=== PATIENT | female | born 1965 | race Caucasian/White ===

== ENCOUNTER 2018-06-10 09:01 | Emergency (ER) | payer OTHER, SELFPAY ==
[2018-06-10 09:06] VITALS: BP 150/102; PULSE 114; RESP 16; TEMP 36.6; O2SAT 98
--- NOTE | 2018-06-10 09:39 | W.ED.GENAD ---
Discharge Plan Disposition Patient Disposition: HOME Discharge Details Chief Complaint: Orthopedic Clinical Impression: Right wrist sprain Primary Care Provider: Kwame Romero ED Provider: Bashir Mendoza Home Meds and New Rx's Prescriptions: No Action ibuprofen 600 MG tablet 600 mg PO TID RF: 0 Discharge Instructions Instructions: Wrist Sprain (ED) Additional Instructions: Please use wrist splint for the next 1 week. If pain persist continue to use the splint and follow-up with your primary care physician or an nutrition specialist. Please take Tylenol or ibuprofen for pain. Dose according to label. Please contact your primary care physician to arrange follow-up. Return to the ER for any worsening or new concerning symptoms. Stand Alone Forms: Work Release Referrals: Kwame Romero MD [Primary Care Provider] - Discharge Data Discharge Date/Time-TO BE ENTERED AT DEPARTURE: 06/10/18 11:15 Medical Decision Making 53-year-old female presents with right wrist pain after slip and fall and hyperextension injury just prior to arrival. Neurovascular intact distally. Tender to palpation posterior wrist. No scaphoid tenderness. X-ray of the wrist reviewed and interpreted by radiology: Negative for fracture dislocation. Offered Tylenol and Motrin and patient declined. Plan to apply wrist splint and have patient follow-up with her primary care physician or occupational health as needed. HPI General Mode of arrival: ambulatory. Date/Time Provider Initiated Documentation: 06/10/18 09:38. Limitations to Documentation: no limitations. Information obtained by: patient. HPI Narrative: 53-year-old female presents with right wrist pain after slip and fall and hyperextension injury just prior to arrival. Pain is moderate. Worse with flexion of wrist. No assoc numbness. No other injury. Related Data Home Medications Medication Instructions Recorded Confirmed ibuprofen 600 mg PO TID 12/23/13 06/10/18 Allergies Allergy/AdvReac Type Severity Reaction Status Date / Time codeine AdvReac Nausea Unverified 06/10/18 09:08 General Stated Complaint: Orthopedic RODO: 4 Review of Systems Musculoskeletal Reports as per HPI Neurologic Reports as per HPI [facility] Social History Smoking/Tobacco Use Status: Current every day Social History Smoking/Tobacco Use Status: Current every day Exam Const General: cooperative and no acute distress HENMT Head: normocephalic and atraumatic Mouth: moist mucous membranes Cardio Rate: regular rate and not tachycardic Rhythm: regular rhythm Neuro General: alert, awake, oriented x3 and tone normal Extrem General: no edema Right upper extremity: elbow/forearm Details: normal to inspection, wrist Details: tenderness Location: of the distal radius, abnormal ROM (pain with flexion) and radial pulse present; no lacerations, no crepitus and no deformity and hand Details: normal to inspection Course Vital Signs Temperature 36.6 C 06/10/18 09:06 Pulse 114 H 06/10/18 09:06 Respiratory Rate 16 06/10/18 09:06 Blood Pressure 150/102 H 06/10/18 09:06 Pulse Oximetry 98 06/10/18 09:06 Temperature 36.6 C 06/10/18 09:06 Temperature Source Temporal Artery Scan 06/10/18 09:06 Pulse 114 H 06/10/18 09:06 Respiratory Rate 16 06/10/18 09:06 Respiratory Effort 06/10/18 09:08 Blood Pressure 150/102 H 06/10/18 09:06 Blood Pressure Position Sitting 06/10/18 09:06 Pulse Oximetry 98 06/10/18 09:06 Oxygen Delivery Method Room Air 06/10/18 09:06 Oxygen Flow Rate 0 06/10/18 09:06 Pain Level 5 06/10/18 09:11
--- NOTE | 2018-06-10 09:45 | DI.RAD_ITS ---
SYMPTOM/DIAGNOSIS: FALL 1 HOUR AGO, HYPEREXTENSION, TTP DORSAL WRIST RIGHT WRIST: No fracture or dislocation is seen. IMPRESSION: Negative right wrist.
--- NOTE | 2018-06-10 10:50 | ED.GENADUL_ITS ---
Discharge Plan Disposition Patient Disposition: HOME Discharge Details Chief Complaint: Orthopedic Clinical Impression: Right wrist sprain Primary Care Provider: Kwame Romero ED Provider: Bashir Mendoza Home Meds and New Rx's Prescriptions: No Action ibuprofen 600 MG tablet 600 mg PO TID RF: 0 Discharge Instructions Instructions: Wrist Sprain (ED) Additional Instructions: Please use wrist splint for the next 1 week. If pain persist continue to use the splint and follow-up with your primary care physician or an technology integration specialist. Please take Tylenol or ibuprofen for pain. Dose according to label. Please contact your primary care physician to arrange follow-up. Return to the ER for any worsening or new concerning symptoms. Stand Alone Forms: Work Release Referrals: Kwame Romero MD [Primary Care Provider] - Discharge Data Discharge Date/Time-TO BE ENTERED AT DEPARTURE: 06/10/18 11:15 Medical Decision Making 53-year-old female presents with right wrist pain after slip and fall and hyperextension injury just prior to arrival. Neurovascular intact distally. Tender to palpation posterior wrist. No scaphoid tenderness. X-ray of the wrist reviewed and interpreted by radiology: Negative for fracture dislocation. Offered Tylenol and Motrin and patient declined. Plan to apply wrist splint and have patient follow-up with her primary care physician or occupational health as needed. HPI General Mode of arrival: ambulatory . Date/Time Provider Initiated Documentation: 06/10/18 09:38 . Limitations to Documentation: no limitations . Information obtained by: patient . HPI Narrative: 53-year-old female presents with right wrist pain after slip and fall and hyperextension injury just prior to arrival. Pain is moderate. Worse with flexion of wrist. No assoc numbness. No other injury. Related Data Home Medications Medication Instructions Recorded Confirmed ibuprofen 600 mg PO TID 12/23/13 06/10/18 Allergies Allergy/AdvReac Type Severity Reaction Status Date / Time codeine AdvReac Nausea Unverified 06/10/18 09:08 General Stated Complaint: Orthopedic RODO: 4 Review of Systems Musculoskeletal Reports as per HPI Neurologic Reports as per HPI [facility] Social History Smoking/Tobacco Use Status: Current every day Social History Smoking/Tobacco Use Status: Current every day Exam Const General: cooperative and no acute distress HENMT Head: normocephalic and atraumatic Mouth: moist mucous membranes Cardio Rate: regular rate and not tachycardic Rhythm: regular rhythm Neuro General: alert, awake, oriented x3 and tone normal Extrem General: no edema Right upper extremity: elbow/forearm Details: normal to inspection, wrist Details: tenderness Location: of the distal radius, abnormal ROM (pain with flexion) and radial pulse present; no lacerations, no crepitus and no deformity and hand Details: normal to inspection Course Vital Signs Temperature 36.6 C 06/10/18 09:06 Pulse 114 H 06/10/18 09:06 Respiratory Rate 16 06/10/18 09:06 Blood Pressure 150/102 H 06/10/18 09:06 Pulse Oximetry 98 06/10/18 09:06 Temperature 36.6 C 06/10/18 09:06 Temperature Source Temporal Artery Scan 06/10/18 09:06 Pulse 114 H 06/10/18 09:06 Respiratory Rate 16 06/10/18 09:06 Respiratory Effort 06/10/18 09:08 Blood Pressure 150/102 H 06/10/18 09:06 Blood Pressure Position Sitting 06/10/18 09:06 Pulse Oximetry 98 06/10/18 09:06 Oxygen Delivery Method Room Air 06/10/18 09:06 Oxygen Flow Rate 0 06/10/18 09:06 Pain Level 5 06/10/18 09:11
[2018-06-10 11:21] VITALS: BP 160/100; PULSE 98; RESP 14; O2SAT 98
== END 2018-06-10 11:15 | disposition home or self-care (01) ==
PROVIDERS: Emergency Provider Student in an Organized Health Care Education/Training Program; PCP General Practice
DX: S63.501A Unspecified sprain of right wrist, initial encounter (principal); W01.0XXA Fall on same level from slipping, tripping and stumbling without subsequent striking against object, initial encounter
CPT/HCPCS: 29125; 99283; 73110; 99282; L3908

== ENCOUNTER 2018-07-23 05:11 | Emergency (ER) | payer OTHER, SELFPAY ==
[2018-07-23 05:14] VITALS: BP 128/98; PULSE 96; RESP 20; TEMP 36.6; O2SAT 94
--- NOTE | 2018-07-23 05:26 | W.ED.GENAD ---
Discharge Plan Disposition Patient Disposition: HOME Condition: Good Discharge Details Chief Complaint: SOB Clinical Impression: Viral respiratory illness, RAD (reactive airway disease) Primary Care Provider: Kwame Romero ED Provider: Liam Yuen Home Meds and New Rx's Prescriptions: New albuterol sulfate 90 mcg/actuation HFA aerosol inhaler 2 puff IH Q4H PRN (Reason: shortness of breath or wheezing) Qty: 8 RF: 0 Continued ibuprofen 600 MG tablet 600 mg PO TID RF: 0 Discharge Instructions Instructions: Reactive Airways Disease (ED), Viral Syndrome (ED) Additional Instructions: Rest for the next few days. Push fluids to stay hydrated. Use the inhaler every 4-6 hours for cough, wheezing, shortness of breath. Follow-up with primary care this week if not better. Return to ED for increasing shortness of breath, confusion, chest pain, other concerns per Stand Alone Forms: Work Release Referrals: Kwame Romero MD [Primary Care Provider] - Medical Decision Making I think this is probably related to her viral illness and smoking. She is diminished with some wheezing. She is given an albuterol neb. With this her shortness of breath and burning in her chest resolved. She had much better air movement and actually a little bit louder wheezing. Still feels a little lightheaded and dizzy. Repeat saturations on room air after neb 96%. Little more tacky with a neb. Feels better. I am not going to start steroids. I am going to give her a couple days off from work to continue to rest and drink fluids. She will receive an inhaler with spacer to use every 4-6 hours. Follow-up with primary care end of the week if not doing better. Return to ED if worse. HPI General Mode of arrival: ambulatory. Date/Time Provider Initiated Documentation: 07/23/18 05:13. Limitations to Documentation: no limitations. Information obtained by: patient. HPI Narrative: Patient presents to ED with complaint of cough and shortness of breath. Over the weekend she was ill with body aches, headache, sweats and chills. She had a cough but did not really feel short of breath. Never developed congestion or runny nose. She does smoke. She did go to work yesterday and did okay. Today while trying to go to work she developed shortness of breath and burning in her lungs when she tried to take a deep breath. She had some increased cough. She presents now for evaluation. She denies having chest pain. She just has burning when she takes a deep breath. Sweats and chills have gone away. The headache is gone away. Related Data Home Medications Medication Instructions Recorded Confirmed ibuprofen 600 mg PO TID 12/23/13 07/23/18 albuterol sulfate 2 puff IH Q4H PRN #8 gm 07/23/18 Previous Rx's Medication Instructions Recorded albuterol sulfate 2 puff IH Q4H PRN #8 gm 07/23/18 Allergies Allergy/AdvReac Type Severity Reaction Status Date / Time codeine AdvReac Nausea Unverified 07/23/18 05:17 General Stated Complaint: SOB RODO: 3 Review of Systems Constitutional Reports body ache(s), Reports chills, Reports excessive sweating, Reports fatigue, Denies fever(s), Reports headache(s), Reports malaise and Denies weakness Eyes Denies eye discharge ENT Denies otalgia, Reports headache(s), Denies nasal congestion, Denies nasal discharge, Denies neck pain, Denies sinus pain, Denies sinus pressure and Denies sore throat Cardiovascular Denies chest pain, Denies syncope, Reports lightheadedness, Denies radiating jaw, neck or arm pain and Reports dyspnea Respiratory Denies chest congestion, Reports cough and Reports dyspnea Gastrointestinal Denies abdominal pain, Denies diarrhea, Denies nausea and Denies vomiting Musculoskeletal Denies back pain, Denies neck pain and Denies numbness Integumentary/Breasts Denies rash Neurologic Denies confusion, Denies syncope, Reports headache(s), Denies numbness and Denies weakness Psychiatric Denies confusion Endocrine Reports excessive sweating and Reports fatigue [facility] Surgical History H/O: hysterectomy (Inactive) Social History Smoking/Tobacco Use Status: Current every day Exam Const General: cooperative, comfortable and no acute distress Orientation: oriented x3 HENMT Head: normocephalic and atraumatic Ears: external ears normal and TM's normal bilaterally General nose exam: no nasal discharge Mouth: oropharynx normal and moist mucous membranes Throat: posterior oropharynx normal Eyes Conjunctivae: conjunctivae normal Neck Neck: trachea midline and supple Resp Effort & Inspection: normal respiratory effort Auscultation: no crackles, diminished lung sounds (somewhat decreased throughout), no rales, no rhonchi and wheezes expiratory wheezes (faint) Cardio Rate: regular rate Rhythm: regular rhythm Heart Sounds: S1 normal and S2 normal Skin General skin exam: no rashes or lesions noted Neuro General: alert, oriented x3, gait normal, no focal motor deficits and CN's II-XI intact bilaterally Extrem General: normal to inspection and full ROM Course Vital Signs Temperature 97.9 F 07/23/18 05:14 Pulse 96 H 07/23/18 05:14 Respiratory Rate 20 07/23/18 05:14 Blood Pressure 128/98 H 07/23/18 05:14 Pulse Oximetry 94 L 07/23/18 05:14 Temperature 97.9 F 07/23/18 05:14 Temperature Source Skin 07/23/18 05:14 Pulse 96 H 07/23/18 05:14 Respiratory Rate 20 07/23/18 05:14 Blood Pressure 128/98 H 07/23/18 05:14 Blood Pressure Position Sitting 07/23/18 05:14 Pulse Oximetry 94 L 07/23/18 05:14 Oxygen Delivery Method Room Air 07/23/18 05:14 Oxygen Flow Rate 0 07/23/18 05:14 Pain Level 4 07/23/18 05:14
[2018-07-23 05:29] VITALS: RESP 4
[2018-07-23] MEDS: Albuterol 2.5 MG/3 ML INH SOLN VIAL UPD (05:29)
--- NOTE | 2018-07-23 05:34 | ED.GENADUL_ITS ---
Discharge Plan Disposition Patient Disposition: HOME Condition: Good Discharge Details Chief Complaint: SOB Clinical Impression: Viral respiratory illness, RAD (reactive airway disease) Primary Care Provider: Kwame Romero ED Provider: Liam Yuen Home Meds and New Rx's Prescriptions: New albuterol sulfate 90 mcg/actuation HFA aerosol inhaler 2 puff IH Q4H PRN (Reason: shortness of breath or wheezing) Qty: 8 RF: 0 Continued ibuprofen 600 MG tablet 600 mg PO TID RF: 0 Discharge Instructions Instructions: Reactive Airways Disease (ED), Viral Syndrome (ED) Additional Instructions: Rest for the next few days. Push fluids to stay hydrated. Use the inhaler every 4-6 hours for cough, wheezing, shortness of breath. Follow-up with primary care this week if not better. Return to ED for increasing shortness of breath, confusion, chest pain, other concerns per Stand Alone Forms: Work Release Referrals: Kwame Romero MD [Primary Care Provider] - Medical Decision Making I think this is probably related to her viral illness and smoking. She is diminished with some wheezing. She is given an albuterol neb. With this her shortness of breath and burning in her chest resolved. She had much better air movement and actually a little bit louder wheezing. Still feels a little lightheaded and dizzy. Repeat saturations on room air after neb 96%. Little more tacky with a neb. Feels better. I am not going to start steroids. I am going to give her a couple days off from work to continue to rest and drink fluids. She will receive an inhaler with spacer to use every 4-6 hours. Follow-up with primary care end of the week if not doing better. Return to ED if worse. HPI General Mode of arrival: ambulatory . Date/Time Provider Initiated Documentation: 07/23/18 05:13 . Limitations to Documentation: no limitations . Information obtained by: patient . HPI Narrative: Patient presents to ED with complaint of cough and shortness of breath. Over the weekend she was ill with body aches, headache, sweats and chills. She had a cough but did not really feel short of breath. Never developed congestion or runny nose. She does smoke. She did go to work yesterday and did okay. Today while trying to go to work she developed shortness of breath and burning in her lungs when she tried to take a deep breath. She had some increased cough. She presents now for evaluation. She denies having chest pain. She just has burning when she takes a deep breath. Sweats and chills have gone away. The headache is gone away. Related Data Home Medications Medication Instructions Recorded Confirmed ibuprofen 600 mg PO TID 12/23/13 07/23/18 albuterol sulfate 2 puff IH Q4H PRN #8 gm 07/23/18 Previous Rx's Medication Instructions Recorded albuterol sulfate 2 puff IH Q4H PRN #8 gm 07/23/18 Allergies Allergy/AdvReac Type Severity Reaction Status Date / Time codeine AdvReac Nausea Unverified 07/23/18 05:17 General Stated Complaint: SOB RODO: 3 Review of Systems Constitutional Reports body ache(s), Reports chills, Reports excessive sweating, Reports fatigu e, Denies fever(s), Reports headache(s), Reports malaise and Denies weakness Eyes Denies eye discharge ENT Denies otalgia, Reports headache(s), Denies nasal congestion, Denies nasal discharge, Denies neck pain, Denies sinus pain, Denies sinus pressure and Denies sore throat Cardiovascular Denies chest pain, Denies syncope, Reports lightheadedness, Denies radiating jaw, neck or arm pain and Reports dyspnea Respiratory Denies chest congestion, Reports cough and Reports dyspnea Gastrointestinal Denies abdominal pain, Denies diarrhea, Denies nausea and Denies vomiting Musculoskeletal Denies back pain, Denies neck pain and Denies numbness Integumentary/Breasts Denies rash Neurologic Denies confusion, Denies syncope, Reports headache(s), Denies numbness and Denies weakness Psychiatric Denies confusion Endocrine Reports excessive sweating and Reports fatigue [facility] Surgical History H/O: hysterectomy (Inactive) Social History Smoking/Tobacco Use Status: Current every day Exam Const General: cooperative, comfortable and no acute distress Orientation: oriented x3 HENMT Head: normocephalic and atraumatic Ears: external ears normal and TM's normal bilaterally General nose exam: no nasal discharge Mouth: oropharynx normal and moist mucous membranes Throat: posterior oropharynx normal Eyes Conjunctivae: conjunctivae normal Neck Neck: trachea midline and supple Resp Effort & Inspection: normal respiratory effort Auscultation: no crackles, diminished lung sounds (somewhat decreased throughout), no rales, no rhonchi and wheezes expiratory wheezes (faint) Cardio Rate: regular rate Rhythm: regular rhythm Heart Sounds: S1 normal and S2 normal Skin General skin exam: no rashes or lesions noted Neuro General: alert, oriented x3, gait normal, no focal motor deficits and CN's II-XI intact bilaterally Extrem General: normal to inspection and full ROM Course Vital Signs Temperature 97.9 F 07/23/18 05:14 Pulse 96 H 07/23/18 05:14 Respiratory Rate 20 07/23/18 05:14 Blood Pressure 128/98 H 07/23/18 05:14 Pulse Oximetry 94 L 07/23/18 05:14 Temperature 97.9 F 07/23/18 05:14 Temperature Source Skin 07/23/18 05:14 Pulse 96 H 07/23/18 05:14 Respiratory Rate 20 07/23/18 05:14 Blood Pressure 128/98 H 07/23/18 05:14 Blood Pressure Position Sitting 07/23/18 05:14 Pulse Oximetry 94 L 07/23/18 05:14 Oxygen Delivery Method Room Air 07/23/18 05:14 Oxygen Flow Rate 0 07/23/18 05:14 Pain Level 4 07/23/18 05:14
[2018-07-23 05:45] VITALS: RESP 20
[2018-07-23 05:46] VITALS: BP 131/85; PULSE 107; RESP 20; O2SAT 96
[2018-07-23] MEDS: Albuterol HFA 8 GM 60 PUFF INH IH (06:11)
[2018-07-23] MEDS: Inhaler, Assist Device 1 EACH MC (06:11)
== END 2018-07-23 06:12 | disposition home or self-care (01) ==
LOC: ER 06:11
PROVIDERS: Emergency Provider Emergency Medicine; PCP General Practice
DX: J44.0 Chronic obstructive pulmonary disease with (acute) lower respiratory infection (principal); J06.9 Acute upper respiratory infection, unspecified; J45.909 Unspecified asthma, uncomplicated; F17.210 Nicotine dependence, cigarettes, uncomplicated
CPT/HCPCS: 94640; 99283; J7613

== ENCOUNTER 2019-11-24 19:01 | Outpatient (REF) | payer SELFPAY ==
[2019-11-24 20:23] LABS: Calculated LDL 112 mg/dL (<100); Cholesterol 187 mg/dL (<200); HDL Cholesterol 60 mg/dL (40-60); Triglyceride 75 mg/dL (<150)
[2019-11-24 20:34] LABS: Hemoglobin A1C 5.7 % (3.8-5.6)
== END 2019-11-24 19:21 ==
LOC: NCHCN 19:01
PROVIDERS: PCP Nurse Practitioner; Visit Provider Nurse Practitioner
DX: Z13.1 Encounter for screening for diabetes mellitus (principal); Z13.6 Encounter for screening for cardiovascular disorders
CPT/HCPCS: 80061; 83036

== ENCOUNTER 2022-03-16 19:40 | Outpatient (REF) | payer SELFPAY ==
[2022-03-17 13:38] LABS: Abs Immature Grans 0.04 10^3/uL (0.0-0.06); Absolute Basophil Count 0.08 10^3/uL (0.0-0.2); Absolute Eosinophil Count 0.35 10^3/uL (0.0-0.7); Absolute Lymphocyte Count 3.27 10^3/uL (1.2-3.4); Absolute Monocyte Count 1.07 10^3/uL (0.1-0.8); Absolute Neutrophil Count 5.66 10^3/uL (1.2-6.7); Basophils % 0.8; Eosinophils % 3.3; HCT 44.1 % (36.0-46.0); HGB 13.8 g/dL (11.2-15.7); Immature Grans % 0.4; Lymphocytes % 31.2; MCH 29.7 pg (27.0-33.0); MCHC 31.3 % (32.0-36.0); MCV 95 fL (80-95); MPV 10.8 fL (8.0-11.0); Monocytes % 10.2; Neutrophils % 54.1; Platelet Count 237 10^3/uL (130-400); RBC 4.65 10^6/uL (3.93-5.22); RDW 12.9 % (11.7-14.6); RDW-SD 44.8 fL; WBC 10.47 10^3/uL (4.4-10.8)
[2022-03-17 13:43] LABS: Anion Gap 6.3 mmol/L (3-11); BUN 25 mg/dL (7-18); CO2 30.7 mmol/L (21.0-32.0); CREATININE 1.1 mg/dL (0.55-1.02); Chloride 103 mmol/L (98-107); Estimated GFR 59.34 (mL/min/1.73m2); Glucose 107 mg/dL (74-106); Potassium 4.7 mmol/L (3.5-5.1); Sodium 140 mmol/L (136-145)
[2022-03-17 13:49] LABS: Calcium 9.5 mg/dL (8.5-10.1)
[2022-03-17 13:52] LABS: Hemoglobin A1C 5.9 % (<5.7)
== END 2022-03-16 19:41 | disposition home or self-care (01) ==
LOC: NCHCN 19:40
PROVIDERS: PCP Nurse Practitioner; Visit Provider Nurse Practitioner Family
DX: R73.03 Prediabetes (principal); R63.4 Abnormal weight loss; I10 Essential (primary) hypertension
CPT/HCPCS: 80048; 83036; 85025

== ENCOUNTER 2023-04-02 20:45 | Emergency (ER) | payer OTHER, SELFPAY ==
--- NOTE | 2023-04-02 20:47 | ED.GENADUL_ITS ---
Discharge Plan Disposition Patient Disposition: Home Discharge Details Clinical Impression: Nasal contusion, Hx of falling Primary Care Provider: Maegan Ness ED Provider: Aquilino Wallace Home Meds and New Rx's Prescriptions: Continued ascorbic acid (vitamin C) 500 mg capsule 500 mg PO DAILY varenicline [Chantix Starting Month Box] 0.5 mg (11)- 1 mg (42) tablets,dose pack See Rx Instructions PO DIRECTED Qty: 53 0RF Rx Instructions: Take 0.5mg daily days 1 to 3, 0.5mg twice a day days 4-7, then 1mg twice a day for 11wks amlodipine 5 mg tablet 5 mg PO DAILY Qty: 90 3RF lisinopril 40 mg tablet 40 mg PO DAILY Qty: 90 3RF ibuprofen 600 MG tablet 600 mg PO TID Discharge Instructions Additional Instructions: Please read all of the information that accompanies these instructions. You were seen in the emergency department for your fall. You have a bruise on your nose and likely have a fracture. You were offered a CAT scan but declined. If you have difficulty breathing or develop any nasal bleeding that does not stop please return to the emergency department. The ear nose and throat team will call you for follow-up later this week. For your pain please take medications as follows: 1. Take acetaminophen (Tylenol), 1,000 mg (two 500 mg tabs) every 6 hours 2. Take ibuprofen (Advil), 400 mg every 6 hours. Medical Decision Making HPI This is a 57-year-old female arriving to the emergency department with her daughter after falling down some stairs. Patient reports that she was pulled down the stairs approximately 1 hour ago by her dog. She is not anticoagulated. She landed on her face and has pain in her forehead and her nose. She has not taken anything for analgesia at home. She denies nausea vomiting blurry vision but she does have a headache. She did not lose consciousness. She has been ambulatory since her fall. She denies chest pain abdominal pain. She feels that her teeth are aligned. She denies pain in any of her extremities. Exam General: Well-appearing in no acute distress speaking in complete sentences. Head: Normocephalic. Atraumatic. Eye: Pupils equal, round reactive to light. Extraocular eye movements intact. No conjunctival injection. No scleral icterus. Ear, nose, mouth, throat: Normal voice, handling secretions normally. No hemotympanum bilaterally. No septal hematoma. Patient does have ecchymosis to the bridge of her nose with left-sided nasal deviation. No epistaxis. No signs of intraoral trauma. Patient is able to hold a tongue depressor in between her teeth on both sides and does not let me remove it. Neck: Trachea midline. No midline cervical spinal tenderness. Cardiovascular: Well-perfused distal extremities. Regular rate and rhythm. Respiratory: Nonlabored respiration. Clear lungs bilaterally. Gastrointestinal: Nondistended abdomen. Soft nontender. Musculoskeletal: No edema. Moving all 4 extremities spontaneously. No tenderness to bilateral upper and lower extremities. Skin: Normal for age and race, grossly normal temperature and turgor. No acute rash. Neurologic: Alert and appropriate, no apparent acute deficits. GCS 15. Psychiatric: Mood and manner are appropriate. Grooming and personal hygiene are appropriate. MDM Primary survey intact. Reassuring shock index. On secondary survey patient has nasal bridge swelling with ecchymosis concerning for fracture. No hemotympanum bilaterally and no LOC. Given the patient is less than [address] head based on N[place] CT head rules. Patient has intact tongue depressor test so I am not concerned for mandibular fracture. No cervical spinal tenderness to suggest increased risk for cervical spinal fracture. No indication for CT head cervical spine based on Nexus criteria. No afferent pupillary defect to suggest indication for lateral canthotomy as I am not suspicious for retrobulbar hematoma. We will attempt treatment with ice acetaminophen and ibuprofen. Per Nexus criteria, cervical CT not obtained. The patient had no c-spine midline tenderness, no evidence of intoxication, was AAOx3, had no focal neurological deficits, and no painful distracting injuries. [place] Head CT Criteria Major Criteria GCS < 15 : [No] Open or depressed skull Fx: [No] Sign of Basilar Skull Fx: [No] > 2 Episodes Vomiting: [No] Anticoagulation: [No] Age > 65: [No] Minor Criteria Retrograde Amnesia >30min: [No] Dangerous Mechanism: [No] Per [place] head CT rules, CT head not obtained. The patient had a GCS of 15, no open/depressed skull fracture, no signs of basilar skull fracture (hemotympanum, raccoon eyes, griffin's sign, CSF [place]/Rhinorrhea), no vomiting, and is less than 65 years of age. 9:30 PM After initially consenting to a CT maxillofacial patient declined. 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 I did advise her that if she developed any shortness of breath any persistent epistaxis or had any worsening pain that she should return to the emergency department. I have asked health community relations assistant Cindy to have the patient seen later this week by ENT. We will proceed with empiric trial of expectant outpatient management. Repeat heart rate normalized in the ED. I spoke with the patient about sinus precautions and avoiding blowing her nose. I advised that if her swelling improved and she felt that her nose was well aligned she did not need to follow-up with ENT. I advised acetaminophen. Ibuprofen for pain. HPI General Date/Time Provider Initiated Documentation: 04/02/23 20:47 . Related Data Home Medications Medication Instructions Recorded Confirmed ibuprofen 600 mg tablet 600 mg PO TID 12/23/13 12/18/22 ascorbic acid (vitamin C) 500 mg 500 mg PO DAILY 11/24/19 12/18/22 capsule varenicline 0.5 mg (11)-1 mg (42) See Rx Instructions PO DIRECTED 12/24/22 tablets in a dose pack (Chantix #53 dose pk Starting Month Box) amlodipine 5 mg tablet 5 mg PO DAILY #90 tabs 03/19/23 lisinopril 40 mg tablet 40 mg PO DAILY #90 tabs 03/19/23 Previous Rx's Medication Instructions Recorded varenicline 0.5 mg (11)-1 mg (42) See Rx Instructions PO DIRECTED 12/24/22 tablets in a dose pack (Chantix #53 dose pk Starting Month Box) amlodipine 5 mg tablet 5 mg PO DAILY #90 tabs 03/19/23 lisinopril 40 mg tablet 40 mg PO DAILY #90 tabs 03/19/23 Allergies Allergy/AdvReac Type Severity Reaction Status Date / Time codeine AdvReac Nausea Verified 12/18/22 09:28 General RODO: 3 PFSH All Active Problems (Updated 04/02/23 @ 21:28 by Aquilino Wallace MD) Nasal contusion (Acute) Hx of falling (Acute) Grief reaction (Chronic) Weight loss (Acute) Tobacco dependence (Acute) HTN (hypertension) (Chronic) Prediabetes (Acute) Medical History (Updated 04/02/23 @ 21:28 by Aquilino Wallace MD) Spontaneous pneumothorax 10/1992 Surgical History H/O: hysterectomy S/P abdominal hysterectomy and right salpingo-oophorectomy Family History (Updated 11/24/19 @ 14:22 by Virginia Lynch NP) Mother , brain aneurism age 84 No problems noted. Father , 51 Heart disease Hypertension Sister Hypertension Brother No problems noted. Maternal Grandmother Diabetes Brother No problems noted. Social History (Updated 12/22/22 @ 10:16 by Lilliam Vance) Smoking/Tobacco Use Status: Current every day Tobacco Type: cigarettes Tobacco: How many years used: 35 Quit status: considering quitting Smoking risk assessment performed?: Yes Drug use: Never Substance use type: does not use Household members: none Housing: house Communication Needs: None Do you need help understanding health information?: Never current occupation: [employer] Pets and animals: Yes Pets and animals: dog(s) Sexually active: No Do you think of yourself as: straight/heterosexual Current gender identity: female How often do you talk on the phone with friends or family?: decline to answer How often do you get together with friends or relatives?: decline to answer How often do you attend sabianism or latter-day services?: decline to answer Do you belong to any clubs or organized social groups?: decline to answer Duration: decline to answer Frequency: decline to answer Seatbelt use: always Helmet use: Yes Do you feel safe in your relationship?: Yes
[2023-04-02 20:53] VITALS: BP 113/95; PULSE 108; RESP 14; O2SAT 94
[2023-04-02] MEDS: Acetaminophen 500 MG TAB 1000 MG PO (21:13)
[2023-04-02] MEDS: Ibuprofen 600 MG TAB PO (21:13)
[2023-04-02 21:14] VITALS: TEMP 37.2
[2023-04-02 21:26] VITALS: PULSE 95; RESP 16; O2SAT 98
--- NOTE | 2023-04-02 21:29 | NUR.NOTE ---
Referral E-mailed to [facility] ENT to follow up later this week for nasal contusion after fall.Nursing Note:
== END 2023-04-02 21:45 | disposition home or self-care (01) ==
PROVIDERS: Emergency Provider Emergency Medicine; PCP Nurse Practitioner Family
DX: S00.33XA Contusion of nose, initial encounter (principal); W10.9XXA Fall (on) (from) unspecified stairs and steps, initial encounter; Y93.K1 Activity, walking an animal; F17.210 Nicotine dependence, cigarettes, uncomplicated
CPT/HCPCS: 99283

== ENCOUNTER → 2023-04-23 13:45 | Outpatient (CLI) | payer OTHER, SELFPAY ==
--- NOTE | 2023-04-23 15:33 | DI.RAD_ITS ---
Exam(s) XR CHEST 2V PA LATERAL EXAM: XR CHEST 2V PA LATERAL CLINICAL HISTORY: COUGH, R05.8 TECHNIQUE: 2D digital imaging was performed of the chest. Two images were obtained. PA and lateral views were obtained. COMPARISON: No exams were available for comparison FINDINGS: MEDIASTINUM: Normal. HEART: Normal. PULMONARY VASCULATURE: Normal. LUNGS: The lungs are hyperinflated consistent with COPD. No focal consolidating infiltrates are seen . PLEURAL SPACE: No pleural effusion or pneumothorax. BONE:Within normal limits for the patient's age. OTHER FINDINGS:Normal. IMPRESSION: 1. No acute pulmonary findings. 2. COPD. DATA REPOSITORY: RADIATION DOSE DELIVERED:
== END ==
PROVIDERS: PCP Nurse Practitioner Family; Visit Provider Nurse Practitioner Family
DX: J44.9 Chronic obstructive pulmonary disease, unspecified (principal)
CPT/HCPCS: 71046

== ENCOUNTER 2023-04-23 19:59 | Outpatient (REF) | payer OTHER, SELFPAY ==
[2023-04-23 14:14] LABS: Abs Immature Grans 0.03 10^3/uL (0.0-0.06); Absolute Basophil Count 0.08 10^3/uL (0.0-0.2); Absolute Eosinophil Count 0.42 10^3/uL (0.0-0.7); Absolute Lymphocyte Count 2.18 10^3/uL (1.2-3.4); Absolute Monocyte Count 1.14 10^3/uL (0.1-0.8); Absolute Neutrophil Count 5.76 10^3/uL (1.2-6.7); Basophils % 0.8; Eosinophils % 4.4; HCT 50.5 % (36.0-46.0); HGB 15.9 g/dL (11.2-15.7); Immature Grans % 0.3; Lymphocytes % 22.7; MCH 29.3 pg (27.0-33.0); MCHC 31.5 % (32.0-36.0); MCV 93 fL (80-95); MPV 9.5 fL (8.0-11.0); Monocytes % 11.9; Neutrophils % 59.9; Platelet Count 253 10^3/uL (130-400); RBC 5.43 10^6/uL (3.93-5.22); RDW 13.8 % (11.7-14.6); RDW-SD 46.7 fL; WBC 9.61 10^3/uL (4.4-10.8)
[2023-04-23 14:38] LABS: D-Dimer 233 ng/mlFEU (<500)
== END 2023-04-23 20:00 | disposition home or self-care (01) ==
LOC: NCHCN 19:59
PROVIDERS: PCP Nurse Practitioner Family; Visit Provider Nurse Practitioner Family
DX: R06.02 Shortness of breath (principal)
CPT/HCPCS: 85025; 85379

== ENCOUNTER 2023-04-27 17:39 | Inpatient (IN) | payer OTHER, SELFPAY ==
[2023-04-27] VITALS (52 sets, daily range): BP systolic 120–173; BP diastolic 81–138; PULSE 98–140; RESP 5–35; TEMP 36.6–36.8; O2SAT 70–99
--- NOTE | 2023-04-27 17:45 | RT.EKG_ITS ---
APPROVED REPORT Exam: Resting ECG Reason for Exam: sob Patient Location: E HR:122 bpm ECG Measurements Heart Rate 122 AXIS LA 116 P 86 QRSd 80 QRS 158 QT 312 T 78 QTc 445 Conclusion Sinus tachycardia...rate> 99
[2023-04-27] MEDS: Albuterol/Ipratropium 3 ML UPD VIAL (18:07)
[2023-04-27 18:15] LABS: Abs Immature Grans 0.03 10^3/uL (0.0-0.06); Absolute Basophil Count 0.09 10^3/uL (0.0-0.2); Absolute Eosinophil Count 0.66 10^3/uL (0.0-0.7); Absolute Lymphocyte Count 2.12 10^3/uL (1.2-3.4); Absolute Neutrophil Count 7.33 10^3/uL (1.2-6.7); Basophils % 0.8; Eosinophils % 5.7; HCT 46.9 % (36.0-46.0); HGB 14.8 g/dL (11.2-15.7); Immature Grans % 0.3; Lymphocytes % 18.4; MCH 29.3 pg (27.0-33.0); MCHC 31.6 % (32.0-36.0); MCV 93 fL (80-95); MPV 8.9 fL (8.0-11.0); Monocytes % 11.3; Neutrophils % 63.5; Platelet Count 230 10^3/uL (130-400); RBC 5.05 10^6/uL (3.93-5.22); RDW 13.7 % (11.7-14.6); RDW-SD 46.5 fL; WBC 11.54 10^3/uL (4.4-10.8)
[2023-04-27] MEDS: Dexamethasone 10 MG/ML VIAL IVP (18:16)
[2023-04-27 18:37] LABS: ALT 22 U/L (14-59); AST 23 U/L (15-37); Alkaline Phosphatase 75 U/L (46-116); Anion Gap 2.6 mmol/L (3-11); BUN 17 mg/dL (7-18); Bilirubin, Total 0.4 mg/dL (0.2-1.0); CO2 34.4 mmol/L (21.0-32.0); CREATININE 0.7 mg/dL (0.55-1.02); Calcium 9.7 mg/dL (8.5-10.1); Chloride 93 mmol/L (98-107); Estimated GFR 101.44 (mL/min/1.73m2); Glucose 119 mg/dL (74-106); Magnesium 2.1 mg/dL (1.8-2.4); NT-proBNP 9729 pg/mL (<300); Potassium 4.8 mmol/L (3.5-5.1); Sodium 130 mmol/L (136-145); Total Protein 7.1 g/dL (6.4-8.2); Troponin I < 50 ng/L (<or=60)
[2023-04-27] MEDS: Normal Saline 500 ML IV (18:38)
[2023-04-27 18:51] LABS: D-Dimer 217 ng/mlFEU (<500)
[2023-04-27] MEDS: Lisinopril 20 MG TAB 40 MG PO (19:06)
[2023-04-27] MEDS: amLODIPine 5 MG TAB PO (19:06)
--- NOTE | 2023-04-27 19:45 | DI.CT_ITS ---
Exam(s) CT CHEST PE CTA EXAM: CT CHEST PE CTA CLINICAL HISTORY: shortness of breath. TECHNIQUE: Imaging Protocol: Axial CT angiography was performed with multi-slice acquisition and mu lti-planar reconstructions as well as axial, coronal and sagittal MIP reconstructions. CONTRAST MATERIAL: Intravenous: Omnipaque 350 Contrast volume:100 ml COMPARISON: CR XR CHEST 2V PA LATERAL from 04/23/2023 FINDINGS: Pulmonary Arteries: No evidence of filling defect to suggest pulmonary emboli. Tracheobronchial tree: Patent where visualized. No bronchiectasis. Mediastinum and Daina: No dominant adenopathy or fluid collection. Pulmonary parenchyma: Moderate to severe centrilobular emphysema greater in the upper lobes. No cons olidation or dominant measurable mass. Pleura: No effusion or pneumothorax. Heart: The heart is not dilated. Minimal coronary artery calcifications are seen. Aorta: Thoracic aorta non-dilated. No aneurysm. No dissection. Mild calcification at the arch. Upper abdomen: Unremarkable. Bones: Unremarkable for age. Tubes, Catheters, and Lines: None IMPRESSION: No evidence of pulmonary embolism. Moderate to severe centrilobular emphysematous changes. RADIATION DOSE DELIVERED: Total DLP DATA REPOSITORY: All CT scans at this facility are submitted to the National Radiology Data Registry (NRDR) Dose Index Registry (DIR) with the [employer] (ACR). RADIATION OPTIMIZATION: All CT scans at this facility use at least one of these dose optimization te chniques: automated exposure control; mA and/or kV adjustment per patient size (includes targeted exa ms where dose is matched to clinical indication); or iterative reconstruction.
[2023-04-27] MEDS: Normal Saline - Diluent 50 ML VIAL IJ (19:48)
[2023-04-27 20:01] LABS: COVID-19 PCR Negative (Negative); Influenza A PCR Negative (Negative); Influenza B PCR Negative (Negative); RSV PCR Negative (Negative)
[2023-04-27] MEDS: Omnipaque 350 MG/ML 100 ML BTL IJ (20:05)
[2023-04-27 20:14] LABS: Source Nasopharynx
[2023-04-27] MEDS: Albuterol/Ipratropium 3 ML UPD VIAL UPD ×2 (20:31→21:19)
--- NOTE | 2023-04-27 20:59 | W.ED.GENAD ---
Discharge Plan Disposition Patient Disposition: Admit to [facility] Discharge Details Clinical Impression: Acute respiratory failure with hypoxia and hypercapnia, Acute exacerbation of chronic obstructive pulmonary disease (COPD) Admit Date/Time: 04/27/23 21:44 Admit Provider: Wendy Mejía Attending Provider: Wendy Mejía Primary Care Provider: Maegan Ness ED Provider: Charanjit Solis Discharge Data Discharge Date/Time-TO BE ENTERED AT DEPARTURE: 04/27/23 22:36 Medical Decision Making Patient presenting to the emergency department in moderate respiratory distress. Patient states that she has been having some increased shortness of breath with activity that has been worsening over the past month or so. Patient was seen here not too long ago and was given some breathing treatments that improve symptoms but she states today she started having significant worsening of symptoms. She does state that she had smoked fairly excessively for years but stopped 6 days ago. Patient is in moderate respiratory distress with tachypnea and tripod positioning. Upon initial arrival patient had O2 sat in 70% was immediately placed on nasal cannula which did help with O2 sat but still remained tachycardic and hypertensive. She states that she has not taken her blood pressure medication and typically takes them at night. Physical exam shows tight respiratory sounds that are slightly diminished with expiratory wheezing. Given patient's heart rate did order 1 DuoNeb right away along with Decadron and continued oxygen. Will check labs including D-dimer, COVID, and CT imaging. Please see physician interpretation for full interpretation of EKG but upon my review patient is in sinus tachycardia with a rate of 122 no findings consistent with acute STEMI. Review of patient's labs show a slight leukocytosis otherwise nondiagnostic CBC, D-dimer is 217, CMP does show low sodium of 130, chloride of 93, carbon oxide high at 34 for, with a low anion gap. Patient does have negative nondetectable troponin significantly elevated BNP (9729) given no edema, history of CHF, or right lung sounds I find this result did. Patient is negative for COVID flu and RSV. Initial DuoNeb did raise patient's heart rate significantly but she was able to get her oral blood pressure meds and heart rate did come down enough to give another DuoNeb. She did need to remain oxygen dependent to keep O2 sat above 88%. CT imaging was performed and reviewed and does show significant emphysema but no PE or focal findings/consolidations. Patient's O2 sat was looking better and so she was titrated down to 1 L of oxygen but then again became hypoxic with O2 sat of 88%. Third DuoNeb was given. I do feel the patient needs to be admitted for hypoxia with suspected COPD exacerbation although she has not diagnosed with this. Pending admission VBG was performed and does show respiratory acidosis with pH of 7.23 and CO2 of 80. Did page respiratory for discussion of BiPAP Imaging Data Radiologic Study: Imaging: CT Scan Radiologist's impression: Exam(s) PROCEDURE INFORMATION: Exam: CTA Chest With Contrast Exam date and time: 04/27/2023 7:58 PM Age: 57 years old Clinical indication: Shortness of breath TECHNIQUE: Imaging protocol: Computed tomographic angiography of the chest with contrast. Exam focused on the arteries. 3D rendering (Not supervised by radiologist): MIP and/or 3D reconstructed images were created by the technologist. Radiation optimization: All CT scans at this facility use at least one of these dose optimization techniques: automated exposure control; mA and/or kV adjustment per patient size (includes targeted exams where dose is matched to clinical indication); or iterative reconstruction. Contrast material: O,MN 350; Contrast volume: 65 ml; Contrast route: INTRAVENOUS (IV); COMPARISON: CR XR CHEST 2V PA LATERAL 04/23/2023 3:23 PM FINDINGS: Pulmonary arteries: Normal. No pulmonary emboli. Aorta: Small amount of calcifications within the thoracic aorta. No aneurysm or dissection. Lungs: Moderate to severe bilateral centrilobular emphysema primarily in the upper lobes. No lung masses. No consolidation. Pleural spaces: Unremarkable. No pneumothorax. No pleural effusion. Heart: Unremarkable. No cardiomegaly. No pericardial effusion. Lymph nodes: Unremarkable. No enlarged lymph nodes. Bones/joints: Mild degenerative changes in the thoracic spine. No acute bone findings. Soft tissues: Unremarkable. IMPRESSION: 1. No evidence of pulmonary embolus. 2. Moderate to severe bilateral centrilobular emphysema Lab Data Lab results reviewed: Yes I reviewed the patient's lab results. HPI General Mode of arrival: ambulatory. Date/Time Provider Initiated Documentation: 04/27/23 17:39. Limitations to Documentation: no limitations. Information obtained by: patient, family and RN notes reviewed. History of Present Illness 57 year old F presents to the emergency department with the chief complaint of Shortness of breath, described as moderate, severe and similar to prior episodes, Patient started experiencing this week(s) (1) and it has been intermittent. No relieving factors improve symptom(s), Movement worsens symptoms . Patient did receive the following treatments prior to arrival, none Related Data Home Medications Medication Instructions Recorded Confirmed ibuprofen 600 mg tablet 600 mg PO TID 12/23/13 04/27/23 ascorbic acid (vitamin C) 500 mg 500 mg PO DAILY 11/24/19 04/27/23 capsule amlodipine 5 mg tablet 5 mg PO DAILY #90 tabs 03/19/23 04/27/23 lisinopril 40 mg tablet 40 mg PO DAILY #90 tabs 03/19/23 04/27/23 albuterol sulfate 90 mcg/actuation 2 puff inhalation Q6H PRN 04/24/23 04/27/23 aerosol inhaler azithromycin 250 mg tablet See Rx Instructions PO .COMPLEX 04/24/23 04/27/23 ipratropium 0.5 mg-albuterol 3 mg 3 ml inhalation Q4H PRN 04/24/23 04/27/23 (2.5 mg base)/3 mL nebulization soln Previous Rx's Medication Instructions Recorded amlodipine 5 mg tablet 5 mg PO DAILY #90 tabs 03/19/23 lisinopril 40 mg tablet 40 mg PO DAILY #90 tabs 03/19/23 Allergies Allergy/AdvReac Type Severity Reaction Status Date / Time codeine AdvReac Nausea Verified 04/27/23 17:56 General Stated Complaint: SOB RODO: 2 Review of Systems Constitutional Constitutional: Denies chills, Denies fever(s) and Denies poor appetite ENT Ears, Nose, Mouth, and Throat: Denies nasal congestion and Denies sore throat Cardiovascular Cardiovascular: Denies chest pain, Denies syncope, Reports dyspnea and Reports dyspnea on exertion Respiratory Respiratory: Reports cough, Reports dyspnea and Reports dyspnea on exertion Gastrointestinal Gastrointestinal: Denies abdominal pain Musculoskeletal Musculoskeletal: Denies back pain Integumentary/Breasts Skin/Breast: Denies rash Neurologic Neurologic: Denies syncope PFSH All Active Problems (Updated 04/27/23 @ 23:13 by Wendy Mejía MD) Elevated brain natriuretic peptide (BNP) level (Acute) Discharge planning issues (Acute) DVT prophylaxis (Acute) Acute exacerbation of chronic obstructive pulmonary disease (COPD) (Acute) Acute respiratory failure with hypoxia and hypercapnia (Acute) Nasal contusion (Acute) Hx of falling (Acute) Grief reaction (Chronic) Weight loss (Acute) Tobacco dependence (Chronic) HTN (hypertension) (Chronic) Prediabetes (Acute) Medical History Acute dyspnea 04/23/23 Per [facility]. -hb Spontaneous pneumothorax 10/1992 Surgical History S/P abdominal hysterectomy and right salpingo-oophorectomy H/O: hysterectomy Family History Mother , brain aneurism age 84 No problems noted. Father , 51 Heart disease Hypertension Sister Hypertension Brother No problems noted. Maternal Grandmother Diabetes Brother No problems noted. 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 occupation: [employer] Pets and animals: Yes Pets and animals: dog(s) Sexually active: No Do you think of yourself as: straight/heterosexual Current gender identity: female How often do you talk on the phone with friends or family?: decline to answer How often do you get together with friends or relatives?: decline to answer How often do you attend episcopal or gnosticist services?: decline to answer Do you belong to any clubs or organized social groups?: decline to answer Duration: decline to answer Frequency: decline to answer Seatbelt use: always Helmet use: Yes Do you feel safe in your relationship?: Yes Exam Const General: cooperative, acute distress moderate and respiratory, not diaphoretic and ill appearing Orientation: alert, awake and oriented x3 Limitations: mental status not altered Neck Neck: normal visual inspection, full ROM, trachea midline and supple Resp Effort & Inspection: labored, tachypneic and tripod positioning Auscultation: diminished lung sounds bilaterally and wheezes expiratory wheezes Cardio Jugular venous pressure: no JVD Palpation: normal PMI Rate: regular rate Rhythm: regular rhythm Heart Sounds: S1 normal and S2 normal Pulses: radial pulses present bilaterally 2+ Skin General skin exam: no rashes or lesions noted Neuro General: patient alert, patient awake, patient oriented x3, tone normal and moves all extremities Course Vital Signs Vital signs: Vital Signs Temperature 36.8 C 04/27/23 17:41 Pulse 122 H 04/27/23 17:41 Respiratory Rate 18 04/27/23 17:41 Blood Pressure 141/118 H 04/27/23 17:41 Pulse Oximetry 70 L 04/27/23 17:41 Temperature 36.8 C 04/27/23 17:41 Temperature Source Oral 04/27/23 17:41 Pulse 120 H 04/27/23 20:30 Pulse Strength Normal 04/27/23 20:18 Pulse 115 H 04/27/23 20:40 Respiratory Rate 26 H 04/27/23 20:40 Respiratory Effort Normal 04/27/23 20:18 Respiratory Depth Normal 04/27/23 20:18 Respiratory Pattern Normal 04/27/23 20:18 Blood Pressure 125/89 04/27/23 20:30 Blood Pressure Mean 100 04/27/23 20:30 Blood Pressure Position Supine 04/27/23 20:18 Pulse Oximetry 98 04/27/23 20:40 Oxygen Delivery Method Nasal Cannula 04/27/23 20:18 Oxygen Flow Rate 2 04/27/23 20:18 Pain Level 0 04/27/23 17:41 Comment pt placed on oxygen takes BP medication in the evening 04/27/23 17:41 Comment Provider aware of HTN; PO HTN medications ordered 04/27/23 18:46 Lab/Test Results Lab/Test Results: Laboratory Tests Range/Units 04/27/23 04/27/23 18:06 19:21 WBC (4.4-10.8) 10^3/uL 11.54 H RBC (3.93-5.22) 10^6/uL 5.05 Hgb (11.2-15.7) g/dL 14.8 Hct (36.0-46.0) % 46.9 H MCV (80-95) fL 93 MCH (27.0-33.0) pg 29.3 MCHC (32.0-36.0) % 31.6 L RDW (11.7-14.6) % 13.7 Plt Count (130-400) 10^3/uL 230 MPV (8.0-11.0) fL 8.9 Immature Gran % 0.3 Neutrophils % 63.5 Lymphocytes % 18.4 Monocytes % 11.3 Eosinophils % 5.7 Basophils % 0.8 Nucleated RBC % (0.0-0.3) % 0.0 Absolute Neutrophils (1.2-6.7) 10^3/uL 7.33 H Absolute Lymphocytes (1.2-3.4) 10^3/uL 2.12 Absolute Monocytes (0.1-0.8) 10^3/uL 1.30 H Absolute Eosinophils (0.0-0.7) 10^3/uL 0.66 Absolute Basophils (0.0-0.2) 10^3/uL 0.09 D-Dimer (<500) ng/mlFEU 217 Sodium (136-145) mmol/L 130 L Potassium (3.5-5.1) mmol/L 4.8 Chloride (98-107) mmol/L 93 L Carbon Dioxide (21.0-32.0) mmol/L 34.4 H Anion Gap (3-11) mmol/L 2.6 L BUN (7-18) mg/dL 17 Creatinine (0.55-1.02) mg/dL 0.7 Est GFR (CKD-EPI 2020) (mL/min/1.73m2) 101.44 Glucose (74-106) mg/dL 119 H Calcium (8.5-10.1) mg/dL 9.7 Magnesium (1.8-2.4) mg/dL 2.1 Total Bilirubin (0.2-1.0) mg/dL 0.4 AST (15-37) U/L 23 ALT (14-59) U/L 22 Alkaline Phosphatase (46-116) U/L 75 Troponin I (<or=60) ng/L < 50 NT-Pro-B Natriuret Pep (<300) pg/mL 9729 H Total Protein (6.4-8.2) g/dL 7.1 Albumin (3.4-5.0) g/dL 3.0 L COVID-19 Source Nasopharynx SARS-CoV-2 (PCR) (Negative) Negative Influenza Type A (PCR) (Negative) Negative Influenza Type B (PCR) (Negative) Negative RSV (PCR) (Negative) Negative Critical Care Time Critical Care Time Critical Care Time: Yes Total Critical Care Time: 45 Attestation: Due to COPD exacerbation with respiratory distress with high probability of imminent or life threatening deterioration in the patient?s condition without intervention and treatment. Time spent documenting, reviewing labs and radiographs, monitoring titration/ Vital signs, and speaking with respiratory therapy and hospitalist.
[2023-04-27 21:18] LABS: BE (Venous) 6 mmol/L (-2-3); HCO3 (Venous) 33 mmol/L (23-28); O2 Sat (Venous) 91 %; TCO2 (Venous) 31 mmol/L (24-29); pH (Venous) 7.23 (7.31-7.41); pO2 (Venous) 68 mmHg
[2023-04-27 21:20] LABS: pCO2 (Venous) 80 mmHg (41-51)
--- NOTE | 2023-04-27 21:44 | HPE_ITS ---
Date of service: 04/27/23 Time of Service: 21:45 Assessment and Plan Assessment and plan (1) Acute respiratory failure with hypoxia and hypercapnia: Status: Acute Assessment and plan: Due to acute exacerbation of COPD. Admit to the ICU, but unable to tolerate BiPAP (prior to lorazepam). Rechecking VBG. We could potentially trial BiPAP again since the patient appears to have become more relaxed post lorazepam. We will trial diuresis, addition of budesonide nebs. Will reattempt BiPAP. If unable to tolerate and VBG worse, will potentially require intubation. Procalcitonin is negative - no role for abx. (2) Acute exacerbation of chronic obstructive pulmonary disease (COPD): Status: Acute Assessment and plan: As above (3) Elevated brain natriuretic peptide (BNP) level: Status: Acute Assessment and plan: I do think that she sounds fluid overloaded. Trialing furosemide. Obtain an echo. (4) HTN (hypertension): Status: Chronic Assessment and plan: Continue home amlodipine. (5) Tobacco dependence: Status: Chronic Assessment and plan: Offer nicotine replacement. The patient is not able to participate in counseling at this time. (6) DVT prophylaxis: Status: Acute Assessment and plan: SC enoxaparin (7) Discharge planning issues: Status: Acute Assessment and plan: Full code as per my discussion with the daughter who is the DPOA. The patient fell asleep during my attempt to have the code status conversation. Total Critical Care Time 60 minutes. History of Present Illness History of Present Illness Chief Complaint: Shortness of breath Narrative: Ms Portillo is a 57 year old female with PMHx of tobacco abuse, hypertension, prediabetes, spontaneous pneumothorax in 1992, but no formal diagnosis of COPD, who was recently evaluated at [facility] (04/23/23) for shortness of breath x 10 days and discharged home with nebulizer treatments as well as azithromycin for a COPD flare, who returned to [facility] ED today c/o worsening shortness of breath. Even though the timeline does not match, she states she has been sick for a week an a half. She describes a cough productive of green sputum, orthopnea, and PND. Denies fevers, runny nose, sore throat, chest pain. She was nauseated in the ED, denies abdominal pain, denies vomiting. Denies urinary symptoms. The patient's history is limited due to the fact that she had just received lorazepam in the ED prior to her arrival to the ICU, so some of this history is obtained via chart review, conversation with daughter and the ED provider when the patient was not able to answer. She is full code. Her O2 sats on arrival were 70% on RA, and her respiratory effort remains elevated with tripoding despite nebulizer treatments and a dose of dexamethasone in the ED. She tested negative for Influenza/COVID-19/RSV in the ER. Her proBNP was elevated. Her troponin was normal. Her d-dimer was negative, but due to a high clinical suspicion for a PE due to her tachycardia, tachypnea, and hypoxia, she underwent a CTA of the chest which revealed moderate to severe bilateral cetrilobular emphysema, but no PE. Her VBG reveals pH of 7.23 and pCO2 of 80. Given this and her ongoing oxygen requirement (currently 5L of O2 by NC to saturate 90%), the patient was started on BiPAP. She, however, wasn't able to tolerate due to recent nasal fracture as well as intolerance of the IPAP. A hospitalist admission to the ICU was requested. The patient has a repeat VBG ordered for now. Review of Systems All systems reviewed & are unremarkable except as noted in HPI and below PFSH All Active Problems (Updated 04/27/23 @ 23:13 by Wendy Mejía MD) Elevated brain natriuretic peptide (BNP) level (Acute) Discharge planning issues (Acute) DVT prophylaxis (Acute) Acute exacerbation of chronic obstructive pulmonary disease (COPD) (Acute) Acute respiratory failure with hypoxia and hypercapnia (Acute) Nasal contusion (Acute) Hx of falling (Acute) Grief reaction (Chronic) Weight loss (Acute) Tobacco dependence (Chronic) HTN (hypertension) (Chronic) Prediabetes (Acute) Medical History Acute dyspnea 04/23/[address] [facility]. -hb Spontaneous pneumothorax 10/1992 Surgical History S/P abdominal hysterectomy and right salpingo-oophorectomy H/O: hysterectomy Family History Mother , brain aneurism age 84 No problems noted. Father , 51 Heart disease Hypertension Sister Hypertension Brother No problems noted. Maternal Grandmother Diabetes Brother No problems noted. 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 occupation: [employer] Pets and animals: Yes Pets and animals: dog(s) Sexually active: No Do you think of yourself as: straight/heterosexual Current gender identity: female How often do you talk on the phone with friends or family?: decline to answer How often do you get together with friends or relatives?: decline to answer How often do you attend advent or confucianism services?: decline to answer Do you belong to any clubs or organized social groups?: decline to answer Duration: decline to answer Frequency: decline to answer Seatbelt use: always Helmet use: Yes Do you feel safe in your relationship?: Yes Meds Allergies and Home Medications Allergies Allergy/AdvReac Type Severity Reaction Status Date / Time codeine AdvReac Nausea Verified 04/27/23 17:56 Home Medications Medication Instructions Recorded Confirmed Type ibuprofen 600 mg tablet 600 mg PO TID 12/23/13 04/27/23 History ascorbic acid (vitamin C) 500 mg 500 mg PO DAILY 11/24/19 04/27/23 History capsule amlodipine 5 mg tablet 5 mg PO DAILY #90 tabs 03/19/23 04/27/23 Rx lisinopril 40 mg tablet 40 mg PO DAILY #90 tabs 03/19/23 04/27/23 Rx albuterol sulfate 90 mcg/actuation 2 puff inhalation Q6H PRN 04/24/23 04/27/23 History aerosol inhaler azithromycin 250 mg tablet See Rx Instructions PO .COMPLEX 04/24/23 04/27/23 History ipratropium 0.5 mg-albuterol 3 mg 3 ml inhalation Q4H PRN 04/24/23 04/27/23 History (2.5 mg base)/3 mL nebulization soln Exam Narrative Exam Narrative: General: Somnolent middle-aged female who is A&Ox3, but falls asleep during our conversation, tachypneic, on 5L of O2 by NC, Speaking in one word answers Neurological: A&Ox3, somnolent, no focal deficits Psychiatric: Appropriate speech pattern/content for mental status Skin: Visible skin intact HEENT: Atraumatic (visibly), normocephalic, EOMI, dry MM, clear oropharynx, no submandibular or cervical lymphadenopathy, no goiter or JVD Cardiovascular: RRR, tachycardic, no m/r/g Lungs: Expiratory sqeek and rales B Gastrointestinal: soft, nontender, nondistended Genitourinary: deferred Extremities: no edema BLEs, trace pedal pulses B, no clubbing/cyanosis Results Imaging Additional studies: CTA chest: 1. No evidence of pulmonary embolus. 2. Moderate to severe bilateral centrilobular emphysema EKG: ST, HR 122, no acute ischemia, repolarization abnormality Labs 04/27/23 18:06 04/27/23 18:06 Labs: Laboratory Results - last 24 hr 04/27/23 04/27/23 04/27/23 18:06 19:21 21:13 WBC 11.54 H RBC 5.05 Hgb 14.8 Hct 46.9 H MCV 93 MCH 29.3 MCHC 31.6 L RDW 13.7 Plt Count 230 MPV 8.9 Immature Gran % 0.3 Neutrophils % 63.5 Lymphocytes % 18.4 Monocytes % 11.3 Eosinophils % 5.7 Basophils % 0.8 Nucleated RBC % 0.0 Absolute Neutrophils 7.33 H Absolute Lymphocytes 2.12 Absolute Monocytes 1.30 H Absolute Eosinophils 0.66 Absolute Basophils 0.09 D-Dimer 217 VBG pH 7.23 L VBG pCO2 80 H* VBG pO2 68 VBG HCO3 33 H VBG Total CO2 31 H VBG O2 Saturation 91 VBG Base Excess 6 H Sodium 130 L Potassium 4.8 Chloride 93 L Carbon Dioxide 34.4 H Anion Gap 2.6 L BUN 17 Creatinine 0.7 Est GFR (CKD-EPI 2020) 101.44 Glucose 119 H Calcium 9.7 Magnesium 2.1 Total Bilirubin 0.4 AST 23 ALT 22 Alkaline Phosphatase 75 Troponin I < 50 NT-Pro-B Natriuret Pep 9729 H Total Protein 7.1 Albumin 3.0 L COVID-19 Source Nasopharynx SARS-CoV-2 (PCR) Negative Influenza Type A (PCR) Negative Influenza Type B (PCR) Negative RSV (PCR) Negative Last Vital Signs Temp 36.8 C 04/27/23 17:41 Pulse 122 H 04/27/23 21:16 Resp 14 04/27/23 21:20 BP 131/81 04/27/23 21:16 Pulse Ox 98 04/27/23 21:20 Time Spent Time spent with Patient: 55-74 minutes Time was spent: preparing to see the patient(eg.review tests), obtaining and/or reviewing separately otained hiistory, ordering medications,tests, procedures, referring, communicating with other health home care giver, indepentently interpreting results, counseling the patient and care coordination
[2023-04-27] MEDS: LORazepam 2 MG/ML VIAL 0.5 MG IVP (22:35)
[2023-04-27 22:40] LABS: Procalcitonin < 0.1 ng/mL
[2023-04-27] MEDS: Furosemide 40 MG/4 ML VIAL (23:06)
[2023-04-27] MEDS: Normal Saline Flush 10 ML SYR IVP (23:09)
[2023-04-27] MEDS: Budesonide 0.5 MG/2 ML UPD VIAL UPD (23:13)
[2023-04-27] MEDS: Ipratropium 0.5 MG/2.5 ML UPD VIAL UPD (23:13)
[2023-04-27 23:23] LABS: BE (Venous) 5 mmol/L (-2-3); HCO3 (Venous) 33 mmol/L (23-28); O2 Sat (Venous) 99 %; TCO2 (Venous) 30 mmol/L (24-29); pO2 (Venous) 144 mmHg
[2023-04-27 23:27] LABS: pH (Venous) 7.18 (7.31-7.41)
[2023-04-27 23:28] LABS: pCO2 (Venous) 88 mmHg (41-51)
[2023-04-28] VITALS (103 sets, daily range): BP systolic 54–133; BP diastolic 43–108; PULSE 93–129; RESP 0–36; TEMP 36.5–37.2; O2SAT 90–100
--- NOTE | 2023-04-28 | DI.RAD_ITS ---
Exam(s) XR PORTABLE CHEST AP EXAM: XR PORTABLE CHEST AP CLINICAL HISTORY: Reassess post adjustment of ET tube TECHNIQUE: 2D digital imaging was performed. COMPARISON: CR,XR XR PORTABLE CHEST AP POST LINE from 04/28/2023 FINDINGS: Monitoring leads overlie the chest. The nasogastric tube projects in the stomach. The endotracheal tube is positioned just below the le alexus of the clavicles. LUNGS: Clear. No pleural abnormality seen. HEART: Normal size. AORTA: Normal diameter. BONES: Unremarkable for age. Soft tissues: Unremarkable. IMPRESSION: No acute findings. Endotracheal tube and nasogastric tube in place. DATA REPOSITORY: RADIATION DOSE DELIVERED:
[2023-04-28 00:30] LABS: BE (Venous) 4 mmol/L (-2-3); HCO3 (Venous) 33 mmol/L (23-28); O2 Sat (Venous) 98 %; TCO2 (Venous) 31 mmol/L (24-29); pO2 (Venous) 118 mmHg
[2023-04-28 00:32] LABS: pCO2 (Venous) 93 mmHg (41-51); pH (Venous) 7.16 (7.31-7.41)
[2023-04-28] MEDS: Lactated Ringers 1,000 ML 1000 ML IV (01:07)
[2023-04-28 01:10] LABS: BE (Venous) 6 mmol/L (-2-3); HCO3 (Venous) 35 mmol/L (23-28); O2 Sat (Venous) 79 %; TCO2 (Venous) 32 mmol/L (24-29); pO2 (Venous) 51 mmHg
[2023-04-28 01:12] LABS: Lactate 0.6 mmol/L (0.6-1.4); pCO2 (Venous) 92 mmHg (41-51); pH (Venous) 7.18 (7.31-7.41)
[2023-04-28 01:16] LABS: Bilirubin Negative (Negative); Blood Trace-lysed (Negative); Clarity Clear (Clear); Glucose Negative (Negative); Ketones Negative (Negative); Leukocyte Esterase Negative (Negative); Nitrite Negative (Negative); Urobilinogen 0.2 mg/dL (Up to 0.2); pH 5.5 (5-8)
[2023-04-28 01:22] LABS: Bacteria Negative HPF (Negative); C & S Indicated? No; Casts Negative LPF (Negative); Crystals Negative HPF (Negative); Epithelial Cells Negative HPF (Negative); Mucus Negative (Negative); WBC Negative HPF (0-5)
[2023-04-28] MEDS: Normal Saline Flush 10 ML SYR IVP ×3 (01:35→15:05)
[2023-04-28] MEDS: PROPOFOL 1,000 MG/100 ML BTL 1.497 MG IVPB (01:45)
[2023-04-28] MEDS: Norepinephrine in D5W 8 MG/250 ML BAG 9.375 MG IV (01:50)
--- NOTE | 2023-04-28 02:45 | W.ANESAIR ---
Arterial Line Placement Date Performed: 04/28/23 Procedure Time: 02:25 Procedure Location: Intensive Care Unit Requesting Provider: Wendy Mejía Timeout Performed: Yes Sedation Given (Indicate Dose Given): No Sedation given Patient Mental Status: Other (Intubated and sedated in the ICU) Sterility: Hand Hygiene, Surgical Cap, Surgical Mask, Sterile Gloves and N95 Mask Laterality: Right Insertion Site: Radial Arterial Line Catheter: 20G Arrow Arterial Line Procedure: Vessel accessed with catheter over needle, Guidewire placed with ease, Catheter placed without resistance and Guidewire removed Dressing: Tegaderm Applied and Mastisol Used Ultrasound: Used to richard site Number of Attempts (See previous attempts in note section): 1 Procedure Tolerated: No Complications Procedure Outcome: Successful Performed By: Lara Morton
[2023-04-28 02:46] LABS: BE 6 mmol/L (-2-3); HCO3 33 mmol/L (22-26); pO2 150 mmHg (80-105)
[2023-04-28 02:47] LABS: Site Arterial Line
--- NOTE | 2023-04-28 02:47 | W.ANESAIR ---
Airway Management Note Procedure Date and Time DO NOT use this note for patients in the OR, Use Intraop Record Instead Date Performed: 04/28/23 Procedure Time: 01:54 Procedure Location Procedure Location: Intensive Care Unit Requesting Provider: Wendy Mejía Number of Previous Intubation attempts by other providers: 0 Procedure Type Procedure Type: Urgent Pre-Induction Setup Sterility: Hand Hygiene, Surgical Cap, Surgical Mask and N95 Mask Preinduction Setup: Standard monitors applied, BVM at bedside, Suction ready, Airway equipment ready, Medications ready, IV/IO access patent & flowing and Post induction medications ready Induction Induction Time: 01:56 Induction setup: Pt. evaluated prior to induction and BiPAP/CPAP Induction Medications (Indicate Dose Given): Ketamine IV Dose:: 20mg, Propofol IV Dose:: 50mg, Rocuronium IV Dose:: 50mg and Phenylephrine IV Dose:: 160 mcg Mask Ventilation: None Airway Device Airway Type: Intubation Laryngoscopy: Atraumatic Laryngoscopy Airway Grade: 1 Airway Blades: Glidescope 3 Endotracheal Tube: Cuffed, Stylet Used and 6.5mm ETT Depth Where Secured (cm): 22 Placement Confirmation: Cuff inflated with minimally occlusive pressure, Secured with commercial device, Bilateral breath sounds, ETCO2 waveform present and Depth to Lips Number of Attempts (See previous attempts in note section): 1 Post Induction Management Post Induction Medications (Indicate Dose Given): Propofol (mcg/kg/min) Dose:: 20 Gastric Tube Gastric Tube: Not Placed Procedure Complications Procedure Complications: None Procedure Outcome Procedure Outcome: Successful Procedure Comment: Team present for intubation, time out completed, respiratory at bedside. Dr. Mejía reports consent for the procedure. See above note for blood pressure management. Proceduralist Performed By: Lara Morton
[2023-04-28 02:49] LABS: FIO2 40 %; pCO2 68 mmHg (35-45)
--- NOTE | 2023-04-28 02:55 | DI.RAD_ITS ---
Exam(s) XR PORTABLE CHEST AP POST LINE EXAM: XR PORTABLE CHEST AP POST LINE CLINICAL HISTORY: post intubation TECHNIQUE: 2D digital imaging was performed. COMPARISON: CR XR CHEST 2V PA LATERAL from 04/23/[address] CHEST PE CTA from 04/27/2023 FINDINGS: Monitoring leads are coiled over the chest. A nasogastric tube is been inserted which projects below the diaphragm, in the SPECT of location of the stomach. The tip is not included on the film. On in an endotracheal tube is noted with the tip lying at the level of the clavicles. LUNGS: Hyperinflated. Emphysematous changes. No focal infiltrate, effusion or pulmonary edema.. No pleural abnormality seen. HEART: Normal size. AORTA: Normal diameter. BONES: Unremarkable for age. Soft tissues: Unremarkable. IMPRESSION: Satisfactory placement of endotracheal tube and nasogastric tube. DATA REPOSITORY: RADIATION DOSE DELIVERED:
--- NOTE | 2023-04-28 03:25 | DI.VRAD_ITS ---
PROCEDURE INFORMATION: Exam: XR Chest Exam date and time: 04/28/2023 2:47 AM Age: 57 years old Clinical indication: Device placement; Ett placement (vent status); Patient HX: Post intubation TECHNIQUE: Imaging protocol: Radiologic exam of the chest. Views: 1 view. COMPARISON: CR XR CHEST 2V PA LATERAL 04/23/2023 3:23 PM FINDINGS: Tubes, catheters and devices: Endotracheal tube tip 7 cm above the malini. NG tube tip extends below level of film. Lungs: Unremarkable. No consolidation. Pleural spaces: Unremarkable. No pleural effusion. No pneumothorax. Heart/Mediastinum: Unremarkable. No cardiomegaly. Bones/joints: Unremarkable. IMPRESSION: No acute finding. Dictated and Authenticated by: Mark Morley MD. Ordering:LUCY Nguyen MD
[2023-04-28 04:05] LABS: Lactate 0.9 mmol/L (0.6-1.4)
[2023-04-28 06:13] LABS: BE 10 mmol/L (-2-3); HCO3 34 mmol/L (22-26); pCO2 49 mmHg (35-45); pH 7.45 (7.35-7.45); pO2 117 mmHg (80-105); sO2 98 % (95-98); tCO2 30 mmol/L (23-27)
[2023-04-28 06:21] LABS: Abs Immature Grans 0.04 10^3/uL (0.0-0.06); Absolute Basophil Count 0.02 10^3/uL (0.0-0.2); Absolute Lymphocyte Count 0.94 10^3/uL (1.2-3.4); Absolute Monocyte Count 1.08 10^3/uL (0.1-0.8); Absolute Neutrophil Count 6.99 10^3/uL (1.2-6.7); Basophils % 0.2; HCT 44.9 % (36.0-46.0); HGB 14.6 g/dL (11.2-15.7); Immature Grans % 0.4; Lymphocytes % 10.4; MCH 29.4 pg (27.0-33.0); MCHC 32.5 % (32.0-36.0); MCV 91 fL (80-95); MPV 9.4 fL (8.0-11.0); Monocytes % 11.9; Neutrophils % 77.1; Platelet Count 227 10^3/uL (130-400); RBC 4.96 10^6/uL (3.93-5.22); RDW 13.2 % (11.7-14.6); RDW-SD 43.8 fL; WBC 9.07 10^3/uL (4.4-10.8)
[2023-04-28 06:22] LABS: Site Arterial Line
[2023-04-28 06:53] LABS: Anion Gap 1.7 mmol/L (3-11); BUN 19 mg/dL (7-18); CO2 34.3 mmol/L (21.0-32.0); CREATININE 0.7 mg/dL (0.55-1.02); Calcium 9.6 mg/dL (8.5-10.1); Chloride 92 mmol/L (98-107); Estimated GFR 101.44 (mL/min/1.73m2); Glucose 141 mg/dL (74-106); Magnesium 1.8 mg/dL (1.8-2.4); Potassium 5.2 mmol/L (3.5-5.1); Sodium 128 mmol/L (136-145); TSH (W/Ref FT4) 0.56 uIU/mL (0.36-3.74)
[2023-04-28] MEDS: Ipratropium 0.5 MG/2.5 ML UPD VIAL UPD ×4 (07:03→23:51)
[2023-04-28] MEDS: Levalbuterol 1.25 MG/3 ML UPD VIAL UPD ×4 (07:06→23:42)
[2023-04-28] MEDS: PROPOFOL 1,000 MG/100 ML BTL 8.981 MG IVPB (07:09)
--- NOTE | 2023-04-28 08:24 | INITIAL_ITS ---
Date of service: 04/28/23 Time of Service: 08:24 Care Management Initial Assmt Initial Assessment REASON FOR HOSPITALIZATION:: respiratory failure PREVIOUS FUNCTIONAL STATUS/SOCIAL/FAMILY SUPPORTS:: Marissa lives alone in a single family home in in [place], [place] She has a daughter Fay who is close and supportive. Marissa works at [employer] and is independent at baseline. CURRENT FUNCTIONAL STATUS:: Marissa remains intubated and sedated so CM was unable to talk with her. Her daughter Fay's number is not in the chart so CM was unable to speak to her either to gather additional information. Marissa remains critically ill. She is hypotensive and tachycardic with rates mostly between 110 and 130. Marissa has an arterial line and a right subclavian TLC was placed by Dr. Dipo today. ADVANCE DIRECTIVES:: none on file Has patient been provided with info about the portal/API?: Yes Did the patient sign up for the portal?: No CODE STATUS:: Full Code INSURANCE COVERAGE / FINANCIAL ISSUES:: [employer] CURRENT HOME/COMMUNITY SERVICES/EQUIPMENT:: none currently PRIMARY CARE PHYSICIAN:: Maegan Ness POTENTIAL DISCHARGE NEEDS:: Follow up with Pulmonology and PCP PATIENT/FAMILY EDUCATION NEEDS:: review discharge instructions, activity, limitations, follow up plan, discuss [employer] TRANSPORTATION:: via private vehicle with family PLAN:: Marissa's discharge plan is unclear at this time. Marissa is critically ill and intubated. She may require transfer to a tertiary care facility if she does not show improvement. CM will follow and continue to assess for discharge concerns. PFSH All Active Problems (Updated 04/28/23 @ 13:54 by Argenis Diop DO) Encounter for venous access device care (Acute) Poor venous access (Acute) Elevated brain natriuretic peptide (BNP) level (Acute) Discharge planning issues (Acute) DVT prophylaxis (Acute) Acute exacerbation of chronic obstructive pulmonary disease (COPD) (Acute) Acute respiratory failure with hypoxia and hypercapnia (Acute) Nasal contusion (Acute) Hx of falling (Acute) Grief reaction (Chronic) Weight loss (Acute) Tobacco dependence (Chronic) HTN (hypertension) (Chronic) Prediabetes (Acute) Medical History Acute dyspnea 04/23/[address] [facility]. -hb Spontaneous pneumothorax 10/1992 Surgical History S/P abdominal hysterectomy and right salpingo-oophorectomy H/O: hysterectomy Family History Mother , brain aneurism age 84 No problems noted. Father , 51 Heart disease Hypertension Sister Hypertension Brother No problems noted. Maternal Grandmother Diabetes Brother No problems noted. 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 occupation: [employer] Pets and animals: Yes Pets and animals: dog(s) Sexually active: No Do you think of yourself as: straight/heterosexual Current gender identity: female How often do you talk on the phone with friends or family?: decline to answer How often do you get together with friends or relatives?: decline to answer How often do you attend pentecostal or oriental orthodox services?: decline to answer Do you belong to any clubs or organized social groups?: decline to answer Duration: decline to answer Frequency: decline to answer Seatbelt use: always Helmet use: Yes Do you feel safe in your relationship?: Yes
--- NOTE | 2023-04-28 08:56 | DI.VRAD_ITS ---
PROCEDURE INFORMATION: Exam: XR Chest Exam date and time: 04/28/2023 8:36 AM Age: 57 years old Clinical indication: Device placement; Other: Reassess post adjustment of et tube TECHNIQUE: Imaging protocol: Radiologic exam of the chest. Views: 1 view. COMPARISON: CR XR PORTABLE CHEST AP 04/28/2023 2:47 AM FINDINGS: Tubes, catheters and devices: Unchanged configuration of endotracheal tube and enteric tube. Lungs: Lungs are hyperexpanded. No focal consolidation. Pleural spaces: No pleural effusion. No pneumothorax. Heart/Mediastinum: No cardiomegaly. Bones/joints: Unremarkable. IMPRESSION: 1. No acute cardiopulmonary findings. Unchanged hyperexpansion/COPD. 2. Stable configuration of support devices. Dictated and Authenticated by: Lyla Newton MD. Ordering:LUCY Nguyen MD
[2023-04-28] MEDS: Budesonide 0.25 MG/2 ML UPD VIAL 0.5 MG UPD ×2 (09:42→20:38)
--- NOTE | 2023-04-28 12:30 | DI.RAD_ITS ---
Exam(s) XR PORTABLE CHEST AP POST LINE EXAM: XR PORTABLE CHEST AP POST LINE CLINICAL HISTORY: central line placement verification TECHNIQUE: 2D digital imaging was performed. COMPARISON: CR,XR XR PORTABLE CHEST AP from 04/28/2023 FINDINGS: A right subclavian central line has been placed. The tip lies in the superior vena cava. There is n o pneumothorax. No change in position of endotracheal tube and nasogastric tube. LUNGS: Clear. No pleural abnormality seen. HEART: Normal size. AORTA: Normal diameter. BONES: Unremarkable for age. Soft tissues: Unremarkable. IMPRESSION: Satisfactory placement of central venous catheter. DATA REPOSITORY: RADIATION DOSE DELIVERED:
--- NOTE | 2023-04-28 12:54 | W.SURGCON ---
Date of service: 04/28/23 Time of Service: 12:54 Assessment and Plan Assessment and plan (1) Encounter for venous access device care: Status: Acute Assessment and plan: Triple-lumen catheter will be placed. Risks include but not limited to: Bleeding, infection, pneumothorax, damage to vein, catheter infections and thrombosis. (2) Poor venous access: Status: Acute (3) Elevated brain natriuretic peptide (BNP) level: Status: Acute (4) Acute exacerbation of chronic obstructive pulmonary disease (COPD): Status: Acute (5) Acute respiratory failure with hypoxia and hypercapnia: Status: Acute (6) Weight loss: Status: Acute (7) Tobacco dependence: Status: Chronic (8) HTN (hypertension): Status: Chronic (9) Prediabetes: Status: Acute History of Present Illness Narrative: Patient was admitted last night with respiratory failure, and requiring pressors to maintain blood pressure. She is intubated and on the ventilator. She is not on any blood thinners. She has a longstanding history of COPD and EtOH abuse/and smoking history. She is not able to give any history or consent. Her sister does give phone consent. Review of Systems Unobtainable due to endotracheal tube [facility] All Active Problems (Updated 04/28/23 @ 13:54 by Argenis Diop DO) Encounter for venous access device care (Acute) Poor venous access (Acute) Elevated brain natriuretic peptide (BNP) level (Acute) Discharge planning issues (Acute) DVT prophylaxis (Acute) Acute exacerbation of chronic obstructive pulmonary disease (COPD) (Acute) Acute respiratory failure with hypoxia and hypercapnia (Acute) Nasal contusion (Acute) Hx of falling (Acute) Grief reaction (Chronic) Weight loss (Acute) Tobacco dependence (Chronic) HTN (hypertension) (Chronic) Prediabetes (Acute) Medical History Acute dyspnea 04/23/[address] [facility]. -[facility] Spontaneous pneumothorax 10/1992 Surgical History S/P abdominal hysterectomy and right salpingo-oophorectomy H/O: hysterectomy Family History Mother , brain aneurism age 84 No problems noted. Father , 51 Heart disease Hypertension Sister Hypertension Brother No problems noted. Maternal Grandmother Diabetes Brother No problems noted. 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 occupation: [employer] Pets and animals: Yes Pets and animals: dog(s) Sexually active: No Do you think of yourself as: straight/heterosexual Current gender identity: female How often do you talk on the phone with friends or family?: decline to answer How often do you get together with friends or relatives?: decline to answer How often do you attend evangelical or zoroastrianism services?: decline to answer Do you belong to any clubs or organized social groups?: decline to answer Duration: decline to answer Frequency: decline to answer Seatbelt use: always Helmet use: Yes Do you feel safe in your relationship?: Yes Exam Narrative Exam Narrative: Cachectic. No signs of any previous fractures. No signs of any previous surgery or radiation. Results Last Vital Signs Temp 37.1 C 04/28/23 09:00 Pulse 103 H 04/28/23 12:11 Resp 16 04/28/23 12:13 BP 86/57 L 04/28/23 09:00 Pulse Ox 92 04/28/23 12:13 Labs 04/28/23 05:50 04/28/23 05:50 Labs: Laboratory Results - last 24 hr 04/27/23 04/27/23 04/27/23 18:06 19:21 21:13 WBC 11.54 H RBC 5.05 Hgb 14.8 Hct 46.9 H MCV 93 MCH 29.3 MCHC 31.6 L RDW 13.7 Plt Count 230 MPV 8.9 Immature Gran % 0.3 Neutrophils % 63.5 Lymphocytes % 18.4 Monocytes % 11.3 Eosinophils % 5.7 Basophils % 0.8 Nucleated RBC % 0.0 Absolute Neutrophils 7.33 H Absolute Lymphocytes 2.12 Absolute Monocytes 1.30 H Absolute Eosinophils 0.66 Absolute Basophils 0.09 D-Dimer 217 ABG Sample Site ABG pH ABG pCO2 ABG pO2 ABG HCO3 ABG Total CO2 ABG O2 Saturation ABG Base Excess VBG pH 7.23 L VBG pCO2 80 H* VBG pO2 68 VBG HCO3 33 H VBG Total CO2 31 H VBG O2 Saturation 91 VBG Base Excess 6 H VBG Lactate Oxygen Liter Flow FiO2 Sodium 130 L Potassium 4.8 Chloride 93 L Carbon Dioxide 34.4 H Anion Gap 2.6 L BUN 17 Creatinine 0.7 Est GFR (CKD-EPI 2020) 101.44 Glucose 119 H Calcium 9.7 Magnesium 2.1 Total Bilirubin 0.4 AST 23 ALT 22 Alkaline Phosphatase 75 Troponin I < 50 NT-Pro-B Natriuret Pep 9729 H Total Protein 7.1 Albumin 3.0 L Procalcitonin < 0.1 TSH Urine Color Urine Clarity Urine pH Ur Specific [place] Urine Protein Urine Ketones Urine Blood Urine Nitrite Urine Bilirubin Urine Urobilinogen Ur Leukocyte Esterase Urine RBC Urine WBC Ur Epithelial Cells Urine Crystals Urine Bacteria Urine Casts Urine Mucus Ur Culture Indicated? Urine Glucose COVID-19 Source Nasopharynx SARS-CoV-2 (PCR) Negative Influenza Type A (PCR) Negative Influenza Type B (PCR) Negative RSV (PCR) Negative 04/27/23 04/28/23 04/28/23 23:15 00:15 00:40 WBC RBC Hgb Hct MCV MCH MCHC RDW Plt Count MPV Immature Gran % Neutrophils % Lymphocytes % Monocytes % Eosinophils % Basophils % Nucleated RBC % Absolute Neutrophils Absolute Lymphocytes Absolute Monocytes Absolute Eosinophils Absolute Basophils D-Dimer ABG Sample Site ABG pH ABG pCO2 ABG pO2 ABG HCO3 ABG Total CO2 ABG O2 Saturation ABG Base Excess VBG pH 7.18 L* 7.16 L* VBG pCO2 88 H* 93 H* VBG pO2 144 118 VBG HCO3 33 H 33 H VBG Total CO2 30 H 31 H VBG O2 Saturation 99 98 VBG Base Excess 5 H 4 H VBG Lactate Oxygen Liter Flow FiO2 Sodium Potassium Chloride Carbon Dioxide Anion Gap BUN Creatinine Est GFR (CKD-EPI 2020) Glucose Calcium Magnesium Total Bilirubin AST ALT Alkaline Phosphatase Troponin I NT-Pro-B Natriuret Pep Total Protein Albumin Procalcitonin TSH Urine Color Yellow Urine Clarity Clear Urine pH 5.5 Ur Specific [place] 1.020 Urine Protein 100 H Urine Ketones Negative Urine Blood Trace-lysed H Urine Nitrite Negative Urine Bilirubin Negative Urine Urobilinogen 0.2 Ur Leukocyte Esterase Negative Urine RBC 3-5 H Urine WBC Negative Ur Epithelial Cells Negative Urine Crystals Negative Urine Bacteria Negative Urine Casts Negative Urine Mucus Negative Ur Culture Indicated? No Urine Glucose Negative COVID-19 Source SARS-CoV-2 (PCR) Influenza Type A (PCR) Influenza Type B (PCR) RSV (PCR) 04/28/23 04/28/23 04/28/23 01:05 02:42 03:00 WBC RBC Hgb Hct MCV MCH MCHC RDW Plt Count MPV Immature Gran % Neutrophils % Lymphocytes % Monocytes % Eosinophils % Basophils % Nucleated RBC % Absolute Neutrophils Absolute Lymphocytes Absolute Monocytes Absolute Eosinophils Absolute Basophils D-Dimer ABG Sample Site Arterial Line Cancelled ABG pH 7.30 L Cancelled ABG pCO2 68 H* Cancelled ABG pO2 150 H Cancelled ABG HCO3 33 H Cancelled ABG Total CO2 Not Applicable Cancelled ABG O2 Saturation Not Applicable Cancelled ABG Base Excess 6 H Cancelled VBG pH 7.18 L* VBG pCO2 92 H* VBG pO2 51 VBG HCO3 35 H VBG Total CO2 32 H VBG O2 Saturation 79 VBG Base Excess 6 H VBG Lactate 0.6 Oxygen Liter Flow Cancelled FiO2 40 Cancelled Sodium Potassium Chloride Carbon Dioxide Anion Gap BUN Creatinine Est GFR (CKD-EPI 2020) Glucose Calcium Magnesium Total Bilirubin AST ALT Alkaline Phosphatase Troponin I NT-Pro-B Natriuret Pep Total Protein Albumin Procalcitonin TSH Urine Color Urine Clarity Urine pH Ur Specific [place] Urine Protein Urine Ketones Urine Blood Urine Nitrite Urine Bilirubin Urine Urobilinogen Ur Leukocyte Esterase Urine RBC Urine WBC Ur Epithelial Cells Urine Crystals Urine Bacteria Urine Casts Urine Mucus Ur Culture Indicated? Urine Glucose COVID-19 Source SARS-CoV-2 (PCR) Influenza Type A (PCR) Influenza Type B (PCR) RSV (PCR) 04/28/23 04/28/23 04/28/23 04:02 05:35 05:50 WBC 9.07 RBC 4.96 Hgb 14.6 Hct 44.9 MCV 91 MCH 29.4 MCHC 32.5 RDW 13.2 Plt Count 227 MPV 9.4 Immature Gran % 0.4 Neutrophils % 77.1 Lymphocytes % 10.4 Monocytes % 11.9 Eosinophils % 0.0 Basophils % 0.2 Nucleated RBC % 0.0 Absolute Neutrophils 6.99 H Absolute Lymphocytes 0.94 L Absolute Monocytes 1.08 H Absolute Eosinophils 0.00 Absolute Basophils 0.02 D-Dimer ABG Sample Site ABG pH ABG pCO2 ABG pO2 ABG HCO3 ABG Total CO2 ABG O2 Saturation ABG Base Excess VBG pH Cancelled VBG pCO2 Cancelled VBG pO2 Cancelled VBG HCO3 Cancelled VBG Total CO2 Cancelled VBG O2 Saturation Cancelled VBG Base Excess Cancelled VBG Lactate 0.9 Oxygen Liter Flow FiO2 Sodium 128 L Potassium 5.2 H Chloride 92 L Carbon Dioxide 34.3 H Anion Gap 1.7 L BUN 19 H Creatinine 0.7 Est GFR (CKD-EPI 2020) 101.44 Glucose 141 H Calcium 9.6 Magnesium 1.8 Total Bilirubin AST ALT Alkaline Phosphatase Troponin I NT-Pro-B Natriuret Pep Total Protein Albumin Procalcitonin TSH 0.56 Urine Color Urine Clarity Urine pH Ur Specific [place] Urine Protein Urine Ketones Urine Blood Urine Nitrite Urine Bilirubin Urine Urobilinogen Ur Leukocyte Esterase Urine RBC Urine WBC Ur Epithelial Cells Urine Crystals Urine Bacteria Urine Casts Urine Mucus Ur Culture Indicated? Urine Glucose COVID-19 Source SARS-CoV-2 (PCR) Influenza Type A (PCR) Influenza Type B (PCR) RSV (PCR) 04/28/23 06:10 WBC RBC Hgb Hct MCV MCH MCHC RDW Plt Count MPV Immature Gran % Neutrophils % Lymphocytes % Monocytes % Eosinophils % Basophils % Nucleated RBC % Absolute Neutrophils Absolute Lymphocytes Absolute Monocytes Absolute Eosinophils Absolute Basophils D-Dimer ABG Sample Site Arterial Line ABG pH 7.45 ABG pCO2 49 H ABG pO2 117 H ABG HCO3 34 H ABG Total CO2 30 H ABG O2 Saturation 98 ABG Base Excess 10 H VBG pH VBG pCO2 VBG pO2 VBG HCO3 VBG Total CO2 VBG O2 Saturation VBG Base Excess VBG Lactate Oxygen Liter Flow FiO2 Sodium Potassium Chloride Carbon Dioxide Anion Gap BUN Creatinine Est GFR (CKD-EPI 2020) Glucose Calcium Magnesium Total Bilirubin AST ALT Alkaline Phosphatase Troponin I NT-Pro-B Natriuret Pep Total Protein Albumin Procalcitonin TSH Urine Color Urine Clarity Urine pH Ur Specific [place] Urine Protein Urine Ketones Urine Blood Urine Nitrite Urine Bilirubin Urine Urobilinogen Ur Leukocyte Esterase Urine RBC Urine WBC Ur Epithelial Cells Urine Crystals Urine Bacteria Urine Casts Urine Mucus Ur Culture Indicated? Urine Glucose COVID-19 Source SARS-CoV-2 (PCR) Influenza Type A (PCR) Influenza Type B (PCR) RSV (PCR)
--- NOTE | 2023-04-28 12:54 | W.PM.OP ---
Date of service: 04/28/23 Time of Service: 12:54 Operative Note Operative Note DATE OF PROCEDURE: 04/28/23 PRE-OP DIAGNOSIS: need for central venous access POST-OP DIAGNOSIS: same PROCEDURE: right subclavian triple lumen SURGEON: Argenis Diop ANESTHESIA TYPE: Local By Surgeon and Other Refer to Anesthesia Record ESTIMATED BLOOD LOSS: 5 PATHOLOGY: other COMPLICATIONS: None Patient was transported to: ICU Patient's condition: critical Procedure Description: Central Line Procedure Note Central Line Procedure Note Indication: [_x] Hypotension/Sepsis/Need for Pressors Central Line Location: [_x] Right or [_] Left [_] Internal Jugular Vein or [X]x Subclavian Vein or [_] Femoral Vein Consent: verbal/phone Consent was obtained from sister prior to the procedure. Indications, risks and benefits were discussed prior to the procedure. PROCEDURE SUMMARY: A time out was performed. My hands were washed immediately prior to the procedure. I wore a surgical cap, mask with protective eyewear, full gown and sterile gloves throughout the procedure. The patient was placed in Trendelenburg position. The [_] Left [_X]Right [_] neck [X_] chest [_] groin was prepped using [_X] chlorhexidine scrub soln, ?and draped in sterile fashion using a three quarter sheet drape and sterile towels. Skin preparation was allowed to dry prior to skin puncture. Anatomic landmarks were identified. Anesthesia was achieved over the vein using 5cc 1% lidocaine. The Cook needle was used to cannulate the right subclavian vein with return of dark red nonpulsatile blood. Venous blood was withdrawn. The syringe was removed and a guidewire was advanced into the introducer needle, keeping good control of the guidewire at all times. A small incision was made at the skin surface with a scalpel and the introducer needle was exchanged for a dilator over the guidewire. After appropriate dilation was obtained, the dilator was exchanged over the wire for an [antimicrobial coated] _triple central venous catheter. The wire was removed and the catheter was sutured in place at _14 cm. A biopatch was placed at the insertion site. A sterile op-site was placed over the catheter and biopatch. The patient tolerated the procedure without any hemodynamic compromise. At time of procedure completion, all ports aspirated and flushed properly. Post-procedure chest x-ray : [_X] Shows adequate positioning of the catheter for use.
--- NOTE | 2023-04-28 13:00 | PHA.REVIEW2 ---
Pharmacy Admission Review Admission Clinical Review Admission Pharmacy Review: (Updated 04/27/23 @ 23:13 by Wendy Mejía MD) Elevated brain natriuretic peptide (BNP) level (Acute) Discharge planning issues (Acute) DVT prophylaxis (Acute) Acute exacerbation of chronic obstructive pulmonary disease (COPD) (Acute) Acute respiratory failure with hypoxia and hypercapnia (Acute) codeine Adverse Reaction (Verified 04/27/23 17:56) Nausea Resuscitation Status Full Code Height 5 ft 3 in Weight 45.2 kg Pharmacy Admission Review Renal Dosing Renal Dosing: CrCl~63ml/min BUN 19 mg/dL (7-18) H 04/28/23 05:50 Creatinine 0.7 mg/dL (0.55-1.02) 04/28/23 05:50 Medications needing adjustments: N/A Anticoagulation Anticoagulation: Hgb 14.6 g/dL (11.2-15.7) 04/28/23 05:50 Hct 44.9 % (36.0-46.0) 04/28/23 05:50 Plt Count 227 10^3/uL (130-400) 04/28/23 05:50 Creatinine 0.7 mg/dL (0.55-1.02) 04/28/23 05:50 DVT Prophylaxis: Reviewed Medications: Enoxaparin Relevant Labs Relevant Labs: Sodium 128 mmol/L (136-145) L 04/28/23 05:50 Potassium 5.2 mmol/L (3.5-5.1) H 04/28/23 05:50 Chloride 92 mmol/L (98-107) L 04/28/23 05:50 Magnesium 1.8 mg/dL (1.8-2.4) 04/28/23 05:50 Cardiac Review Cardiac Review: Troponin I < 50 ng/L (<or=60) 04/27/23 18:06 NT-Pro-B Natriuret Pep 9729 pg/mL (<300) H 04/27/23 18:06 Pharmacy Antibiotic Review Relevant Labs: Relevant Labs 04/27/23 21:13 Procalcitonin < 0.1
--- NOTE | 2023-04-28 13:15 | DI.VRAD_ITS ---
PROCEDURE INFORMATION: Exam: XR Chest Exam date and time: 04/28/2023 12:52 PM Age: 57 years old Clinical indication: Other: Central line placement verification TECHNIQUE: Imaging protocol: Radiologic exam of the chest. Views: 1 view. COMPARISON: CR XR PORTABLE CHEST AP 28/04/2023 08:36 FINDINGS: Tubes, catheters and devices: ET tube in place with the tip in the mid trachea. Nasogastric tube in place. The tip and side port of the NG tube are not identified. New right subclavian line with the tip in the mid superior vena cava. Lungs: Large lung volumes consistent with COPD unchanged from prior study. No focal consolidation. Pleural spaces: Unremarkable. No pleural effusion. No pneumothorax. Heart/Mediastinum: Stable cardiomediastinal silhouette. Vasculature: Atherosclerotic disease. Bones/joints: Unremarkable for patient's age. IMPRESSION: 1. New right subclavian line. 2. Stable position of ET tube and nasogastric tube. 3. Large lung volumes consistent with COPD. Dictated and Authenticated by: Ghazal Anand MD. Ordering:ANGEL More MD
[2023-04-28] MEDS: Pantoprazole 40 MG VIAL IVP (13:20)
[2023-04-28] MEDS: methylPREDNISolone SUCC 40 MG VIAL IVP ×2 (13:20→18:51)
[2023-04-28] MEDS: Enoxaparin 40 MG/0.4 ML SYR SC (13:20)
[2023-04-28] MEDS: MORPHine 2 MG/ML SYR (13:24)
[2023-04-28] MEDS: Norepinephrine in D5W 8 MG/250 ML BAG 33.75 MG IV (13:42)
--- NOTE | 2023-04-28 14:48 | PGE_ITS ---
Date of Service Date of service: 04/28/23 Time of Service: 14:52 Assessment and Plan Assessment and plan (1) Acute respiratory failure with hypoxia and hypercapnia: Status: Acute Assessment and plan: Due to acute exacerbation of COPD. Admit to the ICU, but unable to tolerate BiPAP (prior to lorazepam). States claustrophobia and painful nasal bone / recent fracture. ABG today with pH of 7.45. pCO2 49. pO2 117. Pt is intubated Procalcitonin is negative - no role for abx. (2) Acute exacerbation of chronic obstructive pulmonary disease (COPD): Status: Acute Assessment and plan: As above Duonebs, Pulmicort, prn albuterol. (3) Elevated brain natriuretic peptide (BNP) level: Status: Acute Assessment and plan: I do think that she sounds fluid overloaded. Trialed furosemide x2 doses but her O2 saturations did not improved and now intubated. Obtain an echo. (4) HTN (hypertension): Status: Chronic Assessment and plan: Now on norepinephrine for hypotension (5) Tobacco dependence: Status: Chronic Assessment and plan: Pt finished a course of Chantix and has not smoked for 1 week. She had not wanted to use nicotine products to help her quit and daughter intimated that she would likely not want to use one currently. (6) DVT prophylaxis: Status: Acute Assessment and plan: SC enoxaparin (7) Discharge planning issues: Status: Acute Assessment and plan: Full code as per my discussion with the daughter who is the DPOA. Subjective Subjective Patient reports: afebrile; denies diarrhea or vomiting Interval history since last seen: Pt intubated / sedated Exam Narrative Exam Narrative: General: Pt is sedated and intubated. Not restless. Skin: Visible skin intact Cardiovascular: RRR, tachycardic, no murmur Lungs: Clear. Gastrointestinal: soft, nondistended Extremities: no edema BLEs Objective Last Vital Signs Temp 36.8 C 04/28/23 14:00 Pulse 114 H 04/28/23 13:00 Resp 16 04/28/23 13:56 BP 88/59 L 04/28/23 13:00 Pulse Ox 91 L 04/28/23 13:56 Laboratory Results - last 24 hr 04/27/23 04/27/23 04/27/23 18:06 19:21 21:13 WBC 11.54 H RBC 5.05 Hgb 14.8 Hct 46.9 H MCV 93 MCH 29.3 MCHC 31.6 L RDW 13.7 Plt Count 230 MPV 8.9 Immature Gran % 0.3 Neutrophils % 63.5 Lymphocytes % 18.4 Monocytes % 11.3 Eosinophils % 5.7 Basophils % 0.8 Nucleated RBC % 0.0 Absolute Neutrophils 7.33 H Absolute Lymphocytes 2.12 Absolute Monocytes 1.30 H Absolute Eosinophils 0.66 Absolute Basophils 0.09 D-Dimer 217 ABG Sample Site ABG pH ABG pCO2 ABG pO2 ABG HCO3 ABG Total CO2 ABG O2 Saturation ABG Base Excess VBG pH 7.23 L VBG pCO2 80 H* VBG pO2 68 VBG HCO3 33 H VBG Total CO2 31 H VBG O2 Saturation 91 VBG Base Excess 6 H VBG Lactate Oxygen Liter Flow FiO2 Sodium 130 L Potassium 4.8 Chloride 93 L Carbon Dioxide 34.4 H Anion Gap 2.6 L BUN 17 Creatinine 0.7 Est GFR (CKD-EPI 2020) 101.44 Glucose 119 H Calcium 9.7 Magnesium 2.1 Total Bilirubin 0.4 AST 23 ALT 22 Alkaline Phosphatase 75 Troponin I < 50 NT-Pro-B Natriuret Pep 9729 H Total Protein 7.1 Albumin 3.0 L Procalcitonin < 0.1 TSH Urine Color Urine Clarity Urine pH Ur Specific [place] Urine Protein Urine Ketones Urine Blood Urine Nitrite Urine Bilirubin Urine Urobilinogen Ur Leukocyte Esterase Urine RBC Urine WBC Ur Epithelial Cells Urine Crystals Urine Bacteria Urine Casts Urine Mucus Ur Culture Indicated? Urine Glucose COVID-19 Source Nasopharynx SARS-CoV-2 (PCR) Negative Influenza Type A (PCR) Negative Influenza Type B (PCR) Negative RSV (PCR) Negative 04/27/23 04/28/23 04/28/23 23:15 00:15 00:40 WBC RBC Hgb Hct MCV MCH MCHC RDW Plt Count MPV Immature Gran % Neutrophils % Lymphocytes % Monocytes % Eosinophils % Basophils % Nucleated RBC % Absolute Neutrophils Absolute Lymphocytes Absolute Monocytes Absolute Eosinophils Absolute Basophils D-Dimer ABG Sample Site ABG pH ABG pCO2 ABG pO2 ABG HCO3 ABG Total CO2 ABG O2 Saturation ABG Base Excess VBG pH 7.18 L* 7.16 L* VBG pCO2 88 H* 93 H* VBG pO2 144 118 VBG HCO3 33 H 33 H VBG Total CO2 30 H 31 H VBG O2 Saturation 99 98 VBG Base Excess 5 H 4 H VBG Lactate Oxygen Liter Flow FiO2 Sodium Potassium Chloride Carbon Dioxide Anion Gap BUN Creatinine Est GFR (CKD-EPI 2020) Glucose Calcium Magnesium Total Bilirubin AST ALT Alkaline Phosphatase Troponin I NT-Pro-B Natriuret Pep Total Protein Albumin Procalcitonin TSH Urine Color Yellow Urine Clarity Clear Urine pH 5.5 Ur Specific [place] 1.020 Urine Protein 100 H Urine Ketones Negative Urine Blood Trace-lysed H Urine Nitrite Negative Urine Bilirubin Negative Urine Urobilinogen 0.2 Ur Leukocyte Esterase Negative Urine RBC 3-5 H Urine WBC Negative Ur Epithelial Cells Negative Urine Crystals Negative Urine Bacteria Negative Urine Casts Negative Urine Mucus Negative Ur Culture Indicated? No Urine Glucose Negative COVID-19 Source SARS-CoV-2 (PCR) Influenza Type A (PCR) Influenza Type B (PCR) RSV (PCR) 04/28/23 04/28/23 04/28/23 01:05 02:42 03:00 WBC RBC Hgb Hct MCV MCH MCHC RDW Plt Count MPV Immature Gran % Neutrophils % Lymphocytes % Monocytes % Eosinophils % Basophils % Nucleated RBC % Absolute Neutrophils Absolute Lymphocytes Absolute Monocytes Absolute Eosinophils Absolute Basophils D-Dimer ABG Sample Site Arterial Line Cancelled ABG pH 7.30 L Cancelled ABG pCO2 68 H* Cancelled ABG pO2 150 H Cancelled ABG HCO3 33 H Cancelled ABG Total CO2 Not Applicable Cancelled ABG O2 Saturation Not Applicable Cancelled ABG Base Excess 6 H Cancelled VBG pH 7.18 L* VBG pCO2 92 H* VBG pO2 51 VBG HCO3 35 H VBG Total CO2 32 H VBG O2 Saturation 79 VBG Base Excess 6 H VBG Lactate 0.6 Oxygen Liter Flow Cancelled FiO2 40 Cancelled Sodium Potassium Chloride Carbon Dioxide Anion Gap BUN Creatinine Est GFR (CKD-EPI 2020) Glucose Calcium Magnesium Total Bilirubin AST ALT Alkaline Phosphatase Troponin I NT-Pro-B Natriuret Pep Total Protein Albumin Procalcitonin TSH Urine Color Urine Clarity Urine pH Ur Specific [place] Urine Protein Urine Ketones Urine Blood Urine Nitrite Urine Bilirubin Urine Urobilinogen Ur Leukocyte Esterase Urine RBC Urine WBC Ur Epithelial Cells Urine Crystals Urine Bacteria Urine Casts Urine Mucus Ur Culture Indicated? Urine Glucose COVID-19 Source SARS-CoV-2 (PCR) Influenza Type A (PCR) Influenza Type B (PCR) RSV (PCR) 04/28/23 04/28/23 04/28/23 04:02 05:35 05:50 WBC 9.07 RBC 4.96 Hgb 14.6 Hct 44.9 MCV 91 MCH 29.4 MCHC 32.5 RDW 13.2 Plt Count 227 MPV 9.4 Immature Gran % 0.4 Neutrophils % 77.1 Lymphocytes % 10.4 Monocytes % 11.9 Eosinophils % 0.0 Basophils % 0.2 Nucleated RBC % 0.0 Absolute Neutrophils 6.99 H Absolute Lymphocytes 0.94 L Absolute Monocytes 1.08 H Absolute Eosinophils 0.00 Absolute Basophils 0.02 D-Dimer ABG Sample Site ABG pH ABG pCO2 ABG pO2 ABG HCO3 ABG Total CO2 ABG O2 Saturation ABG Base Excess VBG pH Cancelled VBG pCO2 Cancelled VBG pO2 Cancelled VBG HCO3 Cancelled VBG Total CO2 Cancelled VBG O2 Saturation Cancelled VBG Base Excess Cancelled VBG Lactate 0.9 Oxygen Liter Flow FiO2 Sodium 128 L Potassium 5.2 H Chloride 92 L Carbon Dioxide 34.3 H Anion Gap 1.7 L BUN 19 H Creatinine 0.7 Est GFR (CKD-EPI 2020) 101.44 Glucose 141 H Calcium 9.6 Magnesium 1.8 Total Bilirubin AST ALT Alkaline Phosphatase Troponin I NT-Pro-B Natriuret Pep Total Protein Albumin Procalcitonin TSH 0.56 Urine Color Urine Clarity Urine pH Ur Specific [place] Urine Protein Urine Ketones Urine Blood Urine Nitrite Urine Bilirubin Urine Urobilinogen Ur Leukocyte Esterase Urine RBC Urine WBC Ur Epithelial Cells Urine Crystals Urine Bacteria Urine Casts Urine Mucus Ur Culture Indicated? Urine Glucose COVID-19 Source SARS-CoV-2 (PCR) Influenza Type A (PCR) Influenza Type B (PCR) RSV (PCR) 04/28/23 04/28/23 06:10 Unknown WBC RBC Hgb Hct MCV MCH MCHC RDW Plt Count MPV Immature Gran % Neutrophils % Lymphocytes % Monocytes % Eosinophils % Basophils % Nucleated RBC % Absolute Neutrophils Absolute Lymphocytes Absolute Monocytes Absolute Eosinophils Absolute Basophils D-Dimer ABG Sample Site Arterial Line Cancelled ABG pH 7.45 Cancelled ABG pCO2 49 H Cancelled ABG pO2 117 H Cancelled ABG HCO3 34 H Cancelled ABG Total CO2 30 H Cancelled ABG O2 Saturation 98 Cancelled ABG Base Excess 10 H Cancelled VBG pH VBG pCO2 VBG pO2 VBG HCO3 VBG Total CO2 VBG O2 Saturation VBG Base Excess VBG Lactate Oxygen Liter Flow Cancelled FiO2 Cancelled Sodium Potassium Chloride Carbon Dioxide Anion Gap BUN Creatinine Est GFR (CKD-EPI 2020) Glucose Calcium Magnesium Total Bilirubin AST ALT Alkaline Phosphatase Troponin I NT-Pro-B Natriuret Pep Total Protein Albumin Procalcitonin TSH Urine Color Urine Clarity Urine pH Ur Specific [place] Urine Protein Urine Ketones Urine Blood Urine Nitrite Urine Bilirubin Urine Urobilinogen Ur Leukocyte Esterase Urine RBC Urine WBC Ur Epithelial Cells Urine Crystals Urine Bacteria Urine Casts Urine Mucus Ur Culture Indicated? Urine Glucose COVID-19 Source SARS-CoV-2 (PCR) Influenza Type A (PCR) Influenza Type B (PCR) RSV (PCR) Time Spent with Patient Time Spent with Patient: 35-49 minutes Time was spent: preparing to see the patient(eg.review tests), obtaining and/or reviewing separately otained hiistory, ordering medications,tests, procedures, referring, communicating with other health career services assistant, indepentently interpreting results, counseling the patient and care coordination
[2023-04-28 14:58] LABS: Anion Gap -0.3 mmol/L (3-11); BUN 19 mg/dL (7-18); CO2 34.3 mmol/L (21.0-32.0); CREATININE 0.8 mg/dL (0.55-1.02); Calcium 9.8 mg/dL (8.5-10.1); Chloride 95 mmol/L (98-107); Estimated GFR 86.42 (mL/min/1.73m2); Glucose 131 mg/dL (74-106); Magnesium 1.9 mg/dL (1.8-2.4); Potassium 5.4 mmol/L (3.5-5.1); Sodium 129 mmol/L (136-145)
[2023-04-28] MEDS: Normal Saline 1,000 ML 80 ML IV (15:05)
[2023-04-28] MEDS: PROPOFOL 1,000 MG/100 ML BTL 11.975 MG IVPB (15:42)
[2023-04-28] MEDS: Water,Injection,Sterile 10 ML VIAL (18:51)
[2023-04-28 20:03] LABS: Lactate 1.2 mmol/L (0.6-1.4)
[2023-04-28] MEDS: Norepinephrine in D5W 8 MG/250 ML BAG 28.125 MG IV (20:34)
[2023-04-28] MEDS: PROPOFOL 1,000 MG/100 ML BTL 20.956 MG IVPB (22:48)
[2023-04-29] VITALS (92 sets, daily range): BP systolic 72–106; BP diastolic 45–74; PULSE 99–135; RESP 2–35; TEMP 31–37.7; O2SAT 78–99
[2023-04-29 01:13] LABS: Lactate 1.6 mmol/L (0.6-1.4)
[2023-04-29] MEDS: methylPREDNISolone SUCC 40 MG VIAL IVP (02:50)
[2023-04-29] MEDS: PROPOFOL 1,000 MG/100 ML BTL 20.956 MG IVPB (02:51)
[2023-04-29] MEDS: MORPHine 2 MG/ML SYR IVP (04:21)
[2023-04-29] MEDS: Normal Saline Flush 10 ML SYR IVP ×5 (04:23→23:57)
[2023-04-29] MEDS: Norepinephrine in D5W 8 MG/250 ML BAG 33.75 MG IV (04:31)
[2023-04-29] MEDS: Levalbuterol 1.25 MG/3 ML UPD VIAL UPD ×5 (05:39→21:34)
[2023-04-29] MEDS: Ipratropium 0.5 MG/2.5 ML UPD VIAL UPD ×4 (05:40→18:18)
[2023-04-29 06:06] LABS: BE (Venous) 9 mmol/L (-2-3); HCO3 (Venous) 34 mmol/L (23-28); O2 Sat (Venous) 90 %; TCO2 (Venous) 30 mmol/L (24-29); pCO2 (Venous) 59 mmHg (41-51); pH (Venous) 7.37 (7.31-7.41); pO2 (Venous) 61 mmHg
[2023-04-29 06:08] LABS: Lactate 1.6 mmol/L (0.6-1.4)
--- NOTE | 2023-04-29 06:10 | NUR.NOTE ---
0600-morning labs drawn from central line. attempt made to draw blood from a-line without success
[2023-04-29 06:14] LABS: Abs Immature Grans 0.05 10^3/uL (0.0-0.06); Absolute Basophil Count 0.01 10^3/uL (0.0-0.2); Absolute Eosinophil Count 0.02 10^3/uL (0.0-0.7); Absolute Lymphocyte Count 0.62 10^3/uL (1.2-3.4); Absolute Monocyte Count 0.77 10^3/uL (0.1-0.8); Basophils % 0.1; Eosinophils % 0.2; HCT 44.3 % (36.0-46.0); HGB 14.7 g/dL (11.2-15.7); Immature Grans % 0.5; Lymphocytes % 5.6; MCH 30.2 pg (27.0-33.0); MCHC 33.2 % (32.0-36.0); MCV 91 fL (80-95); MPV 9.8 fL (8.0-11.0); Neutrophils % 86.6; Platelet Count 221 10^3/uL (130-400); RBC 4.86 10^6/uL (3.93-5.22); RDW 13.6 % (11.7-14.6); RDW-SD 45.8 fL; WBC 11.03 10^3/uL (4.4-10.8)
[2023-04-29 06:18] LABS: Absolute Neutrophil Count 9.55 10^3/uL (1.2-6.7)
[2023-04-29 06:28] LABS: Anion Gap 4.2 mmol/L (3-11); BUN 19 mg/dL (7-18); CO2 31.8 mmol/L (21.0-32.0); CREATININE 0.8 mg/dL (0.55-1.02); Calcium 9.2 mg/dL (8.5-10.1); Chloride 99 mmol/L (98-107); Estimated GFR 86.42 (mL/min/1.73m2); Glucose 175 mg/dL (74-106); Potassium 4.8 mmol/L (3.5-5.1); Sodium 135 mmol/L (136-145)
[2023-04-29 06:31] LABS: Ammonia < 10 umol/L (11-32)
[2023-04-29 06:32] LABS: Hemoglobin A1C 5.9 % (<5.7)
--- NOTE | 2023-04-29 07:17 | W.PULMCC ---
General Date of Service Date of service: 04/29/23 Time of Service: 07:17 Reason for Admission to ICU: Respiratory failure Hypotension Assessment and Plan Assessment and plan (1) Acute exacerbation of chronic obstructive pulmonary disease (COPD): Status: Acute (2) Acute respiratory failure with hypoxia and hypercapnia: Status: Acute (3) Leukocytosis: Status: Acute (4) Right ventricular dysfunction: Status: Acute (5) Volume overload: Status: Acute (6) Hypotension: Status: Acute Assessment and plan: This is a 57 yo with severe emphsema on CT and likely significant COPD. This morning I found her to be significantly over sedated. I stopped propofol and started a spontaneous breathing trial. Initially she was not able to tolerate 5/5 support, so she spent 1 hour on 8/5. Later we switched her again to 5/5 support and she tolerated this better. Her procalcitonin was low, but given the severity of her illness and the robust need for pressor support, I will add cefepime for now. I am also concerned about her alpha 1 anti-trypsan level given her young age for such significant emphysema. POCUS today does find RV dysfunction and diltation as well as a plethoric IVC with bubble retrograde flow indicating elevated right sided pressures. Recommendations Pulmonary: Acute hypoxic and hypercapnic respiratory failure - mechanical ventilation with volume control - ABT this morning - if tolerates 5/5 support this morning, recommend extubation to HFNC at 60L, titrate FiO2 for sat 88-92% - recommend HFNC be left on for at least 24 hours prophylactically - VBG/ABG only with clinical change or concern for retention Likely COPD Exacerbation - levalbuterol and ipratropium q4h for now - can make QID tomorrow - start Stiolto when extubated - alpha 1 level - will need fu with me in clinic - methylpred changed to prednisone 40mg daily - cefepime for now Cardiac: RV dysfunction - echo scheduled for today - recommend negative fluid balance - Lasix prn Hypotension - due to over -sedation - Levophed as needed Renal: No acute concerns I&O: Intake & Output 04/26/23 04/27/23 04/28/23 04/29/23 23:59 23:59 23:59 23:59 Intake Total 510.000 / 178.941 6621.967 / 4.967 371.233 / 371.233 Output Total 500 / 500 2600 / 2600 1200 / 1200 Balance 10.000 / 10.000 -505.033 / -505.033 -828.767 / -828.767 Weight 45.2 kg 48.1 kg Daily Fluid Goal:: negative 1 L GI Nutrition: NPO status - speech consulted given length of intubation Date of Last Bowel Movement: 04/27/23 Infectious Disease: Procal low, on cefepime, will clayton if remains stable off pressors Hematologic: Leukocytosis - reactive Neurologic: No acute concerns Lines: Central line Art Line Jones Prophylaxis: Lovenox Protonix Code Status: Resuscitation Status Full Code Subjective Critical and life-threatening events over the past 24 hours: This is a 57 yo with significant emphysematous COPD admitted for hypoxic and hypercapnic respiratory failure. She was intolerant to BiPAP given a recent nasal fracture and ultimately required intubation on 04/27/23. More details are found in the H&P note. Today she is over-sedated and intubated on reasonable ventilator settings. She was requiring significant Levophed, but again this is due to significant over sedation. Exam Narrative Exam Narrative: Gen: NAD, sedated HENT: PERRL Chest: No respiratory distress, normal appearance of chest, clear to auscultation bilaterally, no crackles or wheezes, normal inspiratory effort Heart: regular rate and rhythym, no murmurs, rubs or gallops Abdomen: Non-distended, soft, non tender Extremities: No clubbing, edema, cyanosis, rashes Neuro: intubated and sedated Psych: intubated and sedated Most Recent VS/Results Last Vital Signs Temp 36.6 C 04/29/23 03:15 Pulse 104 H 04/29/23 06:09 Resp 12 04/29/23 06:09 BP 99/65 L 04/29/23 05:56 Pulse Ox 92 04/29/23 06:09 Laboratory Results - last 24 hr 04/28/23 04/28/23 04/28/23 14:40 19:57 22:14 WBC RBC Hgb Hct MCV MCH MCHC RDW Plt Count MPV Immature Gran % Neutrophils % Lymphocytes % Monocytes % Eosinophils % Basophils % Nucleated RBC % Absolute Neutrophils Absolute Lymphocytes Absolute Monocytes Absolute Eosinophils Absolute Basophils ABG Sample Site ABG pH ABG pCO2 ABG pO2 ABG HCO3 ABG Total CO2 ABG O2 Saturation ABG Base Excess VBG pH VBG pCO2 VBG pO2 VBG HCO3 VBG Total CO2 VBG O2 Saturation VBG Base Excess VBG Lactate 1.2 Cancelled Oxygen Liter Flow FiO2 Sodium 129 L Potassium 5.4 H Chloride 95 L Carbon Dioxide 34.3 H Anion Gap -0.3 L BUN 19 H Creatinine 0.8 Est GFR (CKD-EPI 2020) 86.42 Glucose 131 H Hemoglobin A1c Calcium 9.8 Magnesium 1.9 Ammonia 04/28/23 04/29/23 04/29/23 Unknown 01:06 05:50 WBC 11.03 H RBC 4.86 Hgb 14.7 Hct 44.3 MCV 91 MCH 30.2 MCHC 33.2 RDW 13.6 Plt Count 221 MPV 9.8 Immature Gran % 0.5 Neutrophils % 86.6 Lymphocytes % 5.6 Monocytes % 7.0 Eosinophils % 0.2 Basophils % 0.1 Nucleated RBC % 0.0 Absolute Neutrophils 9.55 H Absolute Lymphocytes 0.62 L Absolute Monocytes 0.77 Absolute Eosinophils 0.02 Absolute Basophils 0.01 ABG Sample Site Cancelled ABG pH Cancelled ABG pCO2 Cancelled ABG pO2 Cancelled ABG HCO3 Cancelled ABG Total CO2 Cancelled ABG O2 Saturation Cancelled ABG Base Excess Cancelled VBG pH 7.37 VBG pCO2 59 H VBG pO2 61 VBG HCO3 34 H VBG Total CO2 30 H VBG O2 Saturation 90 VBG Base Excess 9 H VBG Lactate 1.6 H 1.6 H Oxygen Liter Flow Cancelled FiO2 Cancelled Sodium 135 L Potassium 4.8 Chloride 99 Carbon Dioxide 31.8 Anion Gap 4.2 BUN 19 H Creatinine 0.8 Est GFR (CKD-EPI 2020) 86.42 Glucose 175 H Hemoglobin A1c 5.9 H Calcium 9.2 Magnesium Ammonia < 10 L Review of Systems Unobtainable due to endotracheal tube Time spent with patient Time spent in Critical Care: 60 Time spent in Critical care included: Performing procedures not included in c.c time, Coordination of care, Chart review, Documenting critically ill care, Time at immediate bedside and Discussing critically ill care with other medical staff Multi-Disciplinary Checklist Lines/Tubes CENTRAL LINE: yes, Central Line Day#: 1 ARTERIAL LINE: yes, Arterial Line Day#: 1 JONES: yes, Jones Day#: 2 ENDOTRACHEAL TUBE: yes, Endotracheal Tube Day#: 1 Sedation: yes, Sedation Vacation: yes Head of Bed@30 degrees: yes Spontaneous Breathing Trial: yes ICU Maintenance GLUCOSE 140-180mg/dL: yes NUTRITION AT GOAL: no, Reason/Intervention: NPO - plan for extubation today, reassess after speech consult PRESSURE ULCER: no RESTRAINTS: yes, Reviewed Necessity: Yes ANTIBIOTICS(if yes, consider Stewardship): Yes Social Issues FAMILY UPDATED: no, Reason/Intervention: defer to hospitalist PT/OT: no, 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
[2023-04-29] MEDS: fentaNYL 100 MCG/2 ML VIAL 50 MCG IVP (08:00)
--- NOTE | 2023-04-29 08:00 | DI.US_ITS ---
APPROVED REPORT EXAM: Comprehensive 2D, Doppler, and color-flow Echocardiogram Patient Location: In-Patient Room/Bed: [id number] Indications: Respiratory failure, ?CHF, COPD, Smoker Other Information Study Quality: Fair. Technically limited study due to body habitus, inability to position patient exa m done with patient is sitting position. Conclusion Left ventricle is small, hyperdynamic. EF is 65%. Septal motion is somewhat paradoxic Right ventricle is dilated and hypocontractile. There is diastolic septal flattening consistent with right ventricular pressure/volume overload Both atria are normal in size There is no structural or hemodynamically significant valvular disease Right ventricular systolic pressure could not be estimated Wall motion Left Ventricle Normal left ventricular chamber size The left ventricular systolic function is normal. The left ventr icular ejection fraction is within the normal range. There is normal left ventricular wall thickness. LV is hyperdynamic There is no ventricular septal defect visualized. LVEF is 65% Right Ventricle Right ventricle is mild to moderately dilated. Right ventricle is hypocontractile Septum is flat in d iastole consistent with RV volume overload. Atria The left atrium size is normal. The right atrium size is mildly dilated The interatrial septum is int act with no evidence for an atrial septal defect. Aortic Valve The aortic valve is normal in structure. Aortic valve is trileaflet. There is no aortic valvular sten osis. No aortic regurgitation is present. Mitral Valve The mitral valve is normal in structure. No evidence of mitral valve stenosis. Trace mitral regurgita tion. Tricuspid Valve The tricuspid valve is normal in structure. There is no tricuspid valve stenosis. Trace tricuspid reg urgitation. Unable to assess PA pressure. Pulmonic Valve The pulmonary valve is normal in structure. There is no pulmonic valvular stenosis. Trace pulmonic re gurgitation. Great Vessels The aortic root is normal in size. Ascending aorta is not well visualized. Aortic arch is not well vi sualized. IVC is normal in size and collapses >50% with inspiration. Pericardium There is no pericardial effusion. 2D Dimensions IVSD d PLAX 0.59 cm F: 0.6-1.0 Ao Root d 2.79 cm F: 2.7 - 3.3 LVPW d PLAX 0.61 cm F: 0.6 - 1.0 LVID d PLAX 3.48 cm F: 3.8 - 5.2 LVDs 2.58 cm F: 2.2 - 3.5 LV EF Teichholz 52.1 % FS 25.98 % LV EDV (Teich) 50.3 mL LV ESV (Teich) 24.1 mL M-Mode TAPSE 1.71 cm (M/F) >1.7 LV Volumes - Method of Disks (De Oliveira's) Single Plane 2D LV Volumes Biplane 2D LV Volumes LV EDV A4C 36.5 mL LV EDV BP LV ESV A4C 17.6 mL LV ESV BP LVEF(%) A4C 51.7 % LVEF(%) BP RV Strain Global Peak Long. Strain A4C 5.90 Global Peak Long. Strain A4C FW 3.68 LA Volume LA Length A4C 2.9 cm LA Length A2C LA Area A4C s 5.94 cm2 LA Area A2C s LA Vol A4C A-L 10.15 mL LA Vol A2C A-L LA Vol Biplane A-L LA Vol A4C MOD 9.4 mL LA Vol A2C MOD LA Vol BP MOD LV Diastology MV E' medial 0.070 (>0.07 m/s) MV E Vmax 0.60 (0.4-1.3 m/s) MV E/E' MED 8.49 (<14) MV A Vmax 0.70 (0.4-1.3 m/s) MV E' lateral 0.104 (>0.1 m/s) E/A Ratio 0.9 MV E/E' LAT 5.73 (<14) MV E' Average 0.087 m/s MV E/E'(average) 6.84 Aortic Valve AoV Vmax 1.17 m/s LVOT Vmax 0.87 m/s AoV Peak Grad 5.5 mmHg LVOT Peak Grad 3.1 mmHg AoV Area (Vmax) 2.00 cm2 LVOT VTI 0.141 m AoV VTI 0.208 m LVOT Mean Grad 2.1 mmHg AoV Mean Jordan. 0.92 m/s LVOT SV 37.75 mL AoV Mean Grad 3.7 mmHg LVOT Diam s 1.80 cm AoV Area (VTI) 1.82 cm2 Velocity Ratio 0.74 Mitral Valve MV DT 132 (160-240 msec) Pulmonary Valve PV Vmax 0.95 (0.5-1.5 m/s) RVOT Vmax 0.99 m/s PV Peak Grad 3.6 mmHg RVOT Peak Gr. 4.0 mmHg PV Mean Jordan 0.79 m/s RVOT VTI 0.150 m PV Mean Grad 2.6 mmHg RVOT Mean Gr. 1.7 mmHg Tricuspid Valve TV S' 0.15 m/s
--- NOTE | 2023-04-29 10:02 | PDOC.CMPRO ---
Date of service: 04/29/23 Time of Service: 10:03 Care Management Progress Note Progress Note Text Progress Note Text: S/O: Marissa was lying in bed visiting with her daughter, Fay, when CM met with her. She stated that she was doing ok, although it has been a long day. Per report, she was extubated today, and had an echo. Marissa stated that she is very independent at home, and does not want any services or support from the community. She identified her daughter, Fay, and her neighbors to be her only supports, as she lives alone with her dog. She stated that she is frustrated because she quit smoking for seven days and she still got sick. CM offered tobacco cessation support, and she declined. CM provided a return to work letter, which Fay brought to Marissa's place of work, at Marissa's request. Per report, she is currently on 2LO2; she does not have O2 at baseline. CM will continue to follow. A: Marissa is a 57 year old female admitted to [facility] on 04/27/23 for acute hypoxic hypercapnic respiratory failure, COPD. P: Marissa's discharge plan is unclear at this time. Marissa is critically ill and intubated. She may require transfer to a tertiary care facility if she does not show improvement. CM will follow and continue to assess for discharge concerns.
[2023-04-29] MEDS: CEFEPIME 2 GM in Normal Saline 100 ML IVPB ×2 (10:17→21:21)
[2023-04-29] MEDS: Lactated Ringers 500 ML IV ×2 (12:11→13:47)
[2023-04-29] MEDS: Acetaminophen 325 MG TAB PO (12:39)
--- NOTE | 2023-04-29 13:43 | W.PM.PROGNOT ---
Date of Service Date of service: 04/29/23 Time of Service: 13:43 Assessment and Plan Assessment and plan (1) Acute respiratory failure with hypoxia and hypercapnia: Status: Acute Assessment and plan: Due to acute exacerbation of COPD. Admit to the ICU, but unable to tolerate BiPAP (prior to lorazepam). States claustrophobia and painful nasal bone / recent fracture. ABG today with pH of 7.45. pCO2 49. pO2 117. Pt extubated this AM. Initially transitioned to HFNC but then able to transition to 2L NC. Pulmonary/critical care medicine following. (2) Acute exacerbation of chronic obstructive pulmonary disease (COPD): Status: Acute Assessment and plan: As above Duonebs, Pulmicort, prn albuterol. Now also on cefepime. (3) Elevated brain natriuretic peptide (BNP) level: Status: Acute Assessment and plan: I do think that she sounds fluid overloaded. Trialed furosemide x2 doses but her O2 saturations did not improved. Echocardiogram: EF of 65%. There is diastolic septal flattening consistent with right ventricular pressure/volume overload She has received IV LR boluses today d/t low BP. Will now monitor and may ultimately need further diuretics. (4) HTN (hypertension): Status: Chronic Assessment and plan: Now off norepinephrine. BP low but MAP > 65 Given fluid boluses w/o any significant response and now echocardiogram indicates likely volume overload. (5) Tobacco dependence: Status: Chronic Assessment and plan: Pt finished a course of Chantix and has not smoked for 1 week. She had not wanted to use nicotine products to help her quit and daughter intimated that she would likely not want to use one currently. (6) DVT prophylaxis: Status: Acute Assessment and plan: SC enoxaparin (7) Discharge planning issues: Status: Acute Assessment and plan: Full code as per my discussion with the daughter who is the DPOA. Subjective Subjective Patient reports: tolerating liquids well and afebrile; denies nausea or vomiting Interval history since last seen: Extubated this AM Objective Last Vital Signs Temp 36.9 C 04/29/23 13:16 Pulse 126 H 04/29/23 13:16 Resp 18 04/29/23 13:16 BP 106/70 04/29/23 07:00 Pulse Ox 95 04/29/23 13:16 Laboratory Results - last 24 hr 04/28/23 04/28/23 04/28/23 14:40 19:57 22:14 WBC RBC Hgb Hct MCV MCH MCHC RDW Plt Count MPV Immature Gran % Neutrophils % Lymphocytes % Monocytes % Eosinophils % Basophils % Nucleated RBC % Absolute Neutrophils Absolute Lymphocytes Absolute Monocytes Absolute Eosinophils Absolute Basophils ABG Sample Site ABG pH ABG pCO2 ABG pO2 ABG HCO3 ABG Total CO2 ABG O2 Saturation ABG Base Excess VBG pH VBG pCO2 VBG pO2 VBG HCO3 VBG Total CO2 VBG O2 Saturation VBG Base Excess VBG Lactate 1.2 Cancelled Oxygen Liter Flow FiO2 Sodium 129 L Potassium 5.4 H Chloride 95 L Carbon Dioxide 34.3 H Anion Gap -0.3 L BUN 19 H Creatinine 0.8 Est GFR (CKD-EPI 2020) 86.42 Glucose 131 H Hemoglobin A1c Calcium 9.8 Magnesium 1.9 Ammonia 04/28/23 04/29/23 04/29/23 Unknown 01:06 05:50 WBC 11.03 H RBC 4.86 Hgb 14.7 Hct 44.3 MCV 91 MCH 30.2 MCHC 33.2 RDW 13.6 Plt Count 221 MPV 9.8 Immature Gran % 0.5 Neutrophils % 86.6 Lymphocytes % 5.6 Monocytes % 7.0 Eosinophils % 0.2 Basophils % 0.1 Nucleated RBC % 0.0 Absolute Neutrophils 9.55 H Absolute Lymphocytes 0.62 L Absolute Monocytes 0.77 Absolute Eosinophils 0.02 Absolute Basophils 0.01 ABG Sample Site Cancelled ABG pH Cancelled ABG pCO2 Cancelled ABG pO2 Cancelled ABG HCO3 Cancelled ABG Total CO2 Cancelled ABG O2 Saturation Cancelled ABG Base Excess Cancelled VBG pH 7.37 VBG pCO2 59 H VBG pO2 61 VBG HCO3 34 H VBG Total CO2 30 H VBG O2 Saturation 90 VBG Base Excess 9 H VBG Lactate 1.6 H 1.6 H Oxygen Liter Flow Cancelled FiO2 Cancelled Sodium 135 L Potassium 4.8 Chloride 99 Carbon Dioxide 31.8 Anion Gap 4.2 BUN 19 H Creatinine 0.8 Est GFR (CKD-EPI 2020) 86.42 Glucose 175 H Hemoglobin A1c 5.9 H Calcium 9.2 Magnesium Ammonia < 10 L Time Spent with Patient Time Spent with Patient: 35-49 minutes Time was spent: preparing to see the patient(eg.review tests), obtaining and/or reviewing separately otained hiistory, ordering medications,tests, procedures, referring, communicating with other health childcare center director, indepentently interpreting results, counseling the patient and care coordination
[2023-04-29] MEDS: Metoprolol 5 MG/5 ML VIAL IVP (14:05)
--- NOTE | 2023-04-29 14:29 | PHACLINREV_ITS ---
Pharmacy Admission Review Admission Clinical Review Admission Pharmacy Review: (Updated 04/29/23 @ 09:33 by Ara Curry MD) Hypotension (Acute) Volume overload (Acute) Right ventricular dysfunction (Acute) Leukocytosis (Acute) Encounter for venous access device care (Acute) Poor venous access (Acute) Elevated brain natriuretic peptide (BNP) level (Acute) Discharge planning issues (Acute) DVT prophylaxis (Acute) Acute exacerbation of chronic obstructive pulmonary disease (COPD) (Acute) Acute respiratory failure with hypoxia and hypercapnia (Acute) Weight loss (Acute) Prediabetes (Acute) codeine Adverse Reaction (Verified 04/27/23 17:56) Nausea Resuscitation Status Full Code Height 5 ft 3 in Weight 48.1 kg Pharmacy Admission Review Renal Dosing Renal Dosing: BUN 19 mg/dL (7-18) H 04/29/23 05:50 Creatinine 0.8 mg/dL (0.55-1.02) 04/29/23 05:50 Medications needing adjustments: Reviewed (crcl ~ 59, cefepime appropriately dosed for crcl <60) Anticoagulation Anticoagulation: Hgb 14.7 g/dL (11.2-15.7) 04/29/23 05:50 Hct 44.3 % (36.0-46.0) 04/29/23 05:50 Plt Count 221 10^3/uL (130-400) 04/29/23 05:50 Creatinine 0.8 mg/dL (0.55-1.02) 04/29/23 05:50 DVT Prophylaxis: Reviewed Medications: Enoxaparin (40 mg daily) Therapeutic Anticoagulation: N/A Opiate Usage Evaluate Pain Scale/Pains Meds: Reviewed (fentanyl IVP prn, has used 1 dose) Scheduled Bowel Reg ordered if on Opiates?: No (PRN) Relevant Labs Relevant Labs: Sodium 135 mmol/L (136-145) L 04/29/23 05:50 Potassium 4.8 mmol/L (3.5-5.1) 04/29/23 05:50 Chloride 99 mmol/L (98-107) 04/29/23 05:50 Magnesium 1.9 mg/dL (1.8-2.4) 04/28/23 14:40 Electrolytes, C-Reactive P, ESR: Reviewed DM Control DM Control: Reviewed (sugars have been elevated, but is on steroids (methylpred IV switched to PO prednisone). does have prediabetes diagnosis but is not on any antidiabetic medication. A1c = 5.9% (today)) Insulin Dosing, Diabetic Medication: none Cardiac Review Cardiac Review: Troponin I < 50 ng/L (<or=60) 04/27/23 18:06 NT-Pro-B Natriuret Pep 9729 pg/mL (<300) H 04/27/23 18:06 BP, HR, EF%: Reviewed (hypotensive requiring pressors - norepi drip, had been oversedated w/propofol while vented, now extubated. HR tachy) QTc Review QTc: Reviewed (QTc = 445 on 04/27/23) List meds needing interventions: n/a IV to PO Switch IV Medications: Reviewed (IV steroids change to PO, expect other IV meds to switch as condition improves. ) Home Meds Home Med List reviewed: Reviewed Relevent Home Meds Not ordered & why?: lisinopril, amlodipine held - hypotension Current Meds Current Medication Order Review: Reviewed Pharmacy Antibiotic Review Pharmacy Antibiotic Activity: Reviewed, no change Comments: COPD exacerbation - procal negative, initially antibiotics were not going to be used however given severity of condition and requirement for pr essors Dr. Curry started cefepime 2 g q12h this morning, plan to dc once improving
--- NOTE | 2023-04-29 16:27 | W.SPSTE ---
Date of service: 04/29/23 Time of Service: 16:10 Objective Objective Clinical (Bedside) Swallow Evaluation Speech Language Pathology Referred by: Dr. Curry Referral Type: Clinical Swallow Evaluation Reason for Referral/HPI: Marissa Portillo is a 57 yo female adm to ICU 04/27/23 with SOB x 5 days. She was unable to tolerate bipap due to nasal fracture/claustophobia. Thus, she was intubated 04/27/23, extubated this morning 04/29/23. [facility] referral placed to rule out post extubation dysphagia. Primary RN denies concerns with patient's swallow. [facility] IMPRESSIONS & RECOMMENDATIONS: Marissa demonstrates WFL oral pharyngeal swallow function at this time. Oral mechanism examination revealed WNL lingual/labial strength, ROM, coordination. The patient's voice is judged to be mildly hoarse, though per patient/daughter, it has returned to baseline. With PO trials outlined below, there is no evidence of dysphagia/symptoms of aspiration. Patient states her voice/throat 'feel normal again'. No further ST needs identified at this time. FURTHER [facility] SERVICES: No further [facility] services indicated Diet Recommendations: L7 Regular Solids, L0 Thin Liquids, Medications whole with sip of water SUBJECTIVE: Patient received alert, oriented x3, and cooperative; sitting upright in bed with daughter present. Patient tolerating 1LPM via nasal cannula, vital signs stable. Denied dysphagia/odynophagia symptoms. Pain Reported? 0/10 Baseline Swallow Function: Patient denies swallowing difficulty prior to admission and eats a regular diet at baseline. PO Trials Assessed: IDDSI 0 Thin Liquids IDDSI 7 Regular Solid - peanut butter crackers Oral Mechanism Examination: Dentition is WFL. Oral mucosa is mildly dry, WFL. Cranial Nerve Assessment: CN V ? Trigeminal Facial Sensation WNL Jaw Strength/ROM WNL ?WNL CN VII- Facial WNL labial ROM, strength, coordination. WNL lingual sensation WNL CN IX ? Glossopharyngeal WNL palatal elevation with phonation. No evidence of nasal emissions WNL CN X ? Vagus WNL Vocal quality and volume. Strong/sharp volitional cough WNL CX XII ? Hypoglossal WNL lingual ROM, strength, coordination WNL Oral Phase Findings: WFL; timely mastication coordination/bolus transport. No significant oral residue. Pharyngeal Phase Findings: WFL; timely swallow initiation, single swallow per bite/sip ? [place] Swallow Protocol Results: PASS, Complete/uninterrupted without s/sx aspiration ??? ASSESSMENT: Further [facility] Services not indicated. Recommendation at Discharge: No further [facility] services indicated Suggested Referrals: N/A Recommendations: ? SOLIDS: 7-Regular Solids LIQUIDS: 0-Thin Liquids MEDICATIONS: Whole with 0-Thin Liquids RISK MANAGEMENT: HOB upright for all PO intake. Encourage physical mobility as tolerated. Oral hygiene BID/2x per day Level of Assistance/Supervision: Independent Education Provided to: Nursing/Patient/Family Topics Addressed: Role of ST, POC PLAN: Discharged; evaluation only [facility] CPT Code: 71045 Clinical Swallowing Evaluation Coding CPT Codes EVALUATE SWALLOWING FUNCTION - 15198 ([id number]) Additional Codes Date of Service (70929) Date of service: 04/29/23
[2023-04-30] VITALS (34 sets, daily range): BP systolic 84–103; BP diastolic 51–69; PULSE 101–128; RESP 5–33; TEMP 36.8–37.9; O2SAT 85–99
[2023-04-30] MEDS: Ipratropium 0.5 MG/2.5 ML UPD VIAL UPD ×3 (02:20→08:27)
[2023-04-30] MEDS: Levalbuterol 1.25 MG/3 ML UPD VIAL UPD ×3 (02:20→08:31)
[2023-04-30] MEDS: guaiFENesin 200 MG/10 ML CUP PO ×2 (02:39→07:49)
[2023-04-30] MEDS: Normal Saline Flush 10 ML SYR IVP ×2 (06:11→07:50)
[2023-04-30 06:31] LABS: Abs Immature Grans 0.05 10^3/uL (0.0-0.06); Absolute Basophil Count 0.05 10^3/uL (0.0-0.2); Absolute Eosinophil Count 0.13 10^3/uL (0.0-0.7); Absolute Monocyte Count 1.81 10^3/uL (0.1-0.8); Absolute Neutrophil Count 8.29 10^3/uL (1.2-6.7); Basophils % 0.4; HCT 36.6 % (36.0-46.0); HGB 11.5 g/dL (11.2-15.7); Immature Grans % 0.4; Lymphocytes % 19.5; MCH 29.5 pg (27.0-33.0); MCHC 31.4 % (32.0-36.0); MCV 94 fL (80-95); MPV 9.3 fL (8.0-11.0); Monocytes % 14.1; Neutrophils % 64.6; Platelet Count 149 10^3/uL (130-400); RDW 13.9 % (11.7-14.6); RDW-SD 47.8 fL; WBC 12.84 10^3/uL (4.4-10.8)
[2023-04-30 06:40] LABS: BE (Venous) 7 mmol/L (-2-3); HCO3 (Venous) 33 mmol/L (23-28); O2 Sat (Venous) 96 %; TCO2 (Venous) 31 mmol/L (24-29); pH (Venous) 7.33 (7.31-7.41); pO2 (Venous) 81 mmHg
[2023-04-30 06:42] LABS: Anion Gap -0.2 mmol/L (3-11); BUN 32 mg/dL (7-18); CO2 33.2 mmol/L (21.0-32.0); CREATININE 1.1 mg/dL (0.55-1.02); Calcium 8.7 mg/dL (8.5-10.1); Chloride 104 mmol/L (98-107); Estimated GFR 58.97 (mL/min/1.73m2); Glucose 94 mg/dL (74-106); Sodium 137 mmol/L (136-145)
[2023-04-30 06:42] LABS: pCO2 (Venous) 63 mmHg (41-51)
[2023-04-30 06:44] LABS: Diff Comment Diff Reviewed; RBC Morphology Normal
--- NOTE | 2023-04-30 06:57 | W.PULMPROG ---
Assessment and Plan Assessment and plan (1) Right ventricular dysfunction: Status: Acute (2) Acute exacerbation of chronic obstructive pulmonary disease (COPD): Status: Acute (3) Acute respiratory failure with hypoxia and hypercapnia: Status: Acute (4) Tobacco dependence: Status: Chronic Assessment and plan: This is a 57 yo admitted for COPD exacerbation leading to hypoxic and hypercapnic respiratory failure. She is s/p intubation and now stable on nasal cannula. She has not had PFT's nor has seen pulmonology previously. I would recommend follow up at my clinic. As an outpatient it appears her respiratory regimen consisted of only Duonebs and albuterol. She should be on maintenance inhaler therapy and so have started her on Stiolto. She may be a candidate for ICS given her elevated eosinophils on admission and her exacerbation, however we will discuss this more in clinic. She also would be a good candidate for the RELIANCE trial, but again will discuss as an outpatient. Acute hypoxic and hypercapnic respiratory failure - supplemental O2 for sats 88-92% - VibraPEP and IS - nebs to QID - will reassess for retention as an outpatient Likely COPD Exacerbation - levalbuterol and ipratropium QID - Stiolto - alpha 1 level pending - changed cefepime to azithromycin - recommend 3 days of 500mg dose - prednisone 40mg for 5 days, 30mg for 3 days, 30mg for 3 days, 10mg for 3 days, 5mg for 3 days - will need fu with me in clinic - I will arrange General Date Of Service Date of service: 04/30/23 Time of Service: 06:57 Reason for Consult: COPD Exacerbation Subjective Note Note: Marissa is doing great today. She in on 1.5LPM and out of bed. She states she has never been diagnosed with COPD previously. When asked about the Duonebs she has at home, she states that when she got sick at one point her PCP gave them to her as she thought it may help. We discussed her severe emphysema and the likelihood that she does have COPD. She is willing to see me in clinic for follow up. She states she quit smoking 7 days ago with Chantix. she has a 40 pack year smoking history. Exam Narrative Exam Narrative: Gen: NAD, sedated HENT: PERRL Chest: No respiratory distress, normal appearance of chest, diminished breath sounds Heart: regular rate and rhythym, no murmurs, rubs or gallops Abdomen: Non-distended, soft, non tender Extremities: No clubbing, edema, cyanosis, rashes Neuro: intubated and sedated Psych: intubated and sedated Objective Last Vital Signs Temp 36.9 C 04/30/23 04:00 Pulse 108 H 04/30/23 05:28 Resp 24 04/30/23 06:00 BP 86/57 L 04/30/23 04:01 Pulse Ox 99 04/30/23 05:28 Laboratory Results - last 24 hr 04/30/23 04/30/23 06:15 06:30 WBC 12.84 H RBC 3.90 L Hgb 11.5 D Hct 36.6 MCV 94 MCH 29.5 MCHC 31.4 L RDW 13.9 Plt Count 149 MPV 9.3 Immature Gran % 0.4 Neutrophils % 64.6 Lymphocytes % 19.5 Monocytes % 14.1 Eosinophils % 1.0 Basophils % 0.4 Nucleated RBC % 0.0 Absolute Neutrophils 8.29 H Absolute Lymphocytes 2.50 Absolute Monocytes 1.81 H Absolute Eosinophils 0.13 Absolute Basophils 0.05 RBC Morphology Normal VBG pH 7.33 VBG pCO2 63 H* VBG pO2 81 VBG HCO3 33 H VBG Total CO2 31 H VBG O2 Saturation 96 VBG Base Excess 7 H Sodium 137 Potassium 4.0 Chloride 104 Carbon Dioxide 33.2 H Anion Gap -0.2 L BUN 32 H Creatinine 1.1 H Est GFR (CKD-EPI 2020) 58.97 Glucose 94 Calcium 8.7 Results Medications Medications: Active Medications Generic Name Dose Route Start Last Admin Trade Name Freq PRN Reason Stop Dose Admin Acetaminophen 0 mg 04/27/23 22:57 04/29/23 12:39 Acetaminophen 325 Mg Tab PO 650 mg Q4H PRN PRN Administration Al Hydrox/Mg Hydrox/Simethicone 30 ml 04/27/23 22:57 Mylanta Suspension 30 Ml Cup PO Q2H PRN PRN Device 1 each 04/29/23 10:00 Inhaler, Assist Device DIRECTED JENNA Docusate Sodium 100 mg 04/27/23 22:57 Docusate Sodium 100 Mg Cap PO TID PRN PRN Enoxaparin Sodium 40 mg 04/28/23 08:30 04/29/23 10:21 Enoxaparin 40 Mg/0.4 Ml Syr SC Not Given DAILY [facility] Guaifenesin 200 mg 04/30/23 02:29 04/30/23 02:39 Guaifenesin 200 Mg/10 Ml Cup PO 200 mg Q4H PRN PRN Administration Cefepime HCl 2 gm/ Sodium 100 mls @ 200 mls/hr 04/29/23 08:00 04/29/23 21:21 Chloride IVPB 200 mls/hr Q12H JENNA Administration IV Miscellaneous Supplies 1 each 04/27/23 22:57 Iv Access IV DIRECTED [facility] Ipratropium [place] 0.5 mg 04/29/23 10:00 04/30/23 05:22 Ipratropium 0.5 Mg/2.5 Ml Upd Vial UPD 0.5 mg Q4H JENNA Administration Levalbuterol HCl 1.25 mg 04/29/23 10:00 04/30/23 05:22 Levalbuterol 1.25 Mg/3 Ml Upd Vial UPD 1.25 mg Q4H JENNA Administration Magnesium Hydroxide 30 ml 04/27/23 22:57 Milk Of Magnesia 30 Ml Cup PO DAILY PRN PRN Ondansetron HCl 4 mg 04/27/23 22:57 Ondansetron 4 Mg/2 Ml Vial IVP Q6H PRN PRN Prednisone 40 mg 04/30/23 08:30 Prednisone 20 Mg Tab PO DAILY [facility] Sodium Chloride 0 ml 04/27/23 22:57 04/30/23 06:11 Normal Saline Flush 10 Ml Syr IVP 30 ml PRN PRN Administration Tiotropium [place]/Olodaterol 2 puff 04/30/23 08:30 Tiotropium/Olodaterol 10 Puff Inhaler IH DAILY [facility] Allergies codeine Adverse Reaction (Verified 04/27/23 17:56) Nausea Labs 04/30/23 06:15 04/30/23 06:15 Labs: Laboratory Tests Range/Units 04/27/23 04/27/23 04/27/23 18:06 19:21 21:13 WBC (4.4-10.8) 10^3/uL 11.54 H RBC (3.93-5.22) 10^6/uL 5.05 Hgb (11.2-15.7) g/dL 14.8 Hct (36.0-46.0) % 46.9 H MCV (80-95) fL 93 MCH (27.0-33.0) pg 29.3 MCHC (32.0-36.0) % 31.6 L RDW (11.7-14.6) % 13.7 Plt Count (130-400) 10^3/uL 230 MPV (8.0-11.0) fL 8.9 Immature Gran % 0.3 Neutrophils % 63.5 Lymphocytes % 18.4 Monocytes % 11.3 Eosinophils % 5.7 Basophils % 0.8 Nucleated RBC % (0.0-0.3) % 0.0 Absolute Neutrophils (1.2-6.7) 10^3/uL 7.33 H Absolute Lymphocytes (1.2-3.4) 10^3/uL 2.12 Absolute Monocytes (0.1-0.8) 10^3/uL 1.30 H Absolute Eosinophils (0.0-0.7) 10^3/uL 0.66 Absolute Basophils (0.0-0.2) 10^3/uL 0.09 RBC Morphology D-Dimer (<500) ng/mlFEU 217 ABG Sample Site ABG pH (7.35-7.45) ABG pCO2 (35-45) mmHg ABG pO2 (80-105) mmHg ABG HCO3 (22-26) mmol/L ABG Total CO2 ABG O2 Saturation ABG Base Excess (-2-3) mmol/L VBG pH (7.31-7.41) 7.23 L VBG pCO2 (41-51) mmHg 80 H* VBG pO2 mmHg 68 VBG HCO3 (23-28) mmol/L 33 H VBG Total CO2 (24-29) mmol/L 31 H VBG O2 Saturation % 91 VBG Base Excess (-2-3) mmol/L 6 H VBG Lactate (0.6-1.4) mmol/L Oxygen Liter Flow FiO2 % Sodium (136-145) mmol/L 130 L Potassium (3.5-5.1) mmol/L 4.8 Chloride (98-107) mmol/L 93 L Carbon Dioxide (21.0-32.0) mmol/L 34.4 H Anion Gap (3-11) mmol/L 2.6 L BUN (7-18) mg/dL 17 Creatinine (0.55-1.02) mg/dL 0.7 Est GFR (CKD-EPI 2020) (mL/min/1.73m2) 101.44 Glucose (74-106) mg/dL 119 H Hemoglobin A1c (<5.7) % Calcium (8.5-10.1) mg/dL 9.7 Magnesium (1.8-2.4) mg/dL 2.1 Total Bilirubin (0.2-1.0) mg/dL 0.4 AST (15-37) U/L 23 ALT (14-59) U/L 22 Alkaline Phosphatase (46-116) U/L 75 Ammonia (11-32) umol/L Troponin I (<or=60) ng/L < 50 NT-Pro-B Natriuret Pep (<300) pg/mL 9729 H Total Protein (6.4-8.2) g/dL 7.1 Albumin (3.4-5.0) g/dL 3.0 L Procalcitonin ng/mL < 0.1 TSH (0.36-3.74) uIU/mL Urine Color (Yellow) Urine Clarity (Clear) Urine pH (5-8) Ur Specific [place] (1.005-1.025) Urine Protein (Negative) mg/dL Urine Ketones (Negative) mg/dL Urine Blood (Negative) Urine Nitrite (Negative) Urine Bilirubin (Negative) Urine Urobilinogen (Up to 0.2) mg/dL Ur Leukocyte Esterase (Negative) Urine RBC (0-2) HPF Urine WBC (0-5) HPF Ur Epithelial Cells (Negative) HPF Urine Crystals (Negative) HPF Urine Bacteria (Negative) HPF Urine Casts (Negative) LPF Urine Mucus (Negative) Ur Culture Indicated? Urine Glucose (Negative) mg/dL COVID-19 Source Nasopharynx SARS-CoV-2 (PCR) (Negative) Negative Influenza Type A (PCR) (Negative) Negative Influenza Type B (PCR) (Negative) Negative RSV (PCR) (Negative) Negative Range/Units 04/27/23 04/28/23 04/28/23 23:15 00:15 00:40 WBC (4.4-10.8) 10^3/uL RBC (3.93-5.22) 10^6/uL Hgb (11.2-15.7) g/dL Hct (36.0-46.0) % MCV (80-95) fL MCH (27.0-33.0) pg MCHC (32.0-36.0) % RDW (11.7-14.6) % Plt Count (130-400) 10^3/uL MPV (8.0-11.0) fL Immature Gran % Neutrophils % Lymphocytes % Monocytes % Eosinophils % Basophils % Nucleated RBC % (0.0-0.3) % Absolute Neutrophils (1.2-6.7) 10^3/uL Absolute Lymphocytes (1.2-3.4) 10^3/uL Absolute Monocytes (0.1-0.8) 10^3/uL Absolute Eosinophils (0.0-0.7) 10^3/uL Absolute Basophils (0.0-0.2) 10^3/uL RBC Morphology D-Dimer (<500) ng/mlFEU ABG Sample Site ABG pH (7.35-7.45) ABG pCO2 (35-45) mmHg ABG pO2 (80-105) mmHg ABG HCO3 (22-26) mmol/L ABG Total CO2 ABG O2 Saturation ABG Base Excess (-2-3) mmol/L VBG pH (7.31-7.41) 7.18 L* 7.16 L* VBG pCO2 (41-51) mmHg 88 H* 93 H* VBG pO2 mmHg 144 118 VBG HCO3 (23-28) mmol/L 33 H 33 H VBG Total CO2 (24-29) mmol/L 30 H 31 H VBG O2 Saturation % 99 98 VBG Base Excess (-2-3) mmol/L 5 H 4 H VBG Lactate (0.6-1.4) mmol/L Oxygen Liter Flow FiO2 % Sodium (136-145) mmol/L Potassium (3.5-5.1) mmol/L Chloride (98-107) mmol/L Carbon Dioxide (21.0-32.0) mmol/L Anion Gap (3-11) mmol/L BUN (7-18) mg/dL Creatinine (0.55-1.02) mg/dL Est GFR (CKD-EPI 2020) (mL/min/1.73m2) Glucose (74-106) mg/dL Hemoglobin A1c (<5.7) % Calcium (8.5-10.1) mg/dL Magnesium (1.8-2.4) mg/dL Total Bilirubin (0.2-1.0) mg/dL AST (15-37) U/L ALT (14-59) U/L Alkaline Phosphatase (46-116) U/L Ammonia (11-32) umol/L Troponin I (<or=60) ng/L NT-Pro-B Natriuret Pep (<300) pg/mL Total Protein (6.4-8.2) g/dL Albumin (3.4-5.0) g/dL Procalcitonin ng/mL TSH (0.36-3.74) uIU/mL Urine Color (Yellow) Yellow Urine Clarity (Clear) Clear Urine pH (5-8) 5.5 Ur Specific [place] (1.005-1.025) 1.020 Urine Protein (Negative) mg/dL 100 H Urine Ketones (Negative) mg/dL Negative Urine Blood (Negative) Trace-lysed H Urine Nitrite (Negative) Negative Urine Bilirubin (Negative) Negative Urine Urobilinogen (Up to 0.2) mg/dL 0.2 Ur Leukocyte Esterase (Negative) Negative Urine RBC (0-2) HPF 3-5 H Urine WBC (0-5) HPF Negative Ur Epithelial Cells (Negative) HPF Negative Urine Crystals (Negative) HPF Negative Urine Bacteria (Negative) HPF Negative Urine Casts (Negative) LPF Negative Urine Mucus (Negative) Negative Ur Culture Indicated? No Urine Glucose (Negative) mg/dL Negative COVID-19 Source SARS-CoV-2 (PCR) (Negative) Influenza Type A (PCR) (Negative) Influenza Type B (PCR) (Negative) RSV (PCR) (Negative) Range/Units 04/28/23 04/28/23 04/28/23 01:05 02:42 03:00 WBC (4.4-10.8) 10^3/uL RBC (3.93-5.22) 10^6/uL Hgb (11.2-15.7) g/dL Hct (36.0-46.0) % MCV (80-95) fL MCH (27.0-33.0) pg MCHC (32.0-36.0) % RDW (11.7-14.6) % Plt Count (130-400) 10^3/uL MPV (8.0-11.0) fL Immature Gran % Neutrophils % Lymphocytes % Monocytes % Eosinophils % Basophils % Nucleated RBC % (0.0-0.3) % Absolute Neutrophils (1.2-6.7) 10^3/uL Absolute Lymphocytes (1.2-3.4) 10^3/uL Absolute Monocytes (0.1-0.8) 10^3/uL Absolute Eosinophils (0.0-0.7) 10^3/uL Absolute Basophils (0.0-0.2) 10^3/uL RBC Morphology D-Dimer (<500) ng/mlFEU ABG Sample Site Arterial Line Cancelled ABG pH (7.35-7.45) 7.30 L Cancelled ABG pCO2 (35-45) mmHg 68 H* Cancelled ABG pO2 (80-105) mmHg 150 H Cancelled ABG HCO3 (22-26) mmol/L 33 H Cancelled ABG Total CO2 Not Applicable Cancelled ABG O2 Saturation Not Applicable Cancelled ABG Base Excess (-2-3) mmol/L 6 H Cancelled VBG pH (7.31-7.41) 7.18 L* VBG pCO2 (41-51) mmHg 92 H* VBG pO2 mmHg 51 VBG HCO3 (23-28) mmol/L 35 H VBG Total CO2 (24-29) mmol/L 32 H VBG O2 Saturation % 79 VBG Base Excess (-2-3) mmol/L 6 H VBG Lactate (0.6-1.4) mmol/L 0.6 Oxygen Liter Flow Cancelled FiO2 % 40 Cancelled Sodium (136-145) mmol/L Potassium (3.5-5.1) mmol/L Chloride (98-107) mmol/L Carbon Dioxide (21.0-32.0) mmol/L Anion Gap (3-11) mmol/L BUN (7-18) mg/dL Creatinine (0.55-1.02) mg/dL Est GFR (CKD-EPI 2020) (mL/min/1.73m2) Glucose (74-106) mg/dL Hemoglobin A1c (<5.7) % Calcium (8.5-10.1) mg/dL Magnesium (1.8-2.4) mg/dL Total Bilirubin (0.2-1.0) mg/dL AST (15-37) U/L ALT (14-59) U/L Alkaline Phosphatase (46-116) U/L Ammonia (11-32) umol/L Troponin I (<or=60) ng/L NT-Pro-B Natriuret Pep (<300) pg/mL Total Protein (6.4-8.2) g/dL Albumin (3.4-5.0) g/dL Procalcitonin ng/mL TSH (0.36-3.74) uIU/mL Urine Color (Yellow) Urine Clarity (Clear) Urine pH (5-8) Ur Specific [place] (1.005-1.025) Urine Protein (Negative) mg/dL Urine Ketones (Negative) mg/dL Urine Blood (Negative) Urine Nitrite (Negative) Urine Bilirubin (Negative) Urine Urobilinogen (Up to 0.2) mg/dL Ur Leukocyte Esterase (Negative) Urine RBC (0-2) HPF Urine WBC (0-5) HPF Ur Epithelial Cells (Negative) HPF Urine Crystals (Negative) HPF Urine Bacteria (Negative) HPF Urine Casts (Negative) LPF Urine Mucus (Negative) Ur Culture Indicated? Urine Glucose (Negative) mg/dL COVID-19 Source SARS-CoV-2 (PCR) (Negative) Influenza Type A (PCR) (Negative) Influenza Type B (PCR) (Negative) RSV (PCR) (Negative) Range/Units 04/28/23 04/28/23 04/28/23 04:02 05:35 05:50 WBC (4.4-10.8) 10^3/uL 9.07 RBC (3.93-5.22) 10^6/uL 4.96 Hgb (11.2-15.7) g/dL 14.6 Hct (36.0-46.0) % 44.9 MCV (80-95) fL 91 MCH (27.0-33.0) pg 29.4 MCHC (32.0-36.0) % 32.5 RDW (11.7-14.6) % 13.2 Plt Count (130-400) 10^3/uL 227 MPV (8.0-11.0) fL 9.4 Immature Gran % 0.4 Neutrophils % 77.1 Lymphocytes % 10.4 Monocytes % 11.9 Eosinophils % 0.0 Basophils % 0.2 Nucleated RBC % (0.0-0.3) % 0.0 Absolute Neutrophils (1.2-6.7) 10^3/uL 6.99 H Absolute Lymphocytes (1.2-3.4) 10^3/uL 0.94 L Absolute Monocytes (0.1-0.8) 10^3/uL 1.08 H Absolute Eosinophils (0.0-0.7) 10^3/uL 0.00 Absolute Basophils (0.0-0.2) 10^3/uL 0.02 RBC Morphology D-Dimer (<500) ng/mlFEU ABG Sample Site ABG pH (7.35-7.45) ABG pCO2 (35-45) mmHg ABG pO2 (80-105) mmHg ABG HCO3 (22-26) mmol/L ABG Total CO2 ABG O2 Saturation ABG Base Excess (-2-3) mmol/L VBG pH (7.31-7.41) Cancelled VBG pCO2 (41-51) mmHg Cancelled VBG pO2 mmHg Cancelled VBG HCO3 (23-28) mmol/L Cancelled VBG Total CO2 (24-29) mmol/L Cancelled VBG O2 Saturation % Cancelled VBG Base Excess (-2-3) mmol/L Cancelled VBG Lactate (0.6-1.4) mmol/L 0.9 Oxygen Liter Flow FiO2 % Sodium (136-145) mmol/L 128 L Potassium (3.5-5.1) mmol/L 5.2 H Chloride (98-107) mmol/L 92 L Carbon Dioxide (21.0-32.0) mmol/L 34.3 H Anion Gap (3-11) mmol/L 1.7 L BUN (7-18) mg/dL 19 H Creatinine (0.55-1.02) mg/dL 0.7 Est GFR (CKD-EPI 2020) (mL/min/1.73m2) 101.44 Glucose (74-106) mg/dL 141 H Hemoglobin A1c (<5.7) % Calcium (8.5-10.1) mg/dL 9.6 Magnesium (1.8-2.4) mg/dL 1.8 Total Bilirubin (0.2-1.0) mg/dL AST (15-37) U/L ALT (14-59) U/L Alkaline Phosphatase (46-116) U/L Ammonia (11-32) umol/L Troponin I (<or=60) ng/L NT-Pro-B Natriuret Pep (<300) pg/mL Total Protein (6.4-8.2) g/dL Albumin (3.4-5.0) g/dL Procalcitonin ng/mL TSH (0.36-3.74) uIU/mL 0.56 Urine Color (Yellow) Urine Clarity (Clear) Urine pH (5-8) Ur Specific [place] (1.005-1.025) Urine Protein (Negative) mg/dL Urine Ketones (Negative) mg/dL Urine Blood (Negative) Urine Nitrite (Negative) Urine Bilirubin (Negative) Urine Urobilinogen (Up to 0.2) mg/dL Ur Leukocyte Esterase (Negative) Urine RBC (0-2) HPF Urine WBC (0-5) HPF Ur Epithelial Cells (Negative) HPF Urine Crystals (Negative) HPF Urine Bacteria (Negative) HPF Urine Casts (Negative) LPF Urine Mucus (Negative) Ur Culture Indicated? Urine Glucose (Negative) mg/dL COVID-19 Source SARS-CoV-2 (PCR) (Negative) Influenza Type A (PCR) (Negative) Influenza Type B (PCR) (Negative) RSV (PCR) (Negative) Range/Units 04/28/23 04/28/23 04/28/23 06:10 14:40 19:57 WBC (4.4-10.8) 10^3/uL RBC (3.93-5.22) 10^6/uL Hgb (11.2-15.7) g/dL Hct (36.0-46.0) % MCV (80-95) fL MCH (27.0-33.0) pg MCHC (32.0-36.0) % RDW (11.7-14.6) % Plt Count (130-400) 10^3/uL MPV (8.0-11.0) fL Immature Gran % Neutrophils % Lymphocytes % Monocytes % Eosinophils % Basophils % Nucleated RBC % (0.0-0.3) % Absolute Neutrophils (1.2-6.7) 10^3/uL Absolute Lymphocytes (1.2-3.4) 10^3/uL Absolute Monocytes (0.1-0.8) 10^3/uL Absolute Eosinophils (0.0-0.7) 10^3/uL Absolute Basophils (0.0-0.2) 10^3/uL RBC Morphology D-Dimer (<500) ng/mlFEU ABG Sample Site Arterial Line ABG pH (7.35-7.45) 7.45 ABG pCO2 (35-45) mmHg 49 H ABG pO2 (80-105) mmHg 117 H ABG HCO3 (22-26) mmol/L 34 H ABG Total CO2 30 H ABG O2 Saturation 98 ABG Base Excess (-2-3) mmol/L 10 H VBG pH (7.31-7.41) VBG pCO2 (41-51) mmHg VBG pO2 mmHg VBG HCO3 (23-28) mmol/L VBG Total CO2 (24-29) mmol/L VBG O2 Saturation % VBG Base Excess (-2-3) mmol/L VBG Lactate (0.6-1.4) mmol/L 1.2 Oxygen Liter Flow FiO2 % Sodium (136-145) mmol/L 129 L Potassium (3.5-5.1) mmol/L 5.4 H Chloride (98-107) mmol/L 95 L Carbon Dioxide (21.0-32.0) mmol/L 34.3 H Anion Gap (3-11) mmol/L -0.3 L BUN (7-18) mg/dL 19 H Creatinine (0.55-1.02) mg/dL 0.8 Est GFR (CKD-EPI 2020) (mL/min/1.73m2) 86.42 Glucose (74-106) mg/dL 131 H Hemoglobin A1c (<5.7) % Calcium (8.5-10.1) mg/dL 9.8 Magnesium (1.8-2.4) mg/dL 1.9 Total Bilirubin (0.2-1.0) mg/dL AST (15-37) U/L ALT (14-59) U/L Alkaline Phosphatase (46-116) U/L Ammonia (11-32) umol/L Troponin I (<or=60) ng/L NT-Pro-B Natriuret Pep (<300) pg/mL Total Protein (6.4-8.2) g/dL Albumin (3.4-5.0) g/dL Procalcitonin ng/mL TSH (0.36-3.74) uIU/mL Urine Color (Yellow) Urine Clarity (Clear) Urine pH (5-8) Ur Specific [place] (1.005-1.025) Urine Protein (Negative) mg/dL Urine Ketones (Negative) mg/dL Urine Blood (Negative) Urine Nitrite (Negative) Urine Bilirubin (Negative) Urine Urobilinogen (Up to 0.2) mg/dL Ur Leukocyte Esterase (Negative) Urine RBC (0-2) HPF Urine WBC (0-5) HPF Ur Epithelial Cells (Negative) HPF Urine Crystals (Negative) HPF Urine Bacteria (Negative) HPF Urine Casts (Negative) LPF Urine Mucus (Negative) Ur Culture Indicated? Urine Glucose (Negative) mg/dL COVID-19 Source SARS-CoV-2 (PCR) (Negative) Influenza Type A (PCR) (Negative) Influenza Type B (PCR) (Negative) RSV (PCR) (Negative) Range/Units 04/28/23 04/28/23 04/29/23 22:14 Unknown 01:06 WBC (4.4-10.8) 10^3/uL RBC (3.93-5.22) 10^6/uL Hgb (11.2-15.7) g/dL Hct (36.0-46.0) % MCV (80-95) fL MCH (27.0-33.0) pg MCHC (32.0-36.0) % RDW (11.7-14.6) % Plt Count (130-400) 10^3/uL MPV (8.0-11.0) fL Immature Gran % Neutrophils % Lymphocytes % Monocytes % Eosinophils % Basophils % Nucleated RBC % (0.0-0.3) % Absolute Neutrophils (1.2-6.7) 10^3/uL Absolute Lymphocytes (1.2-3.4) 10^3/uL Absolute Monocytes (0.1-0.8) 10^3/uL Absolute Eosinophils (0.0-0.7) 10^3/uL Absolute Basophils (0.0-0.2) 10^3/uL RBC Morphology D-Dimer (<500) ng/mlFEU ABG Sample Site Cancelled ABG pH (7.35-7.45) Cancelled ABG pCO2 (35-45) mmHg Cancelled ABG pO2 (80-105) mmHg Cancelled ABG HCO3 (22-26) mmol/L Cancelled ABG Total CO2 Cancelled ABG O2 Saturation Cancelled ABG Base Excess (-2-3) mmol/L Cancelled VBG pH (7.31-7.41) VBG pCO2 (41-51) mmHg VBG pO2 mmHg VBG HCO3 (23-28) mmol/L VBG Total CO2 (24-29) mmol/L VBG O2 Saturation % VBG Base Excess (-2-3) mmol/L VBG Lactate (0.6-1.4) mmol/L Cancelled 1.6 H Oxygen Liter Flow Cancelled FiO2 % Cancelled Sodium (136-145) mmol/L Potassium (3.5-5.1) mmol/L Chloride (98-107) mmol/L Carbon Dioxide (21.0-32.0) mmol/L Anion Gap (3-11) mmol/L BUN (7-18) mg/dL Creatinine (0.55-1.02) mg/dL Est GFR (CKD-EPI 2020) (mL/min/1.73m2) Glucose (74-106) mg/dL Hemoglobin A1c (<5.7) % Calcium (8.5-10.1) mg/dL Magnesium (1.8-2.4) mg/dL Total Bilirubin (0.2-1.0) mg/dL AST (15-37) U/L ALT (14-59) U/L Alkaline Phosphatase (46-116) U/L Ammonia (11-32) umol/L Troponin I (<or=60) ng/L NT-Pro-B Natriuret Pep (<300) pg/mL Total Protein (6.4-8.2) g/dL Albumin (3.4-5.0) g/dL Procalcitonin ng/mL TSH (0.36-3.74) uIU/mL Urine Color (Yellow) Urine Clarity (Clear) Urine pH (5-8) Ur Specific [place] (1.005-1.025) Urine Protein (Negative) mg/dL Urine Ketones (Negative) mg/dL Urine Blood (Negative) Urine Nitrite (Negative) Urine Bilirubin (Negative) Urine Urobilinogen (Up to 0.2) mg/dL Ur Leukocyte Esterase (Negative) Urine RBC (0-2) HPF Urine WBC (0-5) HPF Ur Epithelial Cells (Negative) HPF Urine Crystals (Negative) HPF Urine Bacteria (Negative) HPF Urine Casts (Negative) LPF Urine Mucus (Negative) Ur Culture Indicated? Urine Glucose (Negative) mg/dL COVID-19 Source SARS-CoV-2 (PCR) (Negative) Influenza Type A (PCR) (Negative) Influenza Type B (PCR) (Negative) RSV (PCR) (Negative) Range/Units 04/29/23 04/30/23 04/30/23 05:50 06:15 06:30 WBC (4.4-10.8) 10^3/uL 11.03 H 12.84 H RBC (3.93-5.22) 10^6/uL 4.86 3.90 L Hgb (11.2-15.7) g/dL 14.7 11.5 D Hct (36.0-46.0) % 44.3 36.6 MCV (80-95) fL 91 94 MCH (27.0-33.0) pg 30.2 29.5 MCHC (32.0-36.0) % 33.2 31.4 L RDW (11.7-14.6) % 13.6 13.9 Plt Count (130-400) 10^3/uL 221 149 MPV (8.0-11.0) fL 9.8 9.3 Immature Gran % 0.5 0.4 Neutrophils % 86.6 64.6 Lymphocytes % 5.6 19.5 Monocytes % 7.0 14.1 Eosinophils % 0.2 1.0 Basophils % 0.1 0.4 Nucleated RBC % (0.0-0.3) % 0.0 0.0 Absolute Neutrophils (1.2-6.7) 10^3/uL 9.55 H 8.29 H Absolute Lymphocytes (1.2-3.4) 10^3/uL 0.62 L 2.50 Absolute Monocytes (0.1-0.8) 10^3/uL 0.77 1.81 H Absolute Eosinophils (0.0-0.7) 10^3/uL 0.02 0.13 Absolute Basophils (0.0-0.2) 10^3/uL 0.01 0.05 RBC Morphology Normal D-Dimer (<500) ng/mlFEU ABG Sample Site ABG pH (7.35-7.45) ABG pCO2 (35-45) mmHg ABG pO2 (80-105) mmHg ABG HCO3 (22-26) mmol/L ABG Total CO2 ABG O2 Saturation ABG Base Excess (-2-3) mmol/L VBG pH (7.31-7.41) 7.37 7.33 VBG pCO2 (41-51) mmHg 59 H 63 H* VBG pO2 mmHg 61 81 VBG HCO3 (23-28) mmol/L 34 H 33 H VBG Total CO2 (24-29) mmol/L 30 H 31 H VBG O2 Saturation % 90 96 VBG Base Excess (-2-3) mmol/L 9 H 7 H VBG Lactate (0.6-1.4) mmol/L 1.6 H Oxygen Liter Flow FiO2 % Sodium (136-145) mmol/L 135 L 137 Potassium (3.5-5.1) mmol/L 4.8 4.0 Chloride (98-107) mmol/L 99 104 Carbon Dioxide (21.0-32.0) mmol/L 31.8 33.2 H Anion Gap (3-11) mmol/L 4.2 -0.2 L BUN (7-18) mg/dL 19 H 32 H Creatinine (0.55-1.02) mg/dL 0.8 1.1 H Est GFR (CKD-EPI 2020) (mL/min/1.73m2) 86.42 58.97 Glucose (74-106) mg/dL 175 H 94 Hemoglobin A1c (<5.7) % 5.9 H Calcium (8.5-10.1) mg/dL 9.2 8.7 Magnesium (1.8-2.4) mg/dL Total Bilirubin (0.2-1.0) mg/dL AST (15-37) U/L ALT (14-59) U/L Alkaline Phosphatase (46-116) U/L Ammonia (11-32) umol/L < 10 L Troponin I (<or=60) ng/L NT-Pro-B Natriuret Pep (<300) pg/mL Total Protein (6.4-8.2) g/dL Albumin (3.4-5.0) g/dL Procalcitonin ng/mL TSH (0.36-3.74) uIU/mL Urine Color (Yellow) Urine Clarity (Clear) Urine pH (5-8) Ur Specific [place] (1.005-1.025) Urine Protein (Negative) mg/dL Urine Ketones (Negative) mg/dL Urine Blood (Negative) Urine Nitrite (Negative) Urine Bilirubin (Negative) Urine Urobilinogen (Up to 0.2) mg/dL Ur Leukocyte Esterase (Negative) Urine RBC (0-2) HPF Urine WBC (0-5) HPF Ur Epithelial Cells (Negative) HPF Urine Crystals (Negative) HPF Urine Bacteria (Negative) HPF Urine Casts (Negative) LPF Urine Mucus (Negative) Ur Culture Indicated? Urine Glucose (Negative) mg/dL COVID-19 Source SARS-CoV-2 (PCR) (Negative) Influenza Type A (PCR) (Negative) Influenza Type B (PCR) (Negative) RSV (PCR) (Negative)
[2023-04-30] MEDS: Acetaminophen 325 MG TAB PO (07:48)
[2023-04-30] MEDS: Azithromycin 250 MG TAB 500 MG PO (07:49)
[2023-04-30] MEDS: predniSONE 20 MG TAB 40 MG PO (07:49)
[2023-04-30] MEDS: Enoxaparin 40 MG/0.4 ML SYR SC (07:50)
[2023-04-30] MEDS: Tiotropium/Olodaterol 10 PUFF INHALER 2 PUFF IH (08:31)
[2023-04-30 09:41] LABS: Alpha 1 Antitrypsin,Serum 200 mg/dL (90-200)
--- NOTE | 2023-04-30 10:12 | PDOC.CMPRO ---
Date of service: 04/30/23 Time of Service: 10:12 Care Management Progress Note Progress Note Text Progress Note Text: S/O: A: Marissa is a 57 year old female admitted to [facility] on 04/27/23 for acute hypoxic hypercapnic respiratory failure, COPD. P: Marissa's discharge plan is unclear at this time. Marissa is critically ill and intubated. She may require transfer to a tertiary care facility if she does not show improvement. CM will follow and continue to assess for discharge concerns.
--- NOTE | 2023-04-30 12:34 | W.PM.DS.N ---
Date of service: 04/30/23 Time of Service: 12:35 DS: Diagnosis Discharge Diagnosis (1) Acute respiratory failure with hypoxia and hypercapnia: Status: Acute Asessment and Plan: S/P intubation. Now on 1 liter supplemental O2 Exercise oximetry showed a decrease of O2 saturation to 85% on RA Pt refusing home O2. Risks outlined to her by respiratory therapy. Pulmonary medicine follow up being arranged. (2) Acute exacerbation of chronic obstructive pulmonary disease (COPD): Status: Acute Asessment and Plan: She has received levalbuterol and ipratropium nebs QID, Stiolto, Azithromycin. D/C with prednisone taper. (3) Right ventricular dysfunction: Status: Acute Asessment and Plan: Left ventricle is small, hyperdynamic. EF is 65%. Septal motion is somewhat paradoxic Right ventricle is dilated and hypocontractile. There is diastolic septal flattening consistent with right ventricular pressure/volume overload Both atria are normal in size Pulmonary hypertension / untreated. Pulmonary medicine outpt f/u ordered. (4) Tobacco dependence: Status: Chronic Asessment and Plan: She had stopped smoking for 1 week prior to admission. S/P course of Chantix. Encouraged on going cessation. Discharge Plan Disposition Patient Disposition: Home Condition: Improving Discharge Details Reason For Visit: Acute Hypoxic Hypercapnic Respiratory Failure,COPD Admit Date/Time: 04/27/23 21:44 Admit Provider: Wendy Mejía Attending Provider: Wendy Mejía [facility] Hospital Course: Ms Portillo is a 57 year old female with PMHx of tobacco abuse, hypertension, prediabetes, spontaneous pneumothorax in 1992, but no formal diagnosis of COPD, who was recently evaluated at [facility] (04/23/23) for shortness of breath x 10 days and discharged home with nebulizer treatments as well as azithromycin for a COPD flare, who returned to [facility] ED today c/o worsening shortness of breath. Even though the timeline does not match, she states she has been sick for a week an a half. She describe a cough productive of green sputum, orthopnea, and PND. Denies fevers, runny nose, sore throat, chest pain. She was nauseated in the ED, denies abdominal pain, denies vomiting. Denies urinary symptoms. The patient's history is limited due to the fact that she had just received lorazepam in the ED prior to her arrival to the ICU, so some of this history is obtained via chart review, conversation with daughter and the ED provider when the patient was not able to answer. She is full code. Her O2 sats on arrival were 70% on RA, and her respiratory effort remains elevated with tripoding despite nebulizer treatments and a dose of dexamethasone in the ED. She tested negative for Influenza/COVID-19/RSV in the ER. Her proBNP was elevated. Her troponin was normal. Her d-dimer was negative, but due to a high clinical suspicion for a PE due to her tachycardia, tachypnea, and hypoxia, she underwent a CTA of the chest which revealed moderate to severe bilateral cetrilobular emphysema, but no PE. Her VBG reveals pH of 7.23 and pCO2 of 80. Given this and her ongoing oxygen requirement (currently 5L of O2 by NC to saturate 90%), the patient was started on BiPAP. She, however, wasn't able to tolerate due to recent nasal fracture as well as intolerance of the IPAP. A hospitalist admission to the ICU was requested. The patient has a repeat VBG ordered for now. See diagnosis PCP f/u in 1-2 weeks Arran[address] appt with Dr Curry, pulmonary medicine. Home Meds and New Rx's Prescriptions: New Stiolto Respimat 2.5-2.5 mcg/actuation Mist 2 puff inhalation DAILY Qty: 1 0RF azithromycin 500 mg tablet 500 mg PO DAILY Qty: 3 0RF Rx Instructions: First dose on 05/01 prednisone 10 mg tablet See Taper PO DIRECTED Qty: 40 0RF Taper: Prednisone 10mg taper 40 mg Daily for 5 Days and 0 Hour 30 mg Daily for 3 Days and 0 Hour 20 mg Daily for 3 Days and 0 Hour 10 mg Daily for 3 Days and 0 Hour 5 mg Daily for 3 Days and 0 Hour Rx Instructions: see taper instructions Continued ascorbic acid (vitamin C) 500 mg capsule 500 mg PO DAILY amlodipine 5 mg tablet 5 mg PO DAILY Qty: 90 3RF lisinopril 40 mg tablet 40 mg PO DAILY Qty: 90 3RF albuterol sulfate 90 mcg/actuation HFA aerosol inhaler 2 puff inhalation Q6H PRN Rx Instructions: 04/23/23 RX'd by [facility] ipratropium-albuterol 0.5 mg-3 mg(2.5 mg base)/3 mL solution for nebulization 3 ml inhalation Q4H PRN Rx Instructions: 04/23/23 RX'd by [facility] ibuprofen 600 MG tablet 600 mg PO TID PRN Discontinued azithromycin 250 mg tablet See Rx Instructions PO .COMPLEX Rx Instructions: For 250 mg dose pack: take 500 mg today (day 1), then 250 mg for 4 days (days 2-5) PO 04/23/23 RX'd by [facility] Discharge Instructions Referrals: Ara Curry MD [ [facility] STAFF PHYSICIAN] - (COPD Acute resp failure s/p hospitalization / intubation. ) Activity:: Activity as Tolerated Equipment/Supplies:: No Equipment Needed Diet:: As Tolerated Discharge Orders Discharge Orders: Discharge Order (Routine); Ordered 04/30/23 Ordered By: Jhonatan Costello DS: Summary Time Spent with Patient providing and/or coordinating discharge services: Greater than 30 minutes Status at Discharge Functional status at discharge: independent ambulation Overall status at discharge: patient is progressing back to baseline Mental Status: mental status grossly normal Speech and Movement: speech clear Mood: congruent mood Affect: normal affect Exam Narrative Exam Narrative: General: Pt sitting in chair. Appears fatigued but NAD. Daughter is present. NC in place. Cardiovascular: RRR, tachycardic, no murmur Lungs: Clear. Distant breath sounds. Gastrointestinal: soft, nondistended Extremities: no edema BLEs Psych: Affect appropriate. Psych Mental Status: mental status grossly normal Speech and Movement: speech clear Mood: congruent mood Affect: normal affect DS: Data Vitals/I&O Vitals and I&O: Vital Signs Temperature 37.1 C 04/30/23 07:37 Temperature Source Temporal Artery Scan 04/30/23 07:37 Pulse 105 H 04/30/23 10:54 Pulse Rhythm Regular 04/30/23 08:16 Pulse Strength Normal 04/27/23 20:18 Pulse 113 H 04/30/23 11:00 Respiratory Rate 23 04/30/23 11:00 Respiratory Effort Normal 04/30/23 08:16 Respiratory Depth Shallow 04/30/23 08:16 Respiratory Pattern Normal 04/30/23 08:16 Blood Pressure 86/61 L 04/30/23 10:54 Blood Pressure Mean 70 04/30/23 10:54 Blood Pressure Position Supine 04/29/23 13:16 Pulse Oximetry 94 04/30/23 10:00 Respiratory End-tidal CO2 40 04/29/23 08:33 Oxygen Delivery Method Nasal Cannula 04/30/23 08:27 Oxygen Flow Rate 1 04/30/23 08:27 Fraction of Inspired Oxygen (FIO2) 34 04/29/23 10:28 Pain Level 5 04/30/23 07:48 Comment Oxygen decreased from 2 liters down to 1.5 liters. Order obtained for Robitussin for patient c/o chest hurting with so much coughing. 04/30/23 02:58 Comment Provider aware of HTN; PO HTN medications ordered 04/27/23 18:46 Arterial Systolic 95 04/29/23 11:30 Arterial Diastolic 84 04/29/23 11:30 Arterial Mean 87 04/29/23 11:30 Intake & Output 04/29/23 04/30/23 04/30/23 23:59 11:59 23:59 Intake Total 2650 / 4983.379 1810 / 1810 Output Total 375 / 2675 2225 / 2225 Balance 2275 / 2308.379 -415 / -415 Weight 45.7 kg Intake: IV 1100 / 2713.379 Oral 1550 / 2270 1810 / 1810 Output: Urine 375 / 2675 2225 / 2225 Other: Urine Color Yellow Pale Yellow Urine Appearance Clear Clear Urine Odor Foul Foul Comment andrzej dc'd at 1145, due to void Voiding Methods Bedside Commode Bedside Commode Data Completed and Pending Labs on day of discharge: Labs from last 24 hours 04/30/23 04/30/23 04/29/23 06:30 06:15 05:30 WBC 12.84 H RBC 3.90 L Hgb 11.5 D Hct 36.6 MCV 94 MCH 29.5 MCHC 31.4 L RDW 13.9 Plt Count 149 MPV 9.3 Immature Gran % 0.4 Neutrophils % 64.6 Lymphocytes % 19.5 Monocytes % 14.1 Eosinophils % 1.0 Basophils % 0.4 Nucleated RBC % 0.0 Absolute Neutrophils 8.29 H Absolute Lymphocytes 2.50 Absolute Monocytes 1.81 H Absolute Eosinophils 0.13 Absolute Basophils 0.05 RBC Morphology Normal VBG pH 7.33 VBG pCO2 63 H* VBG pO2 81 VBG HCO3 33 H VBG Total CO2 31 H VBG O2 Saturation 96 VBG Base Excess 7 H Sodium 137 Potassium 4.0 Chloride 104 Carbon Dioxide 33.2 H Anion Gap -0.2 L BUN 32 H Creatinine 1.1 H Est GFR (CKD-EPI 2020) 58.97 Glucose 94 Calcium 8.7 Sexbu-6-Nriuzvbhwus 200 PFSH All Active Problems Hypotension (Acute) Volume overload (Acute) Right ventricular dysfunction (Acute) Leukocytosis (Acute) Encounter for venous access device care (Acute) Poor venous access (Acute) Elevated brain natriuretic peptide (BNP) level (Acute) Discharge planning issues (Acute) DVT prophylaxis (Acute) Acute exacerbation of chronic obstructive pulmonary disease (COPD) (Acute) Acute respiratory failure with hypoxia and hypercapnia (Acute) Nasal contusion (Acute) Hx of falling (Acute) Grief reaction (Chronic) Weight loss (Acute) Tobacco dependence (Chronic) HTN (hypertension) (Chronic) Prediabetes (Acute) Medical History Acute dyspnea 04/23/[address] [facility]. -hb Spontaneous pneumothorax 10/1992 Surgical History S/P abdominal hysterectomy and right salpingo-oophorectomy H/O: hysterectomy Family History Mother , brain aneurism age 84 No problems noted. Father , 51 Heart disease Hypertension Sister Hypertension Brother No problems noted. Maternal Grandmother Diabetes Brother No problems noted. 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 occupation: [employer] job lots Pets and animals: Yes Pets and animals: dog(s) Sexually active: No Do you think of yourself as: straight/heterosexual Current gender identity: female How often do you talk on the phone with friends or family?: decline to answer How often do you get together with friends or relatives?: decline to answer How often do you attend gnosticism or orthodox services?: decline to answer Do you belong to any clubs or organized social groups?: decline to answer Duration: decline to answer Frequency: decline to answer Seatbelt use: always Helmet use: Yes Do you feel safe in your relationship?: Yes Time Spent with Patient Time Spent with Patient: 45-69 minutes Time was spent: preparing to see the patient(eg.review tests), obtaining and/or reviewing separately otained hiistory, ordering medications,tests, procedures, referring, communicating with other health tree care foreman, indepentently interpreting results, counseling the patient and care coordination
--- NOTE | 2023-04-30 14:12 | PDOC.CMDIS ---
Date of service: 04/30/23 Time of Service: 14:12 LACE Index Scoring Tool Questions: Length of Stay (in days): 3 Was the patient admitted via the E.D.?: Yes Comorbidities: Chronic Pulmonary Disease E.D. Visits: 1 Answers: Total Score: 9 Risk of Readmission: Low Risk Care Management Discharge Plan Reason for Hospitalization: respiratory failure Discharge Plan: Marissa will return home today with no new services. Per report, recommends supplemental O2, but she is currently refusing home O2 set up. Her daughter will drive her home via private vehicle, and will stay with her temporarily to help her transition from hospital to home, and to support her with care needs. She will follow up with Pulmonology, her PCP, and her discharge plan of care. She is happy to be going home. Patient/Family Education Needs: Review discharge instructions and limitations, discussion of self care needs including ask me three.
== END 2023-04-30 15:00 | disposition home or self-care (01) | DRG 208 ==
LOC: ER 22:17 → ICU 22:35
PROVIDERS: Family Medicine; Student in an Organized Health Care Education/Training Program; Surgery; Admitting Provider Internal Medicine; Emergency Provider Nurse Practitioner Family; PCP Nurse Practitioner Family; Visit Provider Internal Medicine
DX: J44.1 Chronic obstructive pulmonary disease with (acute) exacerbation (principal); J96.01 Acute respiratory failure with hypoxia; J96.02 Acute respiratory failure with hypercapnia; E87.1 Hypo-osmolality and hyponatremia; Z68.1 Body mass index [BMI] 19.9 or less, adult; I27.20 Pulmonary hypertension, unspecified; F17.210 Nicotine dependence, cigarettes, uncomplicated; I10 Essential (primary) hypertension; R63.4 Abnormal weight loss; R73.03 Prediabetes; D72.829 Elevated white blood cell count, unspecified; I51.9 Heart disease, unspecified; E87.70 Fluid overload, unspecified; I95.9 Hypotension, unspecified
CPT/HCPCS: 36556; 00123; 31500; 36415; 36591; 36620; 71045; 71275; 76942; 80048; 80053; 82805; 82962; 84145; 87637; 92610; 93005; 93308; 94618; 94640; 96374; 99291; J1650; 81003; 81015; 82103; 82140; 83036; 83605; 83735; 83880; 84443; 84484; 85025; 85379; 93010; 93306; 94002; 94003; 94660; 94760; 99233; 99239; J1100; J1940; J2060; J2270; J3010; J3490; J7512; J7614; J7620; J7626; J7633; J7644

== ENCOUNTER 2023-05-09 04:21 | Outpatient (CLI) | payer OTHER, SELFPAY ==
[2023-05-09] MEDS: Inhaler, Assist Device 1 EACH MC (14:12)
[2023-05-09] MEDS: Levalbuterol HFA 15 GM INH 4 PUFF IH (14:12)
--- NOTE | 2023-05-10 12:49 | W.PFT ---
Date of service: 05/09/23 Time of Service: 13:01 Pulmonary Function Test Result Indications: COPD Interpretation Spirometry: There is severe airflow limitation. No significant bronchodilator response. Lung Volumes: Hyperinflation and air trapping Diffusion Capacity: Decreased diffusion Airway Pressure: Increased airways resistance Impression Severe airflow obstruction with air trapping and a decreased diffusion. Clinical Correlation therefore is recommended.
== END 2023-05-09 04:22 | disposition home or self-care (01) ==
LOC: RT 04:22
PROVIDERS: PCP Nurse Practitioner Family; Visit Provider Student in an Organized Health Care Education/Training Program
DX: J44.9 Chronic obstructive pulmonary disease, unspecified (principal)
CPT/HCPCS: 94060; 94726; 94729

== ENCOUNTER 2023-07-16 16:19 | Observation (INO) | payer OTHER, SELFPAY ==
[2023-07-16] VITALS (20 sets, daily range): BP systolic 112–153; BP diastolic 70–110; PULSE 116–136; RESP 14–27; TEMP 37–37.1; O2SAT 91–94
--- NOTE | 2023-07-16 16:00 | RT.EKG_ITS ---
APPROVED REPORT Exam: Resting ECG Reason for Exam: sob Patient Location: E HR:137 bpm ECG Measurements Heart Rate 137 AXIS [place] 135 P 88 QRSd 83 QRS 139 QT 286 T 73 QTc 431 Conclusion Sinus tachycardia...rate> 99 Paired ventricular premature complexes...sequence of 2 V complexes Aberrant complex...small R-R variation, aberrant QRS Consider left ventricular hypertrophy...(R aVL+S V3) >2.20mV
--- NOTE | 2023-07-16 16:30 | DI.CT_ITS ---
Exam(s) CT CHEST PE CTA EXAM: CT CHEST PE CTA CLINICAL HISTORY: dyspnea, tachycardia. TECHNIQUE: Imaging Protocol: Axial CT angiography was performed with multi-slice acquisition and mu lti-planar reconstructions as well as axial, coronal and sagittal MIP reconstructions. CONTRAST MATERIAL: Intravenous: Omnipaque 350 Contrast volume:60 ml COMPARISON: CT CT CHEST PE CTA from 04/27/2023 FINDINGS: Pulmonary Arteries: No evidence of filling defect to suggest pulmonary emboli. Pulmonary arteries mi ldly prominent which shows likely secondary to pulmonary hypertension Tracheobronchial tree: Patent where visualized. Mild bronchial wall thickening. No mucous plugging. Mediastinum and Daina: No dominant adenopathy or fluid collection. Pulmonary parenchyma: No consolidation or dominant measurable mass. Severe emphysematous changes. Pleura: No effusion or pneumothorax. Heart: The heart is not dilated. No coronary artery calcifications are seen. Aorta: Thoracic aorta non-dilated. No dissection. Upper abdomen: Unremarkable. Bones: Unremarkable for age. Tubes, Catheters, and Lines: None Soft tissues: Unremarkable. IMPRESSION: No evidence of pulmonary embolism. Severe emphysematous changes. RADIATION DOSE DELIVERED: Total DLP DATA REPOSITORY: All CT scans at this facility are submitted to the National Radiology Data Registry (NRDR) Dose Index Registry (DIR) with the [employer] (ACR). RADIATION OPTIMIZATION: All CT scans at this facility use at least one of these dose optimization te chniques: automated exposure control; mA and/or kV adjustment per patient size (includes targeted exa ms where dose is matched to clinical indication); or iterative reconstruction.
--- NOTE | 2023-07-16 16:33 | ED.GENADUL_ITS ---
HPI General Stated Complaint: SOB Mode of arrival: EMS. RODO: 3 Date/Time Provider Initiated Documentation: 07/16/23 16:21. Limitations to Documentation: no limitations. Information obtained by: patient. History of Present Illness shortness of breath moderate day(s) (1) constant No relieving factors improve symptom(s), No exacerbating factors reported cough; denies chest pain and fever/chills none Related Data Home Medications Medication Instructions Recorded Confirmed ibuprofen 600 mg tablet 600 mg PO TID PRN 12/23/13 07/16/23 amlodipine 5 mg tablet 5 mg PO DAILY #90 tabs 03/19/23 07/16/23 lisinopril 40 mg tablet 40 mg PO DAILY #90 tabs 03/19/23 07/16/23 albuterol sulfate 90 mcg/actuation 2 puff inhalation Q6H PRN 05/03/23 07/16/23 aerosol inhaler shortness of breath or wheezing #8.5 grams ipratropium 0.5 mg-albuterol 3 mg 3 ml inhalation Q4H PRN shortness 05/03/23 07/16/23 (2.5 mg base)/3 mL nebulization of breath or wheezing #180 mL soln tiotropium 2.5 mcg-olodaterol 2.5 2 puff inhalation DAILY #1 g 05/03/23 07/16/23 mcg/actuation mist for inhalation (Stiolto Respimat) acetylcysteine 600 mg capsule (NAC) 600 mg PO DAILY 07/02/23 07/16/23 Previous Rx's Medication Instructions Recorded amlodipine 5 mg tablet 5 mg PO DAILY #90 tabs 03/19/23 lisinopril 40 mg tablet 40 mg PO DAILY #90 tabs 03/19/23 albuterol sulfate 90 mcg/actuation 2 puff inhalation Q6H PRN 05/03/23 aerosol inhaler shortness of breath or wheezing #8.5 grams ipratropium 0.5 mg-albuterol 3 mg 3 ml inhalation Q4H PRN shortness 05/03/23 (2.5 mg base)/3 mL nebulization of breath or wheezing #180 mL soln tiotropium 2.5 mcg-olodaterol 2.5 2 puff inhalation DAILY #1 g 05/03/23 mcg/actuation mist for inhalation (Stiolto Respimat) Allergies Allergy/AdvReac Type Severity Reaction Status Date / Time codeine AdvReac Nausea Verified 07/16/23 16:45 Review of Systems All systems reviewed & are unremarkable except as noted in HPI and below Constitutional Constitutional: Denies chills, Denies fever(s) and Denies weakness Cardiovascular Cardiovascular: Denies chest pain and Reports dyspnea Respiratory Respiratory: Reports cough and Reports dyspnea Gastrointestinal Gastrointestinal: Denies abdominal pain, Denies nausea and Denies vomiting Genitourinary Genitourinary: Denies dysuria Musculoskeletal Musculoskeletal: Denies joint swelling Integumentary/Breasts Skin/Breast: Denies rash Neurologic Neurologic: Denies weakness PFSH All Active Problems COPD exacerbation (Acute) Shortness of breath (Acute) Respiratory failure with hypoxia and hypercapnia (Acute) Personal history of nicotine dependence (Acute) COPD (chronic obstructive pulmonary disease) (Chronic) Right ventricular dysfunction (Acute) Elevated brain natriuretic peptide (BNP) level (Acute) Nasal contusion (Acute) Hx of falling (Acute) Grief reaction (Chronic) Weight loss (Acute) Tobacco dependence (Chronic) HTN (hypertension) (Chronic) Prediabetes (Acute) Medical History Acute exacerbation of chronic obstructive pulmonary disease (COPD) Acute respiratory failure with hypoxia and hypercapnia Acute dyspnea 04/23/23 Per [facility]. -hb Spontaneous pneumothorax 10/1992 Surgical History S/P abdominal hysterectomy and right salpingo-oophorectomy H/O: hysterectomy Family History Mother , brain aneurism age 84 No problems noted. Father , 51 Heart disease Hypertension Sister Hypertension Brother No problems noted. Maternal Grandmother Diabetes Brother No problems noted. 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 occupation: [employer] job [employer] Pets and animals: Yes Pets and animals: dog(s) Sexually active: No Do you think of yourself as: straight/heterosexual Current gender identity: female How often do you talk on the phone with friends or family?: decline to answer How often do you get together with friends or relatives?: decline to answer How often do you attend pentecostal or quaker services?: decline to answer Do you belong to any clubs or organized social groups?: decline to answer Duration: decline to answer Frequency: decline to answer Seatbelt use: always Helmet use: Yes Do you feel safe in your relationship?: Yes Exam Const Orientation: alert HENMT Head: normal to inspection Ears: external ears normal General nose exam: external nose normal Mouth: moist mucous membranes Eyes General: appearance normal, both eyes and all related structures Neck Neck: normal visual inspection Resp Effort & Inspection: audible wheezes Cardio Jugular venous pressure: no JVD Rate: regular rate Heart Sounds: no murmurs GI Palpation: soft and nontender Skin General skin exam: no rashes or lesions noted Neuro General: patient alert and patient oriented x3 Extrem General: normal to inspection Psych Mental Status: mental status grossly normal Course Vital Signs Vital signs: Vital Signs Temperature 37.1 C 07/16/23 16:19 Pulse 125 H 07/16/23 16:19 Respiratory Rate 07/16/23 16:19 Blood Pressure 153/110 H 07/16/23 16:19 Pulse Oximetry 91 L 07/16/23 16:19 Temperature 37.1 C 07/16/23 16:19 Pulse 125 H 07/16/23 16:19 Respiratory Rate 07/16/23 16:19 Blood Pressure 153/110 H 07/16/23 16:19 Blood Pressure Position Sitting 07/16/23 16:19 Pulse Oximetry 91 L 07/16/23 16:19 Oxygen Delivery Method Nasal Cannula 07/16/23 16:19 Oxygen Flow Rate 4 07/16/23 16:19 Lab/Test Results Lab/Test Results: 07/16/23 16:22 Blood Blood Culture - Pending 07/16/23 16:22 Blood Blood Culture - Pending Medical Decision Making 58 yo female with hx of copd and former smoker, htn, who comes in with ems with shortness of breath worsening since waking up this morning along with cough. Denies chest pain/pressure, fevers, chills. Was given two nebs with ems and feels improved but is still tachypneic on exam and speaking in 4-5 word sentences. She has wheezing bilaterally on lung exam, no jvd, no leg swelling or edema and no calf tenderness. On bedside u/s has no pericardial effusion. Suspect copd exacerbation, will treat with solumedrol and duoneb and reassess. Will also obtain ekg, troponin, cbc, cmp, fluvid and given her tachycardia to 130 obtain cta of the chest to eval for PE pt feeling better, had a headache which she was given toradol for and says it is similar to her prior headaches and not the worst of her life, had one episode of vomiting in CT improved with zofran, pending ct results. Labs show hypercapnia and acidosis at 7.2. She has improved lung sounds with wheezing at the apices. ct shows no PE, she goes to 86% off o2, will discuss with hospitalist about admission Differential Diagnosis Differential Diagnosis: copd, pneumonia, pe Medical Records Medical records reviewed: Yes I reviewed the patient's medical records. Imaging Data Radiologic Study: Attestation: I personally reviewed and interpreted this imaging study as follows: Imaging: CT Scan Radiologist's impression: IMPRESSION: No evidence of pulmonary embolism. Severe emphysematous changes Lab Data Lab results reviewed: Yes I reviewed the patient's lab results. ECG Data Attestation: I personally reviewed and interpreted this ECG (s) as follows: Prior ECG tracings: available for review Interpretation: sinus tachycardia, rate of 137 pr 135, no stemi Quality:SDOH Health Related Social Needs: No Data to Display Discharge Plan Disposition Patient Disposition: Admit to [facility] Condition: Stable Discharge Details Clinical Impression: Shortness of breath, COPD exacerbation Primary Care Provider: Maegan Ness ED Provider: Mark Woodruff Home Meds and New Rx's Prescriptions: No Action albuterol sulfate 90 mcg/actuation HFA aerosol inhaler 2 puff inhalation Q6H PRN (Reason: shortness of breath or wheezing) Qty: 8.5 12RF ipratropium-albuterol 0.5 mg-3 mg(2.5 mg base)/3 mL solution for nebulization 3 ml inhalation Q4H PRN (Reason: shortness of breath or wheezing) Qty: 180 12RF Stiolto Respimat 2.5-2.5 mcg/actuation mist 2 puff inhalation DAILY Qty: 1 12RF acetylcysteine [NAC] 600 mg capsule 600 mg PO DAILY amlodipine 5 mg tablet 5 mg PO DAILY Qty: 90 3RF lisinopril 40 mg tablet 40 mg PO DAILY Qty: 90 3RF ibuprofen 600 MG tablet 600 mg PO TID PRN POCUS Exam (ED) Limited Cardiac Exam DATE OF EXAM: 07/16/23 TIME OF EXAM: 16:44 PROVIDER THAT PERFORMED THE STUDY: Mark Woodruff IS THIS A REPEAT EXAM DURING THIS ENCOUNTER: no REASON FOR EXAM: Dyspnea VISUALIZED STRUCTURES: Four Chambers VIEW OBTAINED: Subxiphoid PERTINENT FINDINGS/IMPRESSION: No LV dysfunction, No pericardial effusion and No RV dilation Exam complete
[2023-07-16 16:45] LABS: BE (Venous) 0 mmol/L (-2-3); HCO3 (Venous) 28 mmol/L (23-28); O2 Sat (Venous) 71 %; TCO2 (Venous) 26 mmol/L (24-29); pO2 (Venous) 44 mmHg
[2023-07-16 16:46] LABS: Abs Immature Grans 0.06 10^3/uL (0.0-0.06); Absolute Eosinophil Count 0.38 10^3/uL (0.0-0.7); Absolute Lymphocyte Count 3.09 10^3/uL (1.2-3.4); Absolute Monocyte Count 1.01 10^3/uL (0.1-0.8); Basophils % 0.8; Eosinophils % 3.2; HGB 15.1 g/dL (11.2-15.7); Immature Grans % 0.5; Lymphocytes % 26.1; MCH 29.4 pg (27.0-33.0); MCHC 32.1 % (32.0-36.0); MCV 92 fL (80-95); MPV 9.4 fL (8.0-11.0); Monocytes % 8.5; Neutrophils % 60.9; Platelet Count 261 10^3/uL (130-400); RBC 5.13 10^6/uL (3.93-5.22); RDW 12.8 % (11.7-14.6); RDW-SD 43.5 fL; WBC 11.85 10^3/uL (4.4-10.8)
[2023-07-16 16:47] LABS: Absolute Basophil Count 0.09 10^3/uL (0.0-0.2); Absolute Neutrophil Count 7.22 10^3/uL (1.2-6.7)
[2023-07-16 16:49] LABS: pCO2 (Venous) 72 mmHg (41-51)
[2023-07-16] MEDS: methylPREDNISolone SUCC 125 MG VIAL IVP (16:53)
[2023-07-16] MEDS: Albuterol/Ipratropium 3 ML UPD VIAL UPD (16:53)
[2023-07-16] MEDS: Normal Saline 250 ML 500 ML IV (16:54)
[2023-07-16 17:02] LABS: PTT Activated 22.5 sec (23.6-32.8); Prothrombin Time 10.4 sec (9.1-11.1)
[2023-07-16 17:12] LABS: ALT 31 U/L (14-59); AST 19 U/L (15-37); Albumin 3.8 g/dL (3.4-5.0); Alkaline Phosphatase 69 U/L (46-116); BUN 15 mg/dL (7-18); Bilirubin, Total 0.4 mg/dL (0.2-1.0); CREATININE 0.9 mg/dL (0.55-1.02); Calcium 10.5 mg/dL (8.5-10.1); Chloride 100 mmol/L (98-107); Estimated GFR 74.57 (mL/min/1.73m2); Glucose 139 mg/dL (74-106); Magnesium 2.1 mg/dL (1.8-2.4); NT-proBNP 466 pg/mL (<300); Potassium 4.9 mmol/L (3.5-5.1); Sodium 137 mmol/L (136-145); TSH (W/Ref FT4) 1.85 uIU/mL (0.36-3.74); Total Protein 7.9 g/dL (6.4-8.2); Troponin I < 50 ng/L (<or=60)
[2023-07-16 17:25] LABS: Procalcitonin < 0.1 ng/mL
[2023-07-16 17:31] LABS: COVID-19 PCR Negative (Negative); Influenza A PCR Negative (Negative); Influenza B PCR Negative (Negative); RSV PCR Negative (Negative); Source Nasopharynx
[2023-07-16] MEDS: Normal Saline - Diluent 50 ML VIAL IJ (17:34)
[2023-07-16] MEDS: Omnipaque 350 MG/ML 100 ML BTL IJ (17:35)
[2023-07-16] MEDS: Ondansetron 4 MG/2 ML VIAL IVP (17:46)
[2023-07-16] MEDS: Ketorolac 15 MG/ML VIAL IVP (18:24)
--- NOTE | 2023-07-16 19:10 | HPE_ITS ---
Date of service: 07/16/23 Time of Service: 19:10 Assessment and Plan Assessment and plan (1) COPD exacerbation: Status: Acute Assessment and plan: COPD exacerbation. I think the trigger is self-evident -- not being on her usual meds. No other precipitant evident in any case. Will continued scheduled updrafts and steroids. I see no indication for antibiotics at present. The initial VBG demonstrates obvious respiratory insufficiency but since the patient is so much improved clinically I think we can forego repeat testing for now. Reviewed ADs, requests Full Code. History of Present Illness History of Present Illness Chief Complaint: SOB Narrative: 58 female with COPD, former smoker, on home duonebs -- out of meds for one week due to dispute with insurance company. Reports on and off SOB since, especially bad today, prompting visit to ER. Slight cough, generally non-productive. No other URI symptoms -- no runny nose, sore throat, and no exposure to infectious illness. In ER diffuse wheezing noted and workup of note for negative chest CT (save for underlying COPD), white count 11, and VBG with pH 7.20 and pCO2 72 (prior to treatment). Patient given duonebs and steroids and reports she is feeling significantly better. Still having oxygen requirement of 2L for sats in low 90s. Viral swab triple negative. Review of Systems Narrative: per HPI PFSH All Active Problems COPD exacerbation (Acute) Shortness of breath (Acute) Respiratory failure with hypoxia and hypercapnia (Acute) Personal history of nicotine dependence (Acute) COPD (chronic obstructive pulmonary disease) (Chronic) Right ventricular dysfunction (Acute) Elevated brain natriuretic peptide (BNP) level (Acute) Nasal contusion (Acute) Hx of falling (Acute) Grief reaction (Chronic) Weight loss (Acute) Tobacco dependence (Chronic) HTN (hypertension) (Chronic) Prediabetes (Acute) Medical History Acute exacerbation of chronic obstructive pulmonary disease (COPD) Acute respiratory failure with hypoxia and hypercapnia Acute dyspnea 04/23/[address] [facility]. -hb Spontaneous pneumothorax 10/1992 Surgical History S/P abdominal hysterectomy and right salpingo-oophorectomy H/O: hysterectomy Family History Mother , brain aneurism age 84 No problems noted. Father , 51 Heart disease Hypertension Sister Hypertension Brother No problems noted. Maternal Grandmother Diabetes Brother No problems noted. 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 occupation: [employer] lots Pets and animals: Yes Pets and animals: dog(s) Sexually active: No Do you think of yourself as: straight/heterosexual Current gender identity: female How often do you talk on the phone with friends or family?: decline to answer How often do you get together with friends or relatives?: decline to answer How often do you attend baptist or pentecostal services?: decline to answer Do you belong to any clubs or organized social groups?: decline to answer Duration: decline to answer Frequency: decline to answer Seatbelt use: always Helmet use: Yes Do you feel safe in your relationship?: Yes Meds Allergies and Home Medications Allergies Allergy/AdvReac Type Severity Reaction Status Date / Time codeine AdvReac Nausea Verified 07/16/23 16:45 Home Medications Medication Instructions Recorded Confirmed Type ibuprofen 600 mg tablet 600 mg PO TID PRN 12/23/13 07/16/23 History amlodipine 5 mg tablet 5 mg PO DAILY #90 tabs 03/19/23 07/16/23 Rx lisinopril 40 mg tablet 40 mg PO DAILY #90 tabs 03/19/23 07/16/23 Rx albuterol sulfate 90 mcg/actuation 2 puff inhalation Q6H PRN 05/03/23 07/16/23 Rx aerosol inhaler shortness of breath or wheezing #8.5 grams ipratropium 0.5 mg-albuterol 3 mg 3 ml inhalation Q4H PRN shortness 05/03/23 07/16/23 Rx (2.5 mg base)/3 mL nebulization of breath or wheezing #180 mL soln tiotropium 2.5 mcg-olodaterol 2.5 2 puff inhalation DAILY #1 g 05/03/23 07/16/23 Rx mcg/actuation mist for inhalation (Stiolto Respimat) acetylcysteine 600 mg capsule (NAC) 600 mg PO DAILY 07/02/23 07/16/23 History Exam Narrative Exam Narrative: 118/52, 124, 37.1, 18, 91% 2L NC. HEENT atraumatic; neck supple; lungs markedly diminished, scattered wheeze; heart tachy/regular; abdomen soft and NT; extremities w/o edema; neuro Ox3, lucid, moves all 4s Results Labs 07/16/23 16:30 07/16/23 16:30 Labs: Laboratory Results - last 24 hr 07/16/23 07/16/23 16:30 16:45 WBC 11.85 H RBC 5.13 Hgb 15.1 Hct 47.0 H MCV 92 MCH 29.4 MCHC 32.1 RDW 12.8 Plt Count 261 MPV 9.4 Immature Gran % 0.5 Neutrophils % 60.9 Lymphocytes % 26.1 Monocytes % 8.5 Eosinophils % 3.2 Basophils % 0.8 Nucleated RBC % 0.0 Absolute Neutrophils 7.22 H Absolute Lymphocytes 3.09 Absolute Monocytes 1.01 H Absolute Eosinophils 0.38 Absolute Basophils 0.09 PT 10.4 INR 1.0 APTT 22.5 L VBG pH 7.20 L VBG pCO2 72 H* VBG pO2 44 VBG HCO3 28 VBG Total CO2 26 VBG O2 Saturation 71 VBG Base Excess 0 Sodium 137 Potassium 4.9 Chloride 100 Carbon Dioxide 29.0 Anion Gap 8.0 BUN 15 Creatinine 0.9 Est GFR (CKD-EPI 2020) 74.57 Glucose 139 H Calcium 10.5 H Magnesium 2.1 Total Bilirubin 0.4 AST 19 ALT 31 Alkaline Phosphatase 69 Troponin I < 50 NT-Pro-B Natriuret Pep 466 H Total Protein 7.9 Albumin 3.8 Procalcitonin < 0.1 TSH 1.85 COVID-19 Source Nasopharynx SARS-CoV-2 (PCR) Negative Influenza Type A (PCR) Negative Influenza Type B (PCR) Negative RSV (PCR) Negative Last Vital Signs Temp 37.1 C 07/16/23 16:19 Pulse 124 H 07/16/23 18:30 Resp 18 07/16/23 18:50 BP 115/82 07/16/23 18:30 Pulse Ox 91 L 07/16/23 16:19 Time Spent Time spent with Patient: 40-54 minutes Time was spent: preparing to see the patient(eg.review tests), obtaining and/or reviewing separately otained hiistory, ordering medications,tests, procedures, referring, communicating with other health child care director and indepentently interpreting results
[2023-07-16] MEDS: Acetaminophen 500 MG TAB 1000 MG PO (19:20)
[2023-07-16] MEDS: Normal Saline Flush 10 ML SYR IVP (20:33)
[2023-07-17] VITALS (14 sets, daily range): BP systolic 101–109; BP diastolic 67–74; PULSE 104–118; RESP 2–20; TEMP 36.7–37; O2SAT 90–98
[2023-07-17] MEDS: Normal Saline Flush 10 ML SYR IVP ×3 (00:35→20:12)
[2023-07-17] MEDS: methylPREDNISolone SUCC 40 MG VIAL IVP ×3 (00:35→15:44)
[2023-07-17] MEDS: Acetaminophen 325 MG TAB 650 MG PO ×2 (00:56→14:01)
[2023-07-17] MEDS: Ibuprofen 600 MG TAB PO ×2 (00:57→09:46)
[2023-07-17] MEDS: Albuterol/Ipratropium 3 ML UPD VIAL UPD ×4 (01:47→20:53)
[2023-07-17] MEDS: Diclofenac 1% Gel 100 GM TUBE TP (07:30)
[2023-07-17] MEDS: Acetylcysteine 600 MG CAP PO (08:24)
[2023-07-17] MEDS: amLODIPine 5 MG TAB PO (08:24)
[2023-07-17] MEDS: Lisinopril 20 MG TAB 40 MG PO (08:25)
--- NOTE | 2023-07-17 10:49 | INITIAL_ITS ---
Date of service: 07/17/23 Time of Service: 10:50 Care Management Initial Assmt Initial Assessment REASON FOR HOSPITALIZATION:: COPD PREVIOUS FUNCTIONAL STATUS/SOCIAL/FAMILY SUPPORTS:: Marissa lives alone in a single family home in in [place], [place] She has a daughter Fay who is close and supportive. Marissa works at [employer] and is independent at baseline. CURRENT FUNCTIONAL STATUS:: Marissa was sitting up in bed when CM met with her. She stated that she is very happy with the care she is receiving at [facility]. She expressed frustration with her insurance company, as she feels that she is being forced to have her prescriptions mailed to her. She stated that she was told she would have a choice, if there was an option to have generic medications, but the inhalers that she needs do not have a generic option. She has concerns about her inhalers being left out in the mailbox in the cold of winter, as her mail service is not reliable; [place] CM asked if she has been in contact with her insurance company; she stated that she has tried with little response. Marissa stated that she has been doing very well since her previous admission in April, and has completely quit smoking. She stated that she started to back track when she was without her inhaler for a week. CM will continue to follow. ADVANCE DIRECTIVES:: Not on file with [facility]. CM will offer forms. Has patient been provided with info about the portal/API?: Yes Did the patient sign up for the portal?: No CODE STATUS:: Full Code INSURANCE COVERAGE / FINANCIAL ISSUES:: [employer]. CM offered Financial assistance packet due to concerns about medical bills. CURRENT HOME/COMMUNITY SERVICES/EQUIPMENT:: None PRIMARY CARE PHYSICIAN:: Maegan Ness POTENTIAL DISCHARGE NEEDS:: Evaluations for further needs, follow up appointments. PATIENT/FAMILY EDUCATION NEEDS:: Review discharge instructions and limitations, discussion of self care needs including ask me three. ANTICIPATED BARRIERS TO DISCHARGE:: None identified. TRANSPORTATION:: Via private vehicle by family. PLAN:: Anticipate Marissa will return home once medically cleared. Her daughter will drive her home via private vehicle when ready. She will follow up with her PCP and discharge plan of care. CM will continue to follow. PFSH All Active Problems COPD exacerbation (Acute) Shortness of breath (Acute) Respiratory failure with hypoxia and hypercapnia (Acute) Personal history of nicotine dependence (Acute) COPD (chronic obstructive pulmonary disease) (Chronic) Right ventricular dysfunction (Acute) Elevated brain natriuretic peptide (BNP) level (Acute) Nasal contusion (Acute) Hx of falling (Acute) Grief reaction (Chronic) Weight loss (Acute) Tobacco dependence (Chronic) HTN (hypertension) (Chronic) Prediabetes (Acute) Medical History Acute exacerbation of chronic obstructive pulmonary disease (COPD) Acute respiratory failure with hypoxia and hypercapnia Acute dyspnea 04/23/[address] [facility]. -hb Spontaneous pneumothorax 10/1992 Surgical History S/P abdominal hysterectomy and right salpingo-oophorectomy H/O: hysterectomy Family History Mother , brain aneurism age 84 No problems noted. Father , 51 Heart disease Hypertension Sister Hypertension Brother No problems noted. Maternal Grandmother Diabetes Brother No problems noted. 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 occupation: [employer] job lots Pets and animals: Yes Pets and animals: dog(s) Sexually active: No Do you think of yourself as: straight/heterosexual Current gender identity: female How often do you talk on the phone with friends or family?: decline to answer How often do you get together with friends or relatives?: decline to answer How often do you attend pentecostal or voodoo services?: decline to answer Do you belong to any clubs or organized social groups?: decline to answer Duration: decline to answer Frequency: decline to answer Seatbelt use: always Helmet use: Yes Do you feel safe in your relationship?: Yes SDOH(Care Management) Screening Will the Patient Participate in the Screening?: Declined to provide Do you worry about having a steady place to live?: no Problems where you live: no known problems In the past 12 months, have you had to go without electric, gas, oil or water in your home?: no Have you or anyone in your house had to go without enough food to eat?: no Has lack of transportation kept you from medical appointments or from doing things needed for daily living?: no Has anyone in your support network made you feel unsafe for any reason?: no
--- NOTE | 2023-07-17 12:22 | PGE_ITS ---
Date of Service Date of service: 07/17/23 Time of Service: 12:22 Assessment and Plan Assessment and plan (1) COPD exacerbation: Status: Acute Assessment and plan: COPD exacerbation. Thought to be due to noncompliance with her medication. No other precipitant evident in any case. Will continued scheduled updrafts and steroids. Continues to have no indication for antibiotics at present, her Pro- Wisam was negative and she has not been febrile. Her symptoms are improving with current treatment. She is followed outpatient by pulmonology and will be scheduled for outpatient appointment after discharge. Wean oxygen as able Quit smoking in April 2023 (2) HTN (hypertension): Status: Chronic Assessment and plan: Blood pressure is controlled on Norvasc and lisinopril. Continue home medication and routine monitoring (3) Tobacco dependence: Status: Chronic Assessment and plan: Patient quit smoking in April 2023 and is motivated to continue abstaining (4) Discharge planning issues: Status: Acute Assessment and plan: Anticipated discharge to home with no new services discussed with DR Ewing Subjective Subjective Interval history since last seen: Reports improvement of respiratory symptoms overnight. States she still feels wheezy and short of breath with activity. States that she is tolerating fluids well. Denies constipation or diarrhea or states she is voiding well. Exam Narrative Exam Narrative: Frail older appearing than stated age female, cachectic in no acute distress skin is ashen warm and dry head is atraumatic oral mucosa slightly dry no exudate eyes normal appearance EOMs intact nonicteric noninjected neck with no JVD her respirations are even and unlabored she has expiratory wheezing in the left base otherwise diminished throughout no coarse breath sounds. Cardiovascular regular rate and rhythm no murmurs tachycardic sinus tach rate in the 110s. Abdomen is flat soft. Moves all extremities good no peripheral edema. Skin with no rashes or lesions neurologic awake alert oriented x 4 no focal deficits psychiatric normal mood and affect appropriate Objective Last Vital Signs Temp 36.8 C 07/17/23 07:27 Pulse 108 H 07/17/23 07:52 Resp 18 07/17/23 07:52 BP 107/67 07/17/23 07:27 Pulse Ox 96 07/17/23 07:53 Laboratory Results - last 24 hr 07/16/23 07/16/23 07/16/23 16:30 16:45 19:22 WBC 11.85 H RBC 5.13 Hgb 15.1 Hct 47.0 H MCV 92 MCH 29.4 MCHC 32.1 RDW 12.8 Plt Count 261 MPV 9.4 Immature Gran % 0.5 Neutrophils % 60.9 Lymphocytes % 26.1 Monocytes % 8.5 Eosinophils % 3.2 Basophils % 0.8 Nucleated RBC % 0.0 Absolute Neutrophils 7.22 H Absolute Lymphocytes 3.09 Absolute Monocytes 1.01 H Absolute Eosinophils 0.38 Absolute Basophils 0.09 PT 10.4 INR 1.0 APTT 22.5 L VBG pH 7.20 L VBG pCO2 72 H* VBG pO2 44 VBG HCO3 28 VBG Total CO2 26 VBG O2 Saturation 71 VBG Base Excess 0 Sodium 137 Potassium 4.9 Chloride 100 Carbon Dioxide 29.0 Anion Gap 8.0 BUN 15 Creatinine 0.9 Est GFR (CKD-EPI 2020) 74.57 Glucose 139 H Calcium 10.5 H Magnesium 2.1 Total Bilirubin 0.4 AST 19 ALT 31 Alkaline Phosphatase 69 Troponin I < 50 Cancelled NT-Pro-B Natriuret Pep 466 H Total Protein 7.9 Albumin 3.8 Procalcitonin < 0.1 TSH 1.85 COVID-19 Source Nasopharynx SARS-CoV-2 (PCR) Negative Influenza Type A (PCR) Negative Influenza Type B (PCR) Negative RSV (PCR) Negative Time Spent with Patient Time Spent with Patient: 25-34 minutes Time was spent: preparing to see the patient(eg.review tests), obtaining and/or reviewing separately otained hiistory, ordering medications,tests, procedures, indepentently interpreting results and counseling the patient
--- NOTE | 2023-07-17 13:21 | PHA.REVIEW2 ---
Pharmacy Admission Review Admission Clinical Review Admission Pharmacy Review: (Updated 07/16/23 @ 18:52 by Mark Woodruff MD) COPD exacerbation (Acute) Shortness of breath (Acute) codeine Adverse Reaction (Verified 07/16/23 16:45) Nausea Resuscitation Status Full Code Height 5 ft 5 in Weight 43.953 kg Comments Comments/Follow Ups: Currently on nasal cannula 2+. Per morning meeting provider would like patient to wean off and return to baseline. Pharmacy Admission Review Renal Dosing Renal Dosing: BUN 15 mg/dL (7-18) 07/16/23 16:30 Creatinine 0.9 mg/dL (0.55-1.02) 07/16/23 16:30 Medications needing adjustments: Reviewed (CrCl 47.85 mL/min) Anticoagulation Anticoagulation: Hgb 15.1 g/dL (11.2-15.7) 07/16/23 16:30 Hct 47.0 % (36.0-46.0) H 07/16/23 16:30 Plt Count 261 10^3/uL (130-400) 07/16/23 16:30 INR 1.0 (0.9-1.1) 07/16/23 16:30 Creatinine 0.9 mg/dL (0.55-1.02) 07/16/23 16:30 DVT Prophylaxis: Reviewed (No DVT prophylaxis as this time ) Relevant Labs Relevant Labs: Sodium 137 mmol/L (136-145) 07/16/23 16:30 Potassium 4.9 mmol/L (3.5-5.1) 07/16/23 16:30 Chloride 100 mmol/L (98-107) 07/16/23 16:30 Magnesium 2.1 mg/dL (1.8-2.4) 07/16/23 16:30 Electrolytes, C-Reactive P, ESR: Reviewed (No new labs for today) Cardiac Review Cardiac Review: Troponin I Cancelled 07/16/23 19:22 NT-Pro-B Natriuret Pep 466 pg/mL (<300) H 07/16/23 16:30 BP, HR, EF%: Reviewed (BP WNL, HR 108) QTc Review QTc: Reviewed (431 07/16/23) IV to PO Switch IV Medications: Reviewed Home Meds Home Med List reviewed: Reviewed Relevent Home Meds Not ordered & why?: Stiolto Current Meds Current Medication Order Review: Reviewed Pharmacy Antibiotic Review Relevant Labs: Relevant Labs 07/16/23 16:30 Procalcitonin < 0.1 Comments Comments/Follow Ups: Currently on nasal cannula 2+. Per morning meeting provider would like patient to wean off and return to baseline.
[2023-07-17] MEDS: guaiFENesin 600 MG TABCR PO (20:11)
[2023-07-18] VITALS (7 sets, daily range): BP systolic 105–106; BP diastolic 67–70; PULSE 68–121; RESP 2–20; TEMP 37; O2SAT 87–99
[2023-07-18] MEDS: Albuterol/Ipratropium 3 ML UPD VIAL UPD ×2 (01:52→07:45)
[2023-07-18] MEDS: Acetylcysteine 600 MG CAP PO (08:55)
[2023-07-18] MEDS: Lisinopril 20 MG TAB 40 MG PO (08:55)
[2023-07-18] MEDS: predniSONE 20 MG TAB 40 MG PO (08:55)
[2023-07-18] MEDS: amLODIPine 5 MG TAB PO (08:55)
[2023-07-18] MEDS: guaiFENesin 600 MG TABCR PO (08:56)
[2023-07-18] MEDS: Ibuprofen 600 MG TAB PO (08:56)
[2023-07-18] MEDS: Normal Saline Flush 10 ML SYR IVP (08:56)
--- NOTE | 2023-07-18 09:15 | DSE_ITS ---
Date of service: 07/18/23 Time of Service: 09:15 DS: Diagnosis Discharge Diagnosis (1) COPD exacerbation: Status: Acute (2) HTN (hypertension): Status: Chronic (3) Tobacco dependence: Status: Chronic (4) Discharge planning issues: Status: Acute Discharge Plan Disposition Patient Disposition: Home Condition: Improving Discharge Details Reason For Visit: COPD Admit Date/Time: 07/16/23 19:24 Admit Provider: Kwame Romero Attending Provider: Kwame Romero [facility]: This 58 years old female with a past medical history of COPD, former smoker, on home duonebs came to the ED at [facility] on 07/17/23 for evaluation of shortness of breath starting intermittently 2 days ago but worsening The patient reported being - out of meds for one week due to dispute with insurance company. The patient reported a slight cough, generally non-productive. The patient denied other upper respiratory symptoms such as runny nose, sore throat, and exposure to infectious illness. The patient presented in the ED with diffuse wheezing. Chest CT was negative for pulmonary embolus but showed emphysematous changes, white count 11, and VBG with pH 7.20 and pCO2 72 before nebulizer treatment . Viral swab panel was negative X3. The patient was given duonebs and steroids and reports she is feeling significantly better. Still havi ng oxygen requirement of 2L for sats in low 90s. The patient was admitted to the medical surgical floor. During her stay, the patient continued to received inhaled nebulizer treatments and oral steroids, as well as supplemental oxygen which tentatively was weaned off but failed the exercise oxymetry testing. The patient requires 1l/min of oxygen at home with activity. The patient will be discharged home on a steroids taper and hand held inhalers. The patient will need to follow-up with her primary care within the next week. Upon returning to work, the patient will be on limited duties, as she cannot ambulate long distances and lift weight over 10 lbs without shortness of breath. Home Meds and New Rx's Prescriptions: New ipratropium-albuterol 0.5 mg-3 mg(2.5 mg base)/3 mL Solution For Nebulization 3 ml UPD Q6H 30 Days Qty: 180 0RF guaifenesin [Mucus Relief ER] 600 mg Tablet Extended Release 12hr 600 mg PO BID Qty: 60 0RF prednisone 20 mg Tablet See Taper PO DAILY AM Qty: 21 0RF Taper: Prednisone 10mg taper 40 mg Daily for 2 Days and 0 Hour 30 mg Daily for 2 Days and 0 Hour 20 mg Daily for 2 Days and 0 Hour 10 mg Daily for 2 Days and 0 Hour 5 mg Daily for 2 Days and 0 Hour Rx Instructions: Take the following doses of oral prednisone once a day take 40 mg oral for 2 days take 30 mg oral for 2 days take 20 mg oral for 2 days take 10 mg oral for 2 days take 5 mg oral for 2 days Stiolto Respimat 2.5-2.5 mcg/actuation mist 2 puff inhalation DAILY Qty: 4 0RF albuterol sulfate 90 mcg/actuation HFA aerosol inhaler 2 puff inhalation Q6H PRNQty: 8.5 0RF (DME) Oxygen Tank See Rx Instructions .Route Qty: 1 0RF Rx Instructions: As directed Continued albuterol sulfate 90 mcg/actuation HFA aerosol inhaler 2 puff inhalation Q6H PRN (Reason: shortness of breath or wheezing) Qty: 8.5 12RF ipratropium-albuterol 0.5 mg-3 mg(2.5 mg base)/3 mL solution for nebulization 3 ml inhalation Q4H PRN (Reason: shortness of breath or wheezing) Qty: 180 12RF Stiolto Respimat 2.5-2.5 mcg/actuation mist 2 puff inhalation DAILY Qty: 1 12RF acetylcysteine [NAC] 600 mg capsule 600 mg PO DAILY amlodipine 5 mg tablet 5 mg PO DAILY Qty: 90 3RF lisinopril 40 mg tablet 40 mg PO DAILY Qty: 90 3RF ibuprofen 600 MG tablet 600 mg PO TID PRN Discharge Instructions Stand Alone Forms: Nursing Discharge Form Referrals: Ara Curry MD [ [facility] STAFF PHYSICIAN] - 07/22/23 (This 58 years old female with a past medical history of COPD, former smoker, on home duonebs came to the ED at [facility] on 07/17/23 for evaluation of shortness of breath starting intermittently 2 days ago but worsening The patient reported being - out of meds for one week due to dispute with insurance company. The patient reported a slight cough, generally non-productive. The patient denied other upper respiratory symptoms such as runny nose, sore throat, and exposure to infectious illness. The patient presented in the ED with diffuse wheezing. Chest CT was negative for pulmonary embolus but showed severe emphysematous changes; white count 11, and VBG with pH 7.20 and pCO2 72 before nebulizer treatments . Viral swab panel was negative X3. The patient was given duonebs and steroids and reports she is feeling significantly better. Still having oxygen requirement of 2L for sats in low 90s. The patient was admitted to the medical surgical floor. During her stay, the patient continued to received inhaled nebulizer treatments and oral steroids, as well as supplemental oxygen which tentatively was weaned off but failed. The patient requires 1l/min of oxygen at home with activity. The patient will be discharged home on a steroids taper and hand held inhalers. The patient will need to follow-up with her primary care within the next week. Upon returning to work, the patient will be on limited duties, as she cannot ambulate long distances and lift weight over 10 lbs without shortness of breath. ) Maegan Ness NP [Primary Care Provider] - 07/22/23 (This 58 years old female with a past medical history of COPD, former smoker, on home duonebs came to the ED at [facility] on 07/17/23 for evaluation of shortness of breath starting intermittently 2 days ago but worsening The patient reported being - out of meds for one week due to dispute with insurance company. The patient reported a slight cough, generally non-productive. The patient denied other upper respiratory symptoms such as runny nose, sore throat, and exposure to infectious illness. The patient presented in the ED with diffuse wheezing. Chest CT was negative, white count 11, and VBG with pH 7.20 and pCO2 72 before nebulizer treatment . Viral swab panel was negative X3. The patient was given duonebs and steroids and reports she is feeling significantly better. Still having oxygen requirement of 2L for sats in low 90s. The patient was admitted to the medical surgical floor. During her stay, the patient continued to received inhaled nebulizer treatments and oral steroids, as well as supplemental oxygen which tentatively was weaned off but failed. The patient requires 1l/min of oxygen at home with activity. The patient will be discharged home on a steroids taper and hand held inhalers. The patient will need to follow-up with her primary care within the next week. Upon returning to work, the patient will be on limited duties, as she cannot ambulate long distances and lift weight over 10 lbs without shortness of breath. ) Activity:: Activity as Tolerated Equipment/Supplies:: Oxygen (L/min Below) Diet:: As Tolerated Discharge Orders Discharge Orders: Discharge Order (Routine); Ordered 07/18/23 Ordered By: Shaila Bermudez DS: Summary Time Spent with Patient providing and/or coordinating discharge services: Greater than 30 minutes Status at Discharge Functional status at discharge: independent ambulation Overall status at discharge: patient is progressing back to baseline Mental Status: mental status grossly normal Speech and Movement: speech and movement normal Mood: congruent mood Affect: anxious affect Quality:SDOH Health Related Social Needs: No Data to Display Exam Narrative Exam Narrative: The patient is alert and oriented x 4, comfortable, no focal neurodeficits seen. Diminish lower lung amaya, clear upper lung amaya posteriorly. Heart is regular, S1-S2, no murmur, pulses are positive to all 4 extremities. Abdomen is flat, soft, nontender, bowel sounds are present. No CVA tenderness Moves all 4 extremities, strength is 5 out of 5 overall. Psych Mental Status: mental status grossly normal Speech and Movement: speech and movement normal Mood: congruent mood Affect: anxious affect DS: Data Vitals/I&O Vitals and I&O: Vital Signs Temperature 37.0 C 07/18/23 07:38 Temperature Source Tympanic 07/18/23 07:38 Pulse 110 H 07/18/23 07:49 Pulse Rhythm Regular 07/18/23 01:09 Pulse 128 H 07/16/23 18:50 Respiratory Rate 20 07/18/23 07:49 Respiratory Effort Normal 07/18/23 01:09 Respiratory Depth Normal 07/18/23 01:09 Respiratory Pattern Normal 07/18/23 01:09 Blood Pressure 105/70 07/18/23 07:38 Blood Pressure Mean 91 07/16/23 18:30 Blood Pressure Position Sitting 07/16/23 16:19 Pulse Oximetry 99 07/18/23 07:49 Oxygen Delivery Method Nasal Cannula 07/18/23 07:45 Oxygen Flow Rate 1 07/18/23 07:45 Pain Level 0 07/18/23 07:38 Intake & Output 07/17/23 07/17/23 07/18/23 11:59 23:59 11:59 Intake Total 470 / 470 Output Total 500 / 1900 1400 / 1900 1700 / 1700 Balance -500 / -1430 -930 / -1430 -1700 / -1700 Intake: IV 250 / 250 Oral 220 / 220 Output: Urine 500 / 1900 1400 / 1900 1700 / 1700 Other: Urine Color Pale Yellow Yellow Yellow Urine Appearance Clear Clear Clear Urine Odor None None Voiding Methods Bedside Commode Toilet Toilet Data Completed and Pending Labs on day of discharge: Preliminary micro results at discharge 07/16/23 16:45 Blood Culture - Preliminary Blood NO GROWTH 24 HOURS 07/16/23 16:37 Blood Culture - Preliminary Blood NO GROWTH 24 HOURS PFS All Active Problems (Updated 07/17/23 @ 16:46 by Valerie Ramos NP) Discharge planning issues (Acute) COPD exacerbation (Acute) Shortness of breath (Acute) Respiratory failure with hypoxia and hypercapnia (Acute) Personal history of nicotine dependence (Acute) COPD (chronic obstructive pulmonary disease) (Chronic) Right ventricular dysfunction (Acute) Elevated brain natriuretic peptide (BNP) level (Acute) Nasal contusion (Acute) Hx of falling (Acute) Grief reaction (Chronic) Weight loss (Acute) Tobacco dependence (Chronic) HTN (hypertension) (Chronic) Prediabetes (Acute) Medical History Acute exacerbation of chronic obstructive pulmonary disease (COPD) Acute respiratory failure with hypoxia and hypercapnia Acute dyspnea 04/23/[address] [facility]. -hb Spontaneous pneumothorax 10/1992 Surgical History S/P abdominal hysterectomy and right salpingo-oophorectomy H/O: hysterectomy Family History Mother , brain aneurism age 84 No problems noted. Father , 51 Heart disease Hypertension Sister Hypertension Brother No problems noted. Maternal Grandmother Diabetes Brother No problems noted. 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 occupation: [employer] job lots Pets and animals: Yes Pets and animals: dog(s) Sexually active: No Do you think of yourself as: straight/heterosexual Current gender identity: female How often do you talk on the phone with friends or family?: decline to answer How often do you get together with friends or relatives?: decline to answer How often do you attend scientologist or anabaptism services?: decline to answer Do you belong to any clubs or organized social groups?: decline to answer Duration: decline to answer Frequency: decline to answer Seatbelt use: always Helmet use: Yes Do you feel safe in your relationship?: Yes Time Spent with Patient Time Spent with Patient: >85 minutes Time was spent: preparing to see the patient(eg.review tests), obtaining and/or reviewing separately otained hiistory, ordering medications,tests, procedures, referring, communicating with other health health care coach, indepentently interpreting results, counseling the patient and care coordination
--- NOTE | 2023-07-18 13:51 | RESPIRATORY ---
Pt being discharged home today with new home O2. Order placed through [employer] for [facility] to provide O2 supplies. Pt will be sent home with tank and regulator from consignment closet. New O2 prescription is RA at rest, 1L with ambulation.
--- NOTE | 2023-07-18 16:02 | PDOC.CMDIS ---
Date of service: 07/18/23 Time of Service: 16:02 LACE Index Scoring Tool Questions: Length of Stay (in days): 2 Was the patient admitted via the E.D.?: Yes Comorbidities: Chronic Pulmonary Disease E.D. Visits: 2 Answers: Total Score: 9 Risk of Readmission: Low Risk Care Management Discharge Plan Reason for Hospitalization: COPD Discharge Plan: Marissa returned home today with no new services. CM contacted her insurance company regarding her frustration over her medication delivery. 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 She has new home O2, coordinated by RT through [facility]; she left with a [facility] tank and [facility] will meet her at home to complete her O2 setup. Her friend drove her home via private vehicle. CM provided a return to work letter for Marissa with mobility restrictions due to her new O2 requirements, as requested by [employer]. She will follow up with her PCP, Pulmonology, and her discharge plan of care. She is happy to be going home. Patient/Family Education Needs: Review discharge instructions and limitations, discussion of self care needs including ask me three. Services Needed at Discharge: Oxygen Therapy (new home O2, [facility]) SDOH Health Related Social Needs: No Data to Display Health related social needs details: Marissa's insurance company mandates home delivered medications. Marissa has two prescriptions which are inhalers, and she expressed concern about not being able to use her inhalers after they are left outside in the cold weather. [place], often being delivered late at night. 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 Referrals and interventions: CM contacted Marissa's insurance company and requested that she is able to choose to have her select medications filled at a local pharmacy. Laurel at [facility] (insurance co.) conferenced Linda, the prescription plan, into the call. The [employer] inside sales account representative stated that home mail delivery is mandated for her plan. SAM began a request for Marissa to opt out of home mail delivery due to the unreliable, [place] mail delivery, the cold weather exposure, and due to her hospitalization, which was impacted by her not having her inhaler for about a week, per provider. Linda will contact Marissa directly with the decision.
== END 2023-07-18 17:40 | disposition home or self-care (01) ==
LOC: ER 19:34 → MS 07-17 13:28
PROVIDERS: Admitting Provider General Practice; Emergency Provider Emergency Medicine; PCP Nurse Practitioner Family; Visit Provider General Practice
DX: J44.1 Chronic obstructive pulmonary disease with (acute) exacerbation (principal); I10 Essential (primary) hypertension; J96.01 Acute respiratory failure with hypoxia; J96.02 Acute respiratory failure with hypercapnia; R73.03 Prediabetes; Z91.148 Patient's other noncompliance with medication regimen for other reason; Z87.891 Personal history of nicotine dependence; R63.4 Abnormal weight loss; Z68.1 Body mass index [BMI] 19.9 or less, adult
CPT/HCPCS: 00123; 36415; 71275; 80053; 82805; 84145; 87040; 87637; 93005; 93308; 94618; 94640; 96361; 96374; 96375; 99285; 83735; 83880; 84443; 84484; 85025; 85610; 85730; 93010; 94667; 94668; 94760; 99222; 99232; 99239; G0378; J1885; J2405; J2919; J2930; J3490; J7512; J7620

== ENCOUNTER 2024-05-09 12:30 | Emergency (ER) | payer OTHER, SELFPAY ==
[2024-05-09] VITALS (7 sets, daily range): BP systolic 127; BP diastolic 91; PULSE 92–116; RESP 19–30; TEMP 36.3; O2SAT 93–98
--- NOTE | 2024-05-09 12:36 | ED.GENADUL_ITS ---
Discharge Plan Disposition Patient Disposition: Home Discharge Details Clinical Impression: COPD with acute exacerbation Primary Care Provider: Maegan Ness ED Provider: Aquilino Wallace Home Meds and New Rx's Prescriptions: New doxycycline hyclate 100 mg capsule 100 mg PO BID Qty: 10 0RF prednisone 50 mg tablet 50 mg PO DAILY Qty: 4 0RF Rx Instructions: Please begin taking tomorrow as you have received steroids in the emergency department Continued guaifenesin [Mucus Relief ER] 600 mg tablet extended release 12hr 600 mg PO BID PRN ipratropium-albuterol 0.5 mg-3 mg(2.5 mg base)/3 mL solution for nebulization 3 ml inhalation QID PRN acetylcysteine [NAC] 600 mg capsule 600 mg PO DAILY amlodipine 5 mg tablet 5 mg PO DAILY Qty: 90 3RF lisinopril 40 mg tablet 40 mg PO DAILY Qty: 90 3RF ibuprofen 600 MG tablet 600 mg PO TID PRN azithromycin 250 mg tablet 250 mg PO DAILY Patient Comments: TAKE ONE BY MOUTH ONCE DAILY Stiolto Respimat 2.5-2.5 mcg/actuation mist 2 puff inhalation DAILY Qty: 4 0RF albuterol sulfate 90 mcg/actuation HFA aerosol inhaler 2 puff inhalation Q6H PRNQty: 8.5 0RF (DME) Oxygen Tank See Rx Instructions .Route Qty: 1 0RF Rx Instructions: As directed Discharge Instructions Additional Instructions: You are seen in the emergency department for your shortness of breath. Your x- ray showed no sign of pneumonia. Your swab was negative for COVID and influenza. You likely have an exacerbation of your COPD for which you are receiving steroids and antibiotics that you should take as directed. As we discussed if you develop worsening shortness of breath if you pass out or develo p chest pain please return to the emergency department. Otherwise please follow-up with your primary care provider next week. Stand Alone Forms: Work Release Discharge Data Discharge Date/Time-TO BE ENTERED AT DEPARTURE: 05/09/24 13:45 HPI General Date/Time Provider Initiated Documentation: 05/09/24 12:36 . HPI Narrative: MDM This is an overall well-appearing afebrile but mildly tachycardic 58-year-old female with increased purulent production of sputum history of COPD and presentation most consistent with exacerbation of COPD for which she will receive prednisone and doxycycline. No pain on proportion to suggest necrotizing soft tissue infection. Will obtain an x-ray to assess for focal lung infiltrate although patient has not had fever so my suspicion is low for infiltrate. No trauma to suggest pneumothorax. No chest pain to suggest PE and no history of PE so I did not obtain a D-dimer. Patient was not in respiratory distress and was not hypoxic on her home oxygen so I was not suspicious for acute hypoxic nor hypercarbic respiratory failure so I did not feel that the patient required a venous blood gas. No fevers to suggest epiglottitis and no sore throat. Nontoxic so doubt bacterial tracheitis. She has not been vomiting to suggest increased risk for acute electrolyte derangements so I did not feel she required laboratory assessment. She appears well-hydrated and is taking p.o. so did not feel that she required IV fluids. No chest pain to suggest ACS I did not obtain an ECG. Patient has had no unintentional weight gain leg swelling nor orthopnea and so my suspicion for acute heart failure was low so I did not perform an ultrasound nor feel that the patient required diuretics. No black nor bloody stools to suggest anemia so I did not feel that the patient required a CBC. Will swab for influenza and COVID. Patient has infrequently had normal heart rates across approximately 10 years of vital signs in the [facility] record. She is currently on the monitor and her heart rate is 99 bpm. 1:17 PM Negative COVID and influenza swab. Chest x-ray with no acute cardiopulmonary process on my preliminary interpretation. Will provide patient with a work note. We discussed that she should return to the emergency department if she develops worsening shortness of breath chest pain or any syncope. I advised PCP follow-up next week as needed. She understood her return indications and was discharged with an empiric trial of expectant outpatient management. HPI This is a 58-year-old oxygen dependent female arrived to the emergency department via private vehicle with her daughter in setting of increasing shortn ess of breath for the past approximately 1 week. 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 She says that she gets more short of breath at work. She has not had any syncope. She has not had any chest pain. At baseline she wears approximately 0.5 L to 1 L of oxygen. With ambulation at home she has had to increase her oxygen up to 2 L on several occasions. She denies black or bloody stools. She denies history of tobacco, ethanol, and illicits. She does note that her phlegm has more recently become more purulent and that she has had increased production of phlegm. She has had no lower extremity swelling and no history of heart failure. She denies any fevers. No sore throat. Exam General: Well-appearing in no acute distress speaking in complete sentences. Head: Normocephalic, atraumatic. Eye: Extraocular eye movements intact. No conjunctival injection. No scleral icterus. Ear, nose, mouth, throat: Grossly normal inspection. Normal voice, handling secretions normally. Neck: Trachea midline. Cardiovascular: Well-perfused distal extremities. Rapid regular rate. Respiratory: Nonlabored respiration. Mildly prolonged expiratory phase. No significant wheezes. No tripoding. Gastrointestinal: Nondistended abdomen. Soft nontender. Musculoskeletal: No significant lower extremity pitting edema. Moving all 4 extremities spontaneously. Skin: Normal for age and race, grossly normal temperature and turgor. No acute rash. Neurologic: Alert and appropriate, no apparent acute deficits. Psychiatric: Mood and manner are appropriate. Grooming and personal hygiene are appropriate. Related Data Home Medications ?Medication ?Instructions ?Recorded ?Confirmed ibuprofen 600 mg tablet 600 mg PO TID PRN 12/23/13 05/09/24 amlodipine 5 mg tablet 5 mg PO DAILY #90 tabs 03/19/23 05/09/24 lisinopril 40 mg tablet 40 mg PO DAILY #90 tabs 03/19/23 05/09/24 acetylcysteine 600 mg capsule (NAC) 600 mg PO DAILY 07/02/23 05/09/24 Oxygen #1 ea 07/18/23 05/09/24 albuterol sulfate 90 mcg/actuation 2 puff inhalation Q6H PRN #8.5 07/18/23 05/09/24 aerosol inhaler grams tiotropium 2.5 mcg-olodaterol 2.5 2 puff inhalation DAILY #4 grams 07/18/23 05/09/24 mcg/actuation mist for inhalation (Stiolto Respimat) guaifenesin 600 mg tablet, 600 mg PO BID PRN 11/04/23 05/09/24 extended release 12 hr (Mucus Relief ER) ipratropium 0.5 mg-albuterol 3 mg 3 ml inhalation QID PRN 11/04/23 05/09/24 (2.5 mg base)/3 mL nebulization soln azithromycin 250 mg tablet 250 mg PO DAILY 05/09/24 05/09/24 doxycycline hyclate 100 mg capsule 100 mg PO BID #10 caps 05/09/24 prednisone 50 mg tablet 50 mg PO DAILY #4 tabs 05/09/24 Previous Rx's ?Medication ?Instructions ?Recorded amlodipine 5 mg tablet 5 mg PO DAILY #90 tabs 03/19/23 lisinopril 40 mg tablet 40 mg PO DAILY #90 tabs 03/19/23 Oxygen #1 ea 07/18/23 albuterol sulfate 90 mcg/actuation 2 puff inhalation Q6H PRN #8.5 07/18/23 aerosol inhaler grams tiotropium 2.5 mcg-olodaterol 2.5 2 puff inhalation DAILY #4 grams 07/18/23 mcg/actuation mist for inhalation (Stiolto Respimat) doxycycline hyclate 100 mg capsule 100 mg PO BID #10 caps 05/09/24 prednisone 50 mg tablet 50 mg PO DAILY #4 tabs 05/09/24 Allergies Allergy/AdvReac Type Severity Reaction Status Date / Time codeine AdvReac Nausea Verified 05/09/24 12:41 General RODO: 3 Medical Decision Making Quality:SDOH Health Related Social Needs: Health related social needs details Marissa's insurance company mandates home delivered medications. Marissa has two prescriptions which are inhalers, and she expressed concern about not being able to use her inhalers after they are left outside in the cold weather. [place] mail delivery [place] unreliable, often being delivered late at night. She has requested that her inhalers are sent to a local pharmacy for her to lease picker at her convenience, which was denied. PFSH All Active Problems (Updated 05/09/24 @ 13:25 by Aquilino Wallace MD) COPD with acute exacerbation (Acute) Nail dystrophy (Acute) Pain due to onychomycosis of nail (Acute) Onychomycosis (Acute) Respiratory failure with hypoxia and hypercapnia (Acute) Personal history of nicotine dependence (Acute) COPD (chronic obstructive pulmonary disease) (Chronic) Right ventricular dysfunction (Acute) Elevated brain natriuretic peptide (BNP) level (Acute) Nasal contusion (Acute) Hx of falling (Acute) Grief reaction (Chronic) Weight loss (Acute) Tobacco dependence (Chronic) HTN (hypertension) (Chronic) Prediabetes (Acute) Medical History Acute exacerbation of chronic obstructive pulmonary disease (COPD) Acute respiratory failure with hypoxia and hypercapnia Acute dyspnea 04/23/[address] [facility]. -[facility] Spontaneous pneumothorax 10/1992 Surgical History S/P abdominal hysterectomy and right salpingo-oophorectomy H/O: hysterectomy Family History Mother , brain aneurism age 84 No problems noted. Father , 51 Heart disease Hypertension Sister Hypertension Brother No problems noted. Maternal Grandmother Diabetes Brother No problems noted. 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 occupation: [employer] job [place] Pets and animals: Yes Pets and animals: dog(s) Sexually active: No Do you think of yourself as: straight/heterosexual Current gender identity: female How often do you talk on the phone with friends or family?: decline to answer How often do you get together with friends or relatives?: decline to answer How often do you attend jew or episcopalian services?: decline to answer Do you belong to any clubs or organized social groups?: decline to answer Duration: decline to answer Frequency: decline to answer Seatbelt use: always Helmet use: Yes Do you feel safe in your relationship?: Yes
--- NOTE | 2024-05-09 13:00 | DI.RAD_ITS ---
Exam(s) XR PORTABLE CHEST AP EXAM: XR PORTABLE CHEST AP CLINICAL HISTORY: Shortness of breath. TECHNIQUE: 2D digital imaging was performed. COMPARISON: CR,XR XR PORTABLE CHEST AP POST LINE from 04/28/2023 FINDINGS: Single AP portable view. Heart size is upper normal. The mediastinum is not widened. Bilateral hyperinflation COPD emphysematous changes are again noted. However, there are no new infil trates nor pleural effusions. No pulmonary edema. Round densities over bilateral lower lung amaya correspond to breast nipples. IMPRESSION: No acute pulmonary findings on this single AP portable view of the chest. COPD emphysematous changes again evident. DATA REPOSITORY: RADIATION DOSE DELIVERED:
[2024-05-09] MEDS: Doxycycline Hyclate 100 MG CAP PO (13:08)
[2024-05-09] MEDS: predniSONE 20 MG TAB 40 MG PO (13:08)
--- NOTE | 2024-05-09 13:31 | DI.VRAD_ITS ---
PROCEDURE INFORMATION: Exam: XR Chest Exam date and time: 05/09/2024 1:18 PM Age: 58 years old Clinical indication: Shortness of breath; Patient HX: SOB TECHNIQUE: Imaging protocol: Radiologic exam of the chest. Views: 1 view. COMPARISON: CT CHEST PE CTA 07/16/2023 5:33 PM FINDINGS: Lungs: Hyperinflated lungs. Bilateral apical predominant emphysema. No consolidation. Pleural spaces: Unremarkable. No pleural effusion. No pneumothorax. Heart/Mediastinum: Unremarkable. No cardiomegaly. Bones/joints: Unremarkable. IMPRESSION: No acute cardiopulmonary process. Dictated and Authenticated by: Ciro Crystal MD. Ordering:MARINA Rolle MD
== END 2024-05-09 13:45 | disposition home or self-care (01) ==
LOC: ER 13:43
PROVIDERS: Emergency Provider Emergency Medicine; PCP Nurse Practitioner Family
DX: J44.1 Chronic obstructive pulmonary disease with (acute) exacerbation (principal); F17.210 Nicotine dependence, cigarettes, uncomplicated; Z99.81 Dependence on supplemental oxygen
CPT/HCPCS: 87426; 99284; 71045; 99283; J7512

== ENCOUNTER 2024-05-26 16:45 | Outpatient (REF) | payer OTHER, SELFPAY ==
[2024-05-26 15:52] LABS: BE 3 mmol/L (-2-3); HCO3 28 mmol/L (22-26); pCO2 48 mmHg (35-45); pH 7.38 (7.35-7.45); pO2 65 mmHg (80-105); sO2 94 % (95-98); tCO2 25 mmol/L (23-27)
[2024-05-26 15:53] LABS: Site Right Radial
== END 2024-05-26 16:46 | disposition home or self-care (01) ==
LOC: LBN 16:45
PROVIDERS: PCP Nurse Practitioner Family; Visit Provider Physician Assistant Surgical
DX: J44.9 Chronic obstructive pulmonary disease, unspecified
CPT/HCPCS: 82805

== ENCOUNTER 2024-06-02 03:01 | Outpatient (CLI) | payer OTHER, SELFPAY ==
[2024-06-02 15:48] LABS: Abs Immature Grans 0.05 10^3/uL (0.0-0.06); Absolute Basophil Count 0.09 10^3/uL (0.0-0.2); Absolute Eosinophil Count 0.56 10^3/uL (0.0-0.7); Absolute Lymphocyte Count 3.44 10^3/uL (1.2-3.4); Absolute Monocyte Count 1.34 10^3/uL (0.1-0.8); Basophils % 0.7 %; Eosinophils % 4.6 %; HCT 48.8 % (36.0-46.0); HGB 15.5 g/dL (11.2-15.7); Immature Grans % 0.4 %; Lymphocytes % 28.3 %; MCH 29.4 pg (27.0-33.0); MCHC 31.8 % (32.0-36.0); MCV 92 fL (80-95); MPV 10.1 fL (8.0-11.0); Platelet Count 214 10^3/uL (130-400); RBC 5.28 10^6/uL (3.93-5.22); RDW 12.7 % (11.7-14.6); WBC 12.15 10^3/uL (4.4-10.8)
[2024-06-02 15:51] LABS: Absolute Neutrophil Count 6.68 10^3/uL (1.2-6.7)
[2024-06-02 16:21] LABS: ALT 25 U/L (14-59); AST 18 U/L (15-37); Alkaline Phosphatase 83 U/L (46-116); Anion Gap 7.4 mmol/L (3-11); BUN 13 mg/dL (7-18); Bilirubin, Total 0.58 mg/dL (0.2-1.0); CO2 33.6 mmol/L (21.0-32.0); CREATININE 0.9 mg/dL (0.55-1.02); Calcium 10.6 mg/dL (8.5-10.1); Chloride 101 mmol/L (98-107); Estimated GFR 74.57 (mL/min/1.73m2); Glucose 106 mg/dL (74-106); Sodium 142 mmol/L (136-145); Total Protein 8.1 g/dL (6.4-8.2)
== END 2024-06-02 03:02 | disposition home or self-care (01) ==
LOC: LBO 03:01
PROVIDERS: PCP Nurse Practitioner Family; Visit Provider Physician Assistant Surgical
DX: J96.91 Respiratory failure, unspecified with hypoxia (principal); J96.92 Respiratory failure, unspecified with hypercapnia; J44.9 Chronic obstructive pulmonary disease, unspecified
CPT/HCPCS: 36415; 80053; 85025

== ENCOUNTER 2024-07-14 08:58 | Emergency (ER) | payer OTHER, SELFPAY ==
[2024-07-14] VITALS (22 sets, daily range): BP systolic 135–151; BP diastolic 68–112; PULSE 95–121; RESP 9–29; TEMP 37; O2SAT 91–100
--- NOTE | 2024-07-14 08:45 | RT.EKG_ITS ---
APPROVED REPORT Exam: Resting ECG Reason for Exam: difficulty breathing Patient Location: E HR:112 bpm ECG Measurements Heart Rate 112 AXIS CO 135 P 82 QRSd 91 QRS 104 QT 356 T 62 QTc 486 Conclusion Sinus tachycardia...rate> 99 Paired ventricular premature complexes...sequence of 2 V complexes Aberrant conduction of SV complex(es)...aberrant shape, CO 80-220 Probable inferior infarct, old...Q>35mS, II III aVF Consider anterior infarct...Q >30mS in V2-V5
--- NOTE | 2024-07-14 09:29 | ED.GENADUL_ITS ---
Discharge Plan Disposition Patient Disposition: Home Discharge Details Clinical Impression: Acute exacerbation of chronic obstructive pulmonary disease (COPD) Primary Care Provider: Maegan Ness ED Provider: Charanjit Solis Home Meds and New Rx's Prescriptions: New prednisone 50 mg tablet 50 mg PO DAILY Qty: 5 0RF benzonatate 100 mg capsule 100 mg PO TID PRN (Reason: cough) Qty: 30 0RF Continued ipratropium-albuterol 0.5 mg-3 mg(2.5 mg base)/3 mL solution for nebulization 3 ml inhalation QID PRN acetylcysteine [NAC] 600 mg capsule 600 mg PO DAILY albuterol sulfate 90 mcg/actuation HFA aerosol inhaler 2 puff inhalation Q6H PRN (Reason: shortness of breath or wheezing) Qty: 8.5 4RF Stiolto Respimat 2.5-2.5 mcg/actuation mist 2 puff inhalation DAILY Qty: 4 12RF amlodipine 5 mg tablet 5 mg PO DAILY Qty: 90 3RF lisinopril 40 mg tablet 40 mg PO DAILY Qty: 90 3RF ibuprofen 600 MG tablet 600 mg PO TID PRN azithromycin 250 mg tablet 250 mg PO DAILY Patient Comments: TAKE ONE BY MOUTH ONCE DAILY (DME) Oxygen Tank See Rx Instructions .Route Qty: 1 0RF Rx Instructions: As directed Discharge Instructions Instructions: Breathing Exercises, COPD Exacerbation, Adult ED Additional Instructions: As discussed we have added a steroid and a medication to help with your coughi ng. Please take these as prescribed. Return to the emergency department for any new or significant worsening of symptoms including worsening shortness of breath difficulty breathing or chest pain It is recommended that you start using your nightly CPAP but if you are not able to tolerate it all night please at least slowly increase duration of use and to follow-up with pulmonology for further discussion of alternatives if possible. Stand Alone Forms: Work Release Referrals: [facility] Pulmonary Clinic [Provider Group] - 1 week Discharge Data Discharge Date/Time-TO BE ENTERED AT DEPARTURE: 07/14/24 11:35 HPI General Mode of arrival: ambulatory . Date/Time Provider Initiated Documentation: 07/14/24 09:03 . Limitations to Documentation: no limitations . Information obtained by: patient, family, RN notes reviewed and old records reviewed . History of Present Illness 59 year old F presents to the emergency department with the chief complaint of Shortness of breath, cough, described as moderate and similar to prior episodes, Patient started experiencing this week(s) (1-2) and it has been constant. No relieving factors improve sym ptom(s), Other factors that worsen symptoms (Sleeping) . Patient notes cough and malaise; denies chest pain and fever/chills. Patient did receive the following treatments prior to arrival, other (On azithromycin and regular meds) Related Data Home Medications ?Medication ?Instructions ?Recorded ?Confirmed ibuprofen 600 mg tablet 600 mg PO TID PRN 12/23/13 07/14/24 amlodipine 5 mg tablet 5 mg PO DAILY #90 tabs 03/19/23 07/14/24 lisinopril 40 mg tablet 40 mg PO DAILY #90 tabs 03/19/23 07/14/24 acetylcysteine 600 mg capsule (NAC) 600 mg PO DAILY 07/02/23 07/14/24 Oxygen #1 ea 07/18/23 07/14/24 ipratropium 0.5 mg-albuterol 3 mg 3 ml inhalation QID PRN 11/04/23 07/14/24 (2.5 mg base)/3 mL nebulization soln azithromycin 250 mg tablet 250 mg PO DAILY 05/09/24 07/14/24 albuterol sulfate 90 mcg/actuation 2 puff inhalation Q6H PRN 05/26/24 07/14/24 aerosol inhaler shortness of breath or wheezing #8.5 grams tiotropium 2.5 mcg-olodaterol 2.5 2 puff inhalation DAILY #4 grams 05/26/24 07/14/24 mcg/actuation mist for inhalation (Stiolto Respimat) benzonatate 100 mg capsule 100 mg PO TID PRN cough #30 caps 07/14/24 prednisone 50 mg tablet 50 mg PO DAILY #5 tabs 07/14/24 Previous Rx's ?Medication ?Instructions ?Recorded amlodipine 5 mg tablet 5 mg PO DAILY #90 tabs 03/19/23 lisinopril 40 mg tablet 40 mg PO DAILY #90 tabs 03/19/23 Oxygen #1 ea 07/18/23 albuterol sulfate 90 mcg/actuation 2 puff inhalation Q6H PRN 05/26/24 aerosol inhaler shortness of breath or wheezing #8.5 grams tiotropium 2.5 mcg-olodaterol 2.5 2 puff inhalation DAILY #4 grams 05/26/24 mcg/actuation mist for inhalation (Stiolto Respimat) benzonatate 100 mg capsule 100 mg PO TID PRN cough #30 caps 07/14/24 prednisone 50 mg tablet 50 mg PO DAILY #5 tabs 07/14/24 Allergies Allergy/AdvReac Type Severity Reaction Status Date / Time codeine AdvReac Nausea Verified 07/14/24 09:11 General Stated Complaint: SOB RODO: 3 Review of Systems Constitutional Constitutional: Denies chills and Denies fever(s) ENT Ears, Nose, Mouth, and Throat: Denies nasal congestion and Denies sore throat Cardiovascular Cardiovascular: Denies chest pain, Reports dyspnea and Reports dyspnea on exertion Respiratory Respiratory: Reports cough, Reports excessive phlegm production, Reports dyspnea and Reports dyspnea on exertion Gastrointestinal Gastrointestinal: Denies abdominal pain, Denies diarrhea, Denies nausea and Denies vomiting Integumentary/Breasts Skin/Breast: Denies rash Exam Const General: cooperative and not diaphoretic Orientation: alert, awake and oriented x3 Limitations: mental status not altered Neck Neck: normal visual inspection, full ROM, trachea midline, supple and no anterior neck swelling Resp Effort & Inspection: normal respiratory effort, able to speak in complete sentences, not labored and tachypneic Auscultation: clear to auscultation bilaterally, abnormal I/E ratio and diminished lung sounds bilaterally in the lower lung amaya Cardio Jugular venous pressure: no JVD Palpation: normal PMI Rate: tachycardic Rhythm: regular rhythm Heart Sounds: S1 normal, S2 normal, no click, no gallops, no murmurs and no rubs Pulses: radial pulses present bilaterally 2+ Skin General skin exam: no rashes or lesions noted Neuro General: patient alert, patient awake, patient oriented x3, tone normal and mo ves all extremities Course Vital Signs Vital signs: Vital Signs Temperature 37.0 C 07/14/24 09:05 Pulse 110 H 07/14/24 09:05 Respiratory Rate 18 07/14/24 09:05 Blood Pressure 151/112 H 07/14/24 09:05 Pulse Oximetry 99 07/14/24 09:05 Temperature 37.0 C 07/14/24 09:05 Pulse 118 H 12/31/24 09:19 Respiratory Rate 20 07/14/24 09:14 Respiratory Effort Short of Breath, Labored, Incrsd Work of Breathing 07/14/24 09:14 Respiratory Depth Normal 07/14/24 09:14 Respiratory Pattern Normal 07/14/24 09:14 Blood Pressure 135/96 H 07/14/24 09:19 Pulse Oximetry 96 07/14/24 09:14 Oxygen Delivery Method Nasal Cannula 07/14/24 09:14 Oxygen Flow Rate 1 07/14/24 09:14 Pain Level 3 07/14/24 09:14 Medical Decision Making Patient presenting to the emergency department with a chief complaint of shortness of breath and cough. She reports that this has been going on for the past 1 to 2 weeks and reports some increased phlegm production over the last cou ple days. Patient has significant history of COPD and has been taking all of her normal medications along with prescribed azithromycin. She does report that symptoms are worse in the morning and do seem to improve as the day goes on. Denies fever chills sore throat nasal congestion, denies any cardiac symptoms states no other change in condition and that this episode is similar to ones in the past. Physical exam shows slight tachypnea and tachycardia, not hypotensive, afebrile with normal oxygen saturation on nasal cannula diminished lung sounds in bases but otherwise clear, otherwise noncontributory exam. Did review previous notes from pulmonology which they stated some concern due to her hypercarbia and recommended CPAP use at night which patient refused. I do feel this is a potent ial cause of her symptoms given her report of worsening symptoms in the morning that clear throughout the day. Will perform chest x-ray to evaluate for any potential pneumonia given increased mucus production but clinically suspect COPD exacerbation of chronic symptoms. Pending results we will give DuoNeb and Solu- Medrol Please see physician review of EKG but upon my review patient is tachycardic otherwise nondiagnostic EKG. Reviewed patient's labs and no signs of leukocytosis, negative troponin, negative BNP, negative COVID flu, elevated carbon dioxide 37 and anion gap of 1.8 otherwise unremarkable labs. Chest x-ray shows signs of COPD with out pneumothorax pneumonia or other emergent findings. Reassessed patient that states minimal improvement and still having some coughing episodes. She does state that Tessalon Perles have helped in the past so will attempt this. Will also have patient do some pursed lip breathing techniques to see if this helps with symptoms. Reassessed patient and patient states some improvement of overall symptoms. Encourage patient to continue pursed lip breathing and incentive spirometer at home. Discussed with patient use of CPAP even if it is on an intermittent basis I feel this would be better than no use at all. Discussed increasing duration of use as tolerated along with other techniques. Encourage patient to discuss different mask sizes or alternatives with pulmonology. Since patient is currently on azithromycin I do feel that she can continue that since she just started but will add a prednisone burst and Tessalon Perles. Did thoroughly discussed return and follow-up precautions with patient and patient placed upon follow-up list. After discussion of diagnosis and plan of care patient has no further needs, questions, or concerns and states clear understanding to return to the emergency department for any worsening symptoms. This documentation was generated using [employer] system, please disregard any oddities of phrase or misspellings. Imaging Data Radiologic Study: Attestation: I personally reviewed and interpreted this imaging study as follows: Imaging: X-Ray Radiologist's impression: FINDINGS: 2 views: Heart size is normal. The mediastinum is not widened. Again noted is bilateral pulmonary hyperinflation/COPD but no new infiltrates nor pleural effusions. No pulmonary edema. No pneumothorax. IMPRESSION: No acute pulmonary findings.COPD emphysematous hyperinflation changes again noted in both lung amaya. Quality:SDOH Health Related Social Needs: Health related social needs details Marissa's insurance company mandates home delivered medications. Marissa has two prescriptions which are inhalers, and she expressed concern about not being able to use her inhalers after they are left outside in the cold weather. [place] mail [place] unreliable, often being delivered late at night. She has requested that her inhalers are sent to a local pharmacy for her to burr picker at her convenience, which was denied. [facility] All Active Problems (Updated 07/14/24 @ 11:21 by Charanjit Solis NP) Acute exacerbation of chronic obstructive pulmonary disease (COPD) (Acute) Nail dystrophy (Acute) Pain due to onychomycosis of nail (Acute) Onychomycosis (Acute) Respiratory failure with hypoxia and hypercapnia (Acute) Personal history of nicotine dependence (Acute) COPD (chronic obstructive pulmonary disease) (Chronic) Right ventricular dysfunction (Acute) Elevated brain natriuretic peptide (BNP) level (Acute) Nasal contusion (Acute) Hx of falling (Acute) Grief reaction (Chronic) Weight loss (Acute) Tobacco dependence (Chronic) HTN (hypertension) (Chronic) Prediabetes (Acute) Medical History Acute exacerbation of chronic obstructive pulmonary disease (COPD) Acute respiratory failure with hypoxia and hypercapnia Acute dyspnea 04/23/[address] [facility]. -hb Spontaneous pneumothorax 10/1992 Surgical History S/P abdominal hysterectomy and right salpingo-oophorectomy H/O: hysterectomy Family History Mother , brain aneurism age 84 No problems noted. Father , 51 Heart disease Hypertension Sister Hypertension Brother No problems noted. Maternal Grandmother Diabetes Brother No problems noted. 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: [employer] Pets and animals: Yes Pets and animals: dog(s) Sexually active: No Do you think of yourself as: straight/heterosexual Current gender identity: female How often do you talk on the phone with friends or family?: decline to answer How often do you get together with friends or relatives?: decline to answer How often do you attend scientology or mandaeism services?: decline to answer Do you belong to any clubs or organized social groups?: decline to answer Duration: decline to answer Frequency: decline to answer Seatbelt use: always Helmet use: Yes Do you feel safe in your relationship?: Yes
[2024-07-14 09:40] LABS: Abs Immature Grans 0.03 10^3/uL (0.0-0.06); Absolute Basophil Count 0.07 10^3/uL (0.0-0.2); Absolute Eosinophil Count 0.69 10^3/uL (0.0-0.7); Absolute Lymphocyte Count 2.05 10^3/uL (1.2-3.4); Absolute Monocyte Count 1.06 10^3/uL (0.1-0.8); Basophils % 0.7 %; Eosinophils % 6.8 %; HCT 44.6 % (36.0-46.0); HGB 14.1 g/dL (11.2-15.7); Immature Grans % 0.3 %; Lymphocytes % 20.3 %; MCH 29.5 pg (27.0-33.0); MCHC 31.6 % (32.0-36.0); MCV 93 fL (80-95); MPV 9.7 fL (8.0-11.0); Monocytes % 10.5 %; Neutrophils % 61.4 %; Platelet Count 195 10^3/uL (130-400); RBC 4.78 10^6/uL (3.93-5.22); RDW 12.5 % (11.7-14.6); RDW-SD 43.4 fL
--- NOTE | 2024-07-14 09:50 | DI.RAD_ITS ---
Exam(s) XR CHEST 2V PA LATERAL EXAM: XR CHEST 2V PA LATERAL CLINICAL HISTORY: Shortness of breath, cough. TECHNIQUE: 2D digital imaging was performed. COMPARISON: CR,XR XR PORTABLE CHEST AP from 05/09/2024 FINDINGS: 2 views: Heart size is normal. The mediastinum is not widened. Again noted is bilateral pulmonary hyperinflation/COPD but no new infiltrates nor pleural effusions. No pulmonary edema. No pneumothorax. IMPRESSION: No acute pulmonary findings.COPD emphysematous hyperinflation changes again noted in both lung amaya . DATA REPOSITORY: RADIATION DOSE DELIVERED:
[2024-07-14] MEDS: Albuterol/Ipratropium 3 ML UPD VIAL UPD (09:51)
[2024-07-14] MEDS: methylPREDNISolone SUCC 125 MG VIAL IVP (09:52)
[2024-07-14] MEDS: Normal Saline Flush 10 ML SYR IVP (09:52)
[2024-07-14 10:03] LABS: ALT 22 U/L (14-59); AST 19 U/L (15-37); Albumin 3.4 g/dL (3.4-5.0); Alkaline Phosphatase 74 U/L (46-116); Anion Gap 1.8 mmol/L (3-11); BUN 17 mg/dL (7-18); Bilirubin, Total 0.34 mg/dL (0.2-1.0); CO2 37.2 mmol/L (21.0-32.0); CREATININE 0.8 mg/dL (0.55-1.02); Calcium 9.8 mg/dL (8.5-10.1); Chloride 104 mmol/L (98-107); Estimated GFR 85.35 (mL/min/1.73m2); Glucose 99 mg/dL (74-106); NT-proBNP 37 pg/mL (<300); Potassium 3.9 mmol/L (3.5-5.1); Sodium 143 mmol/L (136-145); Troponin I < 4 ng/L (<or=51)
[2024-07-14] MEDS: Benzonatate 100 MG CAP PO (10:19)
== END 2024-07-14 11:35 | disposition home or self-care (01) ==
PROVIDERS: Emergency Provider Nurse Practitioner Family; PCP Nurse Practitioner Family
DX: J44.1 Chronic obstructive pulmonary disease with (acute) exacerbation (principal); I10 Essential (primary) hypertension; Z99.81 Dependence on supplemental oxygen; Z87.891 Personal history of nicotine dependence
CPT/HCPCS: 80053; 87426; 93005; 94640; 96374; 99285; 71046; 83735; 83880; 84484; 85025; 93010; J2919; J7620

== ENCOUNTER 2024-09-07 10:32 | Emergency (ER) | payer OTHER, SELFPAY ==
[2024-09-07] VITALS (18 sets, daily range): BP systolic 106–113; BP diastolic 77–84; PULSE 88–125; RESP 15–28; TEMP 37.1; O2SAT 88–99
--- NOTE | 2024-09-07 10:30 | RT.EKG_ITS ---
APPROVED REPORT Exam: Resting ECG Reason for Exam: SOB/Dizzy Patient Location: E HR:110 bpm ECG Measurements Heart Rate 110 AXIS DE 108 P 89 QRSd 78 QRS 107 QT 292 T 82 QTc 393 Conclusion Sinus tachycardia. 110 right axis no stemi
--- NOTE | 2024-09-07 11:00 | DI.RAD_ITS ---
Exam(s) XR CHEST 2V PA LATERAL EXAM: XR CHEST 2V PA LATERAL CLINICAL HISTORY: SOB, hx COPD TECHNIQUE: 2D digital imaging was performed. Two views. COMPARISON: CR XR CHEST 2V PA LATERAL from 07/14/2024 FINDINGS: HEART: Normal size. Aorta: Not dilated. PULMONARY VASCULATURE: Normal. MEDIASTINUM: Unremarkable. LUNGS: Clear. Markedly hyperinflated. Emphysematous changes throughout. PLEURAL SPACE: No pleural effusion or pneumothorax. BONE:Unremarkable for age. SOFT TISSUES: Unremarkable. IMPRESSION: No acute abnormality. Severe emphysematous changes. DATA REPOSITORY: RADIATION DOSE DELIVERED:
[2024-09-07] MEDS: methylPREDNISolone SUCC 125 MG VIAL IVP (11:22)
[2024-09-07] MEDS: Levalbuterol 1.25 MG/3 ML UPD VIAL UPD (11:23)
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
[2024-09-07 11:30] LABS: Abs Immature Grans 0.03 10^3/uL (0.0-0.06); Absolute Basophil Count 0.05 10^3/uL (0.0-0.2); Absolute Eosinophil Count 0.01 10^3/uL (0.0-0.7); Absolute Lymphocyte Count 0.92 10^3/uL (1.2-3.4); Absolute Monocyte Count 1.25 10^3/uL (0.1-0.8); Absolute Neutrophil Count 4.86 10^3/uL (1.2-6.7); Basophils % 0.7 %; Eosinophils % 0.1 %; HCT 45.7 % (36.0-46.0); HGB 14.1 g/dL (11.2-15.7); Immature Grans % 0.4 %; Lymphocytes % 12.9 %; MCH 28.9 pg (27.0-33.0); MCHC 30.9 % (32.0-36.0); MCV 94 fL (80-95); MPV 9.4 fL (8.0-11.0); Monocytes % 17.6 %; Neutrophils % 68.3 %; Platelet Count 174 10^3/uL (130-400); RBC 4.88 10^6/uL (3.93-5.22); RDW-SD 44.5 fL; WBC 7.12 10^3/uL (4.4-10.8)
[2024-09-07 11:42] LABS: ALT 20 U/L (14-59); AST 16 U/L (15-37); Albumin 3.5 g/dL (3.4-5.0); Alkaline Phosphatase 73 U/L (46-116); Anion Gap 0.7 mmol/L (3-11); BUN 12 mg/dL (7-18); Bilirubin, Total 0.35 mg/dL (0.2-1.0); CO2 38.3 mmol/L (21.0-32.0); CREATININE 0.6 mg/dL (0.55-1.02); Chloride 98 mmol/L (98-107); Estimated GFR 103.98 (mL/min/1.73m2); Glucose 100 mg/dL (74-106); Magnesium 2.1 mg/dL (1.8-2.4); Potassium 4.6 mmol/L (3.5-5.1); Sodium 137 mmol/L (136-145); Total Protein 7.4 g/dL (6.4-8.2)
[2024-09-07] MEDS: Ketorolac 30 MG/ML VIAL IVP (11:55)
[2024-09-07] MEDS: ACETAMINOPHEN 1,000 MG/100 ML BAG 400 MG IVPB (11:55)
[2024-09-07] MEDS: Normal Saline 1,000 ML 1000 ML IV (11:55)
[2024-09-07 12:06] LABS: COVID-19 PCR Negative (Negative); Influenza A PCR Negative (Negative); Influenza B PCR Negative (Negative); RSV PCR Negative (Negative); Source Nasopharynx
[2024-09-07 12:28] LABS: BE (Venous) 9 mmol/L (-2-3); HCO3 (Venous) 35 mmol/L (23-28); O2 Sat (Venous) 84 %; TCO2 (Venous) 32 mmol/L (24-29); pCO2 (Venous) 60 mmHg (41-51); pH (Venous) 7.37 (7.31-7.41); pO2 (Venous) 46 mmHg
== END 2024-09-07 14:21 | disposition home or self-care (01) ==
PROVIDERS: Emergency Provider Physician Assistant; PCP Nurse Practitioner Family
DX: J44.1 Chronic obstructive pulmonary disease with (acute) exacerbation (principal); R19.7 Diarrhea, unspecified
CPT/HCPCS: 36415; 80053; 82805; 87637; 93005; 94640; 96365; 96375; 99284; 71046; 83735; 85025; 93010; J0131; J1885; J2919; J7614

== ENCOUNTER 2024-09-08 10:33 | Inpatient (IN) | payer OTHER, SELFPAY ==
[2024-09-08] VITALS (74 sets, daily range): BP systolic 96–154; BP diastolic 72–97; PULSE 100–144; RESP 9–54; TEMP 36.4–38.2; O2SAT 72–97
--- NOTE | 2024-09-08 10:30 | DI.RAD_ITS ---
Exam(s) XR PORTABLE CHEST AP EXAM: XR PORTABLE CHEST AP CLINICAL HISTORY: SOB TECHNIQUE: 2D digital imaging was performed. COMPARISON: No exams were available for comparison FINDINGS: LUNGS: Hyperinflated. Severe emphysematous changes. Clear. No pleural abnormality seen. HEART: Normal size. AORTA: Normal diameter. BONES: Unremarkable for age. Soft tissues: Unremarkable. IMPRESSION: No acute findings. DATA REPOSITORY: RADIATION DOSE DELIVERED:
[2024-09-08] MEDS: Albuterol/Ipratropium 3 ML UPD VIAL UPD ×4 (10:50→18:48)
[2024-09-08 11:11] LABS: Abs Immature Grans 0.05 10^3/uL (0.0-0.06); Absolute Basophil Count 0.02 10^3/uL (0.0-0.2); BE (Venous) 10 mmol/L (-2-3); Basophils % 0.2 %; HCO3 (Venous) 38 mmol/L (23-28); HCT 45.4 % (36.0-46.0); HGB 13.6 g/dL (11.2-15.7); Immature Grans % 0.4 %; Lymphocytes % 11.2 %; MCV 97 fL (80-95); MPV 9.5 fL (8.0-11.0); Monocytes % 13.3 %; Neutrophils % 74.9 %; O2 Sat (Venous) 61 %; Platelet Count 191 10^3/uL (130-400); RBC 4.69 10^6/uL (3.93-5.22); RDW-SD 46.1 fL; TCO2 (Venous) 36 mmol/L (24-29); WBC 12.37 10^3/uL (4.4-10.8); pH (Venous) 7.21 (7.31-7.41); pO2 (Venous) 34 mmHg
[2024-09-08 11:15] LABS: pCO2 (Venous) 95 mmHg (41-51)
[2024-09-08] MEDS: LORazepam 2 MG/ML VIAL 0.5 MG IVP (11:19)
[2024-09-08 11:31] LABS: ALT 30 U/L (14-59); AST 29 U/L (15-37); Albumin 3.4 g/dL (3.4-5.0); Alkaline Phosphatase 72 U/L (46-116); Anion Gap -2.5 mmol/L (3-11); BUN 25 mg/dL (7-18); CO2 40.5 mmol/L (21.0-32.0); CREATININE 0.6 mg/dL (0.55-1.02); Calcium 9.9 mg/dL (8.5-10.1); Chloride 105 mmol/L (98-107); Estimated GFR 103.98 (mL/min/1.73m2); Glucose 130 mg/dL (74-106); Magnesium 3.2 mg/dL (1.8-2.4); Potassium 4.6 mmol/L (3.5-5.1); Sodium 143 mmol/L (136-145); Total Protein 7.1 g/dL (6.4-8.2)
[2024-09-08 11:32] LABS: Absolute Lymphocyte Count 1.39 10^3/uL (1.2-3.4); Absolute Monocyte Count 1.65 10^3/uL (0.1-0.8); Absolute Neutrophil Count 9.27 10^3/uL (1.2-6.7); Troponin I < 4 ng/L (<or=51)
[2024-09-08 11:34] LABS: Diff Comment Diff Reviewed; NT-proBNP 144 pg/mL (<300); RBC Morphology Normal
[2024-09-08 12:05] LABS: BE (Venous) 10 mmol/L (-2-3); HCO3 (Venous) 37 mmol/L (23-28); O2 Sat (Venous) 82 %; TCO2 (Venous) 35 mmol/L (24-29); pH (Venous) 7.23 (7.31-7.41); pO2 (Venous) 49 mmHg
[2024-09-08 12:07] LABS: pCO2 (Venous) 90 mmHg (41-51)
[2024-09-08 12:25] LABS: Troponin I 5 ng/L (<or=51)
[2024-09-08] MEDS: cefTRIAXone 1 GM/50 ML BAG IVPB (13:21)
[2024-09-08] MEDS: Normal Saline 1,000 ML 80 ML IV ×2 (13:21→23:48)
[2024-09-08 14:25] LABS: BE (Venous) 12 mmol/L (-2-3); HCO3 (Venous) 38 mmol/L (23-28); O2 Sat (Venous) 83 %; TCO2 (Venous) 36 mmol/L (24-29); pO2 (Venous) 46 mmHg
[2024-09-08 14:28] LABS: pCO2 (Venous) 77 mmHg (41-51)
--- NOTE | 2024-09-08 14:58 | W.ED.GENAD ---
Discharge Plan Disposition Patient Disposition: Admit to [facility] Condition: Critical Discharge Details Clinical Impression: COPD with acute exacerbation, Respiratory failure Admit Date/Time: 09/08/24 12:59 Admit Provider: Joseluis Dominguez Attending Provider: Joseluis Dominguez Primary Care Provider: Maegan Ness ED Provider: Susi Landrum Discharge Data Discharge Date/Time-TO BE ENTERED AT DEPARTURE: 09/08/24 13:38 HPI General Date/Time Provider Initiated Documentation: 09/08/24 10:39. Limitations to Documentation: altered mental status and physical limitation. Information obtained by: patient, family and old records reviewed. HPI Narrative: 59-year-old female with past medical history of tobacco dependence, COPD, hypertension presents for evaluation of difficulty breathing. Patient was brought in by EMS. She was found to have oxygen saturations in the 70s on 2 L of nasal cannula. She was evaluated yesterday in the emergency department for difficulty breathing. Workup at that time was unremarkable, viral testing was negative and the patient was discharged home with steroids and antibiotics. EMS reports severe respiratory distress and route and she received 3 nebulizer treatments as well as magnesium and dexamethasone. They report improvement in her oxygen saturations, but not her work of breathing. Related Data Home Medications ?Medication ?Instructions ?Recorded ?Confirmed ibuprofen 600 mg tablet 600 mg PO TID PRN 12/23/13 09/08/24 amlodipine 5 mg tablet 5 mg PO DAILY #90 tabs 03/19/23 09/08/24 lisinopril 40 mg tablet 40 mg PO DAILY #90 tabs 03/19/23 09/08/24 acetylcysteine 600 mg capsule (NAC) 600 mg PO DAILY 07/02/23 09/08/24 Oxygen #1 ea 07/18/23 09/08/24 ipratropium 0.5 mg-albuterol 3 mg 3 ml inhalation QID PRN 11/04/23 09/08/24 (2.5 mg base)/3 mL nebulization soln azithromycin 250 mg tablet 250 mg PO DAILY 05/09/24 09/08/24 albuterol sulfate 90 mcg/actuation 2 puff inhalation Q6H PRN 05/26/24 09/08/24 aerosol inhaler shortness of breath or wheezing #8.5 grams benzonatate 100 mg capsule 100 mg PO TID PRN cough #30 caps 07/14/24 09/08/24 budesonide 160 mcg-glycopyr 9 2 inh inhalation BID #10.7 grams 07/22/24 09/08/24 mcg-formot 4.8 mcg/actuation HFA inhaler (Breztri Aerosphere) doxycycline hyclate 100 mg capsule 100 mg PO BID #14 caps 09/07/24 09/08/24 prednisone 50 mg tablet 50 mg PO DAILY #4 tabs 09/07/24 09/08/24 Previous Rx's ?Medication ?Instructions ?Recorded amlodipine 5 mg tablet 5 mg PO DAILY #90 tabs 03/19/23 lisinopril 40 mg tablet 40 mg PO DAILY #90 tabs 03/19/23 Oxygen #1 ea 07/18/23 albuterol sulfate 90 mcg/actuation 2 puff inhalation Q6H PRN 05/26/24 aerosol inhaler shortness of breath or wheezing #8.5 grams benzonatate 100 mg capsule 100 mg PO TID PRN cough #30 caps 07/14/24 budesonide 160 mcg-glycopyr 9 2 inh inhalation BID #10.7 grams 07/22/24 mcg-formot 4.8 mcg/actuation HFA inhaler (Breztri Aerosphere) doxycycline hyclate 100 mg capsule 100 mg PO BID #14 caps 09/07/24 prednisone 50 mg tablet 50 mg PO DAILY #4 tabs 09/07/24 Allergies Allergy/AdvReac Type Severity Reaction Status Date / Time codeine AdvReac Nausea Verified 09/08/24 10:49 General Stated Complaint: RespSymp RODO: 3 Exam Narrative Exam Narrative: Review of Systems: All systems reviewed & are unremarkable except as noted in HPI and below Cachectic, ill-appearing, respiratory distress afebrile NCAT Tachycardic here in the ER severe respiratory distress, accessory muscle use, increased work of breathing, prolonged expiratory phase with wheeze. Poor air movement bilaterally Nondistended abdomen Extremities w/o edema No rashes or lesions. +anxious Course Vital Signs Vital signs: Vital Signs Pulse 107 H 09/08/24 10:36 Pulse Oximetry 90 L 09/08/24 10:36 Temperature 36.8 C 09/08/24 10:42 Temperature Source Temporal Artery Scan 09/08/24 10:42 Pulse 134 H 09/08/24 12:35 Pulse 132 H 09/08/24 12:10 Respiratory Rate 34 H 09/08/24 12:35 Respiratory Effort Short of Breath, Labored, Accessory Muscle Use, Pursed Lip, Tripod, Incrsd Work of Breathing 09/08/24 12:09 Blood Pressure 114/78 09/08/24 12:01 Blood Pressure Mean 86 09/08/24 12:01 Blood Pressure Position Supine 09/08/24 10:42 Pulse Oximetry 96 09/08/24 12:35 Oxygen Delivery Method Bi-pap 09/08/24 10:56 Fraction of Inspired Oxygen (FIO2) 28 09/08/24 12:35 Lab/Test Results Lab/Test Results: Laboratory Tests Range/Units 09/08/24 09/08/24 11:05 11:55 WBC (4.4-10.8) 10^3/uL 12.37 H RBC (3.93-5.22) 10^6/uL 4.69 Hgb (11.2-15.7) g/dL 13.6 Hct (36.0-46.0) % 45.4 MCV (80-95) fL 97 H MCH (27.0-33.0) pg 29.0 MCHC (32.0-36.0) % 30.0 L RDW (11.7-14.6) % 13.0 Plt Count (130-400) 10^3/uL 191 MPV (8.0-11.0) fL 9.5 Immature Gran % % 0.4 Neutrophils % % 74.9 Lymphocytes % % 11.2 Monocytes % % 13.3 Eosinophils % % 0.0 Basophils % % 0.2 Nucleated RBC % (0.0-0.3) % 0.0 Absolute Neutrophils (1.2-6.7) 10^3/uL 9.27 H Absolute Lymphocytes (1.2-3.4) 10^3/uL 1.39 Absolute Monocytes (0.1-0.8) 10^3/uL 1.65 H Absolute Eosinophils (0.0-0.7) 10^3/uL 0.00 Absolute Basophils (0.0-0.2) 10^3/uL 0.02 RBC Morphology Normal VBG pH (7.31-7.41) 7.21 L 7.23 L VBG pCO2 (41-51) mmHg 95 H* 90 H* VBG pO2 mmHg 34 49 VBG HCO3 (23-28) mmol/L 38 H 37 H VBG Total CO2 (24-29) mmol/L 36 H 35 H VBG O2 Saturation % 61 82 VBG Base Excess (-2-3) mmol/L 10 H 10 H Sodium (136-145) mmol/L 143 Potassium (3.5-5.1) mmol/L 4.6 Chloride (98-107) mmol/L 105 Carbon Dioxide (21.0-32.0) mmol/L 40.5 H Anion Gap (3-11) mmol/L -2.5 L BUN (7-18) mg/dL 25 H Creatinine (0.55-1.02) mg/dL 0.6 Est GFR (CKD-EPI 2020) (mL/min/1.73m2) 103.98 Glucose (74-106) mg/dL 130 H Calcium (8.5-10.1) mg/dL 9.9 Magnesium (1.8-2.4) mg/dL 3.2 H Total Bilirubin (0.2-1.0) mg/dL 0.20 AST (15-37) U/L 29 ALT (14-59) U/L 30 Alkaline Phosphatase (46-116) U/L 72 Troponin I (<or=51) ng/L < 4 5 NT-Pro-B Natriuret Pep (<300) pg/mL 144 Total Protein (6.4-8.2) g/dL 7.1 Albumin (3.4-5.0) g/dL 3.4 Medical Decision Making Emergent evaluation of COPD exacerbation. Patient arrives via EMS and is already received bronchodilator treatment, steroids and magnesium. Patient is having poor air movement, accessory muscle use, hypoxia on oxygen therapy. At this time she is impending respiratory failure and was placed on BiPAP. She is highly anxious and is having difficulty tolerating the BiPAP. Her VBG resulted with a pCO2 of 95. The patient was having difficulty keeping her BiPAP mask on and she was advised that she needs to keep the mask on, she will get intubated, or we can put her on comfort measures and allow her to pass away. She has the capacity to make decisions at this time, but I feel that if she keeps the BiPAP mask off for any longer, she will lose that capacity and require intubation. Her daughter is at the bedside and is encouraging her to wear the BiPAP mask. Per the daughter, the patient's of respiratory failure secondary to COVID while on a ventilator and that was very traumatic for the family. She was given 0.5 mg of Ativan for anxiolysis to manage her on the BiPAP. Lab work was repeated today, mild leukocytosis at 12 no anemia. Her electrolytes are deranged consistent with respiratory failure but no renal insufficiency. X-ray today does not reveal consolidation, but given the severity of her respiratory failure antibiotics have been continued. Her viral testing yesterday was negative. After time on BiPAP, the repeat VBG demonstrated improvement in the pCO2 down to 77. At this time I discussed with the hospitalist to admit the patient for admission to the ICU for further management. Quality:SDOH Health Related Social Needs: Health related social needs details Marissa's insurance company mandates home delivered medications. Marissa has two prescriptions which are inhalers, and she expressed concern about not being able to use her inhalers after they are left outside in the cold weather. [place] mail [place] unreliable, often being delivered late at night. 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 Critical Care Time Critical Care Time Critical Care Time: Yes Total Critical Care Time: 38 Attestation: CRITICAL CARE Upon my evaluation, this patient had a high probability of imminent or life-threatening deterioration due to respiratory failure which required my direct attention, intervention, and personal management. I have personally provided 38 minutes of critical care time exclusive of time spent on separately billable procedures. Time includes review of laboratory data, radiology results, discussion with consultants, and monitoring for potential decompensation. Interventions were performed as documented above [facility] All Active Problems (Updated 09/08/24 @ 12:58 by Susi Landrum MD) Respiratory failure (Acute) COPD with acute exacerbation (Acute) Diarrhea (Acute) COPD exacerbation (Acute) Nail dystrophy (Acute) Pain due to onychomycosis of nail (Acute) Onychomycosis (Acute) Respiratory failure with hypoxia and hypercapnia (Acute) Personal history of nicotine dependence (Acute) COPD (chronic obstructive pulmonary disease) (Chronic) Right ventricular dysfunction (Acute) Elevated brain natriuretic peptide (BNP) level (Acute) Nasal contusion (Acute) Hx of falling (Acute) Grief reaction (Chronic) Weight loss (Acute) Tobacco dependence (Chronic) HTN (hypertension) (Chronic) Prediabetes (Acute) Medical History Acute exacerbation of chronic obstructive pulmonary disease (COPD) Acute respiratory failure with hypoxia and hypercapnia Acute dyspnea 04/23/[address] [facility]. -hb Spontaneous pneumothorax 10/1992 Surgical History S/P abdominal hysterectomy and right salpingo-oophorectomy H/O: hysterectomy Family History Mother , brain aneurism age 84 No problems noted. Father , 51 Heart disease Hypertension Sister Hypertension Brother No problems noted. Maternal Grandmother Diabetes Brother No problems noted. 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: [employer] Pets and animals: Yes Pets and animals: dog(s) Sexually active: No Do you think of yourself as: straight/heterosexual Current gender identity: female How often do you talk on the phone with friends or family?: decline to answer How often do you get together with friends or relatives?: decline to answer How often do you attend rastafarian or tenriism services?: decline to answer Do you belong to any clubs or organized social groups?: decline to answer Duration: decline to answer Frequency: decline to answer Seatbelt use: always Helmet use: Yes Do you feel safe in your relationship?: Yes
--- NOTE | 2024-09-08 15:31 | W.PCEDHO ---
Registration Status: Primary Language: Preferred Language: ED Information & Data Chief Complaint RespSymp 09/08/24 15:02 Triage Note Brought in by EMS with known 09/08/24 10:42 COPD seen here yesterday decreased oxygen output. presented today with increased SOB tis am and having headache for the past 2 days . received duoneb x 2 and albuterol x 1, also dexamethasone 10mg enroute. Initially spo2 as per ems 70s, now 94-96% Medical / Surgical History (Last Reviewed 07/14/24 @ 09:31 by Charanjit Solis, TORRI) Acute exacerbation of chronic obstructive pulmonary disease (COPD) Acute respiratory failure with hypoxia and hypercapnia Acute dyspnea Spontaneous pneumothorax (Last Reviewed 07/14/24 @ 09:31 by Charanjit Solis NP) S/P abdominal hysterectomy and right salpingo-oophorectomy H/O: hysterectomy Most Recent Vital Signs Temperature 36.8 C 09/08/24 10:42 Temperature Source Temporal Artery Scan 09/08/24 10:42 Pulse 134 H 09/08/24 12:35 Pulse 132 H 09/08/24 12:10 Respiratory Rate 34 H 09/08/24 12:35 Respiratory Effort Short of Breath, Labored, Accessory Muscle Use, Pursed Lip, Tripod, Incrsd Work of Breathing 09/08/24 12:09 Blood Pressure 114/78 09/08/24 12:01 Blood Pressure Mean 86 09/08/24 12:01 Blood Pressure Position Supine 09/08/24 10:42 Pulse Oximetry 96 09/08/24 12:35 Oxygen Delivery Method Bi-pap 09/08/24 10:56 Fraction of Inspired Oxygen (FIO2) 28 09/08/24 12:35 Allergies codeine Adverse Reaction (Verified 09/08/24 10:49) Nausea Active Medications Generic Name Dose Route Start Last Admin Trade Name Freq PRN Reason Stop Dose Admin Sodium Chloride 1,000 mls @ 80 mls/hr 09/08/24 13:00 09/08/24 13:21 Saline 1000ml Bag IV 80 mls/hr INFUSION JENNA Administration IV IV Catheter Type [Right Saline Lock Antecubital] IV Catheter Gauge [Right 18 Antecubital] Diagnostics 09/08/24 09/08/24 09/08/24 Range/Units 14:54 14:13 13:40 WBC (4.4-10.8) 10^3/uL RBC (3.93-5.22) 10^6/uL Hgb (11.2-15.7) g/dL Hct (36.0-46.0) % MCV (80-95) fL MCH (27.0-33.0) pg MCHC (32.0-36.0) % RDW (11.7-14.6) % Plt Count (130-400) 10^3/uL MPV (8.0-11.0) fL Immature Gran % % Neutrophils % % Lymphocytes % % Monocytes % % Eosinophils % % Basophils % % Nucleated RBC % (0.0-0.3) % Absolute Neutrophils (1.2-6.7) 10^3/uL Absolute Lymphocytes (1.2-3.4) 10^3/uL Absolute Monocytes (0.1-0.8) 10^3/uL Absolute Eosinophils (0.0-0.7) 10^3/uL Absolute Basophils (0.0-0.2) 10^3/uL RBC Morphology VBG pH 7.30 L (7.31-7.41) VBG pCO2 77 H* (41-51) mmHg VBG pO2 46 mmHg VBG HCO3 38 H (23-28) mmol/L VBG Total CO2 36 H (24-29) mmol/L VBG O2 Saturation 83 % VBG Base Excess 12 H (-2-3) mmol/L Sodium (136-145) mmol/L Potassium (3.5-5.1) mmol/L Chloride (98-107) mmol/L Carbon Dioxide (21.0-32.0) mmol/L Anion Gap (3-11) mmol/L BUN (7-18) mg/dL Creatinine (0.55-1.02) mg/dL Est GFR (CKD-EPI 2020) (mL/min/1.73m2) Glucose (74-106) mg/dL Calcium (8.5-10.1) mg/dL Magnesium (1.8-2.4) mg/dL Total Bilirubin (0.2-1.0) mg/dL AST (15-37) U/L ALT (14-59) U/L Alkaline Phosphatase (46-116) U/L Troponin I Cancelled (<or=51) ng/L NT-Pro-B Natriuret Pep (<300) pg/mL Total Protein (6.4-8.2) g/dL Albumin (3.4-5.0) g/dL COVID-19 Source Pending SARS-CoV-2 (PCR) Pending Influenza Type A (PCR) Pending Influenza Type B (PCR) Pending RSV (PCR) Pending 09/08/24 09/08/24 Range/Units 11:55 11:05 WBC 12.37 H (4.4-10.8) 10^3/uL RBC 4.69 (3.93-5.22) 10^6/uL Hgb 13.6 (11.2-15.7) g/dL Hct 45.4 (36.0-46.0) % MCV 97 H (80-95) fL MCH 29.0 (27.0-33.0) pg MCHC 30.0 L (32.0-36.0) % RDW 13.0 (11.7-14.6) % Plt Count 191 (130-400) 10^3/uL MPV 9.5 (8.0-11.0) fL Immature Gran % 0.4 % Neutrophils % 74.9 % Lymphocytes % 11.2 % Monocytes % 13.3 % Eosinophils % 0.0 % Basophils % 0.2 % Nucleated RBC % 0.0 (0.0-0.3) % Absolute Neutrophils 9.27 H (1.2-6.7) 10^3/uL Absolute Lymphocytes 1.39 (1.2-3.4) 10^3/uL Absolute Monocytes 1.65 H (0.1-0.8) 10^3/uL Absolute Eosinophils 0.00 (0.0-0.7) 10^3/uL Absolute Basophils 0.02 (0.0-0.2) 10^3/uL RBC Morphology Normal VBG pH 7.23 L 7.21 L (7.31-7.41) VBG pCO2 90 H* 95 H* (41-51) mmHg VBG pO2 49 34 mmHg VBG HCO3 37 H 38 H (23-28) mmol/L VBG Total CO2 35 H 36 H (24-29) mmol/L VBG O2 Saturation 82 61 % VBG Base Excess 10 H 10 H (-2-3) mmol/L Sodium 143 (136-145) mmol/L Potassium 4.6 (3.5-5.1) mmol/L Chloride 105 (98-107) mmol/L Carbon Dioxide 40.5 H (21.0-32.0) mmol/L Anion Gap -2.5 L (3-11) mmol/L BUN 25 H (7-18) mg/dL Creatinine 0.6 (0.55-1.02) mg/dL Est GFR (CKD-EPI 2020) 103.98 (mL/min/1.73m2) Glucose 130 H (74-106) mg/dL Calcium 9.9 (8.5-10.1) mg/dL Magnesium 3.2 H (1.8-2.4) mg/dL Total Bilirubin 0.20 (0.2-1.0) mg/dL AST 29 (15-37) U/L ALT 30 (14-59) U/L Alkaline Phosphatase 72 (46-116) U/L Troponin I 5 < 4 (<or=51) ng/L NT-Pro-B Natriuret Pep 144 (<300) pg/mL Total Protein 7.1 (6.4-8.2) g/dL Albumin 3.4 (3.4-5.0) g/dL COVID-19 Source SARS-CoV-2 (PCR) Influenza Type A (PCR) Influenza Type B (PCR) RSV (PCR) Intake and Output - 24 Hour Total 09/08/24 10:31 thru 09/08/24 10:42 Weight 94 kg Falls Risk Assessment History of Falls No History 09/08/24 15:17 Contributing Factors No Factors 09/08/24 15:17 Ambulatory Aids Independent 09/08/24 15:17 Tubes/Lines None 09/08/24 15:17 Gait Evaluation No gait disturbance 09/08/24 15:17 Cognition No cognitive impairment 09/08/24 15:17 Fall Total Score 0 09/08/24 15:17 Level of Risk Standard/Low Risk 09/08/24 15:17 v v v v v v v v v Sending and/or Receiving Nurses: Please use comment section below to note any information pertinent to the patient hand-off not included above. Information / Comments: Report received from: Barbie BOLAND
[2024-09-08 15:53] LABS: COVID-19 PCR Negative (Negative); Influenza A PCR Positive (Negative); Influenza B PCR Negative (Negative); RSV PCR Negative (Negative)
[2024-09-08 15:54] LABS: Source Nasopharynx
--- NOTE | 2024-09-08 17:12 | W.PM.HP.N ---
Date of service: 09/08/24 Time of Service: 17:13 Assessment and Plan Assessment and plan (1) Acute respiratory failure with hypoxia and hypercapnia: Assessment and plan: - admitted to the ICU - continue bipap as ordered for now. recheck VBG in a few hours - per daughter, patient does not do well with bipap mask and hopefully she will continue to improve enough that we can discontinue this - further treatment of underlying causes as documented below (2) COPD with acute exacerbation: Status: Acute Assessment and plan: - will start IV solumderol, give 125mg IV x 1 now and continue 40mg q8h with rapid taper. - start duonebs q6h along with prn albuterol nebs as needed - i do see patient was given CTX in ER, will hold off on further abx for now as infectious process is most likely viral - patient seemed to respond well to IV ativan 0.5mg without much decrease in respiratory drive, will order prn if patient has difficulties with bipap device - patient is on Breztri as outpatient, will hold this for now but will need to restart prior to discharge (3) Influenza A: Status: Acute Assessment and plan: - with new positive influenza A pcr, will start Tamiflu 75mg PO BID x 5 days - steroid dosing as above (4) HTN (hypertension): Status: Chronic Assessment and plan: - continue lisinopril, amlodopine (5) Prediabetes: Status: Acute Assessment and plan: - is not on any medications, will need to follow closely while patient is on steroids - carb controlled diet History of Present Illness History of Present Illness Chief Complaint: hypoxia Narrative: This is a 59 yo female with pmhx COPD, HTN, preDM that presents with hypoxia. Patient was seen after she was transferred to the ICU and was asleep. Daughter in room able to give some history, but bulk is per ER documentation. Patient presented to the ER yesterday with c/o SOB and diarrhea over the past few days. Was dx'd with mild COPD exac. Labs were ok and viral panel was negative. Given doxycycline and PO steroids and discharged home. However, over the next 24h, patient's condition worsened considerably and she returned to the ER via EMS. At this time, she was found to be much more dyspneic and hypoxic with sats in the 70s on 2L. Was started on bipap but required ativan dosing for significant anxiety. Initial VBG showed pH 7.23 with pCO2 of 90, prompting admission for acute hypercapneic respiratory failure. After transfer, repeat viral panel was positive for influenza A. At the time o fmy eval, patient was asleep, possibly mildly sedated after ativan. Vitals stable and O2 much improved. Review of Systems Narrative: not obtainable as patient was alseep/sedated [facility] All Active Problems (Updated 09/08/24 @ 16:01 by Susi Landrum MD) Influenza A (Acute) Respiratory failure (Acute) COPD with acute exacerbation (Acute) Diarrhea (Acute) COPD exacerbation (Acute) Nail dystrophy (Acute) Pain due to onychomycosis of nail (Acute) Onychomycosis (Acute) Respiratory failure with hypoxia and hypercapnia (Acute) Personal history of nicotine dependence (Acute) COPD (chronic obstructive pulmonary disease) (Chronic) Right ventricular dysfunction (Acute) Elevated brain natriuretic peptide (BNP) level (Acute) Nasal contusion (Acute) Hx of falling (Acute) Grief reaction (Chronic) Weight loss (Acute) Tobacco dependence (Chronic) HTN (hypertension) (Chronic) Prediabetes (Acute) Medical History Acute exacerbation of chronic obstructive pulmonary disease (COPD) Acute respiratory failure with hypoxia and hypercapnia Acute dyspnea 04/23/23 Per . [facility]. -hb Spontaneous pneumothorax 10/1992 Surgical History S/P abdominal hysterectomy and right salpingo-oophorectomy H/O: hysterectomy Family History Mother , brain aneurism age 84 No problems noted. Father , 51 Heart disease Hypertension Sister Hypertension Brother No problems noted. Maternal Grandmother Diabetes Brother No problems noted. 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: [employer] Pets and animals: Yes Pets and animals: dog(s) Sexually active: No Do you think of yourself as: straight/heterosexual Current gender identity: female How often do you talk on the phone with friends or family?: decline to answer How often do you get together with friends or relatives?: decline to answer How often do you attend hinduism or voodoo services?: decline to answer Do you belong to any clubs or organized social groups?: decline to answer Duration: decline to answer Frequency: decline to answer Seatbelt use: always Helmet use: Yes Do you feel safe in your relationship?: Yes Meds Allergies and Home Medications Allergies Allergy/AdvReac Type Severity Reaction Status Date / Time codeine AdvReac Nausea Verified 09/08/24 10:49 Home Medications ?Medication ?Instructions ?Recorded ?Confirmed ?Type ibuprofen 600 mg tablet 600 mg PO TID PRN 12/23/13 09/08/24 History amlodipine 5 mg tablet 5 mg PO DAILY #90 tabs 03/19/23 09/08/24 Rx lisinopril 40 mg tablet 40 mg PO DAILY #90 tabs 03/19/23 09/08/24 Rx acetylcysteine 600 mg capsule (NAC) 600 mg PO DAILY 07/02/23 09/08/24 History Oxygen #1 ea 07/18/23 09/08/24 Rx ipratropium 0.5 mg-albuterol 3 mg 3 ml inhalation QID PRN 11/04/23 09/08/24 History (2.5 mg base)/3 mL nebulization soln azithromycin 250 mg tablet 250 mg PO DAILY 05/09/24 09/08/24 History albuterol sulfate 90 mcg/actuation 2 puff inhalation Q6H PRN 05/26/24 09/08/24 Rx aerosol inhaler shortness of breath or wheezing #8.5 grams benzonatate 100 mg capsule 100 mg PO TID PRN cough #30 caps 07/14/24 09/08/24 Rx budesonide 160 mcg-glycopyr 9 2 inh inhalation BID #10.7 grams 07/22/24 09/08/24 Rx mcg-formot 4.8 mcg/actuation HFA inhaler (Breztri Aerosphere) doxycycline hyclate 100 mg capsule 100 mg PO BID #14 caps 09/07/24 09/08/24 Rx prednisone 50 mg tablet 50 mg PO DAILY #4 tabs 09/07/24 09/08/24 Rx Exam Const General: other (asleep/obtunded) HENMT Other: bipap mask in place Chest Chest: normal inspection of the chest Resp Other: limited as patient was asleep. diminished BS without overt wheeze Cardio Rate: tachycardic Rhythm: regular rhythm Heart Sounds: S1 normal and S2 normal GI Palpation: soft Auscultation: normal bowel sounds Extrem General: no pedal edema Results Labs 09/08/24 11:05 09/08/24 11:05 Labs: Laboratory Results - last 24 hr 09/08/24 09/08/24 09/08/24 11:05 11:55 13:40 WBC 12.37 H RBC 4.69 Hgb 13.6 Hct 45.4 MCV 97 H MCH 29.0 MCHC 30.0 L RDW 13.0 Plt Count 191 MPV 9.5 Immature Gran % 0.4 Neutrophils % 74.9 Lymphocytes % 11.2 Monocytes % 13.3 Eosinophils % 0.0 Basophils % 0.2 Nucleated RBC % 0.0 Absolute Neutrophils 9.27 H Absolute Lymphocytes 1.39 Absolute Monocytes 1.65 H Absolute Eosinophils 0.00 Absolute Basophils 0.02 RBC Morphology Normal VBG pH 7.21 L 7.23 L VBG pCO2 95 H* 90 H* VBG pO2 34 49 VBG HCO3 38 H 37 H VBG Total CO2 36 H 35 H VBG O2 Saturation 61 82 VBG Base Excess 10 H 10 H Sodium 143 Potassium 4.6 Chloride 105 Carbon Dioxide 40.5 H Anion Gap -2.5 L BUN 25 H Creatinine 0.6 Est GFR (CKD-EPI 2020) 103.98 Glucose 130 H Calcium 9.9 Magnesium 3.2 H Total Bilirubin 0.20 AST 29 ALT 30 Alkaline Phosphatase 72 Troponin I < 4 5 Cancelled NT-Pro-B Natriuret Pep 144 Total Protein 7.1 Albumin 3.4 COVID-19 Source SARS-CoV-2 (PCR) Influenza Type A (PCR) Influenza Type B (PCR) RSV (PCR) 09/08/24 09/08/24 14:13 14:54 WBC RBC Hgb Hct MCV MCH MCHC RDW Plt Count MPV Immature Gran % Neutrophils % Lymphocytes % Monocytes % Eosinophils % Basophils % Nucleated RBC % Absolute Neutrophils Absolute Lymphocytes Absolute Monocytes Absolute Eosinophils Absolute Basophils RBC Morphology VBG pH 7.30 L VBG pCO2 77 H* VBG pO2 46 VBG HCO3 38 H VBG Total CO2 36 H VBG O2 Saturation 83 VBG Base Excess 12 H Sodium Potassium Chloride Carbon Dioxide Anion Gap BUN Creatinine Est GFR (CKD-EPI 2020) Glucose Calcium Magnesium Total Bilirubin AST ALT Alkaline Phosphatase Troponin I NT-Pro-B Natriuret Pep Total Protein Albumin COVID-19 Source Nasopharynx SARS-CoV-2 (PCR) Negative Influenza Type A (PCR) Positive A Influenza Type B (PCR) Negative RSV (PCR) Negative Last Vital Signs Temp 36.8 C 09/08/24 10:42 Pulse 122 H 09/08/24 16:18 Resp 33 H 09/08/24 16:18 BP 99/79 L 09/08/24 15:31 Pulse Ox 90 L 09/08/24 16:18 Time Spent Time spent with Patient: <40 minutes Time was spent: preparing to see the patient(eg.review tests), ordering medications,tests, procedures, referring, communicating with other health tire care manager, indepentently interpreting results and care coordination
[2024-09-08] MEDS: Normal Saline Flush 10 ML SYR IVP ×2 (19:00→20:15)
[2024-09-08] MEDS: Ibuprofen 600 MG TAB PO (19:00)
[2024-09-08] MEDS: Benzonatate 100 MG CAP PO (19:00)
[2024-09-08] MEDS: methylPREDNISolone SUCC 125 MG VIAL IVP (19:00)
[2024-09-08] MEDS: Enoxaparin 40 MG/0.4 ML SYR SC (19:01)
[2024-09-08] MEDS: Oseltamivir 75 MG CAP PO (20:17)
[2024-09-09] VITALS (59 sets, daily range): BP systolic 99–127; BP diastolic 56–87; PULSE 93–126; RESP 6–40; TEMP 36.6–37.9; O2SAT 88–98
[2024-09-09] MEDS: Albuterol/Ipratropium 3 ML UPD VIAL UPD ×3 (02:06→11:13)
[2024-09-09] MEDS: methylPREDNISolone SUCC 40 MG VIAL IVP ×3 (02:07→17:26)
[2024-09-09 06:02] LABS: HCT 37.8 % (36.0-46.0); HGB 11.5 g/dL (11.2-15.7); MCH 29.3 pg (27.0-33.0); MCHC 30.4 % (32.0-36.0); MCV 96 fL (80-95); MPV 9.8 fL (8.0-11.0); Platelet Count 165 10^3/uL (130-400); RBC 3.93 10^6/uL (3.93-5.22); RDW-SD 46.2 fL; WBC 7.99 10^3/uL (4.4-10.8)
[2024-09-09 06:26] LABS: Anion Gap -0.8 mmol/L (3-11); BUN 22 mg/dL (7-18); CO2 38.8 mmol/L (21.0-32.0); CREATININE 0.5 mg/dL (0.55-1.02); Calcium 9.2 mg/dL (8.5-10.1); Chloride 105 mmol/L (98-107); Estimated GFR 108.65 (mL/min/1.73m2); Glucose 137 mg/dL (74-106); Potassium 4.8 mmol/L (3.5-5.1); Sodium 143 mmol/L (136-145)
--- NOTE | 2024-09-09 07:55 | RESPIRATORY ---
Pt uses 1-1.5L at baseline. DME: [employer]. Daughter to bring in pt's portable concentrator.
[2024-09-09 08:47] LABS: BE (Venous) 13 mmol/L (-2-3); HCO3 (Venous) 39 mmol/L (23-28); O2 Sat (Venous) 92 %; TCO2 (Venous) 36 mmol/L (24-29); pH (Venous) 7.36 (7.31-7.41); pO2 (Venous) 57 mmHg
[2024-09-09 08:50] LABS: pCO2 (Venous) 69 mmHg (41-51)
[2024-09-09] MEDS: Acetylcysteine 600 MG CAP PO (09:18)
[2024-09-09] MEDS: Normal Saline Flush 10 ML SYR IVP ×4 (09:18→20:43)
[2024-09-09] MEDS: Lisinopril 20 MG TAB 40 MG PO (09:18)
[2024-09-09] MEDS: amLODIPine 5 MG TAB PO (09:18)
[2024-09-09] MEDS: Oseltamivir 75 MG CAP PO ×2 (09:19→20:39)
[2024-09-09] MEDS: Ibuprofen 600 MG TAB PO ×2 (09:33→18:07)
[2024-09-09] MEDS: Benzonatate 100 MG CAP 200 MG PO (09:34)
--- NOTE | 2024-09-09 10:03 | W.NUTRFU ---
Date of service: 09/09/24 Time of Service: 10:03 Nutrition Note NOTE: Pt is a 59yo female being treated for Flu A/resp failure with history of COPD. Current BMI of 15.1 congruent with underweight. Weight history reveals 3+kg wt loss x 1 year. Po intake thus far fair/good this admission but suspect lower intake due to feeling ill recently at home. total protein and albumin labs wnl yesterday. A1C was 5.9% april 2023 which coincides with diabetes dx. Currently on steroids with fasting glucose at 137 this morning and 180 at breakfast. - pt ordered for consistent carb diet. Nutrition Dx: underweight related to COPD hx with increased energy expenditure compared intake as evidenced by current BMI and pt current chronic respiratory condition. Will trial glucose control boost ONS TID at meals to help support protein/kcal intake. Would recommend vitamin D lab due to no recent lab, geographical location/winter, and it's vital role in immune health. would recommend recent A1C Will continue to monitor po intake, labs/glucose mgt, weight Time Spent in Nutritional Counseling and Treatment: 0
--- NOTE | 2024-09-09 11:59 | W.PM.PROGNOT ---
Date of Service Date of service: 09/09/24 Time of Service: 12:05 Assessment and Plan Assessment and plan (1) Acute respiratory failure with hypoxia and hypercapnia: Assessment and plan: - improved, now off bipap support - suspect patient is close to her baseline - PT/OT eval (2) COPD with acute exacerbation: Status: Acute Assessment and plan: - will titrate solumedrol down to 40mg q12h, hopefuly convert to PO soon - contunue duonebs as ordered - no abx as previously noted - mira restart outpatient Breztri or pharmacy equivalent - ok to downgrade from ICU to MS (3) Influenza A: Status: Acute Assessment and plan: - Tamiflu 75mg BID, day 2/5 - steroid dosing as above (4) HTN (hypertension): Status: Chronic Assessment and plan: - continue lisinopril, amlodopine (5) Prediabetes: Status: Acute Assessment and plan: - is not on any medications, will need to follow closely while patient is on steroids - carb controlled diet Subjective Subjective Interval history since last seen: Seen and examined. Patient now AAOx3, does not appear to be in any resp distress but is very frail and weak appearing. Denies SOB but we did discuss her anxiety, especially with bipap. Vitals stable, currently on 1L with sat = 93% Exam Const General: cooperative and comfortable Nutritional Appearance: cachectic Orientation: alert, awake and oriented x3 Chest Chest: normal inspection of the chest Resp Other: very diminished BS with poor air movement in all amaya Cardio Rate: regular rate Rhythm: regular rhythm Heart Sounds: S1 normal and S2 normal GI Inspection: normal to inspection Palpation: soft and nontender Auscultation: normal bowel sounds Skin General skin exam: no rashes or lesions noted Extrem General: normal to inspection Objective Last Vital Signs Temp 37.9 C H 09/09/24 09:43 Pulse 99 H 09/09/24 11:23 Resp 19 09/09/24 11:23 BP 122/84 09/09/24 10:00 Pulse Ox 93 09/09/24 11:23 Laboratory Results - last 24 hr 09/08/24 09/08/24 09/08/24 11:55 13:40 14:13 WBC RBC Hgb Hct MCV MCH MCHC RDW Plt Count MPV VBG pH 7.23 L 7.30 L VBG pCO2 90 H* 77 H* VBG pO2 49 46 VBG HCO3 37 H 38 H VBG Total CO2 35 H 36 H VBG O2 Saturation 82 83 VBG Base Excess 10 H 12 H Sodium Potassium Chloride Carbon Dioxide Anion Gap BUN Creatinine Est GFR (CKD-EPI 2020) Glucose Calcium Troponin I 5 Cancelled COVID-19 Source SARS-CoV-2 (PCR) Influenza Type A (PCR) Influenza Type B (PCR) RSV (PCR) 09/08/24 09/09/24 09/09/24 14:54 05:35 08:40 WBC 7.99 RBC 3.93 Hgb 11.5 D Hct 37.8 MCV 96 H MCH 29.3 MCHC 30.4 L RDW 13.0 Plt Count 165 MPV 9.8 VBG pH 7.36 VBG pCO2 69 H* VBG pO2 57 VBG HCO3 39 H VBG Total CO2 36 H VBG O2 Saturation 92 VBG Base Excess 13 H Sodium 143 Potassium 4.8 Chloride 105 Carbon Dioxide 38.8 H Anion Gap -0.8 L BUN 22 H Creatinine 0.5 L Est GFR (CKD-EPI 2020) 108.65 Glucose 137 H Calcium 9.2 Troponin I COVID-19 Source Nasopharynx SARS-CoV-2 (PCR) Negative Influenza Type A (PCR) Positive A Influenza Type B (PCR) Negative RSV (PCR) Negative Time Spent with Patient Time Spent with Patient: <25 minutes Time was spent: preparing to see the patient(eg.review tests), ordering medications,tests, procedures, counseling the patient and care coordination
--- NOTE | 2024-09-09 12:49 | PDOC.CMIN ---
Date of service: 09/09/24 Time of Service: 12:50 Care Management Initial Assmt Initial Assessment Reason for Hospitalization: acute respiratory failure with hypoxia and hypercapnia Functional Status/Living Situation Patient Presentation: Marissa was lying in bed visiting with her daughter when CM met with her. She was polite but not very talkative. Shortly before CM's visit Marissa had an acute episode of shortness of breath and required a nebulizer treatment. She stated that she was feeling a little better but is still exhausted. Marissa was admitted with respiratory failure. She is now on 1L/min of nasal oxygen which is her baseline. Marissa lives alone in a single family home in [facility]. She has one daughter. Fay, who lives close by and is a good source of support. Marissa does not receive any services (other than home oxygen) and is independent at baseline. Town of Residence: [place] Resides with: Alone Significant Other/Family: [facility] Employment Status: Employed ([employer]) Instrumental Activities of Daily Living (ADLs): Independent Medications Medication Management: Issues/Barriers Physical Functioning/Mobility Assistive Device: none Advance Directives Advance Directives: Do you have an Advance Directive: N 02/01/13 13:48 AD On File at [facility]: N 02/01/13 13:48 Date Asked 09/08/24 09/08/24 11:17 AD Date Reviewed COLST On File at [facility] COLST Date Scanned Code Status Resuscitation Status Full Code Portal Pt does not currently have a portal and education provided: Yes Insurance Coverage/Financial Issues Insurance: [employer] 100 Care Team Visit Care Team Role Provider Type Maegan Ness NP Primary Care Provider NURSE PRACTITIONER Lyric Renee Other Providers REG OCCUPATIONAL THERAPIST InPatient Osmany Bledsoe Other Providers OTHER Susi Landrum MD Emergency Provider [facility] STAFF PHYSICIAN Joseluis Dominguez, DO Admit Provider [facility] STAFF PHYSICIAN Attending Provider Discharge Potential Discharge Needs: PCP F/U Appt Anticipated Barriers to Discharge: None Identified Patient/Family Education Needs: Review discharge instructions, discuss Ask Me Three Transportation: Private vehicle Plan: Anticipate Marissa will return home with no new services once medically cleared. Her daughter will drive her home via private vehicle and she will follow up with her PCP and discharge plan of care. CM will follow and continue to support discharge planning efforts. Social Determinants of Health Screening Will the Patient Participate in the Screening?: Unable to obtain Social Determinants of Health Comments([facility] Details): pt unable at this time PFSH All Active Problems (Updated 09/08/24 @ 16:01 by Susi Landrum MD) Influenza A (Acute) Respiratory failure (Acute) COPD with acute exacerbation (Acute) Diarrhea (Acute) COPD exacerbation (Acute) Nail dystrophy (Acute) Pain due to onychomycosis of nail (Acute) Onychomycosis (Acute) Respiratory failure with hypoxia and hypercapnia (Acute) Personal history of nicotine dependence (Acute) COPD (chronic obstructive pulmonary disease) (Chronic) Right ventricular dysfunction (Acute) Elevated brain natriuretic peptide (BNP) level (Acute) Nasal contusion (Acute) Hx of falling (Acute) Grief reaction (Chronic) Weight loss (Acute) Tobacco dependence (Chronic) HTN (hypertension) (Chronic) Prediabetes (Acute) Medical History Acute exacerbation of chronic obstructive pulmonary disease (COPD) Acute respiratory failure with hypoxia and hypercapnia Acute dyspnea 04/23/23 Per [facility]. -hb Spontaneous pneumothorax 10/1992 Surgical History S/P abdominal hysterectomy and right salpingo-oophorectomy H/O: hysterectomy Family History Mother , brain aneurism age 84 No problems noted. Father , 51 Heart disease Hypertension Sister Hypertension Brother No problems noted. Maternal Grandmother Diabetes Brother No problems noted. 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: [employer] job [employer] Pets and animals: Yes Pets and animals: dog(s) Sexually active: No Do you think of yourself as: straight/heterosexual Current gender identity: female How often do you talk on the phone with friends or family?: decline to answer How often do you get together with friends or relatives?: decline to answer How often do you attend congregational or samaritan services?: decline to answer Do you belong to any clubs or organized social groups?: decline to answer Duration: decline to answer Frequency: decline to answer Seatbelt use: always Helmet use: Yes Do you feel safe in your relationship?: Yes
[2024-09-09] MEDS: Albuterol 2.5 MG/3 ML INH SOLN VIAL UPD (15:50)
[2024-09-09] MEDS: Enoxaparin 40 MG/0.4 ML SYR SC (17:26)
[2024-09-09] MEDS: Albuterol/Ipratropium 3 ML UPD VIAL IH (20:35)
[2024-09-09] MEDS: Budesonide/Formoterol 160/4.5 6 GM 60 PUFF INH IH (20:40)
[2024-09-10] VITALS (10 sets, daily range): BP systolic 125–145; BP diastolic 84–97; PULSE 90–119; RESP 3–18; TEMP 36.9–38; O2SAT 90–98
[2024-09-10] MEDS: Albuterol/Ipratropium 3 ML UPD VIAL UPD ×3 (01:18→11:49)
[2024-09-10] MEDS: methylPREDNISolone SUCC 40 MG VIAL IVP ×2 (01:18→08:33)
[2024-09-10 06:51] LABS: Abs Immature Grans 0.04 10^3/uL (0.0-0.06); Absolute Basophil Count 0.01 10^3/uL (0.0-0.2); Absolute Lymphocyte Count 0.93 10^3/uL (1.2-3.4); Absolute Monocyte Count 0.67 10^3/uL (0.1-0.8); Absolute Neutrophil Count 6.88 10^3/uL (1.2-6.7); Basophils % 0.1 %; HCT 36.1 % (36.0-46.0); HGB 11.2 g/dL (11.2-15.7); Immature Grans % 0.5 %; Lymphocytes % 10.9 %; MCH 29.3 pg (27.0-33.0); MCV 95 fL (80-95); MPV 9.9 fL (8.0-11.0); Monocytes % 7.9 %; Neutrophils % 80.6 %; Platelet Count 182 10^3/uL (130-400); RBC 3.82 10^6/uL (3.93-5.22); RDW 13.1 % (11.7-14.6); RDW-SD 45.2 fL; WBC 8.53 10^3/uL (4.4-10.8)
[2024-09-10 07:23] LABS: Anion Gap -1.7 mmol/L (3-11); BUN 21 mg/dL (7-18); CO2 39.7 mmol/L (21.0-32.0); CREATININE 0.6 mg/dL (0.55-1.02); Calcium 9.2 mg/dL (8.5-10.1); Chloride 105 mmol/L (98-107); Estimated GFR 103.98 (mL/min/1.73m2); Glucose 143 mg/dL (74-106); Magnesium 2.1 mg/dL (1.8-2.4); Potassium 4.5 mmol/L (3.5-5.1); Sodium 143 mmol/L (136-145)
[2024-09-10] MEDS: Budesonide/Formoterol 160/4.5 6 GM 60 PUFF INH IH ×2 (08:06→21:51)
[2024-09-10] MEDS: Umeclidinium 7 CAP INHALER 1 CAP IH (08:06)
[2024-09-10] MEDS: Acetylcysteine 600 MG CAP PO (08:33)
[2024-09-10] MEDS: Oseltamivir 75 MG CAP PO ×2 (08:34→21:51)
[2024-09-10] MEDS: Lisinopril 20 MG TAB 40 MG PO (08:34)
[2024-09-10] MEDS: Normal Saline Flush 10 ML SYR IVP ×2 (08:34→21:52)
[2024-09-10] MEDS: amLODIPine 5 MG TAB PO (08:34)
--- NOTE | 2024-09-10 09:17 | CMPROGNOTE_ITS ---
Date of service: 09/10/24 Time of Service: 09:17 Care Management Progress Note Progress Note Text Progress Note Text: Marissa was lying in bed and visiting with her daughter. She is doing much better, denies concernts and will likely be able to discharge tomorrow, if no climate change risk assessor night. She did well with PT and no new services are indicated at this time. CM will continue to follow. Discharge Potential Discharge Needs: PCP F/U Appt Anticipated Barriers to Discharge: None Identified Patient/Family Education Needs: Review discharge instructions, discuss Ask Me Three Transportation: Private vehicle Plan: Anticipate, Marissa will return home with no new services once medically cleared. Her daughter will drive her home via private vehicle and she will follow up with her PCP and discharge plan of care. CM will follow and continue to support discharge planning efforts. Social Determinants of Health Screening Will the Patient Participate in the Screening?: Unable to obtain Social Determinants of Health Comments([facility] Details): pt unable at this time
[2024-09-10] MEDS: Benzonatate 100 MG CAP 200 MG PO ×2 (11:11→21:52)
--- NOTE | 2024-09-10 12:35 | IN_ITS ---
PT Notes Visit Reasons: Respiratory Failure Physical Therapy Inpatient Initial Evaluation Date:09/10/2024 Referring Doctor: Dr Dominguez PT Orders: PT CONSULT: PT evaluation Precautions: Flu A, Currently Oxygen at 1 L/min via [place] Patient Profile/Admitting Diagnosis: Pt is a 59 yo female who presented initially to the ED on 09/07/24 with SOB and diarrhea x several days. Pt viral panel was negative. She was Dx of COPD exacerbation treated with IV ABX and po steroids. She was discharged to home Pt then returned to the ED on 09/08 via EMS with increased Dyspnea hypoxemiain the 70s on home oxygen at 2L/min. Pt treated with BIPAP with pH 7.23 and CO2 90. Pt diagnosed with Acute hypercapnia respiratory failure. Pt was admitted to ICU and then viral panel (+) for Influenza A. Pt improved medically and was referred to PT Consultation. PMHX: Influenza A (Acute) Respiratory failure (Acute) COPD with acute exacerbation (Acute) Diarrhea (Acute) COPD exacerbation (Acute) Nail dystrophy (Acute) Pain due to onychomycosis of nail (Acute) Onychomycosis (Acute) Respiratory failure with hypoxia and hypercapnia (Acute) Personal history of nicotine dependence (Acute) COPD (chronic obstructive pulmonary disease) (Chronic) Right ventricular dysfunction (Acute) Elevated brain natriuretic peptide (BNP) level (Acute) Nasal contusion (Acute) Hx of falling Grief reaction (Chronic) Weight loss (Acute) Tobacco dependence (Chronic) HTN (hypertension) (Chronic) Prediabetes (Acute) Medical History Acute exacerbation of chronic obstructive pulmonary disease (COPD) Acute respiratory failure with hypoxia and hypercapnia Acute dyspnea 04/23/[address] [facility]. -hbSpontaneous pneumothorax 10/1992 Surgical History S/P abdominal hysterectomy and right salpingo-oophorectomy H/O: hysterectomy Social History/Home Situation:Pt resides alone in Single famile Home with 3 BAMBI with rail . Pt is Independent with Amb, ADLs, home management, medication gurwinder gement. 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 She is on Home Oxygen at 2 L/Min and has a portable concentrator for community use. Equipment Owned/DME: Oxygen concentrator and portable concentrator. Subjective: Pt reports she feels much better then she did a few days ago. She states she is unable to wear a mask for ambulation out of room d/t prior trauma. Objective: [] General Observation: Thin female seated upright in bed on 1 L/min Oxygen via [place] . Her daughter is visiting. Mental Status: A+Ox4, cooperative, able to follow all instructions. Pain: denies ROM: [] Right Upper Extremity: WNL Left Upper Extremity: WNL Right Lower Extremity: WNL Left Lower Extremity: WNL Strength: [] Right Upper Extremity:4/5 Left Upper Extremity: 4/5 Right Lower Extremity: 4/5 grossly Left Lower Extremity: 4/5 grossly Sensation: intact Bed Mobility/Transfers: Supine to sit Independent Sit to stand independent Stand to sit independent Bed to chair independent Gait: Ambulated 50 feet within confines of ICU room performing 6 laps within room without assistive device independently while on 1 L of oxygen O2 sats 94% no shortness of breath noted patient with slow sotero Stairs: simulated 4 steps with a portable 6step x 4 ; pt performed with supervision and rail. step to pattern Balance: Static Sitting: Normal Dynamic Sitting: Normal Static Standing: Normal Dynamic Standing: good Special Tests: 4 STAGE BALANCE TEST: Feet together 10 seconds 1/2 Stance 10 seconds Tandem stance 10 seconds Single leg stance left 9 seconds, right 10 seconds Mobility Limitations Standardized Measure [facility] AM-PAC 6 clicks Basic Mobility Inpatient Short Form: Raw Score: 24 CMS Score: 0 Informed Consent/Education: Patient instructed in purpose of PT consult. Assessment: Pt is a 59 yo female presenting with diagnosis of Influenza A and COPD exacerbation. Pt able to perform all functional mobility without AD independently. Pt limited on distance of ambulation by inability to tolerate wearing a mask d/t traumatic experience/ triggers PTSD. Pt able to simulate stairs to enter her home with use of rail. Pt requires supervision to manage her portable concentrator. Her daughter is able to provide the supervision she will need. Skilled PT services not indicated in this setting or within home. Patient is assessed as a low complexity based on the following: History: 59-year-old female with impairment level findings, functional limitations, and past medical history as indicated above Examination: Pt demonstrates mild deficit in SL stance on left foot and independence with functional mobility as noted above Presentation: Stable Decision Making: Low Goals: N/A. Plan of Care/Treatment Plan: N/A. DISCHARGE RECOMMENDATIONS: Home with no services indicated TREATMENT CODE/TIME: 32805, 25507/0950?[id number] Thank you for the opportunity to participate in the care of this patient. Hellen Heath,PT [facility]
--- NOTE | 2024-09-10 13:07 | W.PM.PROGNOT ---
Date of Service Date of service: 09/10/24 Time of Service: 13:08 Assessment and Plan Assessment and plan (1) Acute respiratory failure with hypoxia and hypercapnia: Assessment and plan: - improved, now off bipap support - suspect patient is close to her baseline - PT/OT eval (2) COPD with acute exacerbation: Status: Acute Assessment and plan: - back down to outpatient O2 requirement - d/c IV solumedrol, start prednisone 40mg po daily - continue duonebs as ordered - no abx as previously noted - continue pharmacy equivalent of outpatient Breztri - ok to downgrade from ICU to IN - PT/OT eval (3) Influenza A: Status: Acute Assessment and plan: - Tamiflu 75mg BID, day 2/5 - steroid dosing as above (4) HTN (hypertension): Status: Chronic Assessment and plan: - continue lisinopril, amlodopine (5) Prediabetes: Status: Acute Assessment and plan: - is not on any medications, will need to follow closely while patient is on steroids - carb controlled diet Subjective Subjective Interval history since last seen: Seen and examined with daughter in room. Patient continues to improves, appears more alert and talkative today. C/O ears are clogged on both sides. Still exhibiting a loose cough. Also notes that her diarrhea has completely resolved. Vitals stable, patient afebrile with sat 94% on baseline 1L. Exam Const General: cooperative and comfortable Nutritional Appearance: cachectic Orientation: alert, awake and oriented x3 HENMT Ears: TM's normal bilaterally and EAC's normal Chest Chest: normal inspection of the chest Resp Effort & Inspection: cough Auscultation: diminished lung sounds, rhonchi (mild, although exam limited by cough) and no wheezes Cardio Rate: regular rate Rhythm: regular rhythm Heart Sounds: S1 normal and S2 normal GI Inspection: normal to inspection Palpation: soft and nontender Auscultation: normal bowel sounds Skin General skin exam: no rashes or lesions noted Neuro General: patient alert, patient awake and patient oriented x3 Cranial Nerves: CN's II-XI intact bilaterally Extrem General: normal to inspection Objective Last Vital Signs Temp 36.9 C 09/10/24 06:46 Pulse 90 09/10/24 06:46 Resp 20 09/09/24 20:26 BP 125/91 H 09/10/24 06:46 Pulse Ox 94 02/27/25 08:15 Laboratory Results - last 24 hr 09/10/24 05:45 WBC 8.53 RBC 3.82 L Hgb 11.2 Hct 36.1 MCV 95 MCH 29.3 MCHC 31.0 L RDW 13.1 Plt Count 182 MPV 9.9 Immature Gran % 0.5 Neutrophils % 80.6 Lymphocytes % 10.9 Monocytes % 7.9 Eosinophils % 0.0 Basophils % 0.1 Nucleated RBC % 0.0 Absolute Neutrophils 6.88 H Absolute Lymphocytes 0.93 L Absolute Monocytes 0.67 Absolute Eosinophils 0.00 Absolute Basophils 0.01 Sodium 143 Potassium 4.5 Chloride 105 Carbon Dioxide 39.7 H Anion Gap -1.7 L BUN 21 H Creatinine 0.6 Est GFR (CKD-EPI 2020) 103.98 Glucose 143 H Calcium 9.2 Magnesium 2.1 Time Spent with Patient Time Spent with Patient: <25 minutes Time was spent: preparing to see the patient(eg.review tests), ordering medications,tests, procedures, counseling the patient and care coordination
[2024-09-10] MEDS: Acetaminophen 650 MG SUPP PR (14:08)
--- NOTE | 2024-09-10 16:40 | CHAPLAIN ---
Marissa was in bed when I visited. Her daughter was in the room. Marissa said she didn't need any help from a cell stripper final unless I could take her headache away. She had just been given some medication for her headache so she was hoping it would resolve soon.
[2024-09-10] MEDS: Ibuprofen 600 MG TAB PO (16:49)
[2024-09-10] MEDS: Enoxaparin 40 MG/0.4 ML SYR SC (18:27)
[2024-09-10] MEDS: Acetaminophen 325 MG TAB 650 MG PO ×2 (18:39→22:22)
--- NOTE | 2024-09-10 18:53 | W.PC.ACHO ---
Registration Status: Primary Language: Preferred Language: ED Information & Data Chief Complaint RespSymp 09/08/24 15:02 Triage Note Brought in by EMS with known 09/08/24 10:42 COPD seen here yesterday decreased oxygen output. presented today with increased SOB tis am and having headache for the past 2 days . received duoneb x 2 and albuterol x 1, also dexamethasone 10mg enroute. Initially spo2 as per ems 70s, now 94-96% Medical / Surgical History (Last Reviewed 07/14/24 @ 09:31 by Charanjit Solis, TORRI) Acute exacerbation of chronic obstructive pulmonary disease (COPD) Acute respiratory failure with hypoxia and hypercapnia Acute dyspnea Spontaneous pneumothorax (Last Reviewed 07/14/24 @ 09:31 by Charanjit Solis NP) S/P abdominal hysterectomy and right salpingo-oophorectomy H/O: hysterectomy Most Recent Vital Signs Temperature 38 C H 09/10/24 18:39 Temperature Source Temporal Artery Scan 09/10/24 18:16 Pulse 119 H 09/10/24 18:16 Pulse 110 H 09/09/24 14:01 Respiratory Rate 16 09/10/24 18:16 Respiratory Effort Short of Breath, Incrsd Work of Breathing 09/08/24 16:20 Respiratory Depth Normal 09/08/24 16:20 Blood Pressure 145/97 H 09/10/24 18:16 Blood Pressure Mean 108 09/10/24 17:04 Blood Pressure Position Supine 09/08/24 16:20 Pulse Oximetry 92 09/10/24 18:16 Oxygen Delivery Method Nasal Cannula 09/10/24 18:16 Oxygen Flow Rate 1 09/10/24 18:16 Fraction of Inspired Oxygen (FIO2) 28 09/09/24 07:56 Pain Level 5 09/10/24 16:49 Comment 1 LPM 09/09/24 20:26 Allergies codeine Adverse Reaction (Verified 09/08/24 10:49) Nausea Active Medications Generic Name Dose Route Start Last Admin Trade Name Freq PRN Reason Stop Dose Admin Acetaminophen 650 mg 09/08/24 17:29 09/10/24 14:08 Acetaminophen 650 Mg Supp NE 650 mg Q4H PRN PRN Administration Acetaminophen 650 mg 09/09/24 09:31 09/10/24 18:39 Acetaminophen 325 Mg Tab PO 650 mg Q4H PRN PRN Administration Acetylcysteine 600 mg 09/09/24 08:30 09/10/24 08:33 Acetylcysteine 600 Mg Cap PO 600 mg DAILY JENNA Administration Albuterol Sulfate 2.5 mg 09/08/24 17:29 09/09/24 15:50 Albuterol 2.5 Mg/3 Ml Inh Soln Vial UPD 2.5 mg Q2H PRN PRN Administration Albuterol/Ipratropium 3 ml 09/08/24 18:00 09/10/24 11:49 Albuterol/Ipratropium 3 Ml Upd Vial UPD 3 ml Q6H JENNA Administration Albuterol/Ipratropium 3 ml 09/08/24 17:33 09/09/24 20:35 Albuterol/Ipratropium 3 Ml Upd Vial IH 3 ml QID PRN PRN Administration Amlodipine Besylate 5 mg 09/09/24 08:30 09/10/24 08:34 Amlodipine 5 Mg Tab PO 5 mg DAILY JENNA Administration Benzonatate 200 mg 09/08/24 21:57 09/10/24 11:11 Benzonatate 100 Mg Cap PO 200 mg TID PRN PRN Administration cough Budesonide/Formoterol Fumarate 2 puff 09/09/24 20:00 09/10/24 08:06 Budesonide/Formoterol 160/4.5 6 Gm 60 Puff Inh IH 2 puff BID JENNA Administration Enoxaparin Sodium 40 mg 09/08/24 18:00 09/10/24 18:27 Enoxaparin 40 Mg/0.4 Ml Syr SC 40 mg Q24H JENNA Administration Ibuprofen 600 mg 09/08/24 17:33 09/10/24 16:49 Ibuprofen 600 Mg Tab PO 600 mg TID PRN PRN Administration Lisinopril 40 mg 09/09/24 08:30 09/10/24 08:34 Lisinopril 20 Mg Tab PO 40 mg DAILY JENNA Administration Oseltamivir Phosphate 75 mg 09/08/24 20:00 09/10/24 08:34 Oseltamivir 75 Mg Cap PO 75 mg BID JENNA Administration Sodium Chloride 0 ml 09/08/24 12:58 09/09/24 20:39 Normal Saline Flush 10 Ml Syr IVP 10 ml PRN PRN Administration Sodium Chloride 0 ml 09/08/24 20:00 09/10/24 08:34 Normal Saline Flush 10 Ml Syr IVP 20 ml BID JENNA Administration Umeclidinium [place] 1 cap 09/10/24 08:30 09/10/24 08:06 Umeclidinium 7 Cap Inhaler IH 1 inh DAILY JENNA Administration IV IV Catheter Type [lac] Saline Lock IV Catheter Type [Right Upper Saline Lock arm] IV Catheter Type [Right Saline Lock Antecubital] IV Catheter Gauge [Right Upper 20 arm] IV Catheter Gauge [Right 18 Antecubital] Diagnostics 09/10/24 Range/Units 05:45 WBC 8.53 (4.4-10.8) 10^3/uL RBC 3.82 L (3.93-5.22) 10^6/uL Hgb 11.2 (11.2-15.7) g/dL Hct 36.1 (36.0-46.0) % MCV 95 (80-95) fL MCH 29.3 (27.0-33.0) pg MCHC 31.0 L (32.0-36.0) % RDW 13.1 (11.7-14.6) % Plt Count 182 (130-400) 10^3/uL MPV 9.9 (8.0-11.0) fL Immature Gran % 0.5 % Neutrophils % 80.6 % Lymphocytes % 10.9 % Monocytes % 7.9 % Eosinophils % 0.0 % Basophils % 0.1 % Nucleated RBC % 0.0 (0.0-0.3) % Absolute Neutrophils 6.88 H (1.2-6.7) 10^3/uL Absolute Lymphocytes 0.93 L (1.2-3.4) 10^3/uL Absolute Monocytes 0.67 (0.1-0.8) 10^3/uL Absolute Eosinophils 0.00 (0.0-0.7) 10^3/uL Absolute Basophils 0.01 (0.0-0.2) 10^3/uL Sodium 143 (136-145) mmol/L Potassium 4.5 (3.5-5.1) mmol/L Chloride 105 (98-107) mmol/L Carbon Dioxide 39.7 H (21.0-32.0) mmol/L Anion Gap -1.7 L (3-11) mmol/L BUN 21 H (7-18) mg/dL Creatinine 0.6 (0.55-1.02) mg/dL Est GFR (CKD-EPI 2020) 103.98 (mL/min/1.73m2) Glucose 143 H (74-106) mg/dL Calcium 9.2 (8.5-10.1) mg/dL Magnesium 2.1 (1.8-2.4) mg/dL [id number] Documentation Fingerstick Glucose Start: 09/09/24 07:36 Freq: Status: Active Protocol: Activity Type Activity Date Activity User E-sign Co-sign Detail Recorded Client Recorded Date Recorded By Document 09/09/24 11:25 BKG DAEMON(3) [id number] 09/09/24 11:26 BKG DAEMON(4) Intake and Output - 24 Hour Total 09/08/24 10:31 thru 09/10/24 18:35 Intake Total 4049.333 Output Total 3075 Balance 974.333 Weight 41.2 kg Intake: IV 1679.333 Oral 2370 Output: Urine 3075 Other: Urine Color Pale Yellow Urine Appearance Clear Urine Odor Normal Comment pt voided and flushed toilet- TROY. No issues reported from pt Falls Risk Assessment History of Falls No History 09/08/24 16:20 Contributing Factors No Factors 09/08/24 16:20 Ambulatory Aids Independent 09/08/24 16:20 Tubes/Lines None 09/08/24 16:20 Gait Evaluation No gait disturbance 09/08/24 16:20 Cognition No cognitive impairment 09/08/24 16:20 Fall Total Score 0 09/08/24 16:20 Level of Risk Standard/Low Risk 09/08/24 16:20 Problems (Last Reviewed 07/14/24 @ 09:31 by Charanjit Solis NP) Influenza A (Acute) COPD with acute exacerbation (Acute) HTN (hypertension) (Chronic) Prediabetes (Acute) Notes 09/09/24 07:55 Respiratory by Ricardo Wallace Pt uses 1-1.5L at baseline. DME: [employer]. Daughter to bring in pt's portable concentrator. Initialized on 09/09/24 07:55 - END OF NOTE v v v v v v v v v Sending and/or Receiving Nurses: Please use comment section below to note any information pertinent to the patient hand-off not included above. Information / Comments: Report received from: Dania gibson to gilberto Peñaloza at [phone]
[2024-09-10] MEDS: Albuterol/Ipratropium 3 ML UPD VIAL IH (22:21)
[2024-09-11] MEDS: Albuterol/Ipratropium 3 ML UPD VIAL UPD ×2 (05:42→12:32)
[2024-09-11 07:40] LABS: Abs Immature Grans 0.05 10^3/uL (0.0-0.06); Absolute Basophil Count 0.01 10^3/uL (0.0-0.2); Absolute Eosinophil Count 0.01 10^3/uL (0.0-0.7); Absolute Lymphocyte Count 2.28 10^3/uL (1.2-3.4); Absolute Monocyte Count 0.73 10^3/uL (0.1-0.8); Absolute Neutrophil Count 5.03 10^3/uL (1.2-6.7); Basophils % 0.1 %; Eosinophils % 0.1 %; HCT 40.1 % (36.0-46.0); HGB 12.4 g/dL (11.2-15.7); Immature Grans % 0.6 %; Lymphocytes % 28.1 %; MCH 29.3 pg (27.0-33.0); MCHC 30.9 % (32.0-36.0); MCV 95 fL (80-95); Neutrophils % 62.1 %; Platelet Count 204 10^3/uL (130-400); RBC 4.23 10^6/uL (3.93-5.22); RDW 13.1 % (11.7-14.6); RDW-SD 45.2 fL; WBC 8.11 10^3/uL (4.4-10.8)
[2024-09-11 07:42] VITALS: BP 111/78; PULSE 116; RESP 16; TEMP 37.1; O2SAT 96
[2024-09-11 07:56] LABS: Anion Gap 1.3 mmol/L (3-11); BUN 25 mg/dL (7-18); CO2 42.7 mmol/L (21.0-32.0); CREATININE 0.7 mg/dL (0.55-1.02); Calcium 9.6 mg/dL (8.5-10.1); Chloride 102 mmol/L (98-107); Estimated GFR 100.19 (mL/min/1.73m2); Glucose 108 mg/dL (74-106); Magnesium 2.2 mg/dL (1.8-2.4); Potassium 3.6 mmol/L (3.5-5.1); Sodium 146 mmol/L (136-145)
[2024-09-11] MEDS: Budesonide/Formoterol 160/4.5 6 GM 60 PUFF INH IH (08:11)
[2024-09-11] MEDS: Umeclidinium 7 CAP INHALER 1 CAP IH (08:11)
[2024-09-11] MEDS: Oseltamivir 75 MG CAP PO (09:09)
[2024-09-11] MEDS: Lisinopril 20 MG TAB 40 MG PO (09:09)
[2024-09-11] MEDS: amLODIPine 5 MG TAB PO (09:09)
[2024-09-11] MEDS: predniSONE 20 MG TAB 40 MG PO (09:10)
[2024-09-11] MEDS: Acetylcysteine 600 MG CAP PO (09:10)
[2024-09-11] MEDS: Normal Saline Flush 10 ML SYR IVP (09:10)
[2024-09-11 09:28] VITALS: TEMP 37.9
[2024-09-11] MEDS: Acetaminophen 325 MG TAB 650 MG PO (09:28)
[2024-09-11 11:15] VITALS: BP 137/99; PULSE 114; RESP 16; TEMP 37; O2SAT 94
--- NOTE | 2024-09-11 11:49 | DSE_ITS ---
Date of service: 09/11/24 Time of Service: 11:49 DS: Diagnosis Discharge Diagnosis (1) Acute respiratory failure with hypoxia and hypercapnia: (2) COPD with acute exacerbation: Status: Acute (3) Influenza A: Status: Acute (4) HTN (hypertension): Status: Chronic (5) Prediabetes: Status: Acute Discharge Plan Disposition Patient Disposition: Home Condition: Stable Discharge Details Reason For Visit: Respiratory Failure Admit Date/Time: 09/08/24 12:59 Admit Provider: Joseluis Dominguez Attending Provider: Joseluis Dominguez [facility] Hospital Course: Per H+P: This is a 59 yo female with pmhx COPD, HTN, preDM that presents with hypoxia. Patient was seen after she was transferred to the ICU and was asleep. Daughter in room able to give some history, but bulk is per ER documentation. Patient presented to the ER yesterday with c/o SOB and diarrhea over the past few days. Was dx'd with mild COPD exac. Labs were ok and viral panel was nega tive. Given doxycycline and PO steroids and discharged home. However, over the next 24h, patient's condition worsened considerably and she returned to the ER via EMS. At this time, she was found to be much more dyspneic and hypoxic with sats in the 70s on 2L. Was started on bipap but required ativan dosing for significant anxiety. Initial VBG showed pH 7.23 with pCO2 of 90, prompting admission for acute hypercapneic respiratory failure. After transfer, repeat viral panel was positive for influenza A. At the time of my eval, patient was asleep, possibly mildly sedated after ativan. Vitals stable and O2 much improved. Patient was admitted to the ICU with presumed COPD exac, likely due to flu A. She initially required bipap due to significant hypercapnea but this resolved after 24h with improved VBG and clinically improved mentation. She was quickly transitioned to 1L NC which is her reported baseline. She did have some anxiety issues which were treated with ativan. Patient was treated for flu A with Tamiflu. Was also started on IV solumedrol but this was titrated down to prednisone 40mg daily on 09/10. Patient has tolerated well. There was a reported concern for diarrhea on presentation but this has apparently also completely resolved. Plan today to discharge in stable condition. Continue NC @ 1L. Will rx rapid prednisone taper and 3 tabs of Tamiflu to finish full 5 day course. Patient may RTW on Saturday, will accomodate with a stool to sit while working. Home Meds and New Rx's Prescriptions: New prednisone 10 mg tablet See Taper PO DIRECTED Qty: 10 0RF Taper: Prednisone 10mg taper 40 mg Daily for 1 Day and 0 Hour 30 mg Daily for 1 Day and 0 Hour 20 mg Daily for 1 Day and 0 Hour 10 mg Daily for 1 Day and 0 Hour Rx Instructions: see taper instructions oseltamivir [Tamiflu] 75 mg capsule 75 mg PO BID 2 Days Qty: 3 0RF Continued ipratropium-albuterol 0.5 mg-3 mg(2.5 mg base)/3 mL solution for nebulization 3 ml inhalation QID PRN Breztri Aerosphere 160-9-4.8 mcg/actuation HFA aerosol inhaler 2 inh inhalation BID Qty: 10.7 12RF acetylcysteine [NAC] 600 mg capsule 600 mg PO DAILY albuterol sulfate 90 mcg/actuation HFA aerosol inhaler 2 puff inhalation Q6H PRN (Reason: shortness of breath or wheezing) Qty: 8.5 4RF amlodipine 5 mg tablet 5 mg PO DAILY Qty: 90 3RF lisinopril 40 mg tablet 40 mg PO DAILY Qty: 90 3RF ibuprofen 600 MG tablet 600 mg PO TID PRN azithromycin 250 mg tablet 250 mg PO DAILY Patient Comments: TAKE ONE BY MOUTH ONCE DAILY doxycycline hyclate 100 mg capsule 100 mg PO BID Qty: 14 0RF prednisone 50 mg tablet 50 mg PO DAILY Qty: 4 0RF (DME) Oxygen Tank See Rx Instructions .Route Qty: 1 0RF Rx Instructions: As directed benzonatate 100 mg capsule 100 mg PO TID PRN (Reason: cough) Qty: 30 0RF Discharge Instructions Referrals: Maegan Ness NP [Primary Care Provider] - Activity:: Activity as Tolerated Equipment/Supplies:: Oxygen (L/min Below) Diet:: As Tolerated Discharge Orders Discharge Orders: Discharge Order (Routine); Ordered 09/11/24 Ordered By: Joseluis Dominguez DS: Summary Time Spent with Patient providing and/or coordinating discharge services: Greater than 30 minutes Status at Discharge Functional status at discharge: independent ambulation Overall status at discharge: patient is back to baseline Mental Status: mental status grossly normal Speech and Movement: speech and movement normal Mood: congruent mood Affect: normal affect Quality:SDOH Health Related Social Needs: Health related social needs details Marissa's insurance company mandates home delivered medications. Marissa has two prescriptions which are inhalers, and she expressed concern about not being able to use her inhalers after they are left outside in the cold weather. [place], often being delivered late at night. 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 Exam Const General: cooperative, comfortable and no acute distress Nutritional Appearance: cachectic Orientation: alert, awake and oriented x3 HENMT Head: normal to inspection Resp Effort & Inspection: normal respiratory effort Auscultation: diminished lung sounds, no rales, no rhonchi and no wheezes Cardio Rate: regular rate Rhythm: regular rhythm Heart Sounds: S1 normal and S2 normal GI Inspection: normal to inspection Palpation: soft and nontender Auscultation: normal bowel sounds Neuro General: patient alert, patient awake and patient oriented x3 Cranial Nerves: CN's II-XI intact bilaterally Psych Mental Status: mental status grossly normal Speech and Movement: speech and movement normal Mood: congruent mood Affect: normal affect DS: Data Vitals/I&O Vitals and I&O: Vital Signs Temperature 37.0 C 09/11/24 11:15 Temperature Source Temporal Artery Scan 09/11/24 11:15 Pulse 114 H 09/11/24 11:15 Pulse 110 H 09/09/24 14:01 Respiratory Rate 16 09/11/24 11:15 Respiratory Effort Short of Breath, Incrsd Work of Breathing 09/08/24 16:20 Respiratory Depth Normal 09/08/24 16:20 Blood Pressure 137/99 H 09/11/24 11:15 Blood Pressure Mean 108 09/10/24 17:04 Blood Pressure Position Supine 09/08/24 16:20 Pulse Oximetry 94 09/11/24 11:15 Oxygen Delivery Method Nasal Cannula 09/11/24 11:15 Oxygen Flow Rate 1 09/11/24 11:15 Fraction of Inspired Oxygen (FIO2) 09/09/24 07:56 Pain Level 0 09/11/24 11:15 Comment HEADACHE. PRN GIVEN 09/10/24 21:53 Comment 1 LPM 09/09/24 20:26 Intake & Output 09/10/24 09/10/24 09/11/24 11:59 23:59 11:59 Intake Total 480 / 490 10 / 490 Output Total 1050 / 1450 400 / 1450 Balance -570 / -960 -390 / -960 Intake: IV 10 Oral 480 / 480 Output: Urine 1050 / 1450 400 / 1450 Other: Urine Color Yellow Yellow Yellow Urine Appearance Clear Clear Clear Urine Odor Normal Comment pt voiding in toilet independently pt reported regular void Data Completed and Pending Labs on day of discharge: Labs from last 24 hours 09/11/24 09/08/24 07:23 14:54 WBC 8.11 RBC 4.23 Hgb 12.4 Hct 40.1 MCV 95 MCH 29.3 MCHC 30.9 L RDW 13.1 Plt Count 204 MPV 9.0 Immature Gran % 0.6 Neutrophils % 62.1 Lymphocytes % 28.1 Monocytes % 9.0 Eosinophils % 0.1 Basophils % 0.1 Nucleated RBC % 0.0 Absolute Neutrophils 5.03 Absolute Lymphocytes 2.28 Absolute Monocytes 0.73 Absolute Eosinophils 0.01 Absolute Basophils 0.01 Sodium 146 H Potassium 3.6 Chloride 102 Carbon Dioxide 42.7 H Anion Gap 1.3 L BUN 25 H Creatinine 0.7 Est GFR (CKD-EPI 2020) 100.19 Glucose 108 H Calcium 9.6 Magnesium 2.2 Influ A Subtyping (PCR) PFSH All Active Problems (Updated 09/08/24 @ 16:01 by Susi Landrum MD) Influenza A (Acute) Respiratory failure (Acute) COPD with acute exacerbation (Acute) Diarrhea (Acute) COPD exacerbation (Acute) Nail dystrophy (Acute) Pain due to onychomycosis of nail (Acute) Onychomycosis (Acute) Respiratory failure with hypoxia and hypercapnia (Acute) Personal history of nicotine dependence (Acute) COPD (chronic obstructive pulmonary disease) (Chronic) Right ventricular dysfunction (Acute) Elevated brain natriuretic peptide (BNP) level (Acute) Nasal contusion (Acute) Hx of falling (Acute) Grief reaction (Chronic) Weight loss (Acute) Tobacco dependence (Chronic) HTN (hypertension) (Chronic) Prediabetes (Acute) Medical History Acute exacerbation of chronic obstructive pulmonary disease (COPD) Acute respiratory failure with hypoxia and hypercapnia Acute dyspnea 04/23/[address] [facility] Spontaneous pneumothorax 10/1992 Surgical History S/P abdominal hysterectomy and right salpingo-oophorectomy H/O: hysterectomy Family History Mother , brain aneurism age 84 No problems noted. Father , 51 Heart disease Hypertension Sister Hypertension Brother No problems noted. Maternal Grandmother Diabetes Brother No problems noted. 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: [employer] Pets and animals: Yes Pets and animals: dog(s) Sexually active: No Do you think of yourself as: straight/heterosexual Current gender identity: female How often do you talk on the phone with friends or family?: decline to answer How often do you get together with friends or relatives?: decline to answer How often do you attend adventism or adventist services?: decline to answer Do you belong to any clubs or organized social groups?: decline to answer Duration: decline to answer Frequency: decline to answer Seatbelt use: always Helmet use: Yes Do you feel safe in your relationship?: Yes Time Spent with Patient Time Spent with Patient: <45 minutes Time was spent: preparing to see the patient(eg.review tests), indepentently interpreting results, counseling the patient and care coordination
[2024-09-11 12:32] VITALS: PULSE 113; RESP 18; RESP 9; O2SAT 94
[2024-09-11 12:42] VITALS: PULSE 111
--- NOTE | 2024-09-11 12:46 | PDOC.CMDIS ---
Date of service: 09/11/24 Time of Service: 12:46 LACE Index Scoring Tool Questions: Length of Stay (in days): 3 Was the patient admitted via the E.D.?: Yes Comorbidities: Chronic Pulmonary Disease E.D. Visits: 4 Answers: Total Score: 12 Risk of Readmission: High Risk Care Management Discharge Plan Reason for Hospitalization: COPD exacerbation, Flu A Discharge Plan: Marissa is discharged home today with no new services. She is prescribed Tamiflu bid x 3 days, and a prednisone taper. She will f/u with her PCP on 09/22/24 and continue per her plan of care. Marissa has been given a return to work letter. Marissa will be transported home by her daughter. Patient/Family Education Needs: Review of discharge instructions, activity, limitations and discuss ask me 3. SDNE Health Related Social Needs: Health related social needs details Marissa's insurance company mandates home delivered medications. Marissa has two prescriptions which are inhalers, and she expressed concern about not being able to use her inhalers after they are left outside in the cold weather. [place] mail [place], often being delivered late at night. 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
== END 2024-09-11 13:27 | disposition home or self-care (01) | DRG 193 ==
LOC: ER 13:10 → EDHOLD 13:22 → ICU 16:07 → MS 09-10 18:02
PROVIDERS: Admitting Provider Hospitalist; Emergency Provider Emergency Medicine; PCP Nurse Practitioner Family; Responsible Provider Hospitalist; Visit Provider Hospitalist
DX: J96.01 Acute respiratory failure with hypoxia (principal); J96.02 Acute respiratory failure with hypercapnia; J44.1 Chronic obstructive pulmonary disease with (acute) exacerbation; J10.1 Influenza due to other identified influenza virus with other respiratory manifestations; Z68.1 Body mass index [BMI] 19.9 or less, adult; I10 Essential (primary) hypertension; R73.03 Prediabetes; R19.7 Diarrhea, unspecified; B35.1 Tinea unguium; R63.4 Abnormal weight loss; Z87.891 Personal history of nicotine dependence
CPT/HCPCS: 00123; 36415; 80048; 80053; 82805; 85027; 87637; 94640; 94761; 96374; 96375; 97161; 97530; 99291; J1650; 71045; 83735; 83880; 84484; 85025; 94660; 94664; 99223; 99232; 99239; J0696; J2060; J2919; J7512; J7613; J7620

== ENCOUNTER 2024-10-13 09:13 | Emergency (ER) | payer OTHER, SELFPAY ==
[2024-10-13] VITALS (43 sets, daily range): BP systolic 113–174; BP diastolic 42–113; PULSE 91–129; RESP 5–33; TEMP 36.7; O2SAT 84–100
--- NOTE | 2024-10-13 09:15 | RT.EKG_ITS ---
APPROVED REPORT Exam: Resting ECG Reason for Exam: SOB Patient Location: E HR:102 bpm ECG Measurements Heart Rate 102 AXIS IL 115 P 96 QRSd 73 QRS 89 QT 334 T 96 QTc 436 Conclusion Sinus tachycardia...rate> 99 Right atrial enlargement...P>0.25mV 2 lds or<-0.24mV aVR/aVL Abnormal T, consider ischemia, lateral leads...T <-0.20mV, I aVL V5 V6 No STEMI
--- NOTE | 2024-10-13 09:15 | DI.RAD_ITS ---
Exam(s) XR PORTABLE CHEST AP EXAM: XR PORTABLE CHEST AP CLINICAL HISTORY: SOB TECHNIQUE: 2D digital imaging was performed of the chest. One image was obtained. An AP view was ob tained. COMPARISON: CR XR PORTABLE CHEST AP from 09/08/2024 FINDINGS: MEDIASTINUM: Normal. HEART: Normal. PULMONARY VASCULATURE: Normal. LUNGS: The lungs are hyperinflated with flattened diaphragms suggesting underlying COPD. No focal co nsolidating infiltrates are present. PLEURAL SPACE: No pleural effusion or pneumothorax. BONE:Within normal limits for the patient's age. OTHER FINDINGS:Normal. IMPRESSION: No acute pulmonary findings. DATA REPOSITORY: RADIATION DOSE DELIVERED:
--- NOTE | 2024-10-13 09:25 | W.ED.GENAD ---
Discharge Plan Disposition Patient Disposition: Home Condition: Stable Discharge Details Clinical Impression: COPD exacerbation Primary Care Provider: Maegan Ness ED Provider: Hetal Anderson Home Meds and New Rx's Prescriptions: Continued ipratropium-albuterol 0.5 mg-3 mg(2.5 mg base)/3 mL solution for nebulization 3 ml inhalation QID PRN Breztri Aerosphere 160-9-4.8 mcg/actuation HFA aerosol inhaler 2 inh inhalation BID Qty: 10.7 12RF acetylcysteine [NAC] 600 mg capsule 600 mg PO DAILY albuterol sulfate 90 mcg/actuation HFA aerosol inhaler 2 puff inhalation Q6H PRN (Reason: shortness of breath or wheezing) Qty: 8.5 4RF Trelegy Ellipta 200-62.5-25 mcg blister with device 1 inh inhalation Q24H Qty: 60 3RF amlodipine 5 mg tablet 5 mg PO DAILY Qty: 90 3RF lisinopril 40 mg tablet 40 mg PO DAILY Qty: 90 3RF ibuprofen 600 MG tablet 600 mg PO TID PRN (DME) Oxygen Tank See Rx Instructions .Route Qty: 1 0RF Rx Instructions: As directed Discharge Instructions Instructions: COPD Exacerbation, Adult ED Additional Instructions: At this time your workup is negative for any pneumonia, no evidence for heart attack. I do suspect this is an exacerbation of your COPD. No evidence for influenza COVID or RSV. I did speak with respiratory therapy who was in touch with your pulmonology team. She did explain that they are currently doing a trial to start you on a new injectable medication. You have an appointment on October 20 at 9 AM with pulmonology. Please keep that appointment. Please use your oxygen as directed by respiratory and your pulmonology team. Follow up with primary care provider in 3-5 days. Return to ED sooner if any worsening or concerns. Thank you for allowing us to care for you today. Stand Alone Forms: Work Release Referrals: Norma Gipson PA [[employer]] - 1 week Maegan Ness NP [Primary Care Provider] - 2 weeks HPI General Mode of arrival: wheelchair. Date/Time Provider Initiated Documentation: 10/13/24 09:16. Limitations to Documentation: no limitations. Information obtained by: patient, family, RN notes reviewed and old records reviewed. HPI Narrative: 59-year-old female with history of COPD, hypertension, spontaneous pneumothorax presents to the ER with a chief complaint of 3 days of increased shortness of breath. She reports being unable to walk short distances without increased work of breathing. She was admitted in August and since then she has had difficulty she also reports a change in her inhalers which have contributed to her shortness of breath. She was seen on 22 September by her PCP and changed to Trelegy. She is a former smoker reports that she quit 2 years ago. She speaking in full sentences upon arrival she is normally on 0.5 L of oxygen nasal cannula however she reports having to bump it up to 2 L recently. Initially on room air she is in the low 80s. Denies any chest pain, fever or chills or productive cough. Related Data Home Medications ?Medication ?Instructions ?Recorded ?Confirmed ibuprofen 600 mg tablet 600 mg PO TID PRN 12/23/13 10/13/24 amlodipine 5 mg tablet 5 mg PO DAILY #90 tabs 03/19/23 10/13/24 lisinopril 40 mg tablet 40 mg PO DAILY #90 tabs 03/19/23 10/13/24 acetylcysteine 600 mg capsule (NAC) 600 mg PO DAILY 07/02/23 10/13/24 Oxygen #1 ea 07/18/23 10/13/24 ipratropium 0.5 mg-albuterol 3 mg 3 ml inhalation QID PRN 11/04/23 10/13/24 (2.5 mg base)/3 mL nebulization soln albuterol sulfate 90 mcg/actuation 2 puff inhalation Q6H PRN 05/26/24 10/13/24 aerosol inhaler shortness of breath or wheezing #8.5 grams budesonide 160 mcg-glycopyr 9 2 inh inhalation BID #10.7 grams 07/22/24 10/13/24 mcg-formot 4.8 mcg/actuation HFA inhaler (Breztri Aerosphere) fluticasone fur. 200 mcg-umeclid 1 inh inhalation Q24H #60 ea 09/22/24 10/13/24 62.5 mcg-vilant 25 mcg inhalat.powder (Trelegy Ellipta) Previous Rx's ?Medication ?Instructions ?Recorded amlodipine 5 mg tablet 5 mg PO DAILY #90 tabs 03/19/23 lisinopril 40 mg tablet 40 mg PO DAILY #90 tabs 03/19/23 Oxygen #1 ea 07/18/23 albuterol sulfate 90 mcg/actuation 2 puff inhalation Q6H PRN 05/26/24 aerosol inhaler shortness of breath or wheezing #8.5 grams budesonide 160 mcg-glycopyr 9 2 inh inhalation BID #10.7 grams 07/22/24 mcg-formot 4.8 mcg/actuation HFA inhaler (Breztri Aerosphere) fluticasone fur. 200 mcg-umeclid 1 inh inhalation Q24H #60 ea 09/22/24 62.5 mcg-vilant 25 mcg inhalat.powder (Trelegy Ellipta) Allergies Allergy/AdvReac Type Severity Reaction Status Date / Time codeine AdvReac Nausea Verified 09/22/24 09:29 General Stated Complaint: SOB RODO: 3 Review of Systems All systems reviewed & are unremarkable except as noted in HPI and below Cardiovascular Cardiovascular: Reports system reviewed and no additional complaints, except as documented, Denies chest pain, Reports dyspnea and Reports dyspnea on exertion Respiratory Respiratory: Reports as per HPI, Reports dyspnea and Reports dyspnea on exertion Gastrointestinal Gastrointestinal: Reports system reviewed and no additional complaints, except as documented Exam Narrative Exam Narrative: Constitutional: Alert and oriented x3. Appears stated age. Very thin body habitus. Head: Normocephalic, no trauma. Eyes: Pupils PERRL, Red reflex noted, EOM's intact. Eyelids symmetrical without lesions, discharge, or swelling. ENT: Bilateral TM's WNL, External ear normal to inspection, no mastoid TTP, swelling, or erythema, Nasal turbinates WNL, no nasal discharge. Normal dentition, Posterior pharynx WNL, no exudate. Chest: RRR, Normal S1, S2, distal pulses intact. Resp: Prolonged expiratory phase, mild wheeze bilaterally on expiration. Abdomen: Soft, non-distended, Normoactive bowel sounds all 4 quads. Musculoskeletal: Normal gait, Moves all 4 extremities without difficulty. Skin: No suspicious rashes or lesions. Capillary refill less than 2 sec. Neurologic: Cranial nerves II-XII intact. Alert and oriented x 3. Motor: No deficits noted. Sensory: Intact bilaterally all 4 extremities. Hematologic/Lymphatic: No ecchymosis, no lymphadenopathy. Course Vital Signs Vital signs: Vital Signs Pulse 120 H 10/13/24 09:18 Respiratory Rate 24 10/13/24 09:18 Blood Pressure 174/113 H 10/13/24 09:18 Pulse Oximetry 92 10/13/24 09:18 Temperature 36.7 C 10/13/24 09:22 Temperature Source Tympanic 10/13/24 09:22 Pulse 120 H 10/13/24 09:22 Respiratory Rate 24 10/13/24 09:22 Blood Pressure 174/113 H 10/13/24 09:22 Blood Pressure Position Sitting 10/13/24 09:22 Pulse Oximetry 92 10/13/24 09:22 Oxygen Delivery Method Nasal Cannula 10/13/24 09:22 Oxygen Flow Rate 5 10/13/24 09:22 Pain Level 0 10/13/24 09:22 Medical Decision Making 59-year-old female with history of COPD, hypertension, spontaneous pneumothorax presents to the ER with a chief complaint of 3 days of increased shortness of breath. She reports being unable to walk short distances without increased work of breathing. She was admitted in August and since then she has had difficulty she also reports a change in her inhalers which have contributed to her shortness of breath. She was seen on 22 September by her PCP and changed to [facility]. She is a former smoker reports that she quit 2 years ago. She speaking in full sentences upon arrival she is normally on 0.5 L of oxygen nasal cannula however she reports having to bump it up to 2 L recently. Initially on room air she is in the low 80s. Denies any chest pain, fever or chills or productive cough. Workup ordered including CBC CMP, proBNP, VBG chest x-ray DuoNeb and 125 Solu-Medrol. Fluvid swab ordered. Differential diagnose includes but not limited to COPD exacerbation, influenza, pneumonia, CAD, EKG was reviewed by myself and Dr. Wallace ER attending, old EKG available for review. Please see official report. Patient was placed on 4 L nasal cannula by triage nurse, patient is satting 100% at rest. Decreased oxygen to 2 L. Patient has remained 99% on 2 L nasal cannula, chest x-ray shows no acute pulmonary findings. No evidence for infiltrates or pneumothorax. Spoke with Ricardo with respiratory therapy regarding patient she was in contact with panel machine operator. She does have an appointment on the eighth. She had been taken off her previous inhaler in order to do a trial of medication to qualify for a new injectable eosinophil josette. She will explain this to the patient. Patient has been placed on 1 L nasal cannula and is satting 95% at this time. So far her workup is largely unremarkable. No leukocytosis no evidence of pneumonia, initial troponin within normal limits negative for COVID flu and RSV. Will await 1 serial troponin if normal will plan to discharge with close follow-up and to keep her appointment with pulmonology as previously scheduled. Patient did get up to the bathroom on room air desatted to 84 to 85%. Respiratory therapy aware. She reports that at baseline at rest she runs from 88 to 90%. She is post to use her oxygen 1 L. Serial troponin is negative. Discussed plan of care, home care strict return instructions with patient and family. At this time no evidence for ID, no pneumonia. Patient is speaking in full sentences appears comfortable at rest. Plan is to discharge patient she is requesting to speak with care management. Patient discharged to home in the care of her family after visit with care management. Patient remained hemodynamically stable throughout the remainder of her stay, alert and oriented. This text was generated using [employer] dictation system, please disregard any oddities of phrase or misspellings. Medical Records Medical records reviewed: Yes I reviewed the patient's medical records. Lab Data Lab results reviewed: Yes I reviewed the patient's lab results. Labs: Laboratory Tests Range/Units 10/13/24 10/13/24 10/13/24 09:55 10:16 11:26 WBC (4.4-10.8) 10^3/uL 7.89 RBC (3.93-5.22) 10^6/uL 4.68 Hgb (11.2-15.7) g/dL 13.9 Hct (36.0-46.0) % 45.3 MCV (80-95) fL 97 H MCH (27.0-33.0) pg 29.7 MCHC (32.0-36.0) % 30.7 L RDW (11.7-14.6) % 13.3 Plt Count (130-400) 10^3/uL 199 MPV (8.0-11.0) fL 9.8 Immature Gran % % 0.5 Neutrophils % % 60.9 Lymphocytes % % 20.5 Monocytes % % 10.9 Eosinophils % % 6.1 Basophils % % 1.1 Nucleated RBC % (0.0-0.3) % 0.0 Absolute Neutrophils (1.2-6.7) 10^3/uL 4.80 Absolute Lymphocytes (1.2-3.4) 10^3/uL 1.62 Absolute Monocytes (0.1-0.8) 10^3/uL 0.86 H Absolute Eosinophils (0.0-0.7) 10^3/uL 0.48 Absolute Basophils (0.0-0.2) 10^3/uL 0.09 VBG pH (7.31-7.41) 7.41 VBG pCO2 (41-51) mmHg 56 H VBG pO2 mmHg 45 VBG HCO3 (23-28) mmol/L 36 H VBG Total CO2 (24-29) mmol/L 32 H VBG O2 Saturation % 87 VBG Base Excess (-2-3) mmol/L 11 H Sodium Cancelled 141 Potassium Cancelled 4.3 Chloride Cancelled 101 Carbon Dioxide Cancelled 38.8 H Anion Gap Cancelled 1.2 L BUN Cancelled 14 Creatinine Cancelled 0.7 Est GFR (CKD-EPI 2020) Cancelled 100.19 Glucose Cancelled 106 Calcium Cancelled 9.6 Total Bilirubin Cancelled 0.3 AST Cancelled 16 ALT Cancelled 20 Alkaline Phosphatase Cancelled 69 Troponin I Cancelled < 4 6 NT-Pro-B Natriuret Pep Cancelled 25 Total Protein Cancelled 6.7 Albumin Cancelled 3.5 COVID-19 Source Nasopharynx SARS-CoV-2 (PCR) (Negative) Negative Influenza Type A (PCR) (Negative) Negative Influenza Type B (PCR) (Negative) Negative RSV (PCR) (Negative) Negative Range/Units 10/13/24 12:20 WBC (4.4-10.8) 10^3/uL RBC (3.93-5.22) 10^6/uL Hgb (11.2-15.7) g/dL Hct (36.0-46.0) % MCV (80-95) fL MCH (27.0-33.0) pg MCHC (32.0-36.0) % RDW (11.7-14.6) % Plt Count (130-400) 10^3/uL MPV (8.0-11.0) fL Immature Gran % % Neutrophils % % Lymphocytes % % Monocytes % % Eosinophils % % Basophils % % Nucleated RBC % (0.0-0.3) % Absolute Neutrophils (1.2-6.7) 10^3/uL Absolute Lymphocytes (1.2-3.4) 10^3/uL Absolute Monocytes (0.1-0.8) 10^3/uL Absolute Eosinophils (0.0-0.7) 10^3/uL Absolute Basophils (0.0-0.2) 10^3/uL VBG pH (7.31-7.41) VBG pCO2 (41-51) mmHg VBG pO2 mmHg VBG HCO3 (23-28) mmol/L VBG Total CO2 (24-29) mmol/L VBG O2 Saturation % VBG Base Excess (-2-3) mmol/L Sodium Potassium Chloride Carbon Dioxide Anion Gap BUN Creatinine Est GFR (CKD-EPI 2020) Glucose Calcium Total Bilirubin AST ALT Alkaline Phosphatase Troponin I Cancelled NT-Pro-B Natriuret Pep Total Protein Albumin COVID-19 Source SARS-CoV-2 (PCR) (Negative) Influenza Type A (PCR) (Negative) Influenza Type B (PCR) (Negative) RSV (PCR) (Negative) Quality:SDOH Health Related Social Needs: Health related social needs details Marissa's insurance company mandates home delivered medications. Marissa has two prescriptions which are inhalers, and she expressed concern about not being able to use her inhalers after they are left outside in the cold weather. [place] mail [place], often being delivered late at night. She has requested that her inhalers are sent to a local pharmacy for her to tow picker at her convenience, which was denied. [facility] All Active Problems (Updated 10/13/24 @ 12:03 by Hetal Anderson NP) Influenza A (Acute) Respiratory failure (Acute) COPD with acute exacerbation (Acute) Diarrhea (Acute) COPD exacerbation (Acute) Nail dystrophy (Acute) Pain due to onychomycosis of nail (Acute) Onychomycosis (Acute) Respiratory failure with hypoxia and hypercapnia (Acute) Personal history of nicotine dependence (Acute) COPD (chronic obstructive pulmonary disease) (Chronic) Right ventricular dysfunction (Acute) Elevated brain natriuretic peptide (BNP) level (Acute) Nasal contusion (Acute) Hx of falling (Acute) Grief reaction (Chronic) Weight loss (Acute) Tobacco dependence (Chronic) HTN (hypertension) (Chronic) Prediabetes (Acute) Medical History Acute exacerbation of chronic obstructive pulmonary disease (COPD) Acute respiratory failure with hypoxia and hypercapnia Acute dyspnea 04/23/[address] [facility]. -hb Spontaneous pneumothorax 10/1992 Surgical History S/P abdominal hysterectomy and right salpingo-oophorectomy H/O: hysterectomy Family History Mother , brain aneurism age 84 No problems noted. Father , 51 Heart disease Hypertension Sister Hypertension Brother No problems noted. Maternal Grandmother Diabetes Brother No problems noted. 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: [employer] Pets and animals: Yes Pets and animals: dog(s) Sexually active: No Do you think of yourself as: straight/heterosexual Current gender identity: female How often do you talk on the phone with friends or family?: decline to answer How often do you get together with friends or relatives?: decline to answer How often do you attend denominational or mormonism services?: decline to answer Do you belong to any clubs or organized social groups?: decline to answer Duration: decline to answer Frequency: decline to answer Seatbelt use: always Helmet use: Yes Do you feel safe in your relationship?: Yes
[2024-10-13 10:05] LABS: Abs Immature Grans 0.04 10^3/uL (0.0-0.06); Absolute Basophil Count 0.09 10^3/uL (0.0-0.2); Absolute Eosinophil Count 0.48 10^3/uL (0.0-0.7); Absolute Lymphocyte Count 1.62 10^3/uL (1.2-3.4); Absolute Monocyte Count 0.86 10^3/uL (0.1-0.8); BE (Venous) 11 mmol/L (-2-3); Basophils % 1.1 %; Eosinophils % 6.1 %; HCO3 (Venous) 36 mmol/L (23-28); HCT 45.3 % (36.0-46.0); HGB 13.9 g/dL (11.2-15.7); Immature Grans % 0.5 %; Lymphocytes % 20.5 %; MCH 29.7 pg (27.0-33.0); MCHC 30.7 % (32.0-36.0); MCV 97 fL (80-95); MPV 9.8 fL (8.0-11.0); Monocytes % 10.9 %; Neutrophils % 60.9 %; O2 Sat (Venous) 87 %; Platelet Count 199 10^3/uL (130-400); RBC 4.68 10^6/uL (3.93-5.22); RDW 13.3 % (11.7-14.6); RDW-SD 47.7 fL; TCO2 (Venous) 32 mmol/L (24-29); WBC 7.89 10^3/uL (4.4-10.8); pCO2 (Venous) 56 mmHg (41-51); pH (Venous) 7.41 (7.31-7.41); pO2 (Venous) 45 mmHg
[2024-10-13] MEDS: Albuterol/Ipratropium 3 ML UPD VIAL UPD (10:21)
[2024-10-13] MEDS: methylPREDNISolone SUCC 125 MG VIAL IVP (10:21)
[2024-10-13 10:47] LABS: COVID-19 PCR Negative (Negative); Influenza A PCR Negative (Negative); Influenza B PCR Negative (Negative); RSV PCR Negative (Negative)
[2024-10-13 10:49] LABS: Source Nasopharynx
[2024-10-13 10:56] LABS: ALT 20 U/L (14-59); AST 16 U/L (15-37); Albumin 3.5 g/dL (3.4-5.0); Alkaline Phosphatase 69 U/L (46-116); Anion Gap 1.2 mmol/L (3-11); BUN 14 mg/dL (7-18); Bilirubin, Total 0.3 mg/dL (0.2-1.0); CO2 38.8 mmol/L (21.0-32.0); CREATININE 0.7 mg/dL (0.55-1.02); Calcium 9.6 mg/dL (8.5-10.1); Chloride 101 mmol/L (98-107); Estimated GFR 100.19 (mL/min/1.73m2); Glucose 106 mg/dL (74-106); NT-proBNP 25 pg/mL (<300); Potassium 4.3 mmol/L (3.5-5.1); Sodium 141 mmol/L (136-145); Total Protein 6.7 g/dL (6.4-8.2); Troponin I < 4 ng/L (<or=51)
[2024-10-13 11:51] LABS: Troponin I 6 ng/L (<or=51)
--- NOTE | 2024-10-13 16:06 | PDOC.CMIN ---
Date of service: 10/13/24 Time of Service: 16:06 Care Management Initial Assmt Initial Assessment Reason for Hospitalization: SOB Functional Status/Living Situation Patient Presentation: Marissa was laying down in bed and her daughter visiting in the room when CM arrived. Per Marissa, she reports being unable to walk short distances without becoming short of breath. Per Marissa, she had applied for disability and was seeking help with this process. CM provided education surrounding the processes that disability uses, and explained that [facility] may be able to help with a portion of this process. CM offered to send a referral to [facility], which Marissa happily accepted. Marissa and Fay expressed concerns about their experience at the pulmonary clinic, CM coordinated their connection with the [facility] patient experience officer. Advance Directives Advance Directives: Do you have an Advance Directive: N 02/01/13 13:48 AD On File at [facility]: N 02/01/13 13:48 Date Asked 09/08/24 09/08/24 11:17 AD Date Reviewed COLST On File at [facility] COLST Date Scanned Care Team Visit Care Team Role Provider Type Maegan Ness NP Primary Care Provider NURSE PRACTITIONER Hetal Anderson NP Emergency Provider NURSE PRACTITIONER Social Determinants of Health Screening Will the Patient Participate in the Screening?: Declined to provide PFSH All Active Problems (Updated 10/13/24 @ 12:03 by Hetal Anderson NP) Influenza A (Acute) Respiratory failure (Acute) COPD with acute exacerbation (Acute) Diarrhea (Acute) COPD exacerbation (Acute) Nail dystrophy (Acute) Pain due to onychomycosis of nail (Acute) Onychomycosis (Acute) Respiratory failure with hypoxia and hypercapnia (Acute) Personal history of nicotine dependence (Acute) COPD (chronic obstructive pulmonary disease) (Chronic) Right ventricular dysfunction (Acute) Elevated brain natriuretic peptide (BNP) level (Acute) Nasal contusion (Acute) Hx of falling (Acute) Grief reaction (Chronic) Weight loss (Acute) Tobacco dependence (Chronic) HTN (hypertension) (Chronic) Prediabetes (Acute) Medical History Acute exacerbation of chronic obstructive pulmonary disease (COPD) Acute respiratory failure with hypoxia and hypercapnia Acute dyspnea 04/23/[address] [facility]. -hb Spontaneous pneumothorax 10/1992 Surgical History S/P abdominal hysterectomy and right salpingo-oophorectomy H/O: hysterectomy Family History Mother , brain aneurism age 84 No problems noted. Father , 51 Heart disease Hypertension Sister Hypertension Brother No problems noted. Maternal Grandmother Diabetes Brother No problems noted. 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: [employer] Pets and animals: Yes Pets and animals: dog(s) Sexually active: No Do you think of yourself as: straight/heterosexual Current gender identity: female How often do you talk on the phone with friends or family?: decline to answer How often do you get together with friends or relatives?: decline to answer How often do you attend buddhism or scientologist services?: decline to answer Do you belong to any clubs or organized social groups?: decline to answer Duration: decline to answer Frequency: decline to answer Seatbelt use: always Helmet use: Yes Do you feel safe in your relationship?: Yes
--- NOTE | 2024-10-13 16:25 | CMPROGNOTE_ITS ---
Date of service: 10/13/24 Time of Service: 13:00 Care Management Progress Note Progress Note Text Progress Note Text: Marissa was laying in bed visiting with her daughter Fay when CM arrived. Per Marissa, she is unable to walk short distances without increased shortness of breath. Due to this, Marissa was seeking assistance with obtaining disability. Marissa stated that she has already applied for disability and is waiting for a response. CM educated Marissa on some of the process used to obtain disability, and shared that [employer] would be a good community resource that would be able to assist them guidance regarding this process. CM offered to send a [facility] referral to which Marissa happily accepted. Marissa and Fay expressed some concerns regarding their visit with pulmonary, CM coordinated the connection between them and [facility] patient experience officer. Discharge Potential Discharge Needs: PCP F/U Appt Anticipated Barriers to Discharge: None Identified Patient/Family Education Needs: Review discharge instructions, discuss Ask Me Three Transportation: Private vehicle (Her daughter Fay) Plan: Anticipate, Marissa will return home with no new services once medically cleared. Her daughter will drive her home via private vehicle and she will follow up with her PCP and discharge plan of care. CM will follow and continue to support discharge planning efforts. Social Determinants of Health Screening Will the Patient Participate in the Screening?: Declined to provide
--- NOTE | 2024-10-13 17:11 | RESPIRATORY ---
RT spoke with Pulmonology and patient today. RT reviewed pt's current prescription for oxygen is room air at rest and 1L with ambulation through [employer]. Pulmonology confirmed that patient is on current Trelegy inhaler therapy at least until pt's follow up appointment with the pulmonary clinic 10/20/24. At that appointment, patient and provider can determine whether the patient should continue current inhaler therapy, go back to old inhaler therapy of Stiolto (or another LABA/LAMA version such as Anoro Ellipta), or move forward with Dupixent biologic therapy as currently planned with pulmonary care.
--- NOTE | 2024-10-14 09:16 | NUR.NOTE ---
pts chart accessed to reprint work note at pts request. Nursing Note:
== END 2024-10-13 13:22 | disposition home or self-care (01) ==
PROVIDERS: Emergency Provider Registered Nurse Emergency; PCP Nurse Practitioner Family
DX: J44.1 Chronic obstructive pulmonary disease with (acute) exacerbation (principal); I10 Essential (primary) hypertension; Z99.81 Dependence on supplemental oxygen; Z87.891 Personal history of nicotine dependence
CPT/HCPCS: 36415; 80053; 82805; 87637; 93005; 94640; 96374; 99285; 71045; 83880; 84484; 85025; 93010; 99284; J2919; J7620

== ENCOUNTER 2024-10-17 12:39 | Emergency (ER) | payer OTHER, SELFPAY ==
[2024-10-17] VITALS (22 sets, daily range): BP systolic 152–176; BP diastolic 96–114; PULSE 89–119; RESP 5–25; TEMP 36.8; O2SAT 76–100
--- NOTE | 2024-10-17 12:45 | RT.EKG_ITS ---
APPROVED REPORT Exam: Resting ECG Reason for Exam: dyspnea Patient Location: E HR:103 bpm ECG Measurements Heart Rate 103 AXIS WY 155 P 86 QRSd 78 QRS 96 QT 333 T 87 QTc 437 Conclusion Sinus tachycardia...rate> 99 Abnrm T, consider ischemia, anterolateral lds...T <-0.20mV, I aVL V2-V6
--- NOTE | 2024-10-17 12:45 | DI.CT_ITS ---
Exam(s) CT CHEST PE CTA EXAM: CT CHEST PE CTA CLINICAL HISTORY: dyspnea, hypoxia. TECHNIQUE: Imaging Protocol: Axial CT angiography was performed with multi-slice acquisition and mu lti-planar and/or 3D reconstructions. Lung Computer Aided Detection (CAD) was utilized. CONTRAST MATERIAL: Intravenous: Omnipaque 350 contrast volume:50 mL COMPARISON: CT CT CHEST PE CTA from 04/27/[address] CHEST PE CTA from 07/16/2023 CR XR PORTABLE CHEST AP from 10/13/2024 FINDINGS: Tracheobronchial tree: Patent where visualized. There is mild bronchial wall thickening. No mucous p lugging is present. Pulmonary parenchyma: There are severe emphysematous changes in the lungs. No focal consolidating in filtrates are present. There is a calcified granuloma in the left upper lobe. No suspicious pulmona ry nodules are present. Pulmonary Arteries: No evidence of filling defect to suggest pulmonary emboli. Mediastinum and Daina: No dominant adenopathy or fluid collection. The esophagus is unremarkable. Visualized thyroid gland: Unremarkable. Pleura: No effusion or pneumothorax. Heart: The heart is not dilated. Coronary artery calcification is present. No pericardial effusion. Aorta: Thoracic aorta non-dilated. No evidence of dissection. Atherosclerotic calcification is presen t. There is motion artifact seen in the descending thoracic aorta limiting evaluation. Upper abdomen: There is a renal cyst present. No follow-up is recommended. Soft tissues: Unremarkable. Bones: Within normal limits for the patient's age. IMPRESSION: 1. There is no evidence of pulmonary embolism or thoracic aortic aneurysm. 2. No acute pulmonary process. RADIATION DOSE DELIVERED: 32.82mGy.cm Total DLP DATA REPOSITORY: All CT scans at this facility are submitted to the National Radiology Data Registry (NRDR) Dose Index Registry (DIR) with the [employer] (ACR). RADIATION OPTIMIZATION: All CT scans at this facility use at least one of these dose optimization te chniques: automated exposure control; mA and/or kV adjustment per patient size (includes targeted exa ms where dose is matched to clinical indication); or iterative reconstruction.
--- NOTE | 2024-10-17 12:57 | W.ED.GENAD ---
Discharge Plan Disposition Patient Disposition: Home Condition: Stable Discharge Details Clinical Impression: COPD exacerbation, Shortness of breath Primary Care Provider: Maegan Ness ED Provider: Mark Woodruff Home Meds and New Rx's Prescriptions: New prednisone 20 mg tablet 60 mg PO DAILY 4 Days Qty: 12 0RF amoxicillin-pot clavulanate 875-125 mg tablet 1 tab PO BID Qty: 14 0RF Continued ipratropium-albuterol 0.5 mg-3 mg(2.5 mg base)/3 mL solution for nebulization 3 ml inhalation QID PRN Breztri Aerosphere 160-9-4.8 mcg/actuation HFA aerosol inhaler 2 inh inhalation BID Qty: 10.7 12RF acetylcysteine [NAC] 600 mg capsule 600 mg PO DAILY albuterol sulfate 90 mcg/actuation HFA aerosol inhaler 2 puff inhalation Q6H PRN (Reason: shortness of breath or wheezing) Qty: 8.5 4RF Trelegy Ellipta 200-62.5-25 mcg blister with device 1 inh inhalation Q24H Qty: 60 3RF amlodipine 5 mg tablet 5 mg PO DAILY Qty: 90 3RF lisinopril 40 mg tablet 40 mg PO DAILY Qty: 90 3RF ibuprofen 600 MG tablet 600 mg PO TID PRN (DME) Oxygen Tank See Rx Instructions .Route Qty: 1 0RF Rx Instructions: As directed Discharge Instructions Additional Instructions: Follow-up with the pulmonology clinic as scheduled. If you feel significantly more ill or have new symptoms such as high fevers return to the emergency department for reevaluation. You can take the prednisone starting tomorrow and the antibiotic should be taken twice a day. Stand Alone Forms: Work Release HPI General Mode of arrival: wheelchair. Date/Time Provider Initiated Documentation: 10/17/24 12:40. Limitations to Documentation: no limitations. Information obtained by: patient. History of Present Illness 59 year old F presents to the emergency department with the chief complaint of dyspnea, described as moderate, Patient started experiencing this week(s) (2) and it has been constant. No relieving factors improve symptom(s), No exacerbating factors reported . Patient notes cough and shortness of breath; denies chest pain and fever/chills. Patient did receive the following treatments prior to arrival, none Related Data Home Medications ?Medication ?Instructions ?Recorded ?Confirmed ibuprofen 600 mg tablet 600 mg PO TID PRN 12/23/13 10/17/24 amlodipine 5 mg tablet 5 mg PO DAILY #90 tabs 03/19/23 10/17/24 lisinopril 40 mg tablet 40 mg PO DAILY #90 tabs 03/19/23 10/17/24 acetylcysteine 600 mg capsule (NAC) 600 mg PO DAILY 07/02/23 10/17/24 Oxygen #1 ea 07/18/23 10/17/24 ipratropium 0.5 mg-albuterol 3 mg 3 ml inhalation QID PRN 11/04/23 10/17/24 (2.5 mg base)/3 mL nebulization soln albuterol sulfate 90 mcg/actuation 2 puff inhalation Q6H PRN 05/26/24 10/17/24 aerosol inhaler shortness of breath or wheezing #8.5 grams budesonide 160 mcg-glycopyr 9 2 inh inhalation BID #10.7 grams 07/22/24 10/17/24 mcg-formot 4.8 mcg/actuation HFA inhaler (Breztri Aerosphere) fluticasone fur. 200 mcg-umeclid 1 inh inhalation Q24H #60 ea 09/22/24 10/17/24 62.5 mcg-vilant 25 mcg inhalat.powder (Trelegy Ellipta) amoxicillin 875 mg-potassium 1 tab PO BID #14 tabs 10/17/24 clavulanate 125 mg tablet prednisone 20 mg tablet 60 mg (3 x 20 mg) PO DAILY 4 days 10/17/24 #12 tabs Previous Rx's ?Medication ?Instructions ?Recorded amlodipine 5 mg tablet 5 mg PO DAILY #90 tabs 03/19/23 lisinopril 40 mg tablet 40 mg PO DAILY #90 tabs 03/19/23 Oxygen #1 ea 07/18/23 albuterol sulfate 90 mcg/actuation 2 puff inhalation Q6H PRN 05/26/24 aerosol inhaler shortness of breath or wheezing #8.5 grams budesonide 160 mcg-glycopyr 9 2 inh inhalation BID #10.7 grams 07/22/24 mcg-formot 4.8 mcg/actuation HFA inhaler (Breztri ClearServe) fluticasone fur. 200 mcg-umeclid 1 inh inhalation Q24H #60 ea 09/22/24 62.5 mcg-vilant 25 mcg inhalat.powder (Trelegy Ellipta) amoxicillin 875 mg-potassium 1 tab PO BID #14 tabs 10/17/24 clavulanate 125 mg tablet prednisone 20 mg tablet 60 mg (3 x 20 mg) PO DAILY 4 days 10/17/24 #12 tabs Allergies Allergy/AdvReac Type Severity Reaction Status Date / Time codeine AdvReac Nausea Verified 10/17/24 12:49 General Stated Complaint: SOB RODO: 3 Review of Systems All systems reviewed & are unremarkable except as noted in HPI and below Constitutional Constitutional: Denies chills, Denies fever(s) and Denies weakness Cardiovascular Cardiovascular: Denies chest pain and Reports dyspnea Respiratory Respiratory: Reports cough and Reports dyspnea Gastrointestinal Gastrointestinal: Denies abdominal pain, Denies nausea and Denies vomiting Neurologic Neurologic: Denies weakness Exam Const General: no acute distress Orientation: alert HENMT Head: normal to inspection Ears: external ears normal General nose exam: external nose normal Mouth: moist mucous membranes Eyes General: appearance normal, both eyes and all related structures Neck Neck: normal visual inspection Resp Effort & Inspection: normal respiratory effort and able to speak in complete sentences Auscultation: wheezes Cardio Rate: regular rate Skin General skin exam: no rashes or lesions noted Neuro General: patient alert and patient oriented x3 Extrem General: normal to inspection Psych Mental Status: mental status grossly normal Course Vital Signs Vital signs: Vital Signs Temperature 36.8 C 10/17/24 12:46 Pulse 103 H 10/17/24 12:46 Respiratory Rate 18 10/17/24 12:46 Blood Pressure 170/97 H 10/17/24 12:46 Pulse Oximetry 91 L 10/17/24 12:46 Temperature 36.8 C 10/17/24 12:46 Temperature Source Oral 10/17/24 12:46 Pulse 103 H 10/17/24 12:46 Respiratory Rate 18 10/17/24 12:46 Blood Pressure 170/97 H 10/17/24 12:46 Blood Pressure Position Sitting 10/17/24 12:46 Pulse Oximetry 91 L 10/17/24 12:46 Oxygen Delivery Method Nasal Cannula 10/17/24 12:46 Oxygen Flow Rate 1 04/05/25 12:46 Medical Decision Making 59-year-old female who is a former smoker and on home oxygen for COPD comes in with continued shortness of breath. She says been going on for few weeks now and was seen earlier this week and was discharged from the emergency department. She says she still shortness of breath and has increased cough her baseline. She denies any chest pain or high fevers. She is speaking full sentences on exam, she has no JVD or leg swelling or calf tenderness. She does have diffuse wheezing bilaterally in all lung amaya. I suspect COPD exacerbation, will treat with a DuoNeb and Solu-Medrol. Will also check an EKG and troponins, CBC, CMP and also obtain a CT of the chest to evaluate for possible PE. Labs unremarkable, PCO2 is elevated but is chronically elevated. Negative troponin has had symptoms for well over 3 hours so do not feel delta's are indicated. CTA shows no evidence of PE. Given her increased coughing (antibiotics. Her lung sounds have improved after 2 nebs. She is stable for discharge and will follow-up with her pulmonology clinic and return precautions given Differential Diagnosis Differential Diagnosis: COPD exacerbation, pneumonia, bronchitis, PE Medical Records Medical records reviewed: Yes I reviewed the patient's medical records. Lab Data Lab results reviewed: Yes I reviewed the patient's lab results. ECG Data Attestation: I personally reviewed and interpreted this ECG (s) as follows: Prior ECG tracings: available for review Interpretation: sinus tachycardia, rate of 103 no stemi Quality:SDOH Health Related Social Needs: Health related social needs details Marissa's insurance company mandates home delivered medications. Marissa has two prescriptions which are inhalers, and she expressed concern about not being able to use her inhalers after they are left outside in the cold weather[place] mail [place] unreliable, often being delivered late at night. 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 [facility] All Active Problems (Updated 10/17/24 @ 14:50 by Mark Woodruff MD) Shortness of breath (Acute) COPD exacerbation (Acute) Influenza A (Acute) Respiratory failure (Acute) COPD with acute exacerbation (Acute) Diarrhea (Acute) COPD exacerbation (Acute) Nail dystrophy (Acute) Pain due to onychomycosis of nail (Acute) Onychomycosis (Acute) Respiratory failure with hypoxia and hypercapnia (Acute) Personal history of nicotine dependence (Acute) COPD (chronic obstructive pulmonary disease) (Chronic) Right ventricular dysfunction (Acute) Elevated brain natriuretic peptide (BNP) level (Acute) Nasal contusion (Acute) Hx of falling (Acute) Grief reaction (Chronic) Weight loss (Acute) Tobacco dependence (Chronic) HTN (hypertension) (Chronic) Prediabetes (Acute) Medical History Acute exacerbation of chronic obstructive pulmonary disease (COPD) Acute respiratory failure with hypoxia and hypercapnia Acute dyspnea 04/23/23 Per [facility]. -hb Spontaneous pneumothorax 10/1992 Surgical History S/P abdominal hysterectomy and right salpingo-oophorectomy H/O: hysterectomy Family History Mother , brain aneurism age 84 No problems noted. Father , 51 Heart disease Hypertension Sister Hypertension Brother No problems noted. Maternal Grandmother Diabetes Brother No problems noted. 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: [employer] Pets and animals: Yes Pets and animals: dog(s) Sexually active: No Do you think of yourself as: straight/heterosexual Current gender identity: female How often do you talk on the phone with friends or family?: decline to answer How often do you get together with friends or relatives?: decline to answer How often do you attend buddhism or anglican services?: decline to answer Do you belong to any clubs or organized social groups?: decline to answer Duration: decline to answer Frequency: decline to answer Seatbelt use: always Helmet use: Yes Do you feel safe in your relationship?: Yes
[2024-10-17 13:17] LABS: BE (Venous) 11 mmol/L (-2-3); HCO3 (Venous) 38 mmol/L (23-28); O2 Sat (Venous) 29 %; TCO2 (Venous) 35 mmol/L (24-29); pH (Venous) 7.29 (7.31-7.41); pO2 (Venous) 21 mmHg
[2024-10-17 13:19] LABS: Abs Immature Grans 0.04 10^3/uL (0.0-0.06); Absolute Basophil Count 0.07 10^3/uL (0.0-0.2); Absolute Eosinophil Count 0.36 10^3/uL (0.0-0.7); Absolute Lymphocyte Count 1.85 10^3/uL (1.2-3.4); Absolute Neutrophil Count 5.54 10^3/uL (1.2-6.7); Basophils % 0.8 %; Eosinophils % 4.1 %; HCT 46.2 % (36.0-46.0); HGB 13.9 g/dL (11.2-15.7); Immature Grans % 0.5 %; Lymphocytes % 21.1 %; MCH 29.4 pg (27.0-33.0); MCHC 30.1 % (32.0-36.0); MCV 98 fL (80-95); MPV 9.8 fL (8.0-11.0); Monocytes % 10.3 %; Neutrophils % 63.2 %; Platelet Count 209 10^3/uL (130-400); RBC 4.72 10^6/uL (3.93-5.22); RDW 13.1 % (11.7-14.6); RDW-SD 46.7 fL; WBC 8.76 10^3/uL (4.4-10.8); pCO2 (Venous) 78 mmHg (41-51)
[2024-10-17] MEDS: Normal Saline - Diluent 50 ML VIAL IJ (13:19)
[2024-10-17] MEDS: Omnipaque 350 MG/ML 100 ML BTL IJ (13:19)
[2024-10-17] MEDS: methylPREDNISolone SUCC 125 MG VIAL IVP (13:32)
[2024-10-17] MEDS: Albuterol/Ipratropium 3 ML UPD VIAL UPD ×2 (13:32→14:59)
[2024-10-17 13:37] LABS: PTT Activated 22.1 sec (20.6-30.2); Prothrombin Time 10.1 sec (9.1-11.1)
[2024-10-17 13:42] LABS: ALT 27 U/L (14-59); AST 17 U/L (15-37); Albumin 3.7 g/dL (3.4-5.0); Alkaline Phosphatase 66 U/L (46-116); Anion Gap 2.6 mmol/L (3-11); BUN 12 mg/dL (7-18); Bilirubin, Total 0.3 mg/dL (0.2-1.0); CO2 37.4 mmol/L (21.0-32.0); CREATININE 0.6 mg/dL (0.55-1.02); Calcium 9.7 mg/dL (8.5-10.1); Chloride 104 mmol/L (98-107); Estimated GFR 103.98 (mL/min/1.73m2); Glucose 98 mg/dL (74-106); Magnesium 2.1 mg/dL (1.8-2.4); NT-proBNP 79 pg/mL (<300); Potassium 4.1 mmol/L (3.5-5.1); Sodium 144 mmol/L (136-145); Troponin I 5 ng/L (<or=51)
[2024-10-17 14:15] LABS: COVID-19 PCR Negative (Negative); Influenza A PCR Negative (Negative); Influenza B PCR Negative (Negative); RSV PCR Negative (Negative)
[2024-10-17 14:22] LABS: Source Nasopharynx
[2024-10-17] MEDS: Amoxicillin 875/Clav. 125 TAB PO (14:59)
== END 2024-10-17 15:11 | disposition home or self-care (01) ==
PROVIDERS: Emergency Provider Emergency Medicine; PCP Nurse Practitioner Family
DX: J44.1 Chronic obstructive pulmonary disease with (acute) exacerbation (principal); I10 Essential (primary) hypertension; Z99.81 Dependence on supplemental oxygen; Z87.891 Personal history of nicotine dependence
CPT/HCPCS: 71275; 80053; 82805; 87637; 93005; 94640; 96374; 99285; 83735; 83880; 84484; 85025; 85610; 85730; 93010; 99284; J2919; J3490; J7620

== ENCOUNTER 2024-11-03 09:16 | Emergency (ER) | payer OTHER, SELFPAY ==
[2024-11-03] VITALS (27 sets, daily range): BP systolic 134–157; BP diastolic 92–101; PULSE 58–118; RESP 16–29; TEMP 36.7; O2SAT 76–100
--- NOTE | 2024-11-03 09:15 | RT.EKG_ITS ---
APPROVED REPORT Exam: Resting ECG Reason for Exam: SOB Patient Location: E HR:113 bpm ECG Measurements Heart Rate 113 AXIS CA 116 P 87 QRSd 71 QRS 98 QT 303 T 87 QTc 415 Conclusion Sinus tachycardia, rate 113 No interval abnormalities No STEMI No significant changes from priors
--- NOTE | 2024-11-03 09:15 | DI.RAD_ITS ---
Exam(s) XR CHEST 2V PA LATERAL EXAM: XR CHEST 2V PA LATERAL CLINICAL HISTORY: Shortness of breath, hx COPD TECHNIQUE: 2D digital imaging was performed of the chest. Two images were obtained. PA and lateral views were obtained. COMPARISON: CR XR CHEST 2V PA LATERAL from 09/07/2024 CR XR PORTABLE CHEST AP from 10/13/2024 FINDINGS: MEDIASTINUM: Normal. HEART: Normal. PULMONARY VASCULATURE: Normal. LUNGS: The lungs are hyperinflated consistent with underlying COPD. No focal consolidating infiltrat es are present. PLEURAL SPACE: No pleural effusion or pneumothorax. BONE:Within normal limits for the patient's age. OTHER FINDINGS:Normal. IMPRESSION: No acute pulmonary findings. DATA REPOSITORY: RADIATION DOSE DELIVERED:
--- NOTE | 2024-11-03 09:41 | ED.GENADUL_ITS ---
Discharge Plan Disposition Patient Disposition: Home Discharge Details Clinical Impression: COPD with acute exacerbation, Shortness of breath Primary Care Provider: Maegan Ness ED Provider: Portia Kidd Home Meds and New Rx's Prescriptions: New prednisone 20 mg tablet 40 mg PO DAILY 4 Days Qty: 8 0RF Rx Instructions: Start on 11/04/2024 azithromycin 250 mg tablet 250 mg PO DAILY 4 Days Qty: 4 0RF Rx Instructions: start on day 2 of therapy (11/04/2024) No Action ipratropium-albuterol 0.5 mg-3 mg(2.5 mg base)/3 mL solution for nebulization 3 ml inhalation QID PRN Breztri Aerosphere 160-9-4.8 mcg/actuation HFA aerosol inhaler 2 inh inhalation BID Qty: 10.7 12RF acetylcysteine [NAC] 600 mg capsule 600 mg PO DAILY albuterol sulfate 90 mcg/actuation HFA aerosol inhaler 2 puff inhalation Q6H PRN (Reason: shortness of breath or wheezing) Qty: 8.5 4RF Pulmicort Flexhaler 90 mcg/actuation aerosol powdr breath activated 1 inh inhalation BID 30 Days Qty: 1 6RF Arnuity Ellipta 100 mcg/actuation blister with device 1 inh inhalation DAILY Qty: 30 6RF Trelegy Ellipta 200-62.5-25 mcg blister with device 1 inh inhalation Q24H Qty: 60 3RF amlodipine 5 mg tablet 5 mg PO DAILY Qty: 90 3RF lisinopril 40 mg tablet 40 mg PO DAILY Qty: 90 3RF ibuprofen 600 MG tablet 600 mg PO TID PRN (DME) Oxygen Tank See Rx Instructions .Route Qty: 1 0RF Rx Instructions: As directed Discharge Instructions Instructions: COPD Exacerbation, Adult ED Additional Instructions: You were seen in the emergency department today for evaluation of shortness of breath likely due to a COPD exacerbation. Reassuringly, your viral swab was negative and your chest x-ray does not show signs of pneumonia. Your laboratory studies were reassuring including normal cardiac enzymes and a negative test for blood clots. You received nebulizer treatments and your first dose of steroids and antibiotics. You are at your baseline oxygen requirement so it is safe to trial outpatient management. You will have 4 more days of steroids and antibiotics, to start tomorrow. Take both of these medications until they are gone, even if you start to feel better. Continue to use all of your breathing treatments and nebulizers as recommended by pulmonology, I have provided you with a refill of your albuterol rescue inhaler today. Please follow-up with your primary care provider in the next few days to discuss this visit and any symptoms that change, worsen, or persist. Thank you for allowing us to be part of your care. Stand Alone Forms: Work Release HPI General Mode of arrival: ambulatory . Date/Time Provider Initiated Documentation: 11/03/24 09:18 . Limitations to Documentation: no limitations . Information obtained by: patient, family and old records reviewed . HPI Narrative: This is a 59-year-old female patient with a past medical history significant for COPD, on 1 L/min of oxygen by nasal cannula chronically, with a history of frequent exacerbations, CO2 retention, hypertension. She is presenting for evaluation of 1 day of increased shortness of breath and change in sputum production. The patient reports that she began to have worsening shortness of breath, she feels like she is unable to speak in full sentences as is typical for her, has been taking her rescue albuterol inhaler without improvement. She has had numerous exacerbations requiring hospitalization over the past 6 months, last 1 was in early October a few weeks ago. She completed her course of oral steroids, does take an inhaled corticosteroid, and is working with pulmonology for other treatments to reduce her number of exacerbations. 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 She states that she is not experiencing pain, has been eating and drinking typically, and has felt cool but has not had fevers or chills. She states that last night she turned up her oxygen a little bit, but turned it back down to ensure that she did not cause issues with her known CO2 retention/hypoxic drive. In the past the patient has required short courses of BiPAP, does not like to wear the BiPAP mask, has only needed to be intubated 1 time. Related Data Home Medications ?Medication ?Instructions ?Recorded ?Confirmed ibuprofen 600 mg tablet 600 mg PO TID PRN 12/23/13 11/03/24 amlodipine 5 mg tablet 5 mg PO DAILY #90 tabs 03/19/23 11/03/24 lisinopril 40 mg tablet 40 mg PO DAILY #90 tabs 03/19/23 11/03/24 acetylcysteine 600 mg capsule (NAC) 600 mg PO DAILY 07/02/23 11/03/24 Oxygen #1 ea 07/18/23 11/03/24 ipratropium 0.5 mg-albuterol 3 mg 3 ml inhalation QID PRN 11/04/23 11/03/24 (2.5 mg base)/3 mL nebulization soln albuterol sulfate 90 mcg/actuation 2 puff inhalation Q6H PRN 05/26/24 11/03/24 aerosol inhaler shortness of breath or wheezing #8.5 grams budesonide 160 mcg-glycopyr 9 2 inh inhalation BID #10.7 grams 07/22/24 11/03/24 mcg-formot 4.8 mcg/actuation HFA inhaler (Breztri Aerosphere) fluticasone fur. 200 mcg-umeclid 1 inh inhalation Q24H #60 ea 09/22/24 11/03/24 62.5 mcg-vilant 25 mcg inhalat.powder (Trelegy Ellipta) budesonide 90 mcg/actuation breath 1 inh inhalation BID 30 days #1 ea 10/20/24 11/03/24 activated powder inhaler (Pulmicort Flexhaler) fluticasone furoate 100 1 inh inhalation DAILY #30 ea 10/21/24 11/03/24 mcg/actuation blister powder for inhalation (Arnuity Ellipta) azithromycin 250 mg tablet 250 mg PO DAILY 4 days #4 tabs 11/03/24 prednisone 20 mg tablet 40 mg (2 x 20 mg) PO DAILY 4 days 11/03/24 #8 tabs Previous Rx's ?Medication ?Instructions ?Recorded amlodipine 5 mg tablet 5 mg PO DAILY #90 tabs 03/19/23 lisinopril 40 mg tablet 40 mg PO DAILY #90 tabs 03/19/23 Oxygen #1 ea 07/18/23 albuterol sulfate 90 mcg/actuation 2 puff inhalation Q6H PRN 05/26/24 aerosol inhaler shortness of breath or wheezing #8.5 grams budesonide 160 mcg-glycopyr 9 2 inh inhalation BID #10.7 grams 07/22/24 mcg-formot 4.8 mcg/actuation HFA inhaler (Breztri Aerosphere) fluticasone fur. 200 mcg-umeclid 1 inh inhalation Q24H #60 ea 09/22/24 62.5 mcg-vilant 25 mcg inhalat.powder (Trelegy Ellipta) budesonide 90 mcg/actuation breath 1 inh inhalation BID 30 days #1 ea 10/20/24 activated powder inhaler (Pulmicort Flexhaler) fluticasone furoate 100 1 inh inhalation DAILY #30 ea 10/21/24 mcg/actuation blister powder for inhalation (Arnuity Ellipta) azithromycin 250 mg tablet 250 mg PO DAILY 4 days #4 tabs 11/03/24 prednisone 20 mg tablet 40 mg (2 x 20 mg) PO DAILY 4 days 11/03/24 #8 tabs Allergies Allergy/AdvReac Type Severity Reaction Status Date / Time codeine AdvReac Nausea Verified 11/03/24 09:23 General Stated Complaint: SOB RODO: 3 Exam Narrative Exam Narrative: Gen: awake and alert, in no apparent distress. Appears chronically ill, cachectic HEENT: PERRL, EOMs full and without nystagmus. External ears and nose normal, mucous membranes moist. Neck: Supple, full range of motion, no observable masses Lungs: The patient has mildly increased work of breathing, diminished lung sounds throughout with scattered expiratory wheezing CV: Heart with tachycardic rate and regular rhythm, no murmurs auscultated. Strong and symmetrical radial pulses. Abdomen: Soft, nondistended, non-tender to palpation. No rigidity, rebound tenderness, or guarding. MSK: No joint swelling, no redness. Full ROM without limitation, no external traumatic findings. No peripheral edema, no unilateral calf tenderness or swelling Skin: No rashes or lesions to visualized skin. Normal color, warm, and dry. Neuro: Cranial nerves II-XII intact and symmetrical bilaterally. 5/5 strength in all muscle groups x4 extremities. No sensory deficits. Ambulates with steady gait. Psych: Appropriate for situation. Course Vital Signs Vital signs: Vital Signs Temperature 36.7 C 11/03/24 09:18 Pulse 105 H 11/03/24 09:18 Respiratory Rate 11/03/24 09:18 Blood Pressure 157/99 H 11/03/24 09:18 Pulse Oximetry 91 L 11/03/24 09:18 Temperature 36.7 C 11/03/24 09:27 Temperature Source Temporal Artery Scan 11/03/24 09:27 Pulse 105 H 11/03/24 09:27 Respiratory Rate 22 11/03/24 09:27 Blood Pressure 157/99 H 11/03/24 09:27 Blood Pressure Position Sitting 11/03/24 09:27 Pulse Oximetry 91 L 11/03/24 09:27 Oxygen Delivery Method Nasal Cannula 11/03/24: Oxygen Flow Rate 1 11/03/24 09:27 Pain Level 0 11/03/24 09:27 Medical Decision Making This is a 59-year-old female patient with a past medical history significant for COPD who is presenting for evaluation of shortness of breath and sputum change. My differential includes but is not limited to COPD exacerbation, viral URI, pneumonia, bronchitis. The patient has no history of heart failure nor evidence of fluid overload on physical examination to significantly increase my concern for pulmonary edema or pleural effusion. She has no history of thromboembolic disease or evidence of DVT on physical examination, and her diminished/wheezing lung sounds were more typical of reactive airway disease exacerbation. She is tolerating oral intake and have a lower concern for metabolic and electrolyte derangement, kidney injury. We obtained an EKG which I reviewed, which shows a sinus tachycardia without evidence of acute ischemia, interval abnormalities, or ectopy. I will provide the patient with a duo nebulizer treatment and a dose of Solu-Medrol, and obtain laboratory studies to include CBC, CMP, magnesium, troponin, Fluvid, VBG, and we will obtain a chest x-ray. - I reviewed the patient's laboratory studies, which show no leukocytosis, anemia or thrombocytopenia. Chemistry panel without electrolyte derangements, other than slightly elevated bicarb to 36 consistent with her chronic hypercarbic respiratory failure. Her VBG does show a CO2 of 76, well compensated with a pH of 7.31, which is actually improved compared to some of her prior VBG's. Her troponin was negative, no evidence of kidney or liver dysfunction, viral swab negative. D-dimer was also obtained given the persistent tachycardia, and this was negative. I reviewed the patient's chest x-ray, which does show hyperinflation consistent with her COPD, but no focal consolidations concerning for pneumonia. On repeat evaluation the patient's air movement has improved, a second duo nebulizer was provided and the patient had improvement in her work of breathing. I am most concerned for a COPD exacerbation, and provided her with a dose of azithromycin as well as prescriptions for the remainder of her 5-day course of prednisone and azithromycin to be taken at home. She does not have a new or increasing oxygen requirement, her work of breathing is appropriate and I feel that a trial of outpatient management is reasonable. I did provide the patient with a new albuterol inhaler as she has nearly used all of the 1 that she has. At this time, the patient has had a full medical evaluation and is safe for discharge to home. They are hemodynamically stable, ambulatory, and tolerating PO. They are understanding of the follow-up plan and return precautions. They left our facility without incident. Portia Kidd MD Medical Records Medical records reviewed: Yes I reviewed the patient's medical records. Lab Data Lab results reviewed: Yes I reviewed the patient's lab results. Quality:[facility] Health Related Social Needs: Health related social needs details Marissa's insurance company mandates home delivered medications. Marissa has two prescriptions which are inhalers, and she expressed concern about not being able to use her inhalers after they are left outside in the cold weather. [place] mail delivery [place] unreliable, often being delivered late at night. 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 [facility] All Active Problems (Updated 11/03/24 @ 12:26 by Portia Kidd MD) Shortness of breath (Acute) COPD exacerbation (Acute) Influenza A (Acute) Respiratory failure (Acute) COPD with acute exacerbation (Acute) Diarrhea (Acute) COPD exacerbation (Acute) Nail dystrophy (Acute) Pain due to onychomycosis of nail (Acute) Onychomycosis (Acute) Respiratory failure with hypoxia and hypercapnia (Acute) Personal history of nicotine dependence (Acute) COPD (chronic obstructive pulmonary disease) (Chronic) Right ventricular dysfunction (Acute) Elevated brain natriuretic peptide (BNP) level (Acute) Nasal contusion (Acute) Hx of falling (Acute) Grief reaction (Chronic) Weight loss (Acute) Tobacco dependence (Chronic) HTN (hypertension) (Chronic) Prediabetes (Acute) Medical History Acute exacerbation of chronic obstructive pulmonary disease (COPD) Acute respiratory failure with hypoxia and hypercapnia Acute dyspnea 04/23/[address] [facility]. -[facility] Spontaneous pneumothorax 10/1992 Surgical History S/P abdominal hysterectomy and right salpingo-oophorectomy H/O: hysterectomy Family History Mother , brain aneurism age 84 No problems noted. Father , 51 Heart disease Hypertension Sister Hypertension Brother No problems noted. Maternal Grandmother Diabetes Brother No problems noted. 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: [employer] Pets and animals: Yes Pets and animals: dog(s) Sexually active: No Do you think of yourself as: straight/heterosexual Current gender identity: female How often do you talk on the phone with friends or family?: decline to answer How often do you get together with friends or relatives?: decline to answer How often do you attend samaritan or anglican services?: decline to answer Do you belong to any clubs or organized social groups?: decline to answer Duration: decline to answer Frequency: decline to answer Seatbelt use: always Helmet use: Yes Do you feel safe in your relationship?: Yes
[2024-11-03 09:44] LABS: BE (Venous) 12 mmol/L (-2-3); HCO3 (Venous) 38 mmol/L (23-28); O2 Sat (Venous) 50 %; TCO2 (Venous) 35 mmol/L (24-29); pH (Venous) 7.31 (7.31-7.41); pO2 (Venous) 27 mmHg
[2024-11-03 09:45] LABS: Abs Immature Grans 0.04 10^3/uL (0.0-0.06); Absolute Basophil Count 0.05 10^3/uL (0.0-0.2); Absolute Eosinophil Count 0.34 10^3/uL (0.0-0.7); Absolute Lymphocyte Count 1.69 10^3/uL (1.2-3.4); Absolute Monocyte Count 0.75 10^3/uL (0.1-0.8); Absolute Neutrophil Count 7.17 10^3/uL (1.2-6.7); Basophils % 0.5 %; Eosinophils % 3.4 %; HCT 45.2 % (36.0-46.0); HGB 13.7 g/dL (11.2-15.7); Immature Grans % 0.4 %; Lymphocytes % 16.8 %; MCH 29.3 pg (27.0-33.0); MCHC 30.3 % (32.0-36.0); MCV 97 fL (80-95); MPV 9.2 fL (8.0-11.0); Monocytes % 7.5 %; Neutrophils % 71.4 %; Platelet Count 238 10^3/uL (130-400); RBC 4.67 10^6/uL (3.93-5.22); RDW 13.1 % (11.7-14.6); RDW-SD 46.4 fL; WBC 10.04 10^3/uL (4.4-10.8)
[2024-11-03 09:47] LABS: pCO2 (Venous) 76 mmHg (41-51)
[2024-11-03] MEDS: Albuterol/Ipratropium 3 ML UPD VIAL UPD ×2 (09:51→11:49)
[2024-11-03] MEDS: methylPREDNISolone SUCC 125 MG VIAL IVP (09:51)
[2024-11-03 10:33] LABS: Lab Add On Test DONE
[2024-11-03 10:54] LABS: Troponin I 4 ng/L (<or=51)
[2024-11-03 11:01] LABS: D-Dimer 228 ng/mlFEU (<500)
[2024-11-03 11:24] LABS: COVID-19 PCR Negative (Negative); Influenza A PCR Negative (Negative); Influenza B PCR Negative (Negative); RSV PCR Negative (Negative)
[2024-11-03 11:26] LABS: Source Nasopharynx
[2024-11-03 11:42] LABS: ALT 25 U/L (14-59); AST 19 U/L (15-37); Albumin 3.5 g/dL (3.4-5.0); Alkaline Phosphatase 67 U/L (46-116); Anion Gap 0.8 mmol/L (3-11); BUN 13 mg/dL (7-18); Bilirubin, Total 0.5 mg/dL (0.2-1.0); CO2 36.2 mmol/L (21.0-32.0); CREATININE 0.7 mg/dL (0.55-1.02); Calcium 10.3 mg/dL (8.5-10.1); Chloride 104 mmol/L (98-107); Estimated GFR 100.19 (mL/min/1.73m2); Glucose 130 mg/dL (74-106); Magnesium 2.1 mg/dL (1.8-2.4); Potassium 4.4 mmol/L (3.5-5.1); Sodium 141 mmol/L (136-145); Total Protein 6.9 g/dL (6.4-8.2); Troponin I 5 ng/L (<or=51)
[2024-11-03] MEDS: Azithromycin 250 MG TAB 500 MG PO (11:49)
[2024-11-03] MEDS: Albuterol HFA 8 GM 60 PUFF INH IH (12:38)
== END 2024-11-03 12:49 | disposition home or self-care (01) ==
PROVIDERS: Emergency Provider Emergency Medicine; PCP Nurse Practitioner Family
DX: J44.1 Chronic obstructive pulmonary disease with (acute) exacerbation (principal); I10 Essential (primary) hypertension; Z99.81 Dependence on supplemental oxygen
CPT/HCPCS: 36415; 80053; 82805; 87637; 93005; 94640; 96374; 99284; 71046; 83735; 84484; 85025; 85379; 93010; J2919; J7620

== ENCOUNTER 2024-11-05 12:31 | Emergency (ER) | payer OTHER, SELFPAY ==
[2024-11-05] VITALS (24 sets, daily range): BP systolic 113–150; BP diastolic 83–109; PULSE 99–128; RESP 20–30; TEMP 37.1; O2SAT 96–100
--- NOTE | 2024-11-05 12:30 | RT.EKG_ITS ---
APPROVED REPORT Exam: Resting ECG Reason for Exam: Dyspnea Patient Location: E HR:110 bpm ECG Measurements Heart Rate [address] 118 P 90 QRSd 75 QRS 94 QT 308 T 82 QTc 422 Conclusion Sinus tachycardia [address] change no stemi
[2024-11-05 13:08] LABS: Abs Immature Grans 0.06 10^3/uL (0.0-0.06); Absolute Basophil Count 0.07 10^3/uL (0.0-0.2); Absolute Eosinophil Count 0.34 10^3/uL (0.0-0.7); Absolute Monocyte Count 1.04 10^3/uL (0.1-0.8); Absolute Neutrophil Count 6.86 10^3/uL (1.2-6.7); Basophils % 0.7 %; Eosinophils % 3.3 %; HCT 45.1 % (36.0-46.0); HGB 13.6 g/dL (11.2-15.7); Immature Grans % 0.6 %; Lymphocytes % 18.5 %; MCH 29.6 pg (27.0-33.0); MCHC 30.2 % (32.0-36.0); MCV 98 fL (80-95); MPV 9.3 fL (8.0-11.0); Monocytes % 10.1 %; Neutrophils % 66.8 %; Platelet Count 217 10^3/uL (130-400); RBC 4.59 10^6/uL (3.93-5.22); RDW 13.2 % (11.7-14.6); RDW-SD 47.3 fL; WBC 10.27 10^3/uL (4.4-10.8)
[2024-11-05] MEDS: Normal Saline Flush 10 ML SYR IVP (13:15)
[2024-11-05] MEDS: Albuterol/Ipratropium 3 ML UPD VIAL UPD (13:15)
[2024-11-05] MEDS: methylPREDNISolone SUCC 125 MG VIAL IVP (13:15)
--- NOTE | 2024-11-05 13:18 | DI.RAD_ITS ---
Exam(s) XR PORTABLE CHEST AP EXAM: XR PORTABLE CHEST AP CLINICAL HISTORY: SOB TECHNIQUE: 2D digital imaging was performed of the chest. Two images were obtained. AP views were obtained. COMPARISON: CR XR PORTABLE CHEST AP from 10/13/2024 CR XR CHEST 2V PA LATERAL from 11/03/2024 FINDINGS: MEDIASTINUM: Normal. HEART: Normal. PULMONARY VASCULATURE: Normal. LUNGS: The lungs are hyperinflated consistent with underlying COPD. PLEURAL SPACE: No pleural effusion or pneumothorax. BONE:Within normal limits for the patient's age. OTHER FINDINGS:Normal. IMPRESSION: No acute pulmonary findings. DATA REPOSITORY: RADIATION DOSE DELIVERED:
[2024-11-05 13:29] LABS: ALT 23 U/L (14-59); AST 15 U/L (15-37); Albumin 3.6 g/dL (3.4-5.0); Alkaline Phosphatase 68 U/L (46-116); Anion Gap 1.2 mmol/L (3-11); BUN 14 mg/dL (7-18); Bilirubin, Total 0.3 mg/dL (0.2-1.0); CO2 39.8 mmol/L (21.0-32.0); CREATININE 0.7 mg/dL (0.55-1.02); Calcium 9.8 mg/dL (8.5-10.1); Chloride 102 mmol/L (98-107); Estimated GFR 100.19 (mL/min/1.73m2); Glucose 105 mg/dL (74-106); Magnesium 2.1 mg/dL (1.8-2.4); NT-proBNP 45 pg/mL (<300); Potassium 4.1 mmol/L (3.5-5.1); Sodium 143 mmol/L (136-145); Total Protein 6.9 g/dL (6.4-8.2); Troponin I 6 ng/L (<or=51)
--- NOTE | 2024-11-05 14:17 | ED.GENADUL_ITS ---
Discharge Plan Disposition Patient Disposition: Home Condition: Stable Discharge Details Clinical Impression: COPD (chronic obstructive pulmonary disease) Primary Care Provider: Maegan Ness ED Provider: Susi Landrum Home Meds and New Rx's Prescriptions: No Action ipratropium-albuterol 0.5 mg-3 mg(2.5 mg base)/3 mL solution for nebulization 3 ml inhalation QID PRN Breztri Aerosphere 160-9-4.8 mcg/actuation HFA aerosol inhaler 2 inh inhalation BID Qty: 10.7 12RF acetylcysteine [NAC] 600 mg capsule 600 mg PO DAILY albuterol sulfate 90 mcg/actuation HFA aerosol inhaler 2 puff inhalation Q6H PRN (Reason: shortness of breath or wheezing) Qty: 8.5 4RF Pulmicort Flexhaler 90 mcg/actuation aerosol powdr breath activated 1 inh inhalation BID 30 Days Qty: 1 6RF Arnuity Ellipta 100 mcg/actuation blister with device 1 inh inhalation DAILY Qty: 30 6RF Trelegy Ellipta 200-62.5-25 mcg blister with device 1 inh inhalation Q24H Qty: 60 3RF amlodipine 5 mg tablet 5 mg PO DAILY Qty: 90 3RF lisinopril 40 mg tablet 40 mg PO DAILY Qty: 90 3RF ibuprofen 600 MG tablet 600 mg PO TID PRN prednisone 20 mg tablet 40 mg PO DAILY 4 Days Qty: 8 0RF Rx Instructions: Start on 11/04/2024 azithromycin 250 mg tablet 250 mg PO DAILY 4 Days Qty: 4 0RF Rx Instructions: start on day 2 of therapy (11/04/2024) (DME) Oxygen Tank See Rx Instructions .Route Qty: 1 0RF Rx Instructions: As directed Discharge Instructions Additional Instructions: YOU WERE PRESCRIBED STEROIDS AND ANTIBIOTICS FROM YOUR ED VISIT ON 11/03. YOU SHOULD STILL BE TAKING THESE MEDICATIONS UNTIL THEY ARE COMPLETED. USE YOUR ALBUTEROL INHALER EVERY 4 HOURS TO HELP WITH COUGH OXYGEN SHOULD BE USED IF YOU O2 IS LESS THAN 90% YOU SHOULD FOLLOW UP WITH YOUR PCP AND PULMONOLOGY HPI General Date/Time Provider Initiated Documentation: 11/05/24 12:53 . Limitations to Documentation: no limitations . Information obtained by: patient and old records reviewed . HPI Narrative: 59-year-old female with past medical history of COPD presents for evaluation of shortness of breath. She reports onset of symptoms today while getting ready for work. She reports that she was concerned about her low oxygen levels of 90% at home. She reports that she has a cough that is productive of some clear mucus. Occasionally green. This is chronic and unchanged. There is no fever or chills. She reports that when her oxygen level was 90, she put on her home O2. At 1 L and came to the emergency department for further evaluation. She also reports that she has not been compliant with the inhaled steroid prescribed to her by pulmonology as she states that this her daughter states that she is just here so she can get oral steroids and get back to work.causes her to have thrush. Related Data Home Medications ?Medication ?Instructions ?Recorded ?Confirmed ibuprofen 600 mg tablet 600 mg PO TID PRN 12/23/13 11/05/24 amlodipine 5 mg tablet 5 mg PO DAILY #90 tabs 03/19/23 11/05/24 lisinopril 40 mg tablet 40 mg PO DAILY #90 tabs 03/19/23 11/05/24 acetylcysteine 600 mg capsule (NAC) 600 mg PO DAILY 07/02/23 11/05/24 Oxygen #1 ea 07/18/23 11/05/24 ipratropium 0.5 mg-albuterol 3 mg 3 ml inhalation QID PRN 11/04/23 11/05/24 (2.5 mg base)/3 mL nebulization soln albuterol sulfate 90 mcg/actuation 2 puff inhalation Q6H PRN 05/26/24 11/05/24 aerosol inhaler shortness of breath or wheezing #8.5 grams budesonide 160 mcg-glycopyr 9 2 inh inhalation BID #10.7 grams 07/22/24 11/05/24 mcg-formot 4.8 mcg/actuation HFA inhaler (Breztri Aerosphere) fluticasone fur. 200 mcg-umeclid 1 inh inhalation Q24H #60 ea 09/22/24 11/05/24 62.5 mcg-vilant 25 mcg inhalat.powder (Trelegy Ellipta) budesonide 90 mcg/actuation breath 1 inh inhalation BID 30 days #1 ea 10/20/24 11/05/24 activated powder inhaler (Pulmicort Flexhaler) fluticasone furoate 100 1 inh inhalation DAILY #30 ea 10/21/24 11/05/24 mcg/actuation blister powder for inhalation (Arnuity Ellipta) azithromycin 250 mg tablet 250 mg PO DAILY 4 days #4 tabs 11/03/24 11/05/24 prednisone 20 mg tablet 40 mg (2 x 20 mg) PO DAILY 4 days 11/03/24 11/05/24 #8 tabs Previous Rx's ?Medication ?Instructions ?Recorded amlodipine 5 mg tablet 5 mg PO DAILY #90 tabs 03/19/23 lisinopril 40 mg tablet 40 mg PO DAILY #90 tabs 03/19/23 Oxygen #1 ea 07/18/23 albuterol sulfate 90 mcg/actuation 2 puff inhalation Q6H PRN 05/26/24 aerosol inhaler shortness of breath or wheezing #8.5 grams budesonide 160 mcg-glycopyr 9 2 inh inhalation BID #10.7 grams 07/22/24 mcg-formot 4.8 mcg/actuation HFA inhaler (Breztri Aerosphere) fluticasone fur. 200 mcg-umeclid 1 inh inhalation Q24H #60 ea 09/22/24 62.5 mcg-vilant 25 mcg inhalat.powder (Trelegy Ellipta) budesonide 90 mcg/actuation breath 1 inh inhalation BID 30 days #1 ea 10/20/24 activated powder inhaler (Pulmicort Flexhaler) fluticasone furoate 100 1 inh inhalation DAILY #30 ea 10/21/24 mcg/actuation blister powder for inhalation (Arnuity Ellipta) azithromycin 250 mg tablet 250 mg PO DAILY 4 days #4 tabs 11/03/24 prednisone 20 mg tablet 40 mg (2 x 20 mg) PO DAILY 4 days 11/03/24 #8 tabs Allergies Allergy/AdvReac Type Severity Reaction Status Date / Time codeine AdvReac Nausea Verified 11/05/24 12:41 General Stated Complaint: SOB RODO: 3 Exam Narrative Exam Narrative: Review of Systems: All systems reviewed & are unremarkable except as noted in HPI and below Well-developed, no acute distress NCAT RRR, no murmur Unlabored respiratory effort, clear bilaterally no hypoxia on nasal cannula 1 L sats are 97% Speaking in full and complete sentences Nondistended abdomen Extremities w/o edema Course Vital Signs Vital signs: Vital Signs Temperature 37.1 C 11/05/24 12:36 Pulse 109 H 11/05/24 12:36 Respiratory Rate 20 11/05/24 12:36 Blood Pressure 113/96 H 11/05/24 12:36 Pulse Oximetry 98 11/05/24 12:36 Temperature 37.1 C 11/05/24 12:40 Temperature Source Oral 11/05/24 12:40 Pulse 106 H 11/05/24 14:14 Respiratory Rate 21 11/05/24 13:15 Respiratory Effort Short of Breath, Incrsd Work of Breathing 11/05/24 13:30 Respiratory Depth Deep 11/05/24 13:30 Respiratory Pattern Tachypnea 11/05/24 13:30 Blood Pressure 150/92 H 11/05/24 14:14 Blood Pressure Mean 111 11/05/24 14:14 Blood Pressure Position Sitting 11/05/24 12:40 Pulse Oximetry 97 11/05/24 14:14 Oxygen Delivery Method Nasal Cannula 11/05/24 14:14 Oxygen Flow Rate 1 11/05/24 14:14 Lab/Test Results Lab/Test Results: Laboratory Tests Range/Units 11/05/24 13:03 WBC (4.4-10.8) 10^3/uL 10.27 RBC (3.93-5.22) 10^6/uL 4.59 Hgb (11.2-15.7) g/dL 13.6 Hct (36.0-46.0) % 45.1 MCV (80-95) fL 98 H MCH (27.0-33.0) pg 29.6 MCHC (32.0-36.0) % 30.2 L RDW (11.7-14.6) % 13.2 Plt Count (130-400) 10^3/uL 217 MPV (8.0-11.0) fL 9.3 Immature Gran % % 0.6 Neutrophils % % 66.8 Lymphocytes % % 18.5 Monocytes % % 10.1 Eosinophils % % 3.3 Basophils % % 0.7 Nucleated RBC % (0.0-0.3) % 0.0 Absolute Neutrophils (1.2-6.7) 10^3/uL 6.86 H Absolute Lymphocytes (1.2-3.4) 10^3/uL 1.90 Absolute Monocytes (0.1-0.8) 10^3/uL 1.04 H Absolute Eosinophils (0.0-0.7) 10^3/uL 0.34 Absolute Basophils (0.0-0.2) 10^3/uL 0.07 Sodium (136-145) mmol/L 143 Potassium (3.5-5.1) mmol/L 4.1 Chloride (98-107) mmol/L 102 Carbon Dioxide (21.0-32.0) mmol/L 39.8 H Anion Gap (3-11) mmol/L 1.2 L BUN (7-18) mg/dL 14 Creatinine (0.55-1.02) mg/dL 0.7 Est GFR (CKD-EPI 2020) (mL/min/1.73m2) 100.19 Glucose (74-106) mg/dL 105 Calcium (8.5-10.1) mg/dL 9.8 Magnesium (1.8-2.4) mg/dL 2.1 Total Bilirubin (0.2-1.0) mg/dL 0.3 AST (15-37) U/L 15 ALT (14-59) U/L 23 Alkaline Phosphatase (46-116) U/L 68 Troponin I (<or=51) ng/L 6 NT-Pro-B Natriuret Pep (<300) pg/mL 45 Total Protein (6.4-8.2) g/dL 6.9 Albumin (3.4-5.0) g/dL 3.6 Medical Decision Making Emergent evaluation of shortness of breath. Patient reports a history of COPD and oxygen use. Patient was in the emergency department 2 days ago for similar symptoms. Patient Yuri presents today with same symptoms, it is unclear if the patient filled her steroid prescription or antibiotic. As she 1 did not mention that she was in the ER or to mention new medications. When asked directly about taking steroids, she got very upset about being prescribed an inhaled steroid even though everyone knows that this causes her to have thrush. She states that she only wants to take oral steroids. She has no hypoxia or true increased work of breathing. I am not appreciating any significant wheezing or respiratory distress on exam. She was given IV Solu-Medrol, viral testing obtained, flu and COVID were negative. Blood work was repeated no leukocytosis or anemia. No electrolyte derangement. BNP is not elevated. Chest x-ray reviewed and is unremarkable for acute etiology. No i appearance of consolidation. Patient is stable for discharge home. Recommend continuation of her steroids and antibiotics that were prescribed 2 days ago. At this time there is no indication for admission and I recommend that she has any ongoing symptoms, she should follow-up with her PCP. Quality:[facility] Health Related Social Needs: Health related social needs details Marissa's insurance company mandates home delivered medications. Marissa has two prescriptions which are inhalers, and she expressed concern about not being able to use her inhalers after they are left outside in the cold weather. [place], often being delivered late at night. 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 [facility] All Active Problems (Updated 11/05/24 @ 14:40 by Susi Landrum MD) Shortness of breath (Acute) COPD exacerbation (Acute) Influenza A (Acute) Respiratory failure (Acute) COPD with acute exacerbation (Acute) Diarrhea (Acute) COPD exacerbation (Acute) Nail dystrophy (Acute) Pain due to onychomycosis of nail (Acute) Onychomycosis (Acute) Respiratory failure with hypoxia and hypercapnia (Acute) Personal history of nicotine dependence (Acute) COPD (chronic obstructive pulmonary disease) (Chronic) Right ventricular dysfunction (Acute) Elevated brain natriuretic peptide (BNP) level (Acute) Nasal contusion (Acute) Hx of falling (Acute) Grief reaction (Chronic) Weight loss (Acute) Tobacco dependence (Chronic) HTN (hypertension) (Chronic) Prediabetes (Acute) Medical History Acute exacerbation of chronic obstructive pulmonary disease (COPD) Acute respiratory failure with hypoxia and hypercapnia Acute dyspnea 04/23/[address] [facility]. -hb Spontaneous pneumothorax 10/1992 Surgical History S/P abdominal hysterectomy and right salpingo-oophorectomy H/O: hysterectomy Family History Mother , brain aneurism age 84 No problems noted. Father , 51 Heart disease Hypertension Sister Hypertension Brother No problems noted. Maternal Grandmother Diabetes Brother No problems noted. 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: [employer] Pets and animals: Yes Pets and animals: dog(s) Sexually active: No Do you think of yourself as: straight/heterosexual Current gender identity: female How often do you talk on the phone with friends or family?: decline to answer How often do you get together with friends or relatives?: decline to answer How often do you attend spiritism or latter-day services?: decline to answer Do you belong to any clubs or organized social groups?: decline to answer Duration: decline to answer Frequency: decline to answer Seatbelt use: always Helmet use: Yes Do you feel safe in your relationship?: Yes
[2024-11-05 14:47] LABS: Troponin I 7 ng/L (<or=51)
== END 2024-11-05 15:08 | disposition home or self-care (01) ==
PROVIDERS: Emergency Provider Emergency Medicine; PCP Nurse Practitioner Family
DX: J44.9 Chronic obstructive pulmonary disease, unspecified (principal); I10 Essential (primary) hypertension; Z99.81 Dependence on supplemental oxygen; Z87.891 Personal history of nicotine dependence
CPT/HCPCS: 80053; 87426; 93005; 94640; 99285; 71045; 83735; 83880; 84484; 85025; 93010; 99284; J2919; J7620

== ENCOUNTER 2024-11-21 11:19 | Emergency (ER) | payer OTHER, SELFPAY ==
[2024-11-21] VITALS (12 sets, daily range): BP systolic 108; BP diastolic 83; PULSE 100–112; RESP 20; TEMP 36.6; O2SAT 87–97
--- NOTE | 2024-11-21 11:15 | RT.EKG_ITS ---
APPROVED REPORT Exam: Resting ECG Reason for Exam: SOB Patient Location: E HR:106 bpm ECG Measurements Heart Rate 106 AXIS NC 114 P 74 QRSd 77 QRS 105 QT 321 T 69 QTc 426 Conclusion Sinus tachycardia...rate> 99 Right atrial enlargement...P>0.25mV 2 lds or<-0.24mV aVR/aVL Probable lateral infarct, old...Q>35mS, abnormal ST-T, V5-6 I aVL No Occlusion AK
--- NOTE | 2024-11-21 11:30 | ED.GENADUL_ITS ---
Discharge Plan Disposition Patient Disposition: Home Discharge Details Clinical Impression: COPD with acute exacerbation Primary Care Provider: Maegan Ness ED Provider: Aquilino Wallace Home Meds and New Rx's Prescriptions: New doxycycline hyclate 100 mg capsule 100 mg PO BID Qty: 10 0RF prednisone 20 mg tablet 20 mg PO DAILY 4 Days Qty: 4 0RF Rx Instructions: Begin taking your steroid pill tomorrow. Continued ipratropium-albuterol 0.5 mg-3 mg(2.5 mg base)/3 mL solution for nebulization 3 ml inhalation QID PRN acetylcysteine [NAC] 600 mg capsule 600 mg PO DAILY albuterol sulfate 90 mcg/actuation HFA aerosol inhaler 2 puff inhalation Q6H PRN (Reason: shortness of breath or wheezing) Qty: 8.5 4RF amlodipine 5 mg tablet 5 mg PO DAILY Qty: 90 3RF lisinopril 40 mg tablet 40 mg PO DAILY Qty: 90 3RF ibuprofen 600 MG tablet 600 mg PO TID PRN (DME) Oxygen Tank See Rx Instructions .Route Qty: 1 0RF Rx Instructions: As directed No Action tiotropium-olodaterol [Stiolto Respimat] 2 puff inhalation DAILY Discharge Instructions Additional Instructions: You were seen in the emergency department for your shortness of breath. You are having an exacerbation of your chronic obstructive pulmonary disease for which you should take the prescribed steroids and antibiotics to prevent inflammation. As we discussed if you develop worsening shortness of breath fevers, take your medicine as result of nausea or vomiting or if you have any other concerns please return to the emergency department. Otherwise please follow-up with your primary care provider in the next week. Stand Alone Forms: Work Release HPI General Date/Time Provider Initiated Documentation: 11/21/24 11:30 . HPI Narrative: MDM This is an overall well-appearing mildly tachycardic 59-year-old female with prolonged expiratory phase and increased sputum consistent with acute exacerbation of chronic obstructive pulmonary disease for which patient will receive doxycycline prednisone following nebulized albuterol/ipratropium. No significant chest pain to suggest ACS given abnormal lung exam and nonischemic ECG will defer troponin testing. I considered PE however the patient is not hypoxic nor hypotensive. Patient age she is not PERC negative. She is not tachycardic however in the setting of her abnormal lung exam and her history of chronic obstructive pulmonary disease felt that the risks of testing outweigh the benefits. Patient had a D-dimer test performed less than a month ago which was reassuring against PE. She is having no calf pain to suggest increased risk for DVT. No fever to suggest benefit from respiratory viral testing. No pain out of proportion to suggest necrotizing soft tissue infection. Her ECG is nonischemic and appears similar to prior ECGs. I considered acute heart failure however patient has no significant lower extremity pitting edema and no history of diuretic use though she does have right ventricular dysfunction. Will ensure patient can pass ambulatory trial in the emergency department. 12:53 PM Chest x-ray read as unremarkable. Patient remains without respiratory distress. She felt mildly improved. She passed ambulatory trial. She was discharged with doxycycline and prednisone along with an empiric trial of expectant outpatient management. 1:47 PM Patient passed an amatory trial on her home oxygen. She was discharged with empiric trial of expectant outpatient management. HPI The patient presents for evaluation of trouble breathing. She began experiencing dyspnea 2 days ago, which has been exacerbated by increased verbal communication at her workplace. Her oxygen requirement remains at 1 liter. She reports no recent fevers or changes in sputum color or volume. She describes a sensation of chest tightness but does not experience any syncope. She has no history of thromboembolic events in her lower extremities or pulmonary system. She also reports no recent falls. Her last hospitalization was in 08/2024, during which she received steroid and antibiotic therapy. She does not perceive her current condition as severe as her previous hospitalization; however, she expresses discomfort due to her inability to breathe freely and move around without restriction. She has been utilizing her inhaler and additional nebulizer treatments, which provide relief as long as she remains stationary and refrains from excessive talking. Patient denies any recent fever, syncope, falls. The patient used to be a smoker but has not smoked in a couple of years. Exam General: Well-appearing in no acute distress speaking in complete sentences. Head: Normocephalic, atraumatic. Eye: Extraocular eye movements intact. No conjunctival injection. No scleral icterus. Ear, nose, mouth, throat: Grossly normal inspection. Normal voice, handling secretions normally. Neck: Trachea midline. Cardiovascular: Well-perfused distal extremities. Rapid regular rate. No murmurs. Respiratory: Nonlabored respiration. Mildly prolonged expiratory phase. No stridor. No tripoding. Satting well on home 1 L oxygen. Gastrointestinal: Nondistended abdomen. Musculoskeletal: No significant lower extremity pitting edema edema. Moving all 4 extremities spontaneously. Skin: Normal for age and race, grossly normal temperature and turgor. No acute rash. Neurologic: Alert and appropriate, no apparent acute deficits. Psychiatric: Mood and manner are appropriate. Grooming and personal hygiene are appropriate. Related Data Home Medications ?Medication ?Instructions ?Recorded ?Confirmed ibuprofen 600 mg tablet 600 mg PO TID PRN 12/23/13 11/21/24 amlodipine 5 mg tablet 5 mg PO DAILY #90 tabs 03/19/23 11/21/24 lisinopril 40 mg tablet 40 mg PO DAILY #90 tabs 03/19/23 11/21/24 acetylcysteine 600 mg capsule (NAC) 600 mg PO DAILY 07/02/23 11/21/24 Oxygen #1 ea 07/18/23 11/21/24 ipratropium 0.5 mg-albuterol 3 mg 3 ml inhalation QID PRN 11/04/23 11/21/24 (2.5 mg base)/3 mL nebulization soln albuterol sulfate 90 mcg/actuation 2 puff inhalation Q6H PRN 05/26/24 11/21/24 aerosol inhaler shortness of breath or wheezing #8.5 grams doxycycline hyclate 100 mg capsule 100 mg PO BID #10 caps 11/21/24 prednisone 20 mg tablet 20 mg PO DAILY 4 days #4 tabs 11/21/24 tiotropium-olodaterol 2 puff inhalation DAILY 11/21/24 11/21/24 Previous Rx's ?Medication ?Instructions ?Recorded amlodipine 5 mg tablet 5 mg PO DAILY #90 tabs 03/19/23 lisinopril 40 mg tablet 40 mg PO DAILY #90 tabs 03/19/23 Oxygen #1 ea 07/18/23 albuterol sulfate 90 mcg/actuation 2 puff inhalation Q6H PRN 05/26/24 aerosol inhaler shortness of breath or wheezing #8.5 grams doxycycline hyclate 100 mg capsule 100 mg PO BID #10 caps 11/21/24 prednisone 20 mg tablet 20 mg PO DAILY 4 days #4 tabs 11/21/24 Allergies Allergy/AdvReac Type Severity Reaction Status Date / Time codeine AdvReac Nausea Verified 11/21/24 12:50 General RODO: 3 Medical Decision Making Quality:SDOH Health Related Social Needs: Health related social needs details Marissa's insurance company mandates home delivered medications. Marissa has two prescriptions which are inhalers, and she expressed concern about not being able to use her inhalers after they are left outside in the cold weather. [place] mail delivery is unreliable, often being delivered late at night. 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 PFSH All Active Problems (Updated 11/21/24 @ 11:58 by Aquilino Wallace MD) Influenza A (Acute) Respiratory failure (Acute) COPD with acute exacerbation (Acute) Diarrhea (Acute) COPD exacerbation (Acute) Nail dystrophy (Acute) Pain due to onychomycosis of nail (Acute) Onychomycosis (Acute) Respiratory failure with hypoxia and hypercapnia (Acute) Personal history of nicotine dependence (Acute) COPD (chronic obstructive pulmonary disease) (Chronic) Right ventricular dysfunction (Acute) Elevated brain natriuretic peptide (BNP) level (Acute) Nasal contusion (Acute) Hx of falling (Acute) Grief reaction (Chronic) Weight loss (Acute) Tobacco dependence (Chronic) HTN (hypertension) (Chronic) Prediabetes (Acute) Medical History Acute exacerbation of chronic obstructive pulmonary disease (COPD) Acute respiratory failure with hypoxia and hypercapnia Acute dyspnea 04/23/23 Per [facility]. -hb Spontaneous pneumothorax 10/1992 Surgical History S/P abdominal hysterectomy and right salpingo-oophorectomy H/O: hysterectomy Family History Mother , brain aneurism age 84 No problems noted. Father , 51 Heart disease Hypertension Sister Hypertension Brother No problems noted. Maternal Grandmother Diabetes Brother No problems noted. 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: [employer] lots Pets and animals: Yes Pets and animals: dog(s) Sexually active: No Do you think of yourself as: straight/heterosexual Current gender identity: female How often do you talk on the phone with friends or family?: decline to answer How often do you get together with friends or relatives?: decline to answer How often do you attend yazdanism or muslim services?: decline to answer Do you belong to any clubs or organized social groups?: decline to answer Duration: decline to answer Frequency: decline to answer Seatbelt use: always Helmet use: Yes Do you feel safe in your relationship?: Yes
--- NOTE | 2024-11-21 11:45 | DI.RAD_ITS ---
Exam(s) XR CHEST 2V PA LATERAL EXAM: XR CHEST 2V PA LATERAL CLINICAL HISTORY: Shortness of breath. TECHNIQUE: 2D digital imaging was performed. COMPARISON: No exams were available for comparison FINDINGS: 2 views: Heart size is normal. The mediastinum is not widened. Bilateral hyperinflation-COPD again noted. There are no infiltrates nor pleural effusions. No pulmonary edema. IMPRESSION: No acute pulmonary findings.Hyperinflation COPD again noted. DATA REPOSITORY: RADIATION DOSE DELIVERED:
[2024-11-21] MEDS: predniSONE 20 MG TAB 40 MG PO (11:55)
[2024-11-21] MEDS: Doxycycline Hyclate 100 MG CAP PO (11:55)
[2024-11-21] MEDS: Albuterol/Ipratropium 3 ML UPD VIAL UPD (11:56)
--- NOTE | 2024-11-21 13:07 | DI.VRAD_ITS ---
PROCEDURE INFORMATION: Exam: XR Chest Exam date and time: 11/21/2024 12:44 PM Age: 59 years old Clinical indication: Shortness of breath TECHNIQUE: Imaging protocol: Radiologic exam of the chest. Views: 2 views. COMPARISON: CR XR PORTABLE CHEST AP 11/05/2024 1:13 PM FINDINGS: Lungs: The lungs are hyperinflated, consistent with underlying small airways disease. There is no evidence of focal pulmonary consolidation. Severe centrilobular emphysematous changes are present. Pleural spaces: Unremarkable. No pleural effusion. No pneumothorax. Heart/Mediastinum: Unremarkable. No cardiomegaly. Bones/joints: The thoracic spine demonstrates moderate degenerative changes at multiple levels. IMPRESSION: No acute cardiopulmonary process. Dictated and Authenticated by: Ciro Crystal MD. Orderin Rodrigo Rolle MD
== END 2024-11-21 14:03 | disposition home or self-care (01) ==
PROVIDERS: Emergency Provider Emergency Medicine; PCP Nurse Practitioner Family
DX: J44.1 Chronic obstructive pulmonary disease with (acute) exacerbation (principal)
CPT/HCPCS: 99284 ×2; 94640; 93005; 71046; 93010; J7512; J7620

== ENCOUNTER 2024-12-04 10:21 | Emergency (ER) | payer OTHER, SELFPAY ==
[2024-12-04] VITALS (23 sets, daily range): BP systolic 126–137; BP diastolic 96–106; PULSE 106–124; RESP 9–27; TEMP 36.7; O2SAT 82–99
--- NOTE | 2024-12-04 10:15 | RT.EKG_ITS ---
APPROVED REPORT Exam: Resting ECG Reason for Exam: Dyspnea Patient Location: E HR:112 bpm ECG Measurements Heart Rate 112 AXIS MD 128 P 89 QRSd 74 QRS 100 QT 309 T 84 QTc 422 Conclusion Sinus tachycardia...rate> 99 Ventricular premature complex...V complex w/ short R-R interval Right axis deviation...QRS axis (100,654)
--- NOTE | 2024-12-04 10:34 | ED.GENADUL_ITS ---
Discharge Plan Disposition Patient Disposition: Home Condition: Fair Discharge Details Clinical Impression: COPD exacerbation Primary Care Provider: Maegan Ness ED Provider: Hetal Anderson Home Meds and New Rx's Prescriptions: Continued ipratropium-albuterol 0.5 mg-3 mg(2.5 mg base)/3 mL solution for nebulization 3 ml inhalation QID PRN acetylcysteine [NAC] 600 mg capsule 600 mg PO DAILY albuterol sulfate 90 mcg/actuation HFA aerosol inhaler 2 puff inhalation Q6H PRN (Reason: shortness of breath or wheezing) Qty: 8.5 4RF loratadine [Claritin] 10 mg tablet 10 mg PO DAILY Qty: 90 3RF amlodipine 5 mg tablet 5 mg PO DAILY Qty: 90 3RF lisinopril 40 mg tablet 40 mg PO DAILY Qty: 90 3RF ibuprofen 600 MG tablet 600 mg PO TID PRN (DME) Oxygen Tank See Rx Instructions .Route Qty: 1 0RF Rx Instructions: As directed Discharge Instructions Instructions: COPD Exacerbation, Adult ED Additional Instructions: Please continue to wear your oxygen as directed, when you feel more short of breath or with ambulating you may need to wear it more constantly. No evidence of pneumonia or collapsed lung on the x-rays. Your labs do show that you are retaining some carbon dioxide. However this has been the case in the past. Negative COVID flu and RSV. Please call to be seen by your exhaust and muffler repairer or your primary care provider within the next 5 to 7 days if possible. Thank you for allowing us to care for you today. Stand Alone Forms: Work Release Referrals: Norma Gipson PA [[facility]] - 3 days Maegan Ness NP [Primary Care Provider] - Discharge Data Discharge Date/Time-TO BE ENTERED AT DEPARTURE: 12/04/24 13:32 HPI General Mode of arrival: wheelchair . Date/Time Provider Initiated Documentation: 12/04/24 10:23 . Limitations to Documentation: no limitations . Information obtained by: patient, RN notes reviewed and old records reviewed . HPI Narrative: 59-year-old female with a history of COPD presents to the ER with shortness of breath for the last few days. She has been using some as needed O2 when she gets home from work and all throughout the night. She reports O2 sat as low as in the 70s. She is a former smoker reports that she quit 2 years ago. She also reports productive cough. Denies any chest pain no nausea vomiting or diarrhea. She does see pulmonology. She has been seen here in the emergency department multiple times over the last month. Related Data Home Medications ?Medication ?Instructions ?Recorded ?Confirmed ibuprofen 600 mg tablet 600 mg PO TID PRN 12/23/13 12/04/24 amlodipine 5 mg tablet 5 mg PO DAILY #90 tabs 03/19/23 12/04/24 lisinopril 40 mg tablet 40 mg PO DAILY #90 tabs 03/19/23 12/04/24 acetylcysteine 600 mg capsule (NAC) 600 mg PO DAILY 07/02/23 12/04/24 Oxygen #1 ea 07/18/23 12/04/24 ipratropium 0.5 mg-albuterol 3 mg 3 ml inhalation QID PRN 11/04/23 12/04/24 (2.5 mg base)/3 mL nebulization soln albuterol sulfate 90 mcg/actuation 2 puff inhalation Q6H PRN 05/26/24 12/04/24 aerosol inhaler shortness of breath or wheezing #8.5 grams loratadine 10 mg tablet (Claritin) 10 mg PO DAILY #90 tabs 11/23/24 12/04/24 Previous Rx's ?Medication ?Instructions ?Recorded amlodipine 5 mg tablet 5 mg PO DAILY #90 tabs 03/19/23 lisinopril 40 mg tablet 40 mg PO DAILY #90 tabs 03/19/23 Oxygen #1 ea 07/18/23 albuterol sulfate 90 mcg/actuation 2 puff inhalation Q6H PRN 05/26/24 aerosol inhaler shortness of breath or wheezing #8.5 grams loratadine 10 mg tablet (Claritin) 10 mg PO DAILY #90 tabs 11/23/24 Allergies Allergy/AdvReac Type Severity Reaction Status Date / Time codeine AdvReac Nausea Verified 12/04/24 11:06 General Stated Complaint: SOB RODO: 3 Review of Systems All systems reviewed & are unremarkable except as noted in HPI and below Cardiovascular Cardiovascular: Reports dyspnea Respiratory Respiratory: Reports chest congestion, Reports cough, Reports excessive phlegm production, Reports dyspnea and Reports wheezing Allergic/Immunologic Allergic/Immunologic: Reports wheezing Exam Narrative Exam Narrative: Constitutional: Alert and oriented x3. Appears stated age. Very thin body habitus. Head: Normocephalic, no trauma. Eyes: Pupils PERRL, Red reflex noted, EOM's intact. Eyelids symmetrical without lesions, discharge, or swelling. ENT: Bilateral TM's WNL, External ear normal to inspection, no mastoid TTP, swelling, or erythema, Nasal turbinates WNL, no nasal discharge. Normal dentition, Posterior pharynx WNL, no exudate. Chest: RRR, Normal S1, S2, distal pulses intact. Resp: Lungs diminished to auscultation bilaterally, no wheezes, rales, or rhonchi. Abdomen: Soft, non-distended, Normoactive bowel sounds all 4 quads. Musculoskeletal: Normal gait, Moves all 4 extremities without difficulty. Skin: No suspicious rashes or lesions. Capillary refill less than 2 sec. Neurologic: Cranial nerves II-XII intact. Alert and oriented x 3. Motor: No deficits noted. Sensory: Intact bilaterally all 4 extremities. Hematologic/Lymphatic: No ecchymosis, no lymphadenopathy. Course Vital Signs Vital signs: Vital Signs Pulse 114 H 12/04/24 10:26 Respiratory Rate 25 H 12/04/24 10:26 Pulse Oximetry 82 L 12/04/24 10:26 Temperature Source Oral 12/04/24 10:26 Pulse 114 H 12/04/24 10:26 Respiratory Rate 25 H 12/04/24 10:26 Blood Pressure Position Sitting 12/04/24 10:26 Pulse Oximetry 82 L 12/04/24 10:26 Oxygen Delivery Method Nasal Cannula 12/04/24 10:26 Oxygen Flow Rate 1 12/04/24 10:26 Pain Level 0 12/04/24 10:26 Medical Decision Making 59-year-old female with a history of COPD presents to the ER with shortness of breath for the last few days. She has been using some as needed O2 when she gets home from work and all throughout the night. She reports O2 sat as low as in the 70s. She is a former smoker reports that she quit 2 years ago. She also reports productive cough. Denies any chest pain no nausea vomiting or diarrhea. She does see pulmonology. She has been seen here in the emergency department multiple times over the last month. Workup ordered including chest x-ray CBC CMP VBG, troponin patient was placed on 2 L nasal cannula upon arrival. On room air her O2 sat was 82% O2 sat at this time is 94 on 2 L. She does have albuterol at home which she used this morning. I do suspect COPD exacerbation. EKG was reviewed by myself and Dr. Mendoza ER attending, old EKG available for review, no ischemic changes. See official report. Labs are largely at baseline, she does have high CO2 at 67 however this seems to be her baseline, bicarb 37 CO2 33 no leukocytosis negative COVID flu RSV. No evidence for pneumonia pneumothorax on chest x-ray. On patient reevaluation she reports she feels about the same. She is on 0.5 L nasal cannula and satting 92 to 93%. Will do a road test trial here with oximetry. She is due to start her Dupixent injections next week. She does see Dr. Bowen with pulmonology. Patient desatted to 82% on 0.5 L with ambulation. At rest she does slowly go back up to 90 to 93%. Will give another additional albuterol nebulizer. I did encourage her to wear her oxygen more frequently. I will have her follow-up closely with pulmonology. Patient stable for discharge after second nebulizer, I do feel like this is a acute exacerbation of chronic COPD. Will encourage her to follow-up with her exhaust and muffler repairer and wear her oxygen more often. This text was generated using Fann[employer]ee[employer] system, please disregard any oddities of phrase or misspellings. Medical Records Medical records reviewed: Yes I reviewed the patient's medical records. Medical records narrative: Patient was seen by pulmonology on October 20 of this year they did recommend BiPAP which patient had declined, they did prescribe her additional inhalers such as Pulmicort and Dupxient Lab Data Lab results reviewed: Yes I reviewed the patient's lab results. Labs: Laboratory Tests Range/Units 12/04/24 12/04/24 12/04/24 10:48 10:49 11:48 WBC (4.4-10.8) 10^3/uL 7.92 RBC (3.93-5.22) 10^6/uL 4.77 Hgb (11.2-15.7) g/dL 13.9 Hct (36.0-46.0) % 45.2 MCV (80-95) fL 95 MCH (27.0-33.0) pg 29.1 MCHC (32.0-36.0) % 30.8 L RDW (11.7-14.6) % 12.7 Plt Count (130-400) 10^3/uL 204 MPV (8.0-11.0) fL 9.6 Immature Gran % % 0.5 Neutrophils % % 61.1 Lymphocytes % % 20.7 Monocytes % % 12.6 Eosinophils % % 4.3 Basophils % % 0.8 Nucleated RBC % (0.0-0.3) % 0.0 Absolute Neutrophils (1.2-6.7) 10^3/uL 4.84 Absolute Lymphocytes (1.2-3.4) 10^3/uL 1.64 Absolute Monocytes (0.1-0.8) 10^3/uL 1.00 H Absolute Eosinophils (0.0-0.7) 10^3/uL 0.34 Absolute Basophils (0.0-0.2) 10^3/uL 0.06 VBG pH (7.31-7.41) 7.35 VBG pCO2 (41-51) mmHg 67 H* VBG pO2 mmHg 50 VBG HCO3 (23-28) mmol/L 37 H VBG Total CO2 (24-29) mmol/L 33 H VBG O2 Saturation % 86 VBG Base Excess (-2-3) mmol/L 11 H Sodium (136-145) mmol/L 141 Potassium (3.5-5.1) mmol/L 4.1 Chloride (98-107) mmol/L 101 Carbon Dioxide (21.0-32.0) mmol/L 37.1 H Anion Gap (3-11) mmol/L 2.9 L BUN (7-18) mg/dL 9 Creatinine (0.55-1.02) mg/dL 0.6 Est GFR (CKD-EPI 2020) (mL/min/1.73m2) 103.98 Glucose (74-106) mg/dL 114 H Calcium (8.5-10.1) mg/dL 9.9 Total Bilirubin (0.2-1.0) mg/dL 0.4 AST (15-37) U/L 18 ALT (14-59) U/L 20 Alkaline Phosphatase (46-116) U/L 58 Troponin I (<or=51) ng/L 4 10 Total Protein (6.4-8.2) g/dL 6.6 Albumin (3.4-5.0) g/dL 3.4 COVID-19 Source Nasopharynx SARS-CoV-2 (PCR) (Negative) Negative Influenza Type A (PCR) (Negative) Negative Influenza Type B (PCR) (Negative) Negative RSV (PCR) (Negative) Negative Range/Units 12/04/24 13:35 WBC (4.4-10.8) 10^3/uL RBC (3.93-5.22) 10^6/uL Hgb (11.2-15.7) g/dL Hct (36.0-46.0) % MCV (80-95) fL MCH (27.0-33.0) pg MCHC (32.0-36.0) % RDW (11.7-14.6) % Plt Count (130-400) 10^3/uL MPV (8.0-11.0) fL Immature Gran % % Neutrophils % % Lymphocytes % % Monocytes % % Eosinophils % % Basophils % % Nucleated RBC % (0.0-0.3) % Absolute Neutrophils (1.2-6.7) 10^3/uL Absolute Lymphocytes (1.2-3.4) 10^3/uL Absolute Monocytes (0.1-0.8) 10^3/uL Absolute Eosinophils (0.0-0.7) 10^3/uL Absolute Basophils (0.0-0.2) 10^3/uL VBG pH (7.31-7.41) VBG pCO2 (41-51) mmHg VBG pO2 mmHg VBG HCO3 (23-28) mmol/L VBG Total CO2 (24-29) mmol/L VBG O2 Saturation % VBG Base Excess (-2-3) mmol/L Sodium (136-145) mmol/L Potassium (3.5-5.1) mmol/L Chloride (98-107) mmol/L Carbon Dioxide (21.0-32.0) mmol/L Anion Gap (3-11) mmol/L BUN (7-18) mg/dL Creatinine (0.55-1.02) mg/dL Est GFR (CKD-EPI 2020) (mL/min/1.73m2) Glucose (74-106) mg/dL Calcium (8.5-10.1) mg/dL Total Bilirubin (0.2-1.0) mg/dL AST (15-37) U/L ALT (14-59) U/L Alkaline Phosphatase (46-116) U/L Troponin I (<or=51) ng/L Cancelled Total Protein (6.4-8.2) g/dL Albumin (3.4-5.0) g/dL COVID-19 Source SARS-CoV-2 (PCR) (Negative) Influenza Type A (PCR) (Negative) Influenza Type B (PCR) (Negative) RSV (PCR) (Negative) Quality:SDOH Health Related Social Needs: Health related social needs details Marissa's insurance company mandates home delivered medications. Marissa has two prescriptions which are inhalers, and she expressed concern about not being able to use her inhalers after they are left outside in the cold weather. [place] mail [place], often being delivered late at night. She has requested that her inhalers are sent to a local pharmacy for her to vegetable picker at her convenience, which was denied. [facility] All Active Problems (Updated 12/04/24 @ 13:16 by Hetal Anderson NP) Influenza A (Acute) Respiratory failure (Acute) COPD with acute exacerbation (Acute) Diarrhea (Acute) COPD exacerbation (Acute) Nail dystrophy (Acute) Pain due to onychomycosis of nail (Acute) Onychomycosis (Acute) Respiratory failure with hypoxia and hypercapnia (Acute) Personal history of nicotine dependence (Acute) COPD (chronic obstructive pulmonary disease) (Chronic) Right ventricular dysfunction (Acute) Elevated brain natriuretic peptide (BNP) level (Acute) Nasal contusion (Acute) Hx of falling (Acute) Grief reaction (Chronic) Weight loss (Acute) Tobacco dependence (Chronic) HTN (hypertension) (Chronic) Prediabetes (Acute) Medical History Acute exacerbation of chronic obstructive pulmonary disease (COPD) Acute respiratory failure with hypoxia and hypercapnia Acute dyspnea 04/23/[address] [facility]. -hb Spontaneous pneumothorax 10/1992 Surgical History S/P abdominal hysterectomy and right salpingo-oophorectomy H/O: hysterectomy Family History Mother , brain aneurism age 84 No problems noted. Father , 51 Heart disease Hypertension Sister Hypertension Brother No problems noted. Maternal Grandmother Diabetes Brother No problems noted. 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: [employer] Pets and animals: Yes Pets and animals: dog(s) Sexually active: No Do you think of yourself as: straight/heterosexual Current gender identity: female How often do you talk on the phone with friends or family?: decline to answer How often do you get together with friends or relatives?: decline to answer How often do you attend advent or confucianism services?: decline to answer Do you belong to any clubs or organized social groups?: decline to answer Duration: decline to answer Frequency: decline to answer Seatbelt use: always Helmet use: Yes Do you feel safe in your relationship?: Yes
[2024-12-04] MEDS: Albuterol/Ipratropium 3 ML UPD VIAL UPD ×2 (10:48→12:47)
[2024-12-04] MEDS: methylPREDNISolone SUCC 125 MG VIAL 80 MG IVP (10:49)
[2024-12-04 11:00] LABS: Abs Immature Grans 0.04 10^3/uL (0.0-0.06); Absolute Basophil Count 0.06 10^3/uL (0.0-0.2); Absolute Eosinophil Count 0.34 10^3/uL (0.0-0.7); Absolute Lymphocyte Count 1.64 10^3/uL (1.2-3.4); Absolute Neutrophil Count 4.84 10^3/uL (1.2-6.7); Basophils % 0.8 %; Eosinophils % 4.3 %; HCT 45.2 % (36.0-46.0); HGB 13.9 g/dL (11.2-15.7); Immature Grans % 0.5 %; Lymphocytes % 20.7 %; MCH 29.1 pg (27.0-33.0); MCHC 30.8 % (32.0-36.0); MCV 95 fL (80-95); MPV 9.6 fL (8.0-11.0); Monocytes % 12.6 %; Neutrophils % 61.1 %; Platelet Count 204 10^3/uL (130-400); RBC 4.77 10^6/uL (3.93-5.22); RDW 12.7 % (11.7-14.6); RDW-SD 44.5 fL; WBC 7.92 10^3/uL (4.4-10.8)
[2024-12-04 11:04] LABS: BE (Venous) 11 mmol/L (-2-3); HCO3 (Venous) 37 mmol/L (23-28); O2 Sat (Venous) 86 %; TCO2 (Venous) 33 mmol/L (24-29); pH (Venous) 7.35 (7.31-7.41); pO2 (Venous) 50 mmHg
[2024-12-04 11:06] LABS: pCO2 (Venous) 67 mmHg (41-51)
--- NOTE | 2024-12-04 11:10 | DI.RAD_ITS ---
Exam(s) XR CHEST 2V PA LATERAL EXAM: XR CHEST 2V PA LATERAL CLINICAL HISTORY: SOB, productive cough TECHNIQUE: 2D digital imaging was performed. Two views. COMPARISON: No exams were available for comparison FINDINGS: HEART: Normal size. Aorta: Not dilated. PULMONARY VASCULATURE: Normal. MEDIASTINUM: Unremarkable. LUNGS: Hyperinflated consistent with emphysematous changes. Clear. PLEURAL SPACE: No pleural effusion or pneumothorax. BONE:Unremarkable for age. SOFT TISSUES: Unremarkable. IMPRESSION: No acute abnormality. DATA REPOSITORY: RADIATION DOSE DELIVERED:
[2024-12-04 11:30] LABS: ALT 20 U/L (14-59); AST 18 U/L (15-37); Albumin 3.4 g/dL (3.4-5.0); Alkaline Phosphatase 58 U/L (46-116); Anion Gap 2.9 mmol/L (3-11); BUN 9 mg/dL (7-18); Bilirubin, Total 0.4 mg/dL (0.2-1.0); CO2 37.1 mmol/L (21.0-32.0); CREATININE 0.6 mg/dL (0.55-1.02); Calcium 9.9 mg/dL (8.5-10.1); Chloride 101 mmol/L (98-107); Estimated GFR 103.98 (mL/min/1.73m2); Glucose 114 mg/dL (74-106); Potassium 4.1 mmol/L (3.5-5.1); Sodium 141 mmol/L (136-145); Total Protein 6.6 g/dL (6.4-8.2); Troponin I 4 ng/L (<or=51)
[2024-12-04 11:41] LABS: COVID-19 PCR Negative (Negative); Influenza A PCR Negative (Negative); Influenza B PCR Negative (Negative); RSV PCR Negative (Negative)
[2024-12-04 11:44] LABS: Source Nasopharynx
[2024-12-04 12:12] LABS: Troponin I 10 ng/L (<or=51)
== END 2024-12-04 13:32 | disposition home or self-care (01) ==
PROVIDERS: Emergency Provider Registered Nurse Emergency; PCP Nurse Practitioner Family
DX: J44.1 Chronic obstructive pulmonary disease with (acute) exacerbation (principal); I10 Essential (primary) hypertension; Z99.81 Dependence on supplemental oxygen; Z87.891 Personal history of nicotine dependence
CPT/HCPCS: 36415; 80053; 82805; 87637; 93005; 94640; 96374; 99284; 71046; 84484; 85025; 93010; J2919; J7620

== ENCOUNTER 2024-12-07 21:51 | Inpatient (IN) | payer OTHER, SELFPAY ==
[2024-12-07] VITALS (22 sets, daily range): BP systolic 118–146; BP diastolic 75–96; PULSE 121–135; RESP 14–26; TEMP 37.1; O2SAT 89–100
--- NOTE | 2024-12-07 22:00 | RT.EKG_ITS ---
APPROVED REPORT Exam: Resting ECG Reason for Exam: sob Patient Location: E HR:122 bpm ECG Measurements Heart Rate 122 AXIS NH 144 P 87 QRSd 85 QRS 101 QT 322 T 83 QTc 459 Conclusion Sinus tachycardia, rate 122 No interval abnormalities No STEMI No significant changes from prior
--- NOTE | 2024-12-07 22:00 | DI.RAD_ITS ---
Exam(s) XR PORTABLE CHEST AP EXAM: XR PORTABLE CHEST AP CLINICAL HISTORY: Shortness of breath. TECHNIQUE: 2D digital imaging was performed. COMPARISON: Prior chest x-ray 12/04/2024 FINDINGS: Single AP portable view. Heart size is upper normal. The mediastinum is not widened. Lungs are clear. No infiltrates nor obvious pleural effusions. Bilateral hyperinflation again noted IMPRESSION: No acute pulmonary findings on this single AP portable view of the chest. DATA REPOSITORY: RADIATION DOSE DELIVERED:
[2024-12-07] MEDS: Albuterol/Ipratropium 3 ML UPD VIAL UPD (22:08)
[2024-12-07] MEDS: methylPREDNISolone SUCC 125 MG VIAL IVP (22:08)
--- NOTE | 2024-12-07 22:08 | ED.GENADUL_ITS ---
Discharge Plan Disposition Patient Disposition: Admit to [facility] Condition: Improving Discharge Details Chief Complaint: SOB Clinical Impression: Respiratory failure with hypoxia and hypercapnia, COPD exacerbation Primary Care Provider: Maegan Ness ED Provider: Portia Kidd Home Meds and New Rx's Prescriptions: No Action ipratropium-albuterol 0.5 mg-3 mg(2.5 mg base)/3 mL solution for nebulization 3 ml inhalation QID PRN acetylcysteine [NAC] 600 mg capsule 600 mg PO DAILY albuterol sulfate 90 mcg/actuation HFA aerosol inhaler 2 puff inhalation Q6H PRN (Reason: shortness of breath or wheezing) Qty: 8.5 4RF loratadine [Claritin] 10 mg tablet 10 mg PO DAILY Qty: 90 3RF amlodipine 5 mg tablet 5 mg PO DAILY Qty: 90 3RF lisinopril 40 mg tablet 40 mg PO DAILY Qty: 90 3RF ibuprofen 600 MG tablet 600 mg PO TID PRN (DME) Oxygen Tank See Rx Instructions .Route Qty: 1 0RF Rx Instructions: As directed HPI General Mode of arrival: EMS . Date/Time Provider Initiated Documentation: 12/07/24 22:00 . Limitations to Documentation: no limitations . Information obtained by: patient, family, EMS and old records reviewed . HPI Narrative: This is a 59-year-old female patient with a past medical history significant for COPD, with a history of hypercarbic and hypoxic respiratory failure, who is required intubation in the past, as well as a history of hypertension and RV dysfunction presenting for evaluation of shortness of breath and hypoxia. The patient reports that she has had worsening of her breathing especially with movements, which substantially worsened around 5 PM today. She has tried for duo nebulizers in the home environment without improvement, wears 1 L of oxygen at baseline, but was noted to be hypoxic to 85% on that 1 L on EMS arrival. Initially very wheezy and diminished lung sounds, which opened up slightly after duo nebulizer with EMS. She was noted to be tachycardic, and very short of breath with 1-2 word sentences. The patient reports that she has a cough that is productive of thick green sputum, has not had any chest pain, denies fevers. No reported leg swelling, has been taking her medications as prescribed, has experienced challenges with mouth pain associated with inhaled corticosteroids, and follows with pulmonology. Related Data Home Medications ?Medication ?Instructions ?Recorded ?Confirmed ibuprofen 600 mg tablet 600 mg PO TID PRN 12/23/13 12/07/24 amlodipine 5 mg tablet 5 mg PO DAILY #90 tabs 03/19/23 12/07/24 lisinopril 40 mg tablet 40 mg PO DAILY #90 tabs 03/19/23 12/07/24 acetylcysteine 600 mg capsule (NAC) 600 mg PO DAILY 07/02/23 12/07/24 Oxygen #1 ea 07/18/23 12/07/24 ipratropium 0.5 mg-albuterol 3 mg 3 ml inhalation QID PRN 11/04/23 12/07/24 (2.5 mg base)/3 mL nebulization soln albuterol sulfate 90 mcg/actuation 2 puff inhalation Q6H PRN 05/26/24 12/07/24 aerosol inhaler shortness of breath or wheezing #8.5 grams loratadine 10 mg tablet (Claritin) 10 mg PO DAILY #90 tabs 11/23/24 12/07/24 Previous Rx's ?Medication ?Instructions ?Recorded amlodipine 5 mg tablet 5 mg PO DAILY #90 tabs 03/19/23 lisinopril 40 mg tablet 40 mg PO DAILY #90 tabs 03/19/23 Oxygen #1 ea 07/18/23 albuterol sulfate 90 mcg/actuation 2 puff inhalation Q6H PRN 05/26/24 aerosol inhaler shortness of breath or wheezing #8.5 grams loratadine 10 mg tablet (Claritin) 10 mg PO DAILY #90 tabs 11/23/24 Allergies Allergy/AdvReac Type Severity Reaction Status Date / Time codeine AdvReac Nausea Verified 12/07/24 21:57 General Stated Complaint: SOB RODO: 3 Exam Narrative Exam Narrative: Gen: awake and alert, in notable respiratory distress, thin habitus HEENT: PERRL. External ears and nose normal, mucous membranes moist. Neck: Supple, full range of motion, no observable masses Lungs: Significant increase in work of breathing with tachypnea, diffuse wheezing and prolonged expiratory phase. Patient speaking in 2-3 word sentences at this time. CV: Heart with tachycardic rate but regular rhythm, no murmurs auscultated. Strong and symmetrical radial pulses. Abdomen: Soft, nondistended, non-tender MSK: No joint swelling, no redness. Full ROM without limitation, no external traumatic findings. No unilateral calf swelling or tenderness Skin: No rashes or lesions to visualized skin. Normal color, warm, and dry. Neuro: Cranial nerves II-XII intact and symmetrical bilaterally. 5/5 strength in all muscle groups x4 extremities. No sensory deficits. Ambulates with steady gait. Psych: Appropriate for situation. Course Vital Signs Vital signs: Vital Signs Temperature 37.1 C 12/07/24 21:57 Pulse 134 H 12/07/24 21:57 Respiratory Rate 26 H 12/07/24 21:57 Blood Pressure 146/96 H 12/07/24 21:57 Pulse Oximetry 95 12/07/24 21:57 Temperature 37.1 C 12/07/24 21:57 Pulse 134 H 12/07/24 21:57 Respiratory Rate 26 H 12/07/24 21:57 Blood Pressure 146/96 H 12/07/24 21:57 Blood Pressure Position Sitting 12/07/24 21:57 Pulse Oximetry 95 12/07/24 21:57 Oxygen Delivery Method Nasal Cannula 12/07/24 21:57 Oxygen Flow Rate 2 12/07/24 21:57 End Tidal Co2 60 12/07/24 21:57 Medical Decision Making This is a 59-year-old female patient with a history of COPD presenting for evaluation of worsening shortness of breath, wheezing, and hypoxia. I am most concerned for a COPD exacerbation given her history, as well as her diffuse wheezing and diminished lung sounds. Also considered URI, pneumonia, bronchitis. No heart failure history or evidence of fluid overload to suggest pulmonary edema or pleural effusion. Considered pneumothorax, patient has no personal history of thromboembolic disease nor evidence of DVT to suggest pulmonary embolism. No chest pain to suggest ACS. At this time, the patient's oxygen saturations have improved on 2 L by nasal cannula, but she remains with significant work of breathing and tachypnea. We will provide her with a duo nebulizer treatment as well as a dose of Solu-Medrol and 2 g of magnesium. I will obtain a chest x-ray, labs to include CBC, CMP, magnesium, troponin, VBG, and Fluvid. - VBG returns with evidence of hypercarbia to 81, without associated severe acidosis, with a pH of 7.32. I will recheck this VBG after my initial treatments, to determine if the patient warrants initiation of noninvasive positive pressure ventilation. - X-ray reviewed by myself, showing no focal consolidation concerning for pneumonia, no other abnormalities other than hyperinflation secondary to COPD. Repeat VBG with a CO2 of 77, no acidosis, and at this time we will hold on BiPAP . Of note, the patient does have severe claustrophobia associated with BiPAP, and would likely not be tolerant of this intervention for that reason. Respiratory therapy did evaluate the patient, and I provided her with a dose of azithromycin for coverage of atypical infection in the setting of COPD exacerbation. The hospitalist is graciously accept this patient for admission to their service for respiratory failure with hypoxia and hypercarbia due to COPD exacerbation. The patient remained hemodynamically improved while under my care, transferred to the hospitalist team without incident. Portia Kidd MD Medical Records Medical records reviewed: Yes I reviewed the patient's medical records. Lab Data Lab results reviewed: Yes I reviewed the patient's lab results. Quality:[facility] Health Related Social Needs: Health related social needs details Marissa's insurance company mandates home delivered medications. Marissa has two prescriptions which are inhalers, and she expressed concern about not being able to use her inhalers after they are left outside in the cold weather. [place] mail delivery [place] unreliable, often being delivered late at night. She has requested that her inhalers are sent to a local pharmacy for her to pickle processor at her convenience, which was denied. Critical Care Time Critical Care Time Critical Care Time: Yes Total Critical Care Time: 35 Attestation: Upon my evaluation, this patient had a high probability of imminent or life- threatening deterioration due to respiratory failure with hypoxia and hypercarbia, which required my direct attention, intervention, and personal management. I have personally provided 35 minutes of critical care time exclusive of time spent on separately billable procedures. Time includes review of laboratory data, radiology results, discussion with consultants, and monitoring for potential decompensation. Interventions were performed as documented above. Portia Kidd MD [facility] All Active Problems (Updated 12/07/24 @ 23:13 by Portia Kidd MD) Influenza A (Acute) Respiratory failure (Acute) COPD with acute exacerbation (Acute) Diarrhea (Acute) COPD exacerbation (Acute) Nail dystrophy (Acute) Pain due to onychomycosis of nail (Acute) Onychomycosis (Acute) Respiratory failure with hypoxia and hypercapnia (Acute) Personal history of nicotine dependence (Acute) COPD (chronic obstructive pulmonary disease) (Chronic) Right ventricular dysfunction (Acute) Elevated brain natriuretic peptide (BNP) level (Acute) Nasal contusion (Acute) Hx of falling (Acute) Grief reaction (Chronic) Weight loss (Acute) Tobacco dependence (Chronic) HTN (hypertension) (Chronic) Prediabetes (Acute) Medical History Acute exacerbation of chronic obstructive pulmonary disease (COPD) Acute respiratory failure with hypoxia and hypercapnia Acute dyspnea 04/23/23 Per [facility]. -hb Spontaneous pneumothorax 10/1992 Surgical History S/P abdominal hysterectomy and right salpingo-oophorectomy H/O: hysterectomy Family History Mother , brain aneurism age 84 No problems noted. Father , 51 Heart disease Hypertension Sister Hypertension Brother No problems noted. Maternal Grandmother Diabetes Brother No problems noted. 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: [employer] Pets and animals: Yes Pets and animals: dog(s) Sexually active: No Do you think of yourself as: straight/heterosexual Current gender identity: female How often do you talk on the phone with friends or family?: decline to answer How often do you get together with friends or relatives?: decline to answer How often do you attend holiness or gnosticist services?: decline to answer Do you belong to any clubs or organized social groups?: decline to answer Duration: decline to answer Frequency: decline to answer Seatbelt use: always Helmet use: Yes Do you feel safe in your relationship?: Yes
[2024-12-07] MEDS: MAGNESIUM SULFATE 2 GM/50 ML BAG IV_INF (22:09)
[2024-12-07 22:10] LABS: BE (Venous) 15 mmol/L (-2-3); HCO3 (Venous) 41 mmol/L (23-28); O2 Sat (Venous) 73 %; TCO2 (Venous) 37 mmol/L (24-29); pH (Venous) 7.32 (7.31-7.41); pO2 (Venous) 41 mmHg
[2024-12-07 22:12] LABS: Abs Immature Grans 0.05 10^3/uL (0.0-0.06); Absolute Basophil Count 0.06 10^3/uL (0.0-0.2); Absolute Eosinophil Count 0.33 10^3/uL (0.0-0.7); Absolute Lymphocyte Count 2.84 10^3/uL (1.2-3.4); Absolute Monocyte Count 1.26 10^3/uL (0.1-0.8); Absolute Neutrophil Count 7.34 10^3/uL (1.2-6.7); Basophils % 0.5 %; Eosinophils % 2.8 %; HCT 46.8 % (36.0-46.0); HGB 14.3 g/dL (11.2-15.7); Immature Grans % 0.4 %; Lymphocytes % 23.9 %; MCH 29.4 pg (27.0-33.0); MCHC 30.6 % (32.0-36.0); MCV 96 fL (80-95); MPV 9.3 fL (8.0-11.0); Monocytes % 10.6 %; Neutrophils % 61.8 %; Platelet Count 209 10^3/uL (130-400); RBC 4.86 10^6/uL (3.93-5.22); RDW 12.9 % (11.7-14.6); RDW-SD 45.6 fL; WBC 11.88 10^3/uL (4.4-10.8)
[2024-12-07 22:13] LABS: pCO2 (Venous) 81 mmHg (41-51)
[2024-12-07 22:31] LABS: ALT 21 U/L (14-59); AST 15 U/L (15-37); Albumin 3.6 g/dL (3.4-5.0); Alkaline Phosphatase 62 U/L (46-116); BUN 21 mg/dL (7-18); Bilirubin, Total 0.3 mg/dL (0.2-1.0); Chloride 103 mmol/L (98-107); Glucose 114 mg/dL (74-106); Magnesium 2.2 mg/dL (1.8-2.4); Potassium 3.9 mmol/L (3.5-5.1); Sodium 142 mmol/L (136-145); Total Protein 6.9 g/dL (6.4-8.2); Troponin I 6 ng/L (<or=51)
--- NOTE | 2024-12-07 22:34 | DI.VRAD_ITS ---
PROCEDURE INFORMATION: Exam: XR Chest Exam date and time: 12/07/2024 10:17 PM Age: 59 years old Clinical indication: Shortness of breath; SOB TECHNIQUE: Imaging protocol: Radiologic exam of the chest. Views: 1 view. COMPARISON: CR XR CHEST 2V PA LATERAL 12/04/2024 11:06 AM FINDINGS: Lungs: Moderate hyperexpansion and hyperlucency with diaphragmatic flattening suggesting COPD. Pulmonary vasculature grossly normal. No gross pulmonary infiltrates or edema pattern. Pleural spaces: No pleural effusion. No pneumothorax. Heart/Mediastinum: Heart size normal. No tracheal/mediastinal shift. Bones/joints: No acute osseous abnormalities are identified. Osteopenia. IMPRESSION: 1. No acute thoracic process. 2. COPD. Dictated and Authenticated by: Aquilino Butler MD. Orderin [facility]. Anant Pearce MD
[2024-12-07 22:36] LABS: BE (Venous) 14 mmol/L (-2-3); HCO3 (Venous) 40 mmol/L (23-28); O2 Sat (Venous) 91 %; TCO2 (Venous) 36 mmol/L (24-29); pH (Venous) 7.33 (7.31-7.41); pO2 (Venous) 61 mmHg
[2024-12-07 22:38] LABS: pCO2 (Venous) 77 mmHg (41-51)
--- NOTE | 2024-12-07 23:02 | HPE_ITS ---
Date of service: 12/07/24 Time of Service: 23:03 Assessment and Plan Assessment and plan (1) Respiratory failure with hypoxia and hypercapnia: Start date: 12/07/24 Status: Acute Assessment and plan: This is a 59-year-old lady who has had problems with her COPD since the flu in 2024 when she was hospitalized. She has had intermittent exacerbations and recently had an outpatient treatment for exacerbation and returned because of worsening symptoms with difficulty talking and severe dyspnea. She did respond with multiple nebulizers and Solu-Medrol. Her daughter is attending her and feels that she is failing since the flu and is helping her mother proper disability. Patient will be admitted for IV Solu-Medrol and frequent nebulizer treatments. She was initiated on IV Zithromax which will be continued and converted to oral therapy at discharge. If she stabilizes she will be placed on oral prednisone. Her VBG is improving with her chronic respiratory failure and hypoxemia worsened initially with evaluation in the ED. Trend VBG's if she worsens. She is a full code. (2) COPD with acute exacerbation: Start date: 12/07/24 Status: Acute Assessment and plan: Aggressive treatment with IV Solu-Medrol and frequent nebulizer treatments with monitoring. Follow-up imaging if needed. (3) HTN (hypertension): Status: Chronic Assessment and plan: Continue outpatient medical therapy. 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 She recently was seen for COPD exacerbation and was treated and sent home but presents today with worsening dyspnea and wheezing in the late afternoon. Her oxygen needs are increasing as well. She has been intubated in the past for her COPD. She had the flu in August 2024 and has not recovered since that hospitalization. She is not overweight and is losing weight with her lung disease diagnosed in 2022 with patient stopping smoking at that time. She also has hypertension which is usually controlled. Patient came to the ED because of her respiratory symptoms and was given multiple nebulizer treatments with increased oxygen supplementation, IV magnesium and IV Solu-Medrol with improvement now being able to speak in complete sentences but still significantly short of breath wheezing. X-ray did not show any infiltrates that she has on and Zithromax for exacerbation of her bronchitic process. The patient does see pulmonary as an outpatient. Patient will be admitted for exacerbation of COPD with increased hypoxemia and worsened hypercarbia from her baseline. She is not able to tolerate BiPAP with claustrophobia. She is improving with her nebulizer treatments without positive pressure treatment. She will continue on frequent nebulizer treatments, IV Solu-Medrol and close monitoring of her oxygen needs. Patient's daughter was present at the intake and offered verification of history and symptoms. Patient does work at [employer] and is limited to [employer] because of wearing oxygen and being extremely short of breath. She is applying for disability insurance qualifies. She is a full code. Review of Systems Narrative: 13 point review of systems otherwise unrevealing or stable. She is having slight nausea with her acute exacerbation. PFSH All Active Problems Influenza A (Acute) Respiratory failure (Acute) COPD with acute exacerbation (Acute) Diarrhea (Acute) COPD exacerbation (Acute) Nail dystrophy (Acute) Pain due to onychomycosis of nail (Acute) Onychomycosis (Acute) Respiratory failure with hypoxia and hypercapnia (Acute) Personal history of nicotine dependence (Acute) COPD (chronic obstructive pulmonary disease) (Chronic) Right ventricular dysfunction (Acute) Elevated brain natriuretic peptide (BNP) level (Acute) Nasal contusion (Acute) Hx of falling (Acute) Grief reaction (Chronic) Weight loss (Acute) Tobacco dependence (Chronic) HTN (hypertension) (Chronic) Prediabetes (Acute) Medical History Acute exacerbation of chronic obstructive pulmonary disease (COPD) Acute respiratory failure with hypoxia and hypercapnia Acute dyspnea 04/23/[address] [facility]. -hb Spontaneous pneumothorax 10/1992 Surgical History S/P abdominal hysterectomy and right salpingo-oophorectomy H/O: hysterectomy Family History Mother , brain aneurism age 84 No problems noted. Father , 51 Heart disease Hypertension Sister Hypertension Brother No problems noted. Maternal Grandmother Diabetes Brother No problems noted. 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 Pets and animals: Yes Pets and animals: dog(s) Sexually active: No Do you think of yourself as: straight/heterosexual Current gender identity: female How often do you talk on the phone with friends or family?: decline to answer How often do you get together with friends or relatives?: decline to answer How often do you attend jew or worship services?: decline to answer Do you belong to any clubs or organized social groups?: decline to answer Duration: decline to answer Frequency: decline to answer Seatbelt use: always Helmet use: Yes Do you feel safe in your relationship?: Yes Meds Allergies and Home Medications Allergies Allergy/AdvReac Type Severity Reaction Status Date / Time codeine AdvReac Nausea Verified 12/07/24 21:57 Home Medications ?Medication ?Instructions ?Recorded ?Confirmed ?Type ibuprofen 600 mg tablet 600 mg PO TID PRN 12/23/13 12/07/24 History amlodipine 5 mg tablet 5 mg PO DAILY #90 tabs 03/19/23 12/07/24 Rx lisinopril 40 mg tablet 40 mg PO DAILY #90 tabs 03/19/23 12/07/24 Rx acetylcysteine 600 mg capsule (NAC) 600 mg PO DAILY 07/02/23 12/07/24 History Oxygen #1 ea 07/18/23 12/07/24 Rx ipratropium 0.5 mg-albuterol 3 mg 3 ml inhalation QID PRN 11/04/23 12/07/24 History (2.5 mg base)/3 mL nebulization soln albuterol sulfate 90 mcg/actuation 2 puff inhalation Q6H PRN 05/26/24 12/07/24 Rx aerosol inhaler shortness of breath or wheezing #8.5 grams loratadine 10 mg tablet (Claritin) 10 mg PO DAILY #90 tabs 11/23/24 12/07/24 Rx Exam Narrative Exam Narrative: General: Patient appears older than stated age, almost cachectic, alert and oriented x 3 with flattened affect and depressed mood. She is comfortable sitting in bed on O2 with her head at 45 degree angle. Patient appears chronically ill. HEENT: Normocephalic, eyes with pupils equal and reactive light symmetric, extraocular movement intact and sclera anicteric. Oropharynx with dry mucosa. Neck: Supple without JVD. Back: Kyphotic without CVA tenderness. Lungs: Decreased aeration diffusely with slightly increased expiratory phase but no expiratory wheeze with poor air movement. No inspiratory focalizing rales or rhonchi. There is no intercostal retraction with inspiration. Patient is speaking in shorter sentences but is improved from her presentation only able to answer with 1-2 words. Breast: Exam deferred. Heart: Regular rate and rhythm with no murmurs or gallops appreciated. Abdomen: Scaphoid contour, soft and nontender to palpation with no palpable hepatosplenomegaly. Genitalia/rectal: Exam deferred. Extremities: Without clubbing, cyanosis or pitting edema. Muscle wasting diffusely. Good capillary refill. Skin: Normal color, warm and dry. Neuro: Cranial nerves II through XII gross intact, no focalized motor deficits. No tremor. Patient appears generally weak. Psych: Flattened affect with depressed mood. Slow monotonous tone to voice. No abnormal thought processes. Remote and recent memory intact. Results Imaging Imaging Studies: Exam date and time: 12/07/2024 10:17 PM Age: 59 years old Clinical indication: Shortness of breath; SOB TECHNIQUE: Imaging protocol: Radiologic exam of the chest. Views: 1 view. COMPARISON: CR XR CHEST 2V PA LATERAL 12/04/2024 11:06 AM FINDINGS: Lungs: Moderate hyperexpansion and hyperlucency with diaphragmatic flattening suggesting COPD. Pulmonary vasculature grossly normal. No gross pulmonary infiltrates or edema pattern. Pleural spaces: No pleural effusion. No pneumothorax. Heart/Mediastinum: Heart size normal. No tracheal/mediastinal shift. Bones/joints: No acute osseous abnormalities are identified. Osteopenia. IMPRESSION: 1. No acute thoracic process. 2. COPD. Labs 12/08/24 02:06 12/08/24 02:06 Labs: Laboratory Results - last 24 hr 12/07/24 12/07/24 22:04 22:29 WBC 11.88 H RBC 4.86 Hgb 14.3 Hct 46.8 H MCV 96 H MCH 29.4 MCHC 30.6 L RDW 12.9 Plt Count 209 MPV 9.3 Immature Gran % 0.4 Neutrophils % 61.8 Lymphocytes % 23.9 Monocytes % 10.6 Eosinophils % 2.8 Basophils % 0.5 Nucleated RBC % 0.0 Absolute Neutrophils 7.34 H Absolute Lymphocytes 2.84 Absolute Monocytes 1.26 H Absolute Eosinophils 0.33 Absolute Basophils 0.06 VBG pH 7.32 7.33 VBG pCO2 81 H* 77 H* VBG pO2 41 61 VBG HCO3 41 H 40 H VBG Total CO2 37 H 36 H VBG O2 Saturation 73 91 VBG Base Excess 15 H 14 H Sodium 142 Potassium 3.9 Chloride 103 Carbon Dioxide 41.0 H Anion Gap -2.0 L BUN 21 H Creatinine 1.0 Est GFR (CKD-EPI 2020) 65.30 Glucose 114 H Calcium 10.0 Magnesium 2.2 Total Bilirubin 0.3 AST 15 ALT 21 Alkaline Phosphatase 62 Troponin I 6 Total Protein 6.9 Albumin 3.6 Last Vital Signs Temp 37.1 C 12/07/24 21:57 Pulse 126 H 12/07/24 22:31 Resp 20 12/07/24 22:31 BP 120/83 12/07/24 22:31 Pulse Ox 98 12/07/24 22:31 Time Spent Time spent with Patient: >75 minutes Time was spent: preparing to see the patient(eg.review tests), obtaining and/or reviewing separately otained hiistory, ordering medications,tests, procedures, indepentently interpreting results, care coordination and other (Reviewing plan of care with daughter at bedside.)
[2024-12-07] MEDS: AZITHROMYCIN 500 MG in Normal Saline 250 ML 250 MG IVPB (23:07)
[2024-12-07 23:16] LABS: COVID-19 PCR Negative (Negative); Influenza A PCR Negative (Negative); Influenza B PCR Negative (Negative); RSV PCR Negative (Negative)
[2024-12-07 23:17] LABS: Source Nasopharynx
[2024-12-07 23:35] LABS: Troponin I 6 ng/L (<or=51)
[2024-12-08] VITALS (10 sets, daily range): BP systolic 93–143; BP diastolic 60–101; PULSE 100–121; RESP 5–24; TEMP 36–37.4; O2SAT 91–98
--- NOTE | 2024-12-08 00:30 | W.PC.ACHO ---
Registration Status: Primary Language: Preferred Language: ED Information & Data Chief Complaint SOB 12/07/24 23:24 Chief Complaint SOB 12/07/24 22:12 Triage Note Pt reports increased SOB 12/07/24 21:57 since 5 pm. Took 4 albuterol nebs at home with no effect . Called EMS, BIBA. Received 1 duoneb prehospitally. Pt EtCO2 60. RR 28 labored. No fever reported. Medical / Surgical History (Last Reviewed 12/07/24 @ 23:07 by Kwame Hernández) Acute exacerbation of chronic obstructive pulmonary disease (COPD) Acute respiratory failure with hypoxia and hypercapnia Acute dyspnea Spontaneous pneumothorax (Last Reviewed 12/07/24 @ 23:07 by Kwame Hernández) S/P abdominal hysterectomy and right salpingo-oophorectomy H/O: hysterectomy Most Recent Vital Signs Temperature 37.1 C 12/07/24 21:57 Pulse 129 H 12/07/24 23:20 Pulse 129 H 12/07/24 23:20 Respiratory Rate 24 12/07/24 23:29 Respiratory Effort Normal, Short of Breath 12/07/24 23:29 Respiratory Depth Normal 12/07/24 23:29 Respiratory Pattern Normal 12/07/24 23:29 Blood Pressure 125/83 12/07/24 23:16 Blood Pressure Mean 92 12/07/24 23:16 Blood Pressure Position Sitting 12/07/24 21:57 Pulse Oximetry 94 12/07/24 23:20 Respiratory End-tidal CO2 48 12/07/24 23:20 Oxygen Delivery Method Nasal Cannula 12/07/24 21:57 Oxygen Flow Rate 2 12/07/24 21:57 End Tidal Co2 60 12/07/24 21:57 Allergies codeine Adverse Reaction (Verified 12/07/24 21:57) Nausea Precautions Isolation Standard precaution 12/07/24 23:24 IV IV Catheter Type [Right Saline Lock Antecubital] IV Catheter Gauge [Right 20 Antecubital] Diagnostics 12/08/24 12/07/24 12/07/24 Range/Units 01:00 23:00 22:29 WBC (4.4-10.8) 10^3/uL RBC (3.93-5.22) 10^6/uL Hgb (11.2-15.7) g/dL Hct (36.0-46.0) % MCV (80-95) fL MCH (27.0-33.0) pg MCHC (32.0-36.0) % RDW (11.7-14.6) % Plt Count (130-400) 10^3/uL MPV (8.0-11.0) fL Immature Gran % % Neutrophils % % Lymphocytes % % Monocytes % % Eosinophils % % Basophils % % Nucleated RBC % (0.0-0.3) % Absolute Neutrophils (1.2-6.7) 10^3/uL Absolute Lymphocytes (1.2-3.4) 10^3/uL Absolute Monocytes (0.1-0.8) 10^3/uL Absolute Eosinophils (0.0-0.7) 10^3/uL Absolute Basophils (0.0-0.2) 10^3/uL VBG pH 7.33 (7.31-7.41) VBG pCO2 77 H* (41-51) mmHg VBG pO2 61 mmHg VBG HCO3 40 H (23-28) mmol/L VBG Total CO2 36 H (24-29) mmol/L VBG O2 Saturation 91 % VBG Base Excess 14 H (-2-3) mmol/L Sodium (136-145) mmol/L Potassium (3.5-5.1) mmol/L Chloride (98-107) mmol/L Carbon Dioxide (21.0-32.0) mmol/L Anion Gap (3-11) mmol/L BUN (7-18) mg/dL Creatinine (0.55-1.02) mg/dL Est GFR (CKD-EPI 2020) (mL/min/1.73m2) Glucose (74-106) mg/dL Calcium (8.5-10.1) mg/dL Magnesium (1.8-2.4) mg/dL Total Bilirubin (0.2-1.0) mg/dL AST (15-37) U/L ALT (14-59) U/L Alkaline Phosphatase (46-116) U/L Troponin I Pending 6 (<or=51) ng/L Total Protein (6.4-8.2) g/dL Albumin (3.4-5.0) g/dL COVID-19 Source SARS-CoV-2 (PCR) (Negative) Influenza Type A (PCR) (Negative) Influenza Type B (PCR) (Negative) RSV (PCR) (Negative) 12/07/24 12/07/24 Range/Units 22:24 22:04 WBC 11.88 H (4.4-10.8) 10^3/uL RBC 4.86 (3.93-5.22) 10^6/uL Hgb 14.3 (11.2-15.7) g/dL Hct 46.8 H (36.0-46.0) % MCV 96 H (80-95) fL MCH 29.4 (27.0-33.0) pg MCHC 30.6 L (32.0-36.0) % RDW 12.9 (11.7-14.6) % Plt Count 209 (130-400) 10^3/uL MPV 9.3 (8.0-11.0) fL Immature Gran % 0.4 % Neutrophils % 61.8 % Lymphocytes % 23.9 % Monocytes % 10.6 % Eosinophils % 2.8 % Basophils % 0.5 % Nucleated RBC % 0.0 (0.0-0.3) % Absolute Neutrophils 7.34 H (1.2-6.7) 10^3/uL Absolute Lymphocytes 2.84 (1.2-3.4) 10^3/uL Absolute Monocytes 1.26 H (0.1-0.8) 10^3/uL Absolute Eosinophils 0.33 (0.0-0.7) 10^3/uL Absolute Basophils 0.06 (0.0-0.2) 10^3/uL VBG pH 7.32 (7.31-7.41) VBG pCO2 81 H* (41-51) mmHg VBG pO2 41 mmHg VBG HCO3 41 H (23-28) mmol/L VBG Total CO2 37 H (24-29) mmol/L VBG O2 Saturation 73 % VBG Base Excess 15 H (-2-3) mmol/L Sodium 142 (136-145) mmol/L Potassium 3.9 (3.5-5.1) mmol/L Chloride 103 (98-107) mmol/L Carbon Dioxide 41.0 H (21.0-32.0) mmol/L Anion Gap -2.0 L (3-11) mmol/L BUN 21 H (7-18) mg/dL Creatinine 1.0 (0.55-1.02) mg/dL Est GFR (CKD-EPI 2020) 65.30 (mL/min/1.73m2) Glucose 114 H (74-106) mg/dL Calcium 10.0 (8.5-10.1) mg/dL Magnesium 2.2 (1.8-2.4) mg/dL Total Bilirubin 0.3 (0.2-1.0) mg/dL AST 15 (15-37) U/L ALT 21 (14-59) U/L Alkaline Phosphatase 62 (46-116) U/L Troponin I 6 (<or=51) ng/L Total Protein 6.9 (6.4-8.2) g/dL Albumin 3.6 (3.4-5.0) g/dL COVID-19 Source Nasopharynx SARS-CoV-2 (PCR) Negative (Negative) Influenza Type A (PCR) Negative (Negative) Influenza Type B (PCR) Negative (Negative) RSV (PCR) Negative (Negative) Intake and Output - 24 Hour Total 12/07/24 21:47 thru 12/07/24 22:26 Intake Total 50 Balance 50 Weight 42.5 kg Intake: IV 50 Falls Risk Assessment History of Falls No History 12/07/24 23:28 Contributing Factors No Factors 12/07/24 23:28 Ambulatory Aids Independent 12/07/24 23:28 Tubes/Lines None 12/07/24 23:28 Gait Evaluation No gait disturbance 12/07/24 23:28 Cognition No cognitive impairment 12/07/24 23:28 Fall Total Score 0 12/07/24 23:28 Level of Risk Standard/Low Risk 12/07/24 23:28 Problems (Last Reviewed 12/07/24 @ 23:07 by Kwame Hernández) COPD with acute exacerbation (Acute) Respiratory failure with hypoxia and hypercapnia (Acute) HTN (hypertension) (Chronic) v v v v v v v v v Sending and/or Receiving Nurses: Please use comment section below to note any information pertinent to the patient hand-off not included above. Information / Comments: Baseline 1L/min NC, experienced increased SOB, breathing treatments at home didn't work. EMS duonebx1. PCO2 initially 88, downtrending. SOB with exertion, associated nausea. Zithromax administered IV per ER. IVP solumedrol adminsitered, 1 duoneb. Tachycardic, HR consistently in the 120's. BP WNL. Oxygen saturation ~90% with NC, 2L/min. Pt continues to remove NC d/t claustrophobia. 20g R AC. Report received from: Albin Jose
[2024-12-08 01:12] LABS: Bilirubin Negative (Negative); Blood Negative (Negative); Clarity Sl Cloudy (Clear); Glucose Negative (Negative); Ketones Negative (Negative); Leukocyte Esterase Negative (Negative); Nitrite Negative (Negative); Specific Gravity 1.025 (1.005-1.025); Urobilinogen 0.2 mg/dL (Up to 0.2)
--- NOTE | 2024-12-08 01:44 | RESPIRATORY ---
Pt is aware that bipap may be needed for copd admissions. Pt is feeling better then when she arrived and is currently looking comfortable. Pt says she has uses bipap/cpap on previous admissions and is unable to tolerate unless she is medicated. Pt would likely benefit from bipap for noc use and we did talk about home machines using different masks and different settings tat may help her tolerate use. Pt seems willing to try in an out patient setting.
[2024-12-08 02:30] LABS: ALT 27 U/L (14-59); AST 23 U/L (15-37); Albumin 3.3 g/dL (3.4-5.0); Alkaline Phosphatase 59 U/L (46-116); Anion Gap 1.8 mmol/L (3-11); BUN 18 mg/dL (7-18); Bilirubin, Total 0.2 mg/dL (0.2-1.0); CO2 38.2 mmol/L (21.0-32.0); CREATININE 0.7 mg/dL (0.55-1.02); Calcium 9.1 mg/dL (8.5-10.1); Chloride 102 mmol/L (98-107); Estimated GFR 100.19 (mL/min/1.73m2); Glucose 122 mg/dL (74-106); Magnesium 2.6 mg/dL (1.8-2.4); Potassium 4.1 mmol/L (3.5-5.1); Sodium 142 mmol/L (136-145); Total Protein 6.5 g/dL (6.4-8.2)
[2024-12-08 02:34] LABS: Troponin I 6 ng/L (<or=51)
[2024-12-08 02:36] LABS: HCT 43.7 % (36.0-46.0); HGB 13.7 g/dL (11.2-15.7); MCH 29.8 pg (27.0-33.0); MCHC 31.4 % (32.0-36.0); MCV 95 fL (80-95); MPV 9.9 fL (8.0-11.0); Platelet Count 198 10^3/uL (130-400); RDW 12.8 % (11.7-14.6); RDW-SD 44.9 fL; WBC 11.21 10^3/uL (4.4-10.8)
[2024-12-08 02:39] LABS: TSH (W/Ref FT4) 0.54 uIU/mL (0.36-3.74)
[2024-12-08] MEDS: Albuterol/Ipratropium 3 ML UPD VIAL UPD ×3 (04:09→14:34)
[2024-12-08] MEDS: Acetaminophen 325 MG TAB PO (07:24)
[2024-12-08] MEDS: Ondansetron 4 MG/2 ML VIAL IVP ×2 (07:26→22:16)
[2024-12-08] MEDS: Normal Saline Flush 10 ML SYR IVP ×5 (07:26→22:17)
[2024-12-08] MEDS: methylPREDNISolone SUCC 125 MG VIAL 80 MG IVP ×3 (07:27→21:45)
--- NOTE | 2024-12-08 09:17 | INITIAL_ITS ---
Date of service: 12/08/24 Time of Service: 15:54 Care Management Initial Assmt Initial Assessment Reason for Hospitalization: Acute on chronic hypercapnic and hypoxic respirato Functional Status/Living Situation Patient Presentation: Marissa was lying in bed and visiting with her daughter, Fay, when CM arrived. Marissa presented to the ED with worsen of her breathing especially with movement. She is living alone in her single family home, in [facility]; Marissa states that there are 4 steps to enter her home which are not a problem. Marissa was recently referred to [facility] by CM, but states they cannot help her. Marissa states that she is independent and requiring home O2 (Concentrator and portable O2, in home) at baseline. A referral to palliative has been sent. Marissa expressed concerns regarding obtaining a pulmonary appointment; CM coordinated an appointment for (12/10/24) at 14:30. Marissa also expressed concerns regarding her previous care; CM referred her to the patient experience officer (CM notified Patient Experience Officer). CM notified her community foster care social worker of Marissa's admission. CM will continue to follow. Town of Residence: [facility] Resides with: Alone Significant Other/Family: Local (Fay - daughter) Natural Supports: Her daughter Employment Status: Employed ([employer], trying to obtain shelter disability. ) Instrumental Activities of Daily Living (ADLs): Independent Medications Medication Management: No Issues/Barriers identified Physical Functioning/Mobility Assistive Device: None identified Advance Directives Advance Directives: Do you have an Advance Directive: N 02/01/13 13:48 AD On File at [facility]: N 02/01/13 13:48 Date Asked 12/04/24 12/04/24 10:49 AD Date Reviewed COLST On File at [facility] COLST Date Scanned Code Status Resuscitation Status Full Code Portal Pt does not currently have a portal and education provided: Yes Insurance Coverage/Financial Issues Insurance: [facility] Resources FINANCIAL ASST Care Team Visit Care Team Role Provider Type Valerie Ramos NP NURSE PRACTITIONER Maegan Ness NP Primary Care Provider NURSE PRACTITIONER Portia Kidd MD Emergency Provider [facility] STAFF PHYSICIAN Kwame Hernández Admit Provider NON-[facility] STAFF PHYSICIAN Attending Provider Discharge Potential Discharge Needs: PCP F/U Appt Anticipated Barriers to Discharge: Medical Status Patient/Family Education Needs: Review discharge instructions, discuss Ask Me Three Transportation: Private vehicle Plan: Anticipate, Marissa will return home with possible services pending PT evaluation, once medically cleared. She will follow up with her community providers, pulmonology (12/10/24 @14:30) and discharge plan of care. Her daughter will drive her home via private vehicle. CM will follow and continue to support discharge planning efforts. Social Determinants of Health Screening Social Determinants of health last assessed in clinic: 12/08/24 Will the Patient Participate in the Screening?: Yes Do you worry about having a steady place to live?: no Problems where you live: no known problems In the past 12 months, have you had to go without electric, gas, oil or water in your home?: no 1. Within the past 12 months, we worried whether our food would run out before we got money to buy more.: Never true 2. Within the past 12 months, the food we bought just didn't last and we didn't have money to get more.: Never true Has lack of transportation kept you from medical appointments or from doing things needed for daily living?: no Has anyone in your life made you feel unsafe or unsupported?: no How hard is it for you to pay for the very basics like food, housing, medical ca re, and heating? Would you say it is:: Not hard at all Do you want help finding or keeping work or a job?: I do not need or want help If for any reason you need help with day-to-day activities such as bathing, preparing meals, shopping, managing finances, etc., do you get the help you need?: I get all the help I need How often do you feel lonely or isolated from those around you?: Never Do you speak a language other than Bengali at home?: No Does the patient want assistance with any of the above?: No PFSH All Active Problems Influenza A (Acute) Respiratory failure (Acute) COPD with acute exacerbation (Acute) Diarrhea (Acute) COPD exacerbation (Acute) Nail dystrophy (Acute) Pain due to onychomycosis of nail (Acute) Onychomycosis (Acute) Respiratory failure with hypoxia and hypercapnia (Acute) Personal history of nicotine dependence (Acute) COPD (chronic obstructive pulmonary disease) (Chronic) Right ventricular dysfunction (Acute) Elevated brain natriuretic peptide (BNP) level (Acute) Nasal contusion (Acute) Hx of falling (Acute) Grief reaction (Chronic) Weight loss (Acute) Tobacco dependence (Chronic) HTN (hypertension) (Chronic) Prediabetes (Acute) Medical History Acute exacerbation of chronic obstructive pulmonary disease (COPD) Acute respiratory failure with hypoxia and hypercapnia Acute dyspnea 04/23/[address] [facility]. -hb Spontaneous pneumothorax 10/1992 Surgical History S/P abdominal hysterectomy and right salpingo-oophorectomy H/O: hysterectomy Family History Mother , brain aneurism age 84 No problems noted. Father , 51 Heart disease Hypertension Sister Hypertension Brother No problems noted. Maternal Grandmother Diabetes Brother No problems noted. 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: [employer] Pets and animals: Yes Pets and animals: dog(s) Sexually active: No Do you think of yourself as: straight/heterosexual Current gender identity: female How often do you talk on the phone with friends or family?: decline to answer How often do you get together with friends or relatives?: decline to answer How often do you attend yazidism or roman catholic services?: decline to answer Do you belong to any clubs or organized social groups?: decline to answer Duration: decline to answer Frequency: decline to answer Seatbelt use: always Helmet use: Yes Do you feel safe in your relationship?: Yes Readmission Within the Past 30 Days Yes or No: No
[2024-12-08] MEDS: Acetylcysteine 600 MG CAP PO (09:45)
[2024-12-08] MEDS: Enoxaparin 40 MG/0.4 ML SYR SC (09:45)
[2024-12-08] MEDS: Lisinopril 20 MG TAB 40 MG PO (09:45)
[2024-12-08] MEDS: Loratidine 10 MG TAB PO (09:46)
[2024-12-08] MEDS: amLODIPine 5 MG TAB PO (09:46)
[2024-12-08] MEDS: Ketorolac 15 MG/ML VIAL IVP (09:54)
--- NOTE | 2024-12-08 14:11 | NUR.NOTE ---
Addendum entered by Denice Rendon RN 12/08/24 14:30: Pt's nausea is much better and she is eating pizza with a visitior. Original Note: Nursing Note: Pt still has a slight headache at 2/10, opted for an ice pack instead of taking more medications. Will monitor.
--- NOTE | 2024-12-08 14:40 | NUR.NOTE ---
Nursing Note: Pt still at 4/10 with neck pain, requesting muscle relaxor, provider messaged
--- NOTE | 2024-12-08 14:57 | PGE_ITS ---
Date of Service Date of service: 12/08/24 Time of Service: 14:57 Assessment and Plan Assessment and plan (1) Respiratory failure with hypoxia and hypercapnia: Status: Acute Assessment and plan: d/t copd exacerbation Continue IV steroids with downward step to oral anticipate a slow taper Will continue azithromycin Respiratory inhalers and pulmonary toileting (2) COPD with acute exacerbation: Status: Acute Assessment and plan: Aggressive treatment with IV Solu-Medrol and frequent nebulizer treatments with monitoring. Reports symptoms are improving (3) HTN (hypertension): Status: Chronic Assessment and plan: Continue outpatient medical therapy. discussed with Dr Eugene Subjective Subjective Patient reports: still having pain (headache and neck pain), tolerating liquids well, tolerating a regular diet, shortness of breath and afebrile Exam Narrative Exam Narrative: Frail older appearing than stated age female, cachectic in no acute distress skin is ashen warm and dry head is atraumatic oral mucosa slightly dry no exudate eyes normal appearance EOMs intact nonicteric noninjected neck with no JVD her respirations are even and unlabored she is diminished throughout no coarse breath sounds or wheezing. Cardiovascular regular rate and rhythm no murmurs tachycardic sinus tach rate in the 110s. Abdomen is flat soft. Moves all extremities good no peripheral edema. Skin with no rashes or lesions neurologic awake alert oriented x 4 no focal deficits psychiatric normal mood and affect appropriate Objective Last Vital Signs Temp 36.0 C L 12/08/24 09:22 Pulse 106 H 12/08/24 14:41 Resp 16 12/08/24 09:22 BP 119/87 12/08/24 09:22 Pulse Ox 91 L 12/08/24 14:34 Laboratory Results - last 24 hr 12/07/24 12/07/24 12/07/24 22:04 22:24 22:29 WBC 11.88 H RBC 4.86 Hgb 14.3 Hct 46.8 H MCV 96 H MCH 29.4 MCHC 30.6 L RDW 12.9 Plt Count 209 MPV 9.3 Immature Gran % 0.4 Neutrophils % 61.8 Lymphocytes % 23.9 Monocytes % 10.6 Eosinophils % 2.8 Basophils % 0.5 Nucleated RBC % 0.0 Absolute Neutrophils 7.34 H Absolute Lymphocytes 2.84 Absolute Monocytes 1.26 H Absolute Eosinophils 0.33 Absolute Basophils 0.06 VBG pH 7.32 7.33 VBG pCO2 81 H* 77 H* VBG pO2 41 61 VBG HCO3 41 H 40 H VBG Total CO2 37 H 36 H VBG O2 Saturation 73 91 VBG Base Excess 15 H 14 H Sodium 142 Potassium 3.9 Chloride 103 Carbon Dioxide 41.0 H Anion Gap -2.0 L BUN 21 H Creatinine 1.0 Est GFR (CKD-EPI 2020) 65.30 Glucose 114 H Calcium 10.0 Magnesium 2.2 Total Bilirubin 0.3 AST 15 ALT 21 Alkaline Phosphatase 62 Troponin I 6 Total Protein 6.9 Albumin 3.6 TSH Urine Color Urine Clarity Urine pH Ur Specific [place] Urine Protein Urine Ketones Urine Blood Urine Nitrite Urine Bilirubin Urine Urobilinogen Ur Leukocyte Esterase Urine Glucose COVID-19 Source Nasopharynx SARS-CoV-2 (PCR) Negative Influenza Type A (PCR) Negative Influenza Type B (PCR) Negative RSV (PCR) Negative 12/07/24 12/08/24 12/08/24 23:00 00:50 02:06 WBC 11.21 H RBC 4.60 Hgb 13.7 Hct 43.7 MCV 95 MCH 29.8 MCHC 31.4 L RDW 12.8 Plt Count 198 MPV 9.9 Immature Gran % Neutrophils % Lymphocytes % Monocytes % Eosinophils % Basophils % Nucleated RBC % Absolute Neutrophils Absolute Lymphocytes Absolute Monocytes Absolute Eosinophils Absolute Basophils VBG pH VBG pCO2 VBG pO2 VBG HCO3 VBG Total CO2 VBG O2 Saturation VBG Base Excess Sodium 142 Potassium 4.1 Chloride 102 Carbon Dioxide 38.2 H Anion Gap 1.8 L BUN 18 Creatinine 0.7 Est GFR (CKD-EPI 2020) 100.19 Glucose 122 H Calcium 9.1 Magnesium 2.6 H Total Bilirubin 0.2 AST 23 ALT 27 Alkaline Phosphatase 59 Troponin I 6 6 Total Protein 6.5 Albumin 3.3 L TSH 0.54 Urine Color Yellow Urine Clarity Sl Cloudy Urine pH 6.0 Ur Specific [place] 1.025 Urine Protein Negative Urine Ketones Negative Urine Blood Negative Urine Nitrite Negative Urine Bilirubin Negative Urine Urobilinogen 0.2 Ur Leukocyte Esterase Negative Urine Glucose Negative COVID-19 Source SARS-CoV-2 (PCR) Influenza Type A (PCR) Influenza Type B (PCR) RSV (PCR) Time Spent with Patient Time Spent with Patient: 25-34 minutes Time was spent: preparing to see the patient(eg.review tests), obtaining and/or reviewing separately [facility], ordering medications,tests, procedures, indepentently interpreting results and counseling the patient
[2024-12-08] MEDS: Cyclobenzaprine 10 MG TAB PO (15:13)
[2024-12-08] MEDS: AZITHROMYCIN 500 MG in Normal Saline 250 ML 250 MG IVPB (21:46)
[2024-12-09] VITALS (9 sets, daily range): BP systolic 100–105; BP diastolic 67–73; PULSE 100–124; RESP 2–20; TEMP 37.1–37.2; O2SAT 91–97
[2024-12-09] MEDS: Albuterol/Ipratropium 3 ML UPD VIAL UPD ×2 (04:01→10:52)
[2024-12-09] MEDS: methylPREDNISolone SUCC 125 MG VIAL 80 MG IVP (06:23)
[2024-12-09] MEDS: Normal Saline Flush 10 ML SYR IVP ×2 (06:23→08:56)
[2024-12-09 06:25] LABS: HCT 41.8 % (36.0-46.0); HGB 12.8 g/dL (11.2-15.7); MCH 29.6 pg (27.0-33.0); MCHC 30.6 % (32.0-36.0); MCV 97 fL (80-95); MPV 10.1 fL (8.0-11.0); Platelet Count 209 10^3/uL (130-400); RBC 4.32 10^6/uL (3.93-5.22); RDW 12.6 % (11.7-14.6); RDW-SD 44.7 fL; WBC 17.25 10^3/uL (4.4-10.8)
[2024-12-09 06:42] LABS: ALT 30 U/L (14-59); AST 17 U/L (15-37); Alkaline Phosphatase 49 U/L (46-116); Anion Gap 0.5 mmol/L (3-11); BUN 23 mg/dL (7-18); Bilirubin, Total 0.2 mg/dL (0.2-1.0); CO2 39.5 mmol/L (21.0-32.0); CREATININE 0.7 mg/dL (0.55-1.02); Calcium 9.8 mg/dL (8.5-10.1); Chloride 103 mmol/L (98-107); Estimated GFR 100.19 (mL/min/1.73m2); Glucose 132 mg/dL (74-106); Magnesium 2.2 mg/dL (1.8-2.4); Potassium 4.8 mmol/L (3.5-5.1); Sodium 143 mmol/L (136-145); Total Protein 5.8 g/dL (6.4-8.2)
[2024-12-09] MEDS: Lisinopril 20 MG TAB 40 MG PO (08:49)
[2024-12-09] MEDS: Acetylcysteine 600 MG CAP PO (08:49)
[2024-12-09] MEDS: amLODIPine 5 MG TAB PO (08:49)
[2024-12-09] MEDS: Loratidine 10 MG TAB PO (08:49)
[2024-12-09] MEDS: Enoxaparin 40 MG/0.4 ML SYR SC (08:50)
--- NOTE | 2024-12-09 11:00 | RESPIRATORY ---
RT followed up today with patient and daughter to check on status of starting biologic ordered by Pulmonary clinic. Pt gets medications shipped directly to her house and shipping tracking shows that the new Dupixent medication should arrive today in the next 2 hours. Pt is getting discharged home today in time to get new medication. Pt will follow up with pulmonary clinic - stated she will do this tomorrow.
--- NOTE | 2024-12-09 11:42 | PDOC.CMDIS ---
Date of service: 12/09/24 Time of Service: 11:47 LACE Index Scoring Tool Questions: Length of Stay (in days): 2 Was the patient admitted via the E.D.?: Yes Comorbidities: Chronic Pulmonary Disease E.D. Visits: 10 Answers: Total Score: 11 Risk of Readmission: High Risk Care Management Discharge Plan Reason for Hospitalization: Acute on Chronic hypercapnic and hypoxic respirato Discharge Plan: Marissa will return home with new PT/[facility] today. She will follow up with her community providers, pulmonology (12/10/24 @14:30) and discharge plan of care. Her daughter will drive her home via private vehicle. CM provided Marissa with a work note. Patient/Family Education Needs: Review of discharge instructions, activity, limitations and plan of care as directed. Discuss Ask Me Three. Services Needed at Discharge: Outpatient Therapy (with [facility]) SDOH Health Related Social Needs: Health related social needs details Marissa's insurance company mandates home delivered medications. Marissa has two prescriptions which are inhalers, and she expressed concern about not being able to use her inhalers after they are left outside in the cold weather. [place] mail [place], often being delivered late at night. She has requested that her inhalers are sent to a local pharmacy for her to pecan picker at her convenience, which was denied.
--- NOTE | 2024-12-09 11:42 | CHAPLAIN ---
I had a brief visit with Marissa this morning. She was getting ready to be discharged and looking forward to getting home. Her daughter was with her.
--- NOTE | 2024-12-09 11:53 | W.PM.DS.N ---
Date of service: 12/09/24 Time of Service: 11:53 DS: Diagnosis Discharge Diagnosis (1) Respiratory failure with hypoxia and hypercapnia: Status: Acute (2) COPD with acute exacerbation: Status: Acute (3) HTN (hypertension): Status: Chronic Discharge Plan Disposition Patient Disposition: Home Condition: Stable Discharge Details Reason For Visit: Acute on chronic hypercapnic and hypoxic respirato Admit Date/Time: 12/07/24 23:31 Admit Provider: Kwame Hernández Attending Provider: Kwame Hernández Primary Care Provider: Garth Nessnah Hospital Course Hospital Course: This is a 59-year-old female patient past medical history significant for chronic hypoxic respiratory failure on home oxygen, COPD, hypertension, tobacco use disorder who presented to the emergency department with reports of increased shortness of breath. Her workup in the emergency department most consistent with a COPD exacerbation with no evidence of a pneumonia. She was started on IV steroids and IV azithromycin and admitted under hospitalist services. She responded to treatment. She remained hemodynamically stable afebrile and oxygenating in the low 90s on her home baseline oxygen at 2 L nasal cannula. Her white count did rise to 17 but to be due to IV steroids. She has been eating and drinking and bowels and bladder functioning. She is feeling she is stable for discharge to home. She will be discharged to home on a slow steroid taper and will resume her prophylactic azithromycin 250 mg daily. She will be scheduled with pulmonology for outpatient follow-up. She was provided a work note prescriptions have been provided for steroid taper and azithromycin. She should resume the rest of her medications as previously directed. Will be discharged to home with outpatient physical therapy, [facility] discussed with DR Eugene West Meds and New Rx's Prescriptions: New prednisone 10 mg tablet 10 mg PO DIRECTED Qty: 60 0RF Rx Instructions: see taper instructions-60 mg daily for 3 days then 50 mg daily for 3 days then 40 mg daily for 3 days then 30 mg daily for 3 days then 20 mg daily for 3 days then 10 mg daily for 3 days then 5 mg daily for 3 days then discuss with primary care provider to continue or stop azithromycin 250 mg tablet 250 mg PO DAILY Qty: 30 0RF Continued ipratropium-albuterol 0.5 mg-3 mg(2.5 mg base)/3 mL solution for nebulization 3 ml inhalation QID PRN acetylcysteine [NAC] 600 mg capsule 600 mg PO DAILY albuterol sulfate 90 mcg/actuation HFA aerosol inhaler 2 puff inhalation Q6H PRN (Reason: shortness of breath or wheezing) Qty: 8.5 4RF loratadine [Claritin] 10 mg tablet 10 mg PO DAILY Qty: 90 3RF amlodipine 5 mg tablet 5 mg PO DAILY Qty: 90 3RF lisinopril 40 mg tablet 40 mg PO DAILY Qty: 90 3RF ibuprofen 600 MG tablet 600 mg PO TID PRN (DME) Oxygen Tank See Rx Instructions .Route Qty: 1 0RF Rx Instructions: As directed Discharge Instructions Instructions: Exacerbation of COPD Additional Instructions: Continue steroid taper as directed Resume your prophylactic azithromycin daily Wear oxygen as directed Push fluids to stay well-hydrated drinking at least 6 to 8 glasses of water or more daily You will be referred to [facility] Stand Alone Forms: Nursing Discharge Form Referrals: Norma Gipson PA [[facility]W OPERATOR] - 12/10/24 2:30 pm Maegan Ness NP [Primary Care Provider] - 12/16/24 9:20 am (Follow up - pt also has her annual appointment December 28. ) Aguila Bledsoe, PT [PHYSICAL THERAPIST] - Activity:: Activity as Tolerated Equipment/Supplies:: No Equipment Needed Diet:: As Tolerated Discharge Orders Discharge Orders: Discharge Order (Routine); Ordered 12/09/24 Ordered By: Valerie Ramos Discharge Data Discharge Date/Time-TO BE ENTERED AT DEPARTURE: 12/09/24 13:26 DS: Summary Time Spent with Patient providing and/or coordinating discharge services: Less than 30 minutes Status at Discharge Functional status at discharge: independent ambulation Overall status at discharge: patient is progressing back to baseline Mental Status: mental status grossly normal Speech and Movement: speech and movement normal Mood: congruent mood Affect: normal affect Quality:SDOH Health Related Social Needs: Health related social needs details Marissa's insurance company mandates home delivered medications. Marissa has two prescriptions which are inhalers, and she expressed concern about not being able to use her inhalers after they are left outside in the cold weather. [place] mail [place], often being delivered late at night. She has requested that her inhalers are sent to a local pharmacy for her to pick[employer] at her convenience, which was denied. Exam Narrative Exam Narrative: Frail older appearing than stated age female, cachectic in no acute distress skin is ashen warm and dry head is atraumatic oral mucosa slightly dry no exudate eyes normal appearance EOMs intact nonicteric noninjected neck with no JVD her respirations are even and unlabored she is diminished throughout no coarse breath sounds or wheezing. Cardiovascular regular rate and rhythm no murmurs tachycardic sinus tach rate in the 110s. Abdomen is flat soft. Moves all extremities good no peripheral edema. Skin with no rashes or lesions neurologic awake alert oriented x 4 no focal deficits psychiatric normal mood and affect appropriate Psych Mental Status: mental status grossly normal Speech and Movement: speech and movement normal Mood: congruent mood Affect: normal affect DS: Data Vitals/I&O Vitals and I&O: Vital Signs Temperature 37.2 C 12/09/24 11:46 Temperature Source Temporal Artery Scan 12/09/24 11:46 Pulse 117 H 12/09/24 11:46 Pulse Rhythm Regular 12/08/24 01:00 Pulse 130 H 12/07/24 23:40 Respiratory Rate 20 12/09/24 11:46 Respiratory Effort Short of Breath, Labored 12/08/24 01:00 Respiratory Depth Shallow 12/08/24 01:00 Respiratory Pattern Tachypnea 12/08/24 01:00 Blood Pressure 101/72 12/09/24 11:46 Blood Pressure Mean 81 12/09/24 11:46 Blood Pressure Position Sitting 12/07/24 21:57 Pulse Oximetry 92 12/09/24 11:46 Respiratory End-tidal CO2 6 12/07/24 23:40 Oxygen Delivery Method Nasal Cannula 12/09/24 11:46 Oxygen Flow Rate 1 12/09/24 11:46 End Tidal Co2 60 12/07/24 21:57 Pain Level 0 12/09/24 11:46 Comment RN notified 12/09/24 11:46 Intake & Output 12/08/24 12/08/24 12/09/24 11:59 23:59 11:59 Intake Total 660 / 920 260 / 920 Output Total 1750 / 2875 1125 / 2875 1100 / 1100 Balance -1090 / -1954 -865 / -1954 -1099 / -1100 Weight 40.823 kg 41.5 kg Intake: IV 260 / 520 260 / 520 Oral 400 / 400 Output: Urine 1750 / 2875 1125 / 2875 1100 / 1100 Other: Urine Color Light Myla Pale Yellow Urine Appearance Clear Clear Clear Urine Odor Strong None Normal Comment Patient stands and pivots to bedside commode with stand by assist. Data Completed and Pending Labs on day of discharge: Labs from last 24 hours 12/09/24 05:52 WBC 17.25 H RBC 4.32 Hgb 12.8 Hct 41.8 MCV 97 H MCH 29.6 MCHC 30.6 L RDW 12.6 Plt Count 209 MPV 10.1 Sodium 143 Potassium 4.8 Chloride 103 Carbon Dioxide 39.5 H Anion Gap 0.5 L BUN 23 H Creatinine 0.7 Est GFR (CKD-EPI 2020) 100.19 Glucose 132 H Calcium 9.8 Magnesium 2.2 Total Bilirubin 0.2 AST 17 ALT 30 Alkaline Phosphatase 49 Total Protein 5.8 L Albumin 3.0 L PFSH All Active Problems Influenza A (Acute) Respiratory failure (Acute) COPD with acute exacerbation (Acute) Diarrhea (Acute) COPD exacerbation (Acute) Nail dystrophy (Acute) Pain due to onychomycosis of nail (Acute) Onychomycosis (Acute) Respiratory failure with hypoxia and hypercapnia (Acute) Personal history of nicotine dependence (Acute) COPD (chronic obstructive pulmonary disease) (Chronic) Right ventricular dysfunction (Acute) Elevated brain natriuretic peptide (BNP) level (Acute) Nasal contusion (Acute) Hx of falling (Acute) Grief reaction (Chronic) Weight loss (Acute) Tobacco dependence (Chronic) HTN (hypertension) (Chronic) Prediabetes (Acute) Medical History Acute exacerbation of chronic obstructive pulmonary disease (COPD) Acute respiratory failure with hypoxia and hypercapnia Acute dyspnea 04/23/23 Per [facility]. -hb Spontaneous pneumothorax 10/1992 Surgical History S/P abdominal hysterectomy and right salpingo-oophorectomy H/O: hysterectomy Family History Mother , brain aneurism age 84 No problems noted. Father , 51 Heart disease Hypertension Sister Hypertension Brother No problems noted. Maternal Grandmother Diabetes Brother No problems noted. 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: [employer] Pets and animals: Yes Pets and animals: dog(s) Sexually active: No Do you think of yourself as: straight/heterosexual Current gender identity: female How often do you talk on the phone with friends or family?: decline to answer How often do you get together with friends or relatives?: decline to answer How often do you attend oriental orthodox or roman catholic services?: decline to answer Do you belong to any clubs or organized social groups?: decline to answer Duration: decline to answer Frequency: decline to answer Seatbelt use: always Helmet use: Yes Do you feel safe in your relationship?: Yes Time Spent with Patient Time Spent with Patient: 45-69 minutes Time was spent: preparing to see the patient(eg.review tests), obtaining and/or reviewing separately otained hiistory, ordering medications,tests, procedures, indepentently interpreting results and counseling the patient
== END 2024-12-09 13:26 | disposition home or self-care (01) | DRG 190 ==
LOC: ER 23:44 → MS 12-08 01:00
PROVIDERS: Admitting Provider Family Medicine; Emergency Provider Emergency Medicine; PCP Nurse Practitioner Family; Responsible Provider Nurse Practitioner Acute Care; Visit Provider Family Medicine
DX: J44.1 Chronic obstructive pulmonary disease with (acute) exacerbation (principal); J96.21 Acute and chronic respiratory failure with hypoxia; J96.22 Acute and chronic respiratory failure with hypercapnia; Z68.1 Body mass index [BMI] 19.9 or less, adult; I10 Essential (primary) hypertension; Z99.81 Dependence on supplemental oxygen; Z79.899 Other long term (current) drug therapy; B35.1 Tinea unguium; Z87.891 Personal history of nicotine dependence; R73.03 Prediabetes; R63.4 Abnormal weight loss; M54.2 Cervicalgia; R51.9 Headache, unspecified
CPT/HCPCS: 00123; 36415; 80053; 82805; 85027; 87637; 93005; 94640; 94761; 96365; 96367; 96375; 99291; J1650; 71045; 81003; 83735; 84443; 84484; 85025; 93010; 94760; 99223; 99232; 99239; J0456; J1885; J2405; J2919; J3475; J7620

== ENCOUNTER 2025-01-19 10:51 | Observation (INO) | payer OTHER, SELFPAY ==
[2025-01-19] VITALS (33 sets, daily range): BP systolic 109–138; BP diastolic 77–108; PULSE 100–125; RESP 16–33; TEMP 36.7–37.1; O2SAT 88–99
--- NOTE | 2025-01-19 11:00 | RT.EKG_ITS ---
APPROVED REPORT Exam: Resting ECG Reason for Exam: SOB Patient Location: E HR:125 bpm ECG Measurements Heart Rate 125 AXIS UT 118 P 81 QRSd 87 QRS 95 QT 304 T 73 QTc 439 Conclusion Sinus tachycardia...rate> 99 Multiform ventricular premature complexes...short R-R, variable morphology Nonspecific T abnrm, anterolateral leads...T <-0.10mV, I aVL V2-V6 No Occlusion AK
--- NOTE | 2025-01-19 11:13 | W.ED.GENAD ---
Discharge Plan Disposition Patient Disposition: [facility] Discharge Details Clinical Impression: COPD exacerbation, Respiratory failure Primary Care Provider: Maegan Ness ED Provider: Kiya Butt Home Meds and New Rx's Prescriptions: No Action acetylcysteine [NAC] 600 mg capsule 600 mg PO DAILY loratadine [Claritin] 10 mg tablet 10 mg PO DAILY Qty: 90 3RF amlodipine 5 mg tablet 5 mg PO BID Qty: 180 3RF lisinopril 40 mg tablet 40 mg PO DAILY Qty: 90 3RF albuterol sulfate 90 mcg/actuation HFA aerosol inhaler 2 puff inhalation Q6H PRN (Reason: shortness of breath or wheezing) Qty: 8.5 4RF ipratropium-albuterol 0.5 mg-3 mg(2.5 mg base)/3 mL solution for nebulization 3 ml inhalation QID PRN (Reason: shortness of breath or wheezing) Qty: 180 3RF ibuprofen 600 MG tablet 600 mg PO TID PRN (DME) Oxygen Tank See Rx Instructions .Route Qty: 1 0RF Rx Instructions: As directed cetirizine [24Hour Allergy] 10 mg tablet 10 mg PO DAILY PRN HPI General Date/Time Provider Initiated Documentation: 01/19/25 10:56. HPI Narrative: Marissa is a 59-year-old female who presents to the emergency department for evaluation of SOB and cough for 2 days, accompanied by burning in lungs and throat and increased at home oxygen use. Says she usually just uses her oxygen at night and occasionally as needed, has had to use it continuously had 0.5 to 1 L oxygen for the last couple of days. Reports burning sensation in chest and throat, similar to previous COPD flareups. Cough occasionally productive of yellow sputum. Had an episode this morning of headache, dizziness, and nausea (per pulmonology appointment, so came to ED instead for evaluation (these symptoms have since resolved). Denies fever/chills, congestion, ear pain, nausea/vomiting, abdominal pain, change in bowel or bladder function, leg swelling. No medication taken prior to visit, no nebulizer or inhaler use today. Past medical history significant for HTN, COPD, former tobacco user. Has required intubation due to COPD exacerbation previously Related Data Home Medications ?Medication ?Instructions ?Recorded ?Confirmed ibuprofen 600 mg tablet 600 mg PO TID PRN 12/23/13 01/19/25 acetylcysteine 600 mg capsule (NAC) 600 mg PO DAILY 07/02/23 01/19/25 Oxygen #1 ea 07/18/23 12/28/24 loratadine 10 mg tablet (Claritin) 10 mg PO DAILY #90 tabs 11/23/24 01/19/25 albuterol sulfate 90 mcg/actuation 2 puff inhalation Q6H PRN 12/16/24 01/19/25 aerosol inhaler shortness of breath or wheezing #8.5 grams amlodipine 5 mg tablet 5 mg PO BID #180 tabs 12/16/24 01/19/25 ipratropium 0.5 mg-albuterol 3 mg 3 ml inhalation QID PRN shortness 12/16/24 01/19/25 (2.5 mg base)/3 mL nebulization of breath or wheezing #180 mL soln lisinopril 40 mg tablet 40 mg PO DAILY #90 tabs 12/16/24 01/19/25 cetirizine 10 mg tablet (24Hour 10 mg PO DAILY PRN 01/19/25 01/19/25 Allergy) Previous Rx's ?Medication ?Instructions ?Recorded Oxygen #1 ea 07/18/23 loratadine 10 mg tablet (Claritin) 10 mg PO DAILY #90 tabs 11/23/24 albuterol sulfate 90 mcg/actuation 2 puff inhalation Q6H PRN 12/16/24 aerosol inhaler shortness of breath or wheezing #8.5 grams amlodipine 5 mg tablet 5 mg PO BID #180 tabs 12/16/24 ipratropium 0.5 mg-albuterol 3 mg 3 ml inhalation QID PRN shortness 12/16/24 (2.5 mg base)/3 mL nebulization of breath or wheezing #180 mL soln lisinopril 40 mg tablet 40 mg PO DAILY #90 tabs 12/16/24 Allergies Allergy/AdvReac Type Severity Reaction Status Date / Time codeine AdvReac Nausea Verified 01/19/25 11:06 General Stated Complaint: SOB RODO: 2 Exam Narrative Exam Narrative: General Appearance: Normal. Vital signs: Tachycardia noted. O2 saturation 88% on room air HEENT: Normal oropharynx, moist mucous membranes. No obvious posterior oropharynx cobblestoning. No tonsillar hypertrophy or exudate/erythema. Respiratory: Wheezing, increased work of breathing. Cardiovascular: Tachycardia noted, regular heart sounds. No pedal edema. Gastrointestinal: Abdomen is soft, nondistended, nontender to palpation. Skin: Warm and dry, no rash. Psychiatric: Normal. Course Vital Signs Vital signs: Vital Signs Temperature 36.7 C 01/19/25 11:01 Pulse 123 H 01/19/25 11:01 Respiratory Rate 24 01/19/25 11:01 Blood Pressure 109/77 01/19/25 11:01 Pulse Oximetry 88 L 01/19/25 11:01 Temperature 36.7 C 01/19/25 11:01 Temperature Source Oral 01/19/25 11:01 Pulse 123 H 01/19/25 11:01 Respiratory Rate 24 01/19/25 11:01 Blood Pressure 109/77 01/19/25 11:01 Blood Pressure Position Sitting 01/19/25 11:01 Pulse Oximetry 88 L 01/19/25 11:01 Oxygen Delivery Method Nasal Cannula 01/19/25 11:01 Oxygen Flow Rate 1 01/19/25 11:01 Pain Level 7 01/19/25 11:01 Medical Decision Making Initial Assessment: 59-year-old female with COPD, hypertension, and tobacco use presenting with SOB, cough, and burning sensation in lungs and throat for 2 days. Vital signs significant for tachycardia and hypoxia. Differential Diagnosis includes but is not limited to: COPD exacerbation, pneumonia, CHF, viral illness, GERD ED Course: - Administered nebulizer treatment x 2. - Initiated steroid therapy, Solu-Medrol - Monitored vital signs and clinical status. -Chest x-ray I independently interpreted the following tests: CBC, CMP, BNP, troponins all reassuring. No acidosis on VBG noted, however patient does have hypercarbia with PCO2 71, consistent with previous visits. Chest x-ray reassuring, no acute abnormalities noted. EKG shows sinus tachycardia with rate 125, no changes consistent with acute ischemia. Normal intervals Final Assessment: Administered nebulizer and steroids for COPD exacerbation. Monitored for improvement in symptoms and vital signs. Clinical Impression: - COPD exacerbation Consulted with Dr. Cunningham, hospitalist. Patient to be admitted for COPD exacerbation Disposition: -Admit to [facility] for COPD exacerbation Patient consented to the use of [facility] Imaging Data Radiologic Study: Radiologist's impression: Exam(s) XR CHEST 2V PA LATERAL EXAM: XR CHEST 2V PA LATERAL CLINICAL HISTORY: cough, wheeze, COPD TECHNIQUE: 2D digital imaging was performed. Two views. COMPARISON: CR,XR XR PORTABLE CHEST AP from 12/07/2024 FINDINGS: HEART: Normal size. Aorta: Not dilated. PULMONARY VASCULATURE: Normal. MEDIASTINUM: Unremarkable. LUNGS: Clear. Hyperinflation and severe emphysematous changes. PLEURAL SPACE: No pleural effusion or pneumothorax. BONE:Unremarkable for age. SOFT TISSUES: Unremarkable. IMPRESSION: No acute abnormality. Severe emphysematous changes. Quality:SDOH Health Related Social Needs: Health related social needs details Marissa's insurance company mandates home delivered medications. Marissa has two prescriptions which are inhalers, and she expressed concern about not being able to use her inhalers after they are left outside in the cold weather. [place] mail [place], often being delivered late at night. She has requested that her inhalers are sent to a local pharmacy for her to pickle p[employer] at her convenience, which was denied. [facility] All Active Problems (Updated 01/19/25 @ 15:37 by Kiya Harley) Influenza A (Acute) Respiratory failure (Acute) COPD with acute exacerbation (Acute) Diarrhea (Acute) COPD exacerbation (Acute) Nail dystrophy (Acute) Pain due to onychomycosis of nail (Acute) Onychomycosis (Acute) Respiratory failure with hypoxia and hypercapnia (Acute) Personal history of nicotine dependence (Acute) COPD (chronic obstructive pulmonary disease) (Chronic) Right ventricular dysfunction (Acute) Elevated brain natriuretic peptide (BNP) level (Acute) Nasal contusion (Acute) Hx of falling (Acute) Grief reaction (Chronic) Weight loss (Acute) Tobacco dependence (Chronic) HTN (hypertension) (Chronic) Prediabetes (Acute) Medical History Acute exacerbation of chronic obstructive pulmonary disease (COPD) Acute respiratory failure with hypoxia and hypercapnia Acute dyspnea 04/23/[address] [facility]. -hb Spontaneous pneumothorax 10/1992 Surgical History S/P abdominal hysterectomy and right salpingo-oophorectomy H/O: hysterectomy Family History Mother , brain aneurism age 84 No problems noted. Father , 51 Heart disease Hypertension Sister Hypertension Brother No problems noted. Maternal Grandmother Diabetes Brother No problems noted. 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: [employer] Pets and animals: Yes Pets and animals: dog(s) Sexually active: No Do you think of yourself as: straight/heterosexual Current gender identity: female How often do you talk on the phone with friends or family?: decline to answer How often do you get together with friends or relatives?: decline to answer How often do you attend advent or latter-day services?: decline to answer Do you belong to any clubs or organized social groups?: decline to answer Duration: decline to answer Frequency: decline to answer Seatbelt use: always Helmet use: Yes Do you feel safe in your relationship?: Yes
[2025-01-19 11:41] LABS: BE (Venous) 13 mmol/L (-2-3); HCO3 (Venous) 39 mmol/L (23-28); O2 Sat (Venous) 56 %; TCO2 (Venous) 35 mmol/L (24-29); pO2 (Venous) 27 mmHg
[2025-01-19 11:43] LABS: Abs Immature Grans 0.06 10^3/uL (0.0-0.06); HCT 48.1 % (36.0-46.0); HGB 15.3 g/dL (11.2-15.7); Immature Grans % 0.6 %; MCH 29.7 pg (27.0-33.0); MCHC 31.8 % (32.0-36.0); MCV 93 fL (80-95); MPV 8.9 fL (8.0-11.0); Platelet Count 258 10^3/uL (130-400); RBC 5.16 10^6/uL (3.93-5.22); RDW 12.6 % (11.7-14.6); RDW-SD 43.4 fL; WBC 9.59 10^3/uL (4.4-10.8)
[2025-01-19 11:48] LABS: pCO2 (Venous) 71 mmHg (41-51)
[2025-01-19 12:17] LABS: ALT 19 U/L (14-59); AST 14 U/L (15-37); Albumin 3.6 g/dL (3.4-5.0); Alkaline Phosphatase 70 U/L (46-116); Anion Gap 5.9 mmol/L (3-11); BUN 12 mg/dL (7-18); Bilirubin, Total 0.3 mg/dL (0.2-1.0); CO2 37.1 mmol/L (21.0-32.0); Calcium 10.1 mg/dL (8.5-10.1); Chloride 99 mmol/L (98-107); Estimated GFR 103.98 (mL/min/1.73m2); Glucose 111 mg/dL (74-106); Magnesium 2.2 mg/dL (1.8-2.4); NT-proBNP 28 pg/mL (<300); Potassium 4.3 mmol/L (3.5-5.1); Sodium 142 mmol/L (136-145); Total Protein 7.2 g/dL (6.4-8.2); Troponin I 6 ng/L (<or=51)
[2025-01-19] MEDS: Albuterol/Ipratropium 3 ML UPD VIAL UPD (12:27)
[2025-01-19] MEDS: methylPREDNISolone SUCC 125 MG VIAL IVP (12:27)
--- NOTE | 2025-01-19 13:00 | DI.RAD_ITS ---
Exam(s) XR CHEST 2V PA LATERAL EXAM: XR CHEST 2V PA LATERAL CLINICAL HISTORY: cough, wheeze, COPD TECHNIQUE: 2D digital imaging was performed. Two views. COMPARISON: CR,XR XR PORTABLE CHEST AP from 12/07/2024 FINDINGS: HEART: Normal size. Aorta: Not dilated. PULMONARY VASCULATURE: Normal. MEDIASTINUM: Unremarkable. LUNGS: Clear. Hyperinflation and severe emphysematous changes. PLEURAL SPACE: No pleural effusion or pneumothorax. BONE:Unremarkable for age. SOFT TISSUES: Unremarkable. IMPRESSION: No acute abnormality. Severe emphysematous changes. DATA REPOSITORY: RADIATION DOSE DELIVERED:
[2025-01-19 13:19] LABS: Troponin I 5 ng/L (<or=51)
--- NOTE | 2025-01-19 15:18 | W.PM.HP.N ---
Date of service: 01/19/25 Time of Service: 15:00 Assessment and Plan Assessment and plan (1) Respiratory failure with hypoxia and hypercapnia: Status: Acute Assessment and plan: Increased need for supplemental oxygen over baseline home O2 only at night Purulent sputum with new cough Given solumedrol in the ED Will treat for pseudomonal coverage with levofloxacin 750 daily Start prednisone 40 mg 5 day course (2) COPD with acute exacerbation: Status: Acute Assessment and plan: PRN duonebs Continue home NAC (3) Benign essential hypertension: Status: Acute Assessment and plan: Continue home ACEI, CCB History of Present Illness Narrative: Marissa Portillo is a 59 year old woman presenting January 19 with 2 days of cough with shortness of breath, in the setting of COPD on home O2. She normally only needs her home O2 at night, but has needed 1L nonstop for 2 days. She reports burning in her chest since the cough started, which she reports is the same as her previous ED visits for SOB. Her sputum is thick and yellow; normally it is clear. She has had headache, dizziness and nausea with the cough. She is missing her pulmonology appointment today due to severe illness. No abdominal pain, no dysuria. In the ED she was found to be hypoxemic requiring 2L O2, with elevated serum CO2 consistent with chronic retention. CXR unremarkable. PFSH All Active Problems (Updated 01/19/25 @ 18:43 by Mario Cunningham MD) Benign essential hypertension (Acute) Influenza A (Acute) Respiratory failure (Acute) COPD with acute exacerbation (Acute) Diarrhea (Acute) COPD exacerbation (Acute) Nail dystrophy (Acute) Pain due to onychomycosis of nail (Acute) Onychomycosis (Acute) Respiratory failure with hypoxia and hypercapnia (Acute) Personal history of nicotine dependence (Acute) COPD (chronic obstructive pulmonary disease) (Chronic) Right ventricular dysfunction (Acute) Elevated brain natriuretic peptide (BNP) level (Acute) Nasal contusion (Acute) Hx of falling (Acute) Grief reaction (Chronic) Weight loss (Acute) Tobacco dependence (Chronic) HTN (hypertension) (Chronic) Prediabetes (Acute) Medical History Acute exacerbation of chronic obstructive pulmonary disease (COPD) Acute respiratory failure with hypoxia and hypercapnia Acute dyspnea 04/23/[address] [facility]. -hb Spontaneous pneumothorax 10/1992 Surgical History S/P abdominal hysterectomy and right salpingo-oophorectomy H/O: hysterectomy Family History Mother , brain aneurism age 84 No problems noted. Father , 51 Heart disease Hypertension Sister Hypertension Brother No problems noted. Maternal Grandmother Diabetes Brother No problems noted. 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: [employer] Pets and animals: Yes Pets and animals: dog(s) Sexually active: No Do you think of yourself as: straight/heterosexual Current gender identity: female How often do you talk on the phone with friends or family?: decline to answer How often do you get together with friends or relatives?: decline to answer How often do you attend quaker or denominational services?: decline to answer Do you belong to any clubs or organized social groups?: decline to answer Duration: decline to answer Frequency: decline to answer Seatbelt use: always Helmet use: Yes Do you feel safe in your relationship?: Yes Meds Allergies and Home Medications Allergies Allergy/AdvReac Type Severity Reaction Status Date / Time codeine AdvReac Nausea Verified 01/19/25 11:06 Home Medications ?Medication ?Instructions ?Recorded ?Confirmed ?Type ibuprofen 600 mg tablet 600 mg PO TID PRN 12/23/13 01/19/25 History acetylcysteine 600 mg capsule (NAC) 600 mg PO DAILY 07/02/23 01/19/25 History Oxygen #1 ea 07/18/23 12/28/24 Rx loratadine 10 mg tablet (Claritin) 10 mg PO DAILY #90 tabs 11/23/24 01/19/25 Rx albuterol sulfate 90 mcg/actuation 2 puff inhalation Q6H PRN 12/16/24 01/19/25 Rx aerosol inhaler shortness of breath or wheezing #8.5 grams amlodipine 5 mg tablet 5 mg PO BID #180 tabs 12/16/24 01/19/25 Rx ipratropium 0.5 mg-albuterol 3 mg 3 ml inhalation QID PRN shortness 12/16/24 01/19/25 Rx (2.5 mg base)/3 mL nebulization of breath or wheezing #180 mL soln lisinopril 40 mg tablet 40 mg PO DAILY #90 tabs 12/16/24 01/19/25 Rx cetirizine 10 mg tablet (24Hour 10 mg PO DAILY PRN 01/19/25 01/19/25 History Allergy) Exam Narrative Exam Narrative: This is a thin, pleasant, chronically ill-appearing woman in mild respiratory distress on O2 by mask HEENT: normocephalic, atraumatic CV: tachycardia, no murmur Resp: Bilateral inspiratory and expiratory wheezes, increased work of breathing when off O2 Abdomen: NTND +NBS MSK: voluntary motion x4 Skin: Warm and dry Results Imaging Chest x-ray: report reviewed (emphysema, no acute findings) Labs 01/19/25 11:35 01/19/25 11:35 Labs: Laboratory Results - last 24 hr 01/19/25 01/19/25 01/19/25 11:35 12:42 14:24 WBC 9.59 RBC 5.16 Hgb 15.3 Hct 48.1 H MCV 93 MCH 29.7 MCHC 31.8 L RDW 12.6 Plt Count 258 MPV 8.9 Immature Gran % 0.6 Neutrophils % 72.4 Lymphocytes % 17.4 Monocytes % 8.3 Eosinophils % 0.8 Basophils % 0.5 Nucleated RBC % 0.0 Absolute Neutrophils 6.93 H Absolute Lymphocytes 1.67 Absolute Monocytes 0.80 Absolute Eosinophils 0.08 Absolute Basophils 0.05 VBG pH 7.34 VBG pCO2 71 H* VBG pO2 27 VBG HCO3 39 H VBG Total CO2 35 H VBG O2 Saturation 56 VBG Base Excess 13 H Sodium 142 Potassium 4.3 Chloride 99 Carbon Dioxide 37.1 H Anion Gap 5.9 BUN 12 Creatinine 0.6 Est GFR (CKD-EPI 2020) 103.98 Glucose 111 H Calcium 10.1 Magnesium 2.2 Total Bilirubin 0.3 AST 14 L ALT 19 Alkaline Phosphatase 70 Troponin I 6 5 Cancelled NT-Pro-B Natriuret Pep 28 Total Protein 7.2 Albumin 3.6 Last Vital Signs Temp 36.7 C 01/19/25 11:01 Pulse 123 H 01/19/25 11:01 Resp 24 01/19/25 11:01 BP 109/77 01/19/25 11:01 Pulse Ox 88 L 01/19/25 11:01 Time Spent Time spent with Patient: <40 minutes Time was spent: preparing to see the patient(eg.review tests), obtaining and/or reviewing separately otained hiistory, ordering medications,tests, procedures, referring, communicating with other health manager intensive care, indepentently interpreting results, counseling the patient and care coordination
[2025-01-19] MEDS: amLODIPine 5 MG TAB PO (20:23)
[2025-01-19] MEDS: Normal Saline Flush 10 ML SYR IVP (20:23)
[2025-01-19] MEDS: Lisinopril 20 MG TAB 40 MG PO (20:43)
[2025-01-19] MEDS: Acetaminophen 325 MG TAB 650 MG PO (21:17)
[2025-01-19] MEDS: guaiFENesin/D-METHORPHAN HB 5 ML CUP 10 ML PO (21:47)
[2025-01-20] VITALS (14 sets, daily range): BP systolic 95–111; BP diastolic 65–79; PULSE 88–122; RESP 16–18; TEMP 36.7–37.7; O2SAT 89–97
[2025-01-20] MEDS: guaiFENesin/D-METHORPHAN HB 5 ML CUP 10 ML PO ×2 (05:18→13:52)
[2025-01-20 06:21] LABS: HCT 42.5 % (36.0-46.0); HGB 13.1 g/dL (11.2-15.7); MCH 29.0 pg (27.0-33.0); MCHC 30.8 % (32.0-36.0); MCV 94 fL (80-95); MPV 9.8 fL (8.0-11.0); Platelet Count 253 10^3/uL (130-400); RBC 4.52 10^6/uL (3.93-5.22); RDW 12.7 % (11.7-14.6); RDW-SD 43.6 fL; WBC 12.86 10^3/uL (4.4-10.8)
[2025-01-20 06:44] LABS: ALT 18 U/L (14-59); AST 14 U/L (15-37); Albumin 3.1 g/dL (3.4-5.0); Alkaline Phosphatase 58 U/L (46-116); Anion Gap 3.4 mmol/L (3-11); BUN 17 mg/dL (7-18); Bilirubin, Total 0.2 mg/dL (0.2-1.0); CO2 33.6 mmol/L (21.0-32.0); Calcium 9.7 mg/dL (8.5-10.1); Chloride 104 mmol/L (98-107); Estimated GFR 108.65 (mL/min/1.73m2); Glucose 127 mg/dL (74-106); Magnesium 2.2 mg/dL (1.8-2.4); Potassium 4.4 mmol/L (3.5-5.1); Sodium 141 mmol/L (136-145); Total Protein 6.1 g/dL (6.4-8.2)
--- NOTE | 2025-01-20 08:05 | RESPIRATORY ---
RT spoke with Marissa this morning to gain clarity on her current regimen and pulmonary care. Patient states she has started her biologic of Dupixent with Beth Gipson, but she has not noticed a difference yet. Patient states she is still taking Stiolto Respimat every morning and her rescue inhaler as needed. The last 3-4 days she has needed her rescue inhaler just to be able to get up and go to the bathroom. Patient states that on a 'good day', she will only need to use her rescue inhaler about 1x a day. Marissa expressed that she has been having a hard time at work with her trouble breathing and oxygen use, and is agreeable to working with Care Management to look into the possibility of getting on disability. RT will inform Care Management today.
[2025-01-20] MEDS: guaiFENesin 600 MG TABCR PO (09:20)
[2025-01-20] MEDS: predniSONE 20 MG TAB 40 MG PO (09:21)
[2025-01-20] MEDS: levoFLOXacin 500 MG, levoFLOXacin 250 MG 750 MG PO (09:22)
[2025-01-20] MEDS: Acetylcysteine 600 MG CAP PO (09:23)
[2025-01-20] MEDS: Normal Saline Flush 10 ML SYR IVP ×2 (09:24→12:02)
--- NOTE | 2025-01-20 11:42 | PDOC.CMIN ---
Date of service: 01/20/25 Time of Service: 14:45 Care Management Initial Assmt Initial Assessment Reason for Hospitalization: COPD exacerbation Functional Status/Living Situation Patient Presentation: Marissa was lying in bed, visiting with her daughter Fay, at the time CM arrived. Marissa presented to the ED for evaluation of SOB and cough for 2 days, accompanied by burning in lungs and throat and increased at home oxygen use. Marissa is currently on 0.5 L/min O2 NC, which is reported to be her baseline need. Marissa reports she continues to live in her single family home in [place] [facility]. CM has previously referred her to [facility] but she states, they do not help her. Marissa states, she has submitted the application to obtain disability but has not heard back yet. CM notified her community lawn care technician at her PCP office of Marissa's admission; Marissa reportedly refuses their services. Marissa states, she did not follow PT previous recommendation of PT/[facility]; She states, 'they wouldnt help her'. Marissa reports that she is not impressed with the care that she receives at [facility] or [facility], this has been a pattern for this patient; Patient was referred to the Patient Experience Officer (CM notified Kat Pettit). Marissa requested a work note, which per provider recommendation allow her to return to work Saturday and suggests she sits 15min/hr. CM will continue to follow. Town of Residence: [place] Resides with: Alone Significant Other/Family: Local (Fay - daughter) Natural Supports: Daughter Employment Status: Employed ([employer], trying to obtain fdc disability.) Instrumental Activities of Daily Living (ADLs): Independent Medications Medication Management: No Issues/Barriers identified Advance Directives Advance Directives: Do you have an Advance Directive: N 12/09/24, 08:26 AD On File at [facility]: N 12/09/24, 08:26 Date Asked 01/19/25 Today, 11:48 AD Date Reviewed COLST On File at [facility] COLST Date Scanned Code Status Resuscitation Status Full Code Portal Pt does not currently have a portal and education provided: Yes Insurance Coverage/Financial Issues Insurance: [employer] - [id number] FINANCIAL ASST 100 - [id number] Care Team Visit Care Team Role Provider Type Maegan Ness NP Primary Care Provider NURSE PRACTITIONER Kiya Harley Emergency Provider NURSE PRACTITIONER Mario Cunningham MD Admit Provider MD [facility] STAFF PHYSICIAN Attending Provider Discharge Potential Discharge Needs: PCP F/U Appt Anticipated Barriers to Discharge: Medical Status Patient/Family Education Needs: Review discharge instructions, discuss Ask Me Three Transportation: Private vehicle Plan: Anticipate, Marissa will return home today, and never met with [facility], today. She will follow up with her community providers, pulmonology and discharge plan of care. Her daughter will drive her home via private vehicle. CM will follow and continue to support discharge planning efforts. Social Determinants of Health Screening Social Determinants of health last assessed in clinic: 01/20/25 Will the Patient Participate in the Screening?: Yes Do you worry about having a steady place to live?: no Problems where you live: water leaks In the past 12 months, have you had to go without electric, gas, oil or water in your home?: no 1. Within the past 12 months, we worried whether our food would run out before we got money to buy more.: Never true 2. Within the past 12 months, the food we bought just didn't last and we didn't have money to get more.: Never true Has lack of transportation kept you from medical appointments or from doing things needed for daily living?: no Has anyone in your life made you feel unsafe or unsupported?: no How hard is it for you to pay for the very basics like food, housing, medical care, and heating? Would you say it is:: Somewhat hard Do you want help finding or keeping work or a job?: I do not need or want help If for any reason you need help with day-to-day activities such as bathing, preparing meals, shopping, managing finances, etc., do you get the help you need?: I don?t need any help How often do you feel lonely or isolated from those around you?: Never Do you speak a language other than Stateless at home?: No Does the patient want assistance with any of the above?: No Health Related Social Needs Health related social needs: inadequate housing (Z59.1) and problems related to housing/economic circumstances (Z59.89) Health related social needs details: Patient reports having difficulty getting enough adequate breaks or having enough paid time off due to her illness at work. She does not want any assistance at this time. She reports that finances are tighter after losing her boyfriend of 18 yrs when he 4 yrs ago. She also noted her roof leaks. PFSH All Active Problems (Updated 01/19/25 @ 18:43 by Mario Cunningham MD) Benign essential hypertension (Acute) Influenza A (Acute) Respiratory failure (Acute) COPD with acute exacerbation (Acute) Diarrhea (Acute) COPD exacerbation (Acute) Nail dystrophy (Acute) Pain due to onychomycosis of nail (Acute) Onychomycosis (Acute) Respiratory failure with hypoxia and hypercapnia (Acute) Personal history of nicotine dependence (Acute) COPD (chronic obstructive pulmonary disease) (Chronic) Right ventricular dysfunction (Acute) Elevated brain natriuretic peptide (BNP) level (Acute) Nasal contusion (Acute) Hx of falling (Acute) Grief reaction (Chronic) Weight loss (Acute) Tobacco dependence (Chronic) HTN (hypertension) (Chronic) Prediabetes (Acute) Medical History Acute exacerbation of chronic obstructive pulmonary disease (COPD) Acute respiratory failure with hypoxia and hypercapnia Acute dyspnea 04/23/[address] [facility]. -hb Spontaneous pneumothorax 10/1992 Surgical History S/P abdominal hysterectomy and right salpingo-oophorectomy H/O: hysterectomy Family History Mother , brain aneurism age 84 No problems noted. Father , 51 Heart disease Hypertension Sister Hypertension Brother No problems noted. Maternal Grandmother Diabetes Brother No problems noted. 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: [employer] Pets and animals: Yes Pets and animals: dog(s) Sexually active: No Do you think of yourself as: straight/heterosexual Current gender identity: female How often do you talk on the phone with friends or family?: decline to answer How often do you get together with friends or relatives?: decline to answer How often do you attend jehovah's witness or adventist services?: decline to answer Do you belong to any clubs or organized social groups?: decline to answer Duration: decline to answer Frequency: decline to answer Seatbelt use: always Helmet use: Yes Do you feel safe in your relationship?: Yes Readmission Within the Past 30 Days Yes or No: No
[2025-01-20] MEDS: Albuterol/Ipratropium 3 ML UPD VIAL UPD (13:07)
--- NOTE | 2025-01-20 14:11 | W.PM.DS.N ---
Date of service: 01/20/25 Time of Service: 08:00 DS: Diagnosis Discharge Diagnosis (1) Respiratory failure with hypoxia and hypercapnia: Status: Acute Asessment and Plan: Increased need for supplemental oxygen over baseline home O2 only at night Purulent sputum with new cough Given solumedrol in the ED Will treat for pseudomonal coverage with levofloxacin 750 daily for total 7 days Prednisone 40 mg 5 day course (2) COPD with acute exacerbation: Status: Acute Asessment and Plan: PRN duonebs Continue home NAC (3) Benign essential hypertension: Status: Acute Asessment and Plan: Continue home ACEI, CCB Discharge Plan Disposition Patient Disposition: Home Condition: Improving Discharge Details Reason For Visit: COPD exacerbation Admit Date/Time: 01/19/25 14:48 Admit Provider: Mario Cunningham Attending Provider: Mario Cunningham [facility] Course: Marissa Portillo is a 59 year old woman presenting January 19 with 2 days of cough with shortness of breath, in the setting of COPD on home O2. She was found to be in acute respiratory failure requiring O2 above her home needs. She improved overnight with supplemental oxygen and steroids. At this time she is safe to return home. Home Meds and New Rx's Prescriptions: Continued acetylcysteine [NAC] 600 mg capsule 600 mg PO DAILY amlodipine 5 mg tablet 5 mg PO BID Qty: 180 3RF lisinopril 40 mg tablet 40 mg PO DAILY Qty: 90 3RF albuterol sulfate 90 mcg/actuation HFA aerosol inhaler 2 puff inhalation Q6H PRN (Reason: shortness of breath or wheezing) Qty: 8.5 4RF ipratropium-albuterol 0.5 mg-3 mg(2.5 mg base)/3 mL solution for nebulization 3 ml inhalation QID PRN (Reason: shortness of breath or wheezing) Qty: 180 3RF (DME) Oxygen Tank See Rx Instructions .Route Qty: 1 0RF Rx Instructions: As directed cetirizine [24Hour Allergy] 10 mg tablet 10 mg PO DAILY PRN Discontinued loratadine [Claritin] 10 mg tablet 10 mg PO DAILY Qty: 90 3RF ibuprofen 600 MG tablet 600 mg PO TID PRN Discharge Instructions Referrals: Mike Peter MD [ [facility] STAFF PHYSICIAN, Pulmonology] - 02/01/25 2:00 pm Maegan Ness NP [Primary Care Provider, Medicine] - 02/02/25 1:00 pm Activity:: Activity as Tolerated Equipment/Supplies:: No Equipment Needed Diet:: Normal Diet Discharge Orders Discharge Orders: Discharge Order (Routine); Ordered 01/20/25 Ordered By: Mario Cunningham Discharge Data Discharge Date/Time-TO BE ENTERED AT DEPARTURE: 01/20/25 15:51 DS: Summary Time Spent with Patient providing and/or coordinating discharge services: Less than 30 minutes Status at Discharge Functional status at discharge: independent ambulation Overall status at discharge: patient is progressing back to baseline Mental Status: mental status grossly normal Speech and Movement: speech and movement normal Mood: congruent mood Affect: normal affect Quality:SDOH Health Related Social Needs: Health related social needs inadequate housing house/econ circumstance Health related social needs details Patient reports having difficulty getting enough adequate breaks or having enough paid time off due to her illness at work. She does not want any assistance at this time. She reports that finances are tighter after losing her boyfriend of 18 yrs when he 4 yrs ago. She also noted her roof leaks. Health related social needs details: Patient reports having difficulty getting enough adequate breaks or having enough paid time off due to her illness at work. She does not want any assistance at this time. She reports that finances are tighter after losing her boyfriend of 18 yrs when he 4 yrs ago. She also noted her roof leaks. Exam Narrative Exam Narrative: This is a thin, pleasant, chronically ill-appearing woman in mild respiratory distress on O2 by mask HEENT: normocephalic, atraumatic CV: tachycardia, no murmur Resp: Bilateral inspiratory and expiratory wheezes, increased work of breathing when off O2 Abdomen: NTND +NBS MSK: voluntary motion x4 Skin: Warm and dry Psych Mental Status: mental status grossly normal Speech and Movement: speech and movement normal Mood: congruent mood Affect: normal affect DS: Data Vitals/I&O Vitals and I&O: Vital Signs Temperature 37.3 C 01/20/25 13:07 Temperature Source Tympanic 01/20/25 13:07 Pulse 115 H 01/20/25 13:14 Pulse 118 H 01/19/25 17:40 Respiratory Rate 18 01/20/25 13:07 Respiratory Effort Normal, Non-Labored 01/19/25 18:06 Respiratory Depth Normal 01/19/25 18:06 Respiratory Pattern Normal 01/19/25 18:06 Blood Pressure 99/65 L 01/20/25 09:28 Blood Pressure Mean 76 01/20/25 09:28 Blood Pressure Position Sitting 01/19/25 18:06 Pulse Oximetry 92 01/20/25 13:07 Oxygen Delivery Method Room Air 01/20/25 13:07 Oxygen Flow Rate 0 01/20/25 13:07 Pain Level 7 01/19/25 18:06 Intake & Output 01/19/25 01/20/25 01/20/25 23:59 11:59 23:59 Intake Total 1400 / 1400 Output Total 1150 / 1150 Balance 250 / 250 Weight 39.3 kg 39.5 kg Intake: Oral 1400 / 1400 Output: Urine 1150 / 1150 Other: Urine Color Yellow Yellow Urine Appearance Clear Clear Urine Odor Strong None Comment Unmeasured void, mixed with stool Stool Size Small Stool Characteristics Soft Formed Brown Data Completed and Pending Labs on day of discharge: Labs from last 24 hours 01/20/25 01/19/25 05:24 14:24 WBC 12.86 H RBC 4.52 Hgb 13.1 D Hct 42.5 MCV 94 MCH 29.0 MCHC 30.8 L RDW 12.7 Plt Count 253 MPV 9.8 Sodium 141 Potassium 4.4 Chloride 104 Carbon Dioxide 33.6 H Anion Gap 3.4 BUN 17 Creatinine 0.5 L Est GFR (CKD-EPI 2020) 108.65 Glucose 127 H Calcium 9.7 Magnesium 2.2 Total Bilirubin 0.2 AST 14 L ALT 18 Alkaline Phosphatase 58 Troponin I Cancelled Total Protein 6.1 L Albumin 3.1 L PFSH All Active Problems (Updated 01/21/25 @ 00:04 by CARTER NGUYEN) Benign essential hypertension (Acute) Influenza A (Acute) COPD with acute exacerbation (Acute) Diarrhea (Acute) Nail dystrophy (Acute) Pain due to onychomycosis of nail (Acute) Onychomycosis (Acute) Respiratory failure with hypoxia and hypercapnia (Acute) Personal history of nicotine dependence (Acute) COPD (chronic obstructive pulmonary disease) (Chronic) Right ventricular dysfunction (Acute) Elevated brain natriuretic peptide (BNP) level (Acute) Nasal contusion (Acute) Hx of falling (Acute) Grief reaction (Chronic) Weight loss (Acute) Tobacco dependence (Chronic) HTN (hypertension) (Chronic) Prediabetes (Acute) Medical History Acute exacerbation of chronic obstructive pulmonary disease (COPD) Acute respiratory failure with hypoxia and hypercapnia Acute dyspnea 04/23/[address] [facility]. -hb Spontaneous pneumothorax 10/1992 Surgical History S/P abdominal hysterectomy and right salpingo-oophorectomy H/O: hysterectomy Family History Mother , brain aneurism age 84 No problems noted. Father , 51 Heart disease Hypertension Sister Hypertension Brother No problems noted. Maternal Grandmother Diabetes Brother No problems noted. 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: [employer] job lots Pets and animals: Yes Pets and animals: dog(s) Sexually active: No Do you think of yourself as: straight/heterosexual Current gender identity: female How often do you talk on the phone with friends or family?: decline to answer How often do you get together with friends or relatives?: decline to answer How often do you attend uatsdin or anabaptism services?: decline to answer Do you belong to any clubs or organized social groups?: decline to answer Duration: decline to answer Frequency: decline to answer Seatbelt use: always Helmet use: Yes Do you feel safe in your relationship?: Yes Time Spent with Patient Time Spent with Patient: <45 minutes Time was spent: preparing to see the patient(eg.review tests), obtaining and/or reviewing separately otained hiistory, ordering medications,tests, procedures, referring, communicating with other health child care provider, indepentently interpreting results, counseling the patient and care coordination
--- NOTE | 2025-01-20 14:45 | CMDISCH_ITS ---
Date of service: 01/20/25 Time of Service: 14:45 LACE Index Scoring Tool Questions: Length of Stay (in days): 1 Was the patient admitted via the E.D.?: Yes Comorbidities: Chronic Pulmonary Disease E.D. Visits: 11 Answers: Total Score: 10 Risk of Readmission: High Risk Care Management Discharge Plan Reason for Hospitalization: COPD Exacerbation Discharge Plan: Marissa will return home today. She will follow up with her community providers, pulmonology and discharge plan of care. Her daughter will drive her home via private vehicle. Patient/Family Education Needs: Review of discharge instructions, activity, limitations and plan of care as directed. Discuss Ask Me Three. SDOH Health Related Social Needs: Health related social needs inadequate housing house/e con circumstance Health related social needs details Patient reports mendiola ving difficulty getting enough adequate breaks or having enough paid time off due to her illness at work. She does not want any assistance at this time. She reports that finances are tighter after losing her boyfriend of 18 yrs when he 4 yrs ago. She also noted her roof leaks. Health related social needs details: Patient reports having difficulty getting enough adequate breaks or having enough paid time off due to her illness at work. She does not want any assistance at this time. She reports that finances are tighter after losing her boyfriend of 18 yrs when he 4 yrs ago. She also noted her roof leaks.
[2025-01-20] MEDS: Tiotropium/Olodaterol 10 PUFF INHALER 2 PUFF IH (14:58)
--- NOTE | 2025-01-20 15:03 | CHAPLAIN ---
Marissa was sitting up in bed when I visited. She was pleasant and told me her daughter would be visiting this afternoon. I explained my role and offered support.
== END 2025-01-20 15:51 | disposition home or self-care (01) ==
LOC: ER 15:37 → ICU 01-20 07:24
PROVIDERS: Admitting Provider Family Medicine; Emergency Provider Nurse Practitioner Family; PCP Nurse Practitioner Family; Responsible Provider Family Medicine; Visit Provider Family Medicine
DX: J44.1 Chronic obstructive pulmonary disease with (acute) exacerbation (principal); J96.21 Acute and chronic respiratory failure with hypoxia; J96.22 Acute and chronic respiratory failure with hypercapnia; Z59.89 Other problems related to housing and economic circumstances; I10 Essential (primary) hypertension; Z79.899 Other long term (current) drug therapy; Z99.81 Dependence on supplemental oxygen; Z87.891 Personal history of nicotine dependence; B35.1 Tinea unguium; R63.4 Abnormal weight loss; Z68.1 Body mass index [BMI] 19.9 or less, adult; R73.03 Prediabetes
CPT/HCPCS: 00123; 36415; 80053; 82805; 85027; 93005; 94640; 96374; 99285; 71046; 83735; 83880; 84484; 85025; 93010; 94664; 94760; 99222; 99238; G0378; J2919; J7512; J7620